=== PATIENT | female | born 1945 | race Caucasian/White ===

== ENCOUNTER → 2016-10-11 | Outpatient (CLI) | payer MEDICARE, OTHER ==
[2016-10-11 10:11] LABS: Appearance,Urine Clear (Clear); Bacteria,Urine Many /hpf; Bilirubin,Urine Negative (Negative); Glucose,Urine (UA) Negative (Negative); Ketones,Urine Negative (Negative); Leukocyte Esterase,Urine Small (Negative); Mucus,Urine Rare /hpf; Nitrite,Urine Positive (Negative); Particle Count 20306; Protein,Urine Trace (Negative); RBC,Urine 1 /hpf (0-5); Specific Gravity,Urine 1.009 (1.001-1.035); UA Billing (MACRO vs. MICRO) MICRO; Urobilinogen,Urine <2.0 mg/dL (<2.0); WBC,Urine 2 /hpf (0-5)
[2016-10-11 10:31] LABS: CH 31.2; CHCM 31.6; HCT 33.6 % (34.0-46.0); HDW 2.31; HGB 10.7 gm/dL (11.4-16.0); MCH 31.7 pg (25.0-35.0); MCHC 31.9 g/dL (31.0-37.0); MCV 99.2 fL (80.0-100.0); Mean Platelet Volume 7.5; RBC 3.39 m/uL (3.80-5.40); RDW 13.8 % (11.5-15.5); WBC 7.4 k/uL (3.8-10.6)
[2016-10-11 13:08] LABS: Calcium 9.1 mg/dL (8.4-10.2); Potassium 4.7 mmol/L (3.5-5.1); Uric Acid 6.9 mg/dL (3.7-7.4)
== END | disposition home or self-care (01) ==
LOC: LABWHC1 09:08
PROVIDERS: ATTEND Nurse Practitioner Family
DX: D63.1 Anemia in chronic kidney disease (principal); N18.3 Chronic kidney disease, stage 3 (moderate); N25.81 Secondary hyperparathyroidism of renal origin; N39.0 Urinary tract infection, site not specified
CPT/HCPCS: 36415; 80048; 81001; 82306; 82728; 83540; 83550; 83970; 84550; 85027

== ENCOUNTER → 2016-10-17 | Outpatient (CLI) | payer MEDICARE, OTHER ==
--- NOTE | 2016-10-17 17:43 | XR ---
EXAMINATION TYPE: XR chest 2V DATE OF EXAM: 10/17/2016 2:21 PM COMPARISON: 04/11/2011 HISTORY: 71 year-old female chronic kidney disease, wheezing sounds on physical exam today TECHNIQUE: Frontal and lateral views FINDINGS: Heart appears borderline enlarged. Left anterior chest wall pacemaker generator with right atrial and right ventricular leads. Mild diffuse interstitial prominence. No consolidation or pleural effusion. IMPRESSION: 1. Borderline cardiomegaly. 2. Interstitial prominence could reflect bronchitis or chronic asthma. No pleural effusion.
== END ==
LOC: RADXRMAIN 14:01
PROVIDERS: ATTEND Nurse Practitioner Family
DX: N18.3 Chronic kidney disease, stage 3 (moderate) (principal); I51.7 Cardiomegaly
CPT/HCPCS: 71020

== ENCOUNTER → 2016-11-16 | Outpatient (CLI) | payer MEDICARE, OTHER ==
[2016-11-16 13:07] LABS: Hemoglobin A1C 8.1 % (4.2-6.1)
== END ==
LOC: LABWHC1 08:24
PROVIDERS: ATTEND Internal Medicine
DX: E11.22 Type 2 diabetes mellitus with diabetic chronic kidney disease (principal); N18.4 Chronic kidney disease, stage 4 (severe); E03.9 Hypothyroidism, unspecified
CPT/HCPCS: 36415; 82947; 83036; 84432; 84439; 84443; 86376; 86800

== ENCOUNTER → 2017-01-03 | Outpatient (CLI) | payer MEDICARE, OTHER ==
[2017-01-03 09:46] LABS: CH 31.3; HCT 36.8 % (34.0-46.0); HGB 11.6 gm/dL (11.4-16.0); MCH 30.9 pg (25.0-35.0); MCHC 31.4 g/dL (31.0-37.0); MCV 98.3 fL (80.0-100.0); Mean Platelet Volume 7.5; RBC 3.74 m/uL (3.80-5.40); RDW 13.7 % (11.5-15.5); WBC 7.9 k/uL (3.8-10.6)
[2017-01-03 10:39] LABS: Appearance,Urine Cloudy (Clear); Bacteria,Urine Rare /hpf; Bilirubin,Urine Negative (Negative); Glucose,Urine (UA) Negative (Negative); Ketones,Urine Negative (Negative); Leukocyte Esterase,Urine Small (Negative); Mucus,Urine Rare /hpf; Nitrite,Urine Negative (Negative); Particle Count 57509; Protein,Urine Trace (Negative); RBC,Urine <1 /hpf (0-5); Specific Gravity,Urine 1.007 (1.001-1.035); Squamous Epithelial Cell,Urine <1 /hpf (0-4); UA Billing (MACRO vs. MICRO) MICRO; Urobilinogen,Urine <2.0 mg/dL (<2.0); WBC,Urine 16 /hpf (0-5)
[2017-01-03 11:56] LABS: Calcium 9.5 mg/dL (8.4-10.2); Magnesium 1.7 mg/dL (1.6-2.3); Potassium 4.6 mmol/L (3.5-5.1); Uric Acid 8.8 mg/dL (3.7-7.4)
[2017-01-03 12:12] LABS: % Iron Saturation 29.1 % (20-50)
[2017-01-03 12:33] LABS: Hemoglobin A1C 7.6 % (4.2-6.1)
== END | disposition home or self-care (01) ==
LOC: LABWHC1 09:12
PROVIDERS: ATTEND Nurse Practitioner Family
DX: E11.22 Type 2 diabetes mellitus with diabetic chronic kidney disease (principal); E03.9 Hypothyroidism, unspecified; N18.3 Chronic kidney disease, stage 3 (moderate); D63.1 Anemia in chronic kidney disease; N25.81 Secondary hyperparathyroidism of renal origin; N39.0 Urinary tract infection, site not specified; M10.9 Gout, unspecified; R80.9 Proteinuria, unspecified; E04.2 Nontoxic multinodular goiter
CPT/HCPCS: 36415; 80048; 81001; 82043; 82306; 82728; 83036; 83540; 83550; 83735; 83970; 84439; 84443; 84481; 84550; 85027

== ENCOUNTER → 2017-04-27 | Outpatient (CLI) | payer MEDICARE, OTHER ==
[2017-04-27 10:28] LABS: Calcium 9.7 mg/dL (8.4-10.2); Potassium 5.1 mmol/L (3.5-5.1)
[2017-04-27 14:03] LABS: Hemoglobin A1C 8.8 % (4.2-6.1)
== END | disposition home or self-care (01) ==
LOC: LABWHC1 09:16
PROVIDERS: ATTEND Internal Medicine
DX: E55.9 Vitamin D deficiency, unspecified (principal); E03.9 Hypothyroidism, unspecified; I10 Essential (primary) hypertension; E11.9 Type 2 diabetes mellitus without complications; E66.9 Obesity, unspecified
CPT/HCPCS: 36415; 80048; 82306; 83036; 84439; 84443

== ENCOUNTER → 2017-08-22 | Outpatient (CLI) | payer MEDICARE, OTHER ==
[2017-08-22 10:10] LABS: Basophils % (A) 0 %; Eosinophils # (A) 0.2 k/uL (0-0.7); Eosinophils % (A) 2 %; HCT 33.4 % (34.0-46.0); HGB 10.4 gm/dL (11.4-16.0); Lymphocytes # (A) 1.5 k/uL (1.0-4.8); Lymphocytes % (A) 21 %; MCH 30.9 pg (25.0-35.0); MCHC 31.3 g/dL (31.0-37.0); MCV 98.9 fL (80.0-100.0); Mean Platelet Volume 7.7; Monocytes # (A) 0.4 k/uL (0-1.0); Monocytes % (A) 6 %; Neutrophils # (A) 4.9 k/uL (1.3-7.7); Neutrophils % (A) 69 %; Platelet Count 251 k/uL (150-450); RBC 3.37 m/uL (3.80-5.40); RDW 13.4 % (11.5-15.5); WBC 7.1 k/uL (3.8-10.6)
[2017-08-22 10:14] LABS: Appearance,Urine Clear (Clear); Bilirubin,Urine Negative (Negative); Blood,Urine Negative (Negative); Color,Urine Light Yellow; Glucose,Urine (UA) Negative (Negative); Ketones,Urine Negative (Negative); Leukocyte Esterase,Urine Negative (Negative); Nitrite,Urine Negative (Negative); PH, Urine 5.5 (5.0-8.0); Protein,Urine Trace (Negative); Specific Gravity,Urine 1.006 (1.001-1.035); Urobilinogen,Urine <2.0 mg/dL (<2.0)
[2017-08-22 10:18] LABS: Albumin 3.5 g/dL (3.5-5.0); Calcium 9.8 mg/dL (8.4-10.2); Magnesium 1.6 mg/dL (1.6-2.3); Phosphorus 3.8 mg/dL (2.5-4.5); Potassium 5.7 mmol/L (3.5-5.1); Uric Acid 5.8 mg/dL (3.7-7.4)
[2017-08-22 16:07] LABS: Iron Saturation 21.72 (12.00-45.00)
[2017-08-22 16:17] LABS: Vitamin D 25 Hydroxy 24.4 ng/mL (30.0-100.0)
[2017-08-22 18:41] LABS: Hemoglobin A1C 7.2 % (4.0-6.0)
== END | disposition home or self-care (01) ==
LOC: LABWHC1 09:07
PROVIDERS: ATTEND Internal Medicine Nephrology
DX: E55.9 Vitamin D deficiency, unspecified (principal); D50.9 Iron deficiency anemia, unspecified; N18.4 Chronic kidney disease, stage 4 (severe); E11.22 Type 2 diabetes mellitus with diabetic chronic kidney disease; M10.9 Gout, unspecified; N25.81 Secondary hyperparathyroidism of renal origin; N39.0 Urinary tract infection, site not specified
CPT/HCPCS: 36415; 80048; 81003; 82040; 82306; 82728; 83036; 83540; 83550; 83735; 83970; 84100; 84550; 85025

== ENCOUNTER → 2017-09-26 | Outpatient (CLI) | payer MEDICARE, OTHER ==
[2017-09-26 13:23] LABS: Basophils % (A) 0 %; Eosinophils # (A) 0.2 k/uL (0-0.7); Eosinophils % (A) 2 %; HGB 10.9 gm/dL (11.4-16.0); Lymphocytes # (A) 1.6 k/uL (1.0-4.8); Lymphocytes % (A) 21 %; MCH 30.3 pg (25.0-35.0); MCHC 31.1 g/dL (31.0-37.0); MCV 97.6 fL (80.0-100.0); Mean Platelet Volume 7.8; Monocytes # (A) 0.4 k/uL (0-1.0); Monocytes % (A) 5 %; Neutrophils # (A) 5.2 k/uL (1.3-7.7); Neutrophils % (A) 70 %; Platelet Count 259 k/uL (150-450); RBC 3.59 m/uL (3.80-5.40); RDW 13.6 % (11.5-15.5); WBC 7.5 k/uL (3.8-10.6)
[2017-09-26 13:35] LABS: Calcium 9.4 mg/dL (8.4-10.2); Potassium 5.1 mmol/L (3.5-5.1)
== END | disposition home or self-care (01) ==
LOC: LABWHC1 13:01
PROVIDERS: ATTEND Internal Medicine
DX: E11.9 Type 2 diabetes mellitus without complications (principal); E87.5 Hyperkalemia; K04.7 Periapical abscess without sinus
CPT/HCPCS: 36415; 80048; 85025

== ENCOUNTER → 2018-01-24 | Outpatient (CLI) | payer MEDICARE, OTHER ==
[2018-01-24 14:42] LABS: Albumin 3.3 g/dL (3.5-5.0); Calcium 9.1 mg/dL (8.4-10.2); Potassium 5.8 mmol/L (3.5-5.1); Total Bilirubin 0.2 mg/dL (0.2-1.3); Total Protein 5.8 g/dL (6.3-8.2)
== END | disposition home or self-care (01) ==
LOC: LABWHC1 13:29
PROVIDERS: ATTEND Internal Medicine
DX: I10 Essential (primary) hypertension (principal); N39.0 Urinary tract infection, site not specified; E87.8 Other disorders of electrolyte and fluid balance, not elsewhere classified
CPT/HCPCS: 36415; 80053

== ENCOUNTER → 2018-01-30 | Outpatient (CLI) | payer MEDICARE, OTHER ==
--- NOTE | 2018-01-30 17:44 | US ---
EXAMINATION TYPE: US kidneys/renal and bladder DATE OF EXAM: 01/30/2018 COMPARISON: US CLINICAL HISTORY: N18.4 CKD. EXAM MEASUREMENTS: Right Kidney: 9.6 x 4.0 x 5.1 cm Left Kidney: 11.9 x 4.3 x 4.3 cm Right Kidney: No hydronephrosis or masses seen Left Kidney: No hydronephrosis or masses seen Bladder: wnl Bilateral Jets seen: Yes IMPRESSION: No evidence of renal mass or obstruction. No significant renal atrophy.
== END | disposition home or self-care (01) ==
LOC: RADUSWWP 16:16
PROVIDERS: ATTEND Internal Medicine Nephrology
DX: N18.4 Chronic kidney disease, stage 4 (severe) (principal)
CPT/HCPCS: 76770

== ENCOUNTER → 2018-05-14 | Outpatient (CLI) | payer MEDICARE, OTHER ==
[2018-05-14 11:58] LABS: Basophils % (A) 0 %; Eosinophils # (A) 0.2 k/uL (0-0.7); Eosinophils % (A) 2 %; HCT 34.7 % (34.0-46.0); HGB 10.7 gm/dL (11.4-16.0); Lymphocytes # (A) 1.2 k/uL (1.0-4.8); Lymphocytes % (A) 16 %; MCV 96.9 fL (80.0-100.0); Mean Platelet Volume 7.7; Monocytes # (A) 0.4 k/uL (0-1.0); Monocytes % (A) 5 %; Neutrophils # (A) 5.6 k/uL (1.3-7.7); Neutrophils % (A) 75 %; Platelet Count 241 k/uL (150-450); RBC 3.58 m/uL (3.80-5.40); RDW 14.1 % (11.5-15.5); WBC 7.4 k/uL (3.8-10.6)
[2018-05-14 12:54] LABS: Albumin 3.2 g/dL (3.5-5.0); C Reactive Protein 6.8 mg/L (<10.0); Calcium 9.2 mg/dL (8.4-10.2); Magnesium 1.5 mg/dL (1.6-2.3); Phosphorus 4.6 mg/dL (2.5-4.5); Potassium 5.1 mmol/L (3.5-5.1); Total Bilirubin 0.3 mg/dL (0.2-1.3); Total Protein 6.3 g/dL (6.3-8.2)
[2018-05-14 13:06] LABS: T4, Free (Free Thyroxine) 1.21 ng/dL (0.78-2.19)
[2018-05-14 16:48] LABS: Iron Saturation 28.06 (12.00-45.00)
[2018-05-14 18:20] LABS: Parathyroid Hormone Intact 175.7 pg/mL (14.0-72.0)
[2018-05-14 19:11] LABS: Hemoglobin A1C 8.5 % (4.0-6.0)
== END | disposition home or self-care (01) ==
LOC: LABWHC1 10:28
PROVIDERS: ATTEND Internal Medicine
DX: E11.22 Type 2 diabetes mellitus with diabetic chronic kidney disease (principal); N18.3 Chronic kidney disease, stage 3 (moderate); D63.1 Anemia in chronic kidney disease; E78.5 Hyperlipidemia, unspecified; E21.3 Hyperparathyroidism, unspecified; E03.9 Hypothyroidism, unspecified; E66.9 Obesity, unspecified; E55.9 Vitamin D deficiency, unspecified; M81.0 Age-related osteoporosis without current pathological fracture; M19.90 Unspecified osteoarthritis, unspecified site
CPT/HCPCS: 36415; 80053; 80061; 82306; 82550; 82728; 83036; 83540; 83550; 83735; 83970; 84100; 84439; 84443; 84550; 85025; 86140

== ENCOUNTER → 2018-10-15 | Outpatient (CLI) | payer MEDICARE, OTHER ==
[2018-10-15 10:19] LABS: Basophils % (A) 0 %; Eosinophils # (A) 0.1 k/uL (0-0.7); Eosinophils % (A) 1 %; HCT 33.7 % (34.0-46.0); HGB 10.8 gm/dL (11.4-16.0); Lymphocytes # (A) 0.9 k/uL (1.0-4.8); Lymphocytes % (A) 8 %; MCH 31.3 pg (25.0-35.0); MCHC 32.1 g/dL (31.0-37.0); MCV 97.4 fL (80.0-100.0); Mean Platelet Volume 7.5; Monocytes # (A) 0.6 k/uL (0-1.0); Monocytes % (A) 5 %; Neutrophils # (A) 9.5 k/uL (1.3-7.7); Neutrophils % (A) 85 %; Platelet Count 293 k/uL (150-450); RBC 3.46 m/uL (3.80-5.40); RDW 13.9 % (11.5-15.5); WBC 11.3 k/uL (3.8-10.6)
[2018-10-15 13:09] LABS: Erythrocyte Sedimentation Rate 94 mm/hr (0-20)
[2018-10-15 17:34] LABS: Albumin 3.7 g/dL (3.80-4.90); Albumin/Globulin Ratio 1.54 (1.60-3.17); Anion Gap 8.3 mmol/L (4.00-12.00); C Reactive Protein 1.2 mg/dL (0.0-0.8); Calcium 9.1 mg/dL (8.7-10.3); Carbon Dioxide 27.7 mmol/L (21.6-31.8); Globulin 2.4 g/dL (1.6-3.3); LDL Cholesterol,Calculated 57.4 mg/dL (0.0-131.0); Magnesium 1.8 mg/dL (1.5-2.4); Potassium 5.8 mmol/L (3.5-5.5); Total Bilirubin 0.3 mg/dL (0.3-1.2); Total Protein 6.1 g/dL (6.2-8.2); Uric Acid 6.5 mg/dL (2.9-7.7); VLDL Calculation 17.6 mg/dL (5.00-40.00)
[2018-10-15 19:08] LABS: Hemoglobin A1C 9.8 % (4.0-6.0)
== END | disposition home or self-care (01) ==
LOC: LABWHC1 09:13
PROVIDERS: ATTEND Internal Medicine
DX: E78.5 Hyperlipidemia, unspecified (principal); E03.9 Hypothyroidism, unspecified; I10 Essential (primary) hypertension; E55.9 Vitamin D deficiency, unspecified; E66.9 Obesity, unspecified; D64.9 Anemia, unspecified; J44.9 Chronic obstructive pulmonary disease, unspecified
CPT/HCPCS: 36415; 80053; 80061; 82550; 83036; 83735; 83970; 84100; 84443; 84550; 85025; 85652; 86140

== ENCOUNTER → 2018-10-22 | Outpatient (CLI) | payer MEDICARE, OTHER ==
[2018-10-22 16:25] LABS: Anion Gap 7.5 mmol/L (4.00-12.00); Calcium 9.4 mg/dL (8.7-10.3); Carbon Dioxide 30.5 mmol/L (21.6-31.8); Potassium 4.9 mmol/L (3.5-5.5)
== END | disposition home or self-care (01) ==
LOC: LABWHC1 09:19
PROVIDERS: ATTEND Internal Medicine
DX: E87.5 Hyperkalemia (principal)
CPT/HCPCS: 36415; 80048

== ENCOUNTER → 2018-11-01 | Outpatient (CLI) | payer MEDICARE, OTHER ==
[2018-11-01 09:20] LABS: Basophils % (A) 1 %; Eosinophils # (A) 0.2 k/uL (0-0.7); Eosinophils % (A) 2 %; HCT 35.4 % (34.0-46.0); HGB 11.3 gm/dL (11.4-16.0); Lymphocytes # (A) 1.4 k/uL (1.0-4.8); Lymphocytes % (A) 20 %; MCH 31.2 pg (25.0-35.0); MCV 97.5 fL (80.0-100.0); Mean Platelet Volume 6.7; Monocytes # (A) 0.3 k/uL (0-1.0); Monocytes % (A) 5 %; Neutrophils # (A) 5.2 k/uL (1.3-7.7); Neutrophils % (A) 72 %; Platelet Count 329 k/uL (150-450); RBC 3.63 m/uL (3.80-5.40); WBC 7.2 k/uL (3.8-10.6)
[2018-11-01 09:27] LABS: Appearance,Urine Clear (Clear); Bilirubin,Urine Negative (Negative); Blood,Urine Negative (Negative); Color,Urine Light Yellow; Glucose,Urine (UA) Negative (Negative); Ketones,Urine Negative (Negative); Leukocyte Esterase,Urine Negative (Negative); Nitrite,Urine Negative (Negative); PH, Urine 5.5 (5.0-8.0); Protein,Urine Negative (Negative); Specific Gravity,Urine 1.007 (1.001-1.035); Urobilinogen,Urine <2.0 mg/dL (<2.0)
[2018-11-01 16:37] LABS: Iron Saturation 27.07 (12.00-45.00)
[2018-11-01 16:46] LABS: Vitamin D 25 Hydroxy 54.5 ng/mL (30.0-100.0)
[2018-11-01 16:59] LABS: Anion Gap 3.6 mmol/L (4.00-12.00); Calcium 9.3 mg/dL (8.7-10.3); Carbon Dioxide 26.4 mmol/L (21.6-31.8); Magnesium 1.6 mg/dL (1.5-2.4); Uric Acid 6.3 mg/dL (2.9-7.7)
== END | disposition home or self-care (01) ==
LOC: LABWHC1 08:28
PROVIDERS: ATTEND Internal Medicine Nephrology
DX: E55.9 Vitamin D deficiency, unspecified (principal); N39.0 Urinary tract infection, site not specified; N18.4 Chronic kidney disease, stage 4 (severe); D63.1 Anemia in chronic kidney disease; N25.81 Secondary hyperparathyroidism of renal origin; M10.9 Gout, unspecified
CPT/HCPCS: 36415; 80048; 81003; 82306; 82728; 83540; 83550; 83735; 83970; 84100; 84550; 85025

== ENCOUNTER → 2018-12-31 | Outpatient (CLI) | payer MEDICARE, OTHER ==
[2018-12-31 18:47] LABS: Calcium 9.2 mg/dL (8.7-10.3); Potassium 5.2 mmol/L (3.5-5.5)
== END | disposition home or self-care (01) ==
LOC: LABWHC1 09:57
PROVIDERS: ATTEND Internal Medicine
DX: E87.5 Hyperkalemia (principal)
CPT/HCPCS: 36415; 80048

== ENCOUNTER → 2019-04-02 | Outpatient (CLI) | payer MEDICARE, OTHER ==
[2019-04-02 16:36] LABS: African American GFR (CKD) 25.1 (60.0-200.0); Anion Gap 8.4 mmol/L (4.00-12.00); BUN/Creat Ratio 21.82 Ratio (12.00-20.00); Carbon Dioxide 24.6 mmol/L (21.6-31.8); Magnesium 1.6 mg/dL (1.5-2.4); Non-African American GFR(CKD) 21.7 (60.0-200.0); Phosphorus 3.9 mg/dL (2.4-5.1); Potassium 4.9 mmol/L (3.5-5.5); Uric Acid 6.9 mg/dL (2.9-7.7)
[2019-04-02 17:29] LABS: Hemoglobin A1C 10.9 % (4.0-6.0)
== END | disposition home or self-care (01) ==
LOC: LABWHC1 09:21
PROVIDERS: ATTEND Internal Medicine
DX: E11.65 Type 2 diabetes mellitus with hyperglycemia (principal); N18.4 Chronic kidney disease, stage 4 (severe); E11.9 Type 2 diabetes mellitus without complications
CPT/HCPCS: 36415; 80048; 83036; 83735; 83970; 84100; 84550

== ENCOUNTER → 2019-07-15 | Outpatient (CLI) | payer MEDICARE, OTHER ==
[2019-07-15 16:16] LABS: Chol/HDL Ratio 2.17; LDL Cholesterol,Calculated 48.8 mg/dL (0.0-131.0); VLDL Calculation 13.2 mg/dL (5.00-40.00)
[2019-07-15 18:50] LABS: Hemoglobin A1C 11.1 % (4.0-6.0)
== END | disposition home or self-care (01) ==
LOC: LABWHC1 09:26
PROVIDERS: ATTEND Internal Medicine Endocrinology, Diabetes & Metabolism
DX: E03.8 Other specified hypothyroidism (principal); E11.65 Type 2 diabetes mellitus with hyperglycemia
CPT/HCPCS: 36415; 80061; 83036; 84443

== ENCOUNTER → 2019-09-02 | Outpatient (CLI) | payer MEDICARE, OTHER ==
[2019-09-02 10:56] LABS: Basophils # (A) 0.2 k/uL (0-0.2); Basophils % (A) 2 %; Eosinophils # (A) 0.1 k/uL (0-0.7); Eosinophils % (A) 1 %; HCT 38.2 % (34.0-46.0); HGB 12.3 gm/dL (11.4-16.0); Lymphocytes # (A) 1.6 k/uL (1.0-4.8); Lymphocytes % (A) 20 %; MCH 31.5 pg (25.0-35.0); MCHC 32.1 g/dL (31.0-37.0); MCV 98.1 fL (80.0-100.0); Mean Platelet Volume 8.1; Monocytes # (A) 0.4 k/uL (0-1.0); Monocytes % (A) 5 %; Neutrophils # (A) 5.8 k/uL (1.3-7.7); Neutrophils % (A) 71 %; Platelet Count 346 k/uL (150-450); RBC 3.89 m/uL (3.80-5.40); RDW 13.2 % (11.5-15.5); WBC 8.2 k/uL (3.8-10.6)
[2019-09-02 11:38] LABS: Appearance,Urine Cloudy (Clear); Bacteria,Urine Occasional /hpf; Bilirubin,Urine Negative (Negative); Blood,Urine Negative (Negative); Budding Yeast,Urine Few /hpf; Color,Urine Yellow; Glucose,Urine (UA) Negative (Negative); Hyaline Casts,Urine 4 /lpf (0-2); Ketones,Urine Negative (Negative); Leukocyte Esterase,Urine Large (Negative); Mucus,Urine Rare /hpf; Nitrite,Urine Positive (Negative); PH, Urine 5.5 (5.0-8.0); Protein,Urine Trace (Negative); RBC,Urine 2 /hpf (0-5); Specific Gravity,Urine 1.012 (1.001-1.035); Squamous Epithelial Cell,Urine 7 /hpf (0-4); Urobilinogen,Urine <2.0 mg/dL (<2.0); WBC,Urine 129 /hpf (0-5)
[2019-09-02 14:34] LABS: Erythrocyte Sedimentation Rate 90 mm/hr (0-20)
[2019-09-02 16:22] LABS: Urine Creatinine 98.5 mg/dL
[2019-09-02 16:26] LABS: Hemoglobin A1C 10.4 % (4.0-6.0)
[2019-09-02 16:52] LABS: Albumin 3.5 g/dL (3.80-4.90); Albumin/Globulin Ratio 1.52 (1.60-3.17); BUN/Creat Ratio 19.55 Ratio (12.00-20.00); C Reactive Protein 1.5 mg/dL (0.0-0.8); Calcium 9.1 mg/dL (8.7-10.3); Chol/HDL Ratio 2.07; Globulin 2.3 g/dL (1.6-3.3); Magnesium 1.6 mg/dL (1.5-2.4); Non-African American GFR(CKD) 21.5 (60.0-200.0); Phosphorus 4.1 mg/dL (2.4-5.1); Potassium 5.2 mmol/L (3.5-5.5); Total Bilirubin 0.2 mg/dL (0.3-1.2); Total Protein 5.8 g/dL (6.2-8.2)
[2019-09-02 17:05] LABS: Creatinine,Urine Random 99.4 mg/dL
[2019-09-02 18:05] LABS: Total Protein,Urine Random 30.9 mg/dL (0.0-13.5)
== END | disposition home or self-care (01) ==
LOC: LABWHC1 09:23
PROVIDERS: ATTEND Internal Medicine
DX: Z00.00 Encounter for general adult medical examination without abnormal findings (principal); D64.9 Anemia, unspecified; E11.22 Type 2 diabetes mellitus with diabetic chronic kidney disease; N18.4 Chronic kidney disease, stage 4 (severe); E21.3 Hyperparathyroidism, unspecified; N39.0 Urinary tract infection, site not specified; E11.40 Type 2 diabetes mellitus with diabetic neuropathy, unspecified
CPT/HCPCS: 36415; 80053; 80061; 81001; 82043; 82550; 82570; 83036; 83735; 83970; 84100; 84156; 84443; 85025; 85652; 86140

== ENCOUNTER 2019-12-13 14:42 | Emergency (ER) | payer MEDICARE, OTHER ==
[2019-12-13 14:54] VITALS: RESP 18; TEMP 98
[2019-12-13] MEDS ORDERED: LIDOCAINE 1% INJ 10MG/ML (20 ML MDV) SQ ONE (15:26)
[2019-12-13] MEDS ORDERED: DIPH,PERTUS(ACELL)TETVAC-LF 0.5 ML VIAL IM ONE (15:30)
--- NOTE | 2019-12-13 15:43 | XR ---
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 Small to moderate-sized plantar calcaneal spur. Vascular calcifications are present. No convinc ing retained radiopaque foreign body material seen especially along the plantar arch of the foot. IMPRESSION: 1. No convincing retained radiopaque foreign body identified along the plantar aspect of the foot. 2. A type II accessory navicular which can become symptomatically in some patients. Plantar calcaneal spur.
--- NOTE | 2019-12-13 16:34 | ED ---
Wound/Laceration HPI - General Chief Complaint: Wound/Laceration Stated Complaint: RT foot lac Time Seen by Provider: 12/13/19 14:59 Source: patient Mode of arrival: ambulatory Limitations: no limitations - History of Present Illness Initial Comments: Patient is a 74-year-old female presenting to the emergency Department with complaints of a laceration on the bottom of her right foot. Patient states she accidentally dropped a glass and it broke and she stepped on it. Patient does not remember her last tetanus vaccine. She denies being on a blood thinner. She states she did pull a rather large piece of glass her foot and does not think there is any more pieces and there. She is no other complaints at this time. - Related Data Home Medications Medication Instructions Recorded Confirmed Allopurinol [Zyloprim] 100 mg PO BID 03/23/14 12/17/15 Aspirin 81 mg PO DAILY 03/23/14 12/15/15 Carvedilol 25 mg PO BID 03/23/14 12/17/15 Gabapentin [Neurontin] 300 mg PO BID 03/23/14 12/17/15 INSULIN ASPART (NovoLOG) [NovoLOG] 5 unit SQ W/SUPPER PRN 03/23/14 12/17/15 Insulin Detemir (Levemir) [Levemir] 20 unit SQ HS 03/23/14 12/17/15 NIFEdipine [Adalat cc] 90 mg PO QAM 03/23/14 12/17/15 Oxybutynin Chloride [Ditropan] 5 mg PO BID 03/23/14 12/17/15 hydrALAZINE HCL 25 mg PO TID 03/23/14 12/17/15 Atorvastatin [Lipitor] 20 mg PO HS 05/10/15 12/17/15 Calcitriol 0.25 mcg PO Q2D 12/15/15 12/17/15 Furosemide [Lasix] 40 mg PO DAILY 12/15/15 12/17/15 HYDROcodone/APAP 5-325MG [[place] 0.5 tab PO DAILY PRN 12/15/15 12/17/15 5-325] Ranitidine HCl [Zantac] 150 mg PO BID 12/15/15 12/17/15 Allergies Allergy/AdvReac Type Severity Reaction Status Date / Time No Known Allergies Allergy Verified 12/13/19 14:54 Review of Systems ROS Statement: Those systems with pertinent positive or pertinent negative responses have been documented in the HPI. ROS Other: All systems not noted in ROS Statement are negative. Past Medical History Past Medical History: Diabetes Mellitus, GERD/Reflux, Hypertension, Renal Disease Additional Past Medical History / Comment(s): Anemia. History of Any Multi-Drug Resistant Organisms: None Reported Past Surgical History: Bladder Surgery, Section, Heart Catheterization, Hernia Repair, Orthopedic Surgery, Pacemaker Additional Past Surgical History / Comment(s): Large hernia repair after a section Past Anesthesia/Blood Transfusion Reactions: No Reported Reaction Type of Cardiac Device: Permanent Pacemaker Device Placement Date:: February 2005 Smoking Status: Never smoker Past Alcohol Use History: None Reported Past Drug Use History: None Reported - Past Family History Mother Family Medical History: Cancer, Myocardial Infarction ([place]) Additional Family Medical History / Comment(s): breast Father History Unknown: Yes Sister(s) Family Medical History: Cancer Additional Family Medical History / Comment(s): breast General Exam - General Exam Comments Initial Comments: GENERAL: Well-appearing, well-nourished and in no acute distress. HEAD: Atraumatic, normocephalic. EYES: Pupils equal round and reactive to light, extraocular movements intact, sclera anicteric, conjunctiva are normal. ENT: Moist mucous membranes. NECK: Normal range of motion, supple without lymphadenopathy or JVD. LUNGS: Breath sounds clear to auscultation bilaterally and equal. No wheezes rales or rhonchi. HEART: Regular rate and rhythm without murmurs, rubs or gallops. ABDOMEN: Soft, nontender, normoactive bowel sounds. No guarding, no rebound. No masses appreciated. : Deferred EXTREMITIES: Normal range of motion, no pitting or edema. No clubbing or cyanosis. NEUROLOGICAL: Normal speech, normal gait. PSYCH: Normal mood, normal affect. SKIN: Warm, Dry, normal turgor, no rashes. Patient has a 2 cm laceration to the bottom of her right foot. Bleeding is controlled at this time. Limitations: no limitations Course Vital Signs 12/13/19 12/13/19 14:50 16:37 Temperature 98 F Pulse Rate 69 81 Respiratory 18 18 Rate Blood Pressure 113/72 136/74 O2 Sat by Pulse 97 99 Oximetry Procedures - Laceration Laceration #1 Consent Obtained: verbal consent Indication: laceration Site: foot (Bottom of right foot) Size (cm): 2 Description: linear Depth: simple, single layer Anesthetic Used: lidocaine 1% Anesthesia Technique: local infiltration Amount (mls): 3 Pre-repair: irrigated extensively Type of Sutures: nylon Size of Sutures: 4-0 Number of Sutures: 2 Technique: simple, interrupted Patient Tolerated Procedure: well Medical Decision Making - Medical Decision Making Patient is a 74-year-old female presenting with a 2 cm laceration to the bottom of her right foot. Her tetanus vaccine was updated today. She is not on blood thinners. Patient's wound was cleaned and closed with 2, 4-0 sutures. Patient tolerated procedure well. She is stable for discharge. She will have sutures removed in 7-10 days. Patient is a this plan of care. Return parameters were discussed the patient she verbalized understanding. Disposition Clinical Impression: Laceration of right foot Disposition: HOME SELF-CARE Condition: Stable Instructions (If sedation given, give patient instructions): Care For Your Stitches (ED) Additional Instructions: Please return to the Emergency Department if symptoms worsen or any other concerns. Keep wound clean and dry. Keep covered while on feet. Stitches need to be removed in 7-10 days. Is patient prescribed a controlled substance at d/c from ED?: No Referrals: Kwan Gordon MD [Primary Care Provider] - 1-2 days
[2019-12-13 16:39] VITALS: BP 136/74; PULSE 81
== END 2019-12-13 16:37 | disposition home or self-care (01) ==
LOC: EC 14:42
DX: S91.311A Laceration without foreign body, right foot, initial encounter (principal); Z23 Encounter for immunization; E11.9 Type 2 diabetes mellitus without complications; I10 Essential (primary) hypertension; K21.9 Gastro-esophageal reflux disease without esophagitis; Z79.82 Long term (current) use of aspirin; Z79.02 Long term (current) use of antithrombotics/antiplatelets; Z79.4 Long term (current) use of insulin; Z79.899 Other long term (current) drug therapy; Z95.0 Presence of cardiac pacemaker; W25.XXXA Contact with sharp glass, initial encounter
CPT/HCPCS: 73620; 90715; 99283; 12001; 90471; J2001

== ENCOUNTER 2020-02-17 14:53 | Emergency (ER) | payer MEDICARE, OTHER ==
[2020-02-17 15:09] VITALS: RESP 18
[2020-02-17] MEDS ORDERED: Acetaminophen-Codeine 300-30mg TAB PO STA (15:27)
--- NOTE | 2020-02-17 15:30 | ED ---
General Adult HPI - General Chief complaint: Extremity Injury, Lower Stated complaint: knee pain Time Seen by Provider: 02/17/20 15:10 Source: patient, RN notes reviewed Mode of arrival: ambulatory Limitations: no limitations - History of Present Illness Initial comments: 74-year-old female with a past medical history of diabetes mellitus, anemia, hypertension, GERD presents to the emergency department for a chief complaint of left knee pain. Patient states she was getting up off the toilet approximately 8 hours ago when her foot slipped out from under her and she felt the pain in her left knee. States she has been able to walk on it but it is painful. Denies dislocating her knee. Denies falling onto a bent knee. Denies hitting her head or falling to the ground.Patient has no other complaints at this time including shortness of breath, chest pain, abdominal pain, nausea or vomiting, headache, or visual changes. - Related Data Home Medications Medication Instructions Recorded Confirmed Allopurinol [Zyloprim] 100 mg PO BID 03/23/14 12/17/15 Aspirin 81 mg PO DAILY 03/23/14 12/15/15 Carvedilol 25 mg PO BID 03/23/14 12/17/15 Gabapentin [Neurontin] 300 mg PO BID 03/23/14 12/17/15 INSULIN ASPART (NovoLOG) [NovoLOG] 5 unit SQ W/SUPPER PRN 03/23/14 12/17/15 Insulin Detemir (Levemir) [Levemir] 20 unit SQ HS 03/23/14 12/17/15 NIFEdipine [Adalat cc] 90 mg PO QAM 03/23/14 12/17/15 Oxybutynin Chloride [Ditropan] 5 mg PO BID 03/23/14 12/17/15 hydrALAZINE HCL 25 mg PO TID 03/23/14 12/17/15 Atorvastatin [Lipitor] 20 mg PO HS 05/10/15 12/17/15 Calcitriol 0.25 mcg PO Q2D 12/15/15 12/17/15 Furosemide [Lasix] 40 mg PO DAILY 12/15/15 12/17/15 HYDROcodone/APAP 5-325MG [[place] 0.5 tab PO DAILY PRN 12/15/15 12/17/15 5-325] Ranitidine HCl [Zantac] 150 mg PO BID 12/15/15 12/17/15 Allergies Allergy/AdvReac Type Severity Reaction Status Date / Time No Known Allergies Allergy Verified 02/17/20 15:09 Review of Systems ROS Statement: Those systems with pertinent positive or pertinent negative responses have been documented in the HPI. ROS Other: All systems not noted in ROS Statement are negative. Past Medical History Past Medical History: Diabetes Mellitus, GERD/Reflux, Hypertension, Renal Disease Additional Past Medical History / Comment(s): Anemia. History of Any Multi-Drug Resistant Organisms: None Reported Past Surgical History: Bladder Surgery, Section, Heart Catheterization, Hernia Repair, Orthopedic Surgery, Pacemaker Additional Past Surgical History / Comment(s): Large hernia repair after a section Past Anesthesia/Blood Transfusion Reactions: No Reported Reaction Type of Cardiac Device: Permanent Pacemaker Device Placement Date:: February 2005 Smoking Status: Never smoker Past Alcohol Use History: None Reported Past Drug Use History: None Reported - Past Family History Mother Family Medical History: Cancer, Myocardial Infarction ([place]) Additional Family Medical History / Comment(s): breast Father History Unknown: Yes Sister(s) Family Medical History: Cancer Additional Family Medical History / Comment(s): breast General Exam Limitations: no limitations General appearance: alert, in no apparent distress Head exam: Present: atraumatic, normocephalic, normal inspection Eye exam: Present: normal appearance, PERRL, EOMI. Absent: scleral icterus, conjunctival injection, periorbital swelling ENT exam: Present: normal exam, mucous membranes moist Neck exam: Present: normal inspection. Absent: tenderness, meningismus, lymphadenopathy Respiratory exam: Present: normal lung sounds bilaterally. Absent: respiratory distress, wheezes, rales, rhonchi, stridor Cardiovascular Exam: Present: regular rate, normal rhythm, normal heart sounds. Absent: systolic murmur, diastolic murmur, rubs, gallop, clicks Extremities exam: Present: tenderness (Generalized tenderness of the left knee.), normal capillary refill (Capillary refill less than 2 seconds in the left lower extremity, DP signals on Doppler.), other (Sensation intact in the left lower extremity.). Absent: full ROM (Patient has about 30 flexion of the left knee, full extension.), pedal edema, joint swelling (No significant edema of the left knee.), calf tenderness (no calf tenderness negative Homans sign) Course Vital Signs 02/17/20 15:07 Temperature 98.1 F Pulse Rate 71 Respiratory 18 Rate Blood Pressure 145/88 O2 Sat by Pulse 98 Oximetry Medical Decision Making - Medical Decision Making Vitals are stable. Neurovascular status intact in left lower extremity. Patient has been ambulatory on this throughout the day. X-ray of the left knee shows no acute fracture or dislocation. Patient is not on any anticoagulation so was not placed in a knee immobilizer but was wrapped with an Gato wrap. Will follow up with orthopedics by calling for an appointment tomorrow. He will return here for any worsening symptoms. Patient states she does not have an orthopedic physician at this time so will be given on-call. Patient requesting Tylenol 3 for pain. Disposition Clinical Impression: Knee pain, left Disposition: HOME SELF-CARE Condition: Good Instructions (If sedation given, give patient instructions): Knee Pain (ED) Additional Instructions: Please take Motrin for pain. If pain is severe take Tylenol 3. However make sure to be aware of increased risk of falls while taking this. Return to the emergency room for any worsening symptoms. Is patient prescribed a controlled substance at d/c from ED?: No Referrals: Kwan Gordon MD [Primary Care Provider] - 1-2 days Mick Mack MD [STAFF PHYSICIAN] - 1-2 days Time of Disposition: 16:20
--- NOTE | 2020-02-17 15:49 | XR ---
EXAMINATION TYPE: XR knee complete LT DATE OF EXAM: 02/17/2020 CLINICAL HISTORY: pain TECHNIQUE: Three views of the left knee are obtained. COMPARISON: None. FINDINGS: There is no acute fracture/dislocation. The tri-compartment joint spaces appear mildly na rrowed. The overlying soft tissue appears unremarkable. IMPRESSION: There is no acute fracture or dislocation ICD 10 NO FRACTURE, INITIAL EVALUATION
[2020-02-17] MEDS ORDERED: ACET/COD 300 MG/30 MG STARTER PACK 6 TAB BTL PO STA (16:20)
[2020-02-17 16:50] VITALS: BP 155/79; PULSE 68; TEMP 97.9
== END 2020-02-17 16:45 | disposition home or self-care (01) ==
LOC: EC 14:53
DX: M25.562 Pain in left knee (principal); E11.9 Type 2 diabetes mellitus without complications; K21.9 Gastro-esophageal reflux disease without esophagitis; I10 Essential (primary) hypertension; Z79.4 Long term (current) use of insulin; Z79.899 Other long term (current) drug therapy; Z95.5 Presence of coronary angioplasty implant and graft; Z95.0 Presence of cardiac pacemaker
CPT/HCPCS: 99283

== ENCOUNTER 2020-03-30 06:56 | Day surgery (SDC) | payer MEDICARE, OTHER ==
[2020-03-24 10:45] VITALS: BMI 37.1
[~2020-03-30 06:56] MED LIST: HYDROmorphone 0.5 MG/0.5 ML SYRINGE IVP PRN; LACTATED RINGERS 1,000 ML IV SCH; LIDOCAINE 1% (10MG/ML) FOR IV START INTRADERMA PRN; SODIUM CHLORIDE 0.9% 1,000 ML IV SCH; ceFAZolin 1,000 MG in SODIUM CHLORIDE 0.9% IRRIGATIO 250 ML IRRIGATION ONE
[2020-03-30] MEDS ORDERED: INSULIN ASPART (NovoLOG) 100 UNIT/ML VIAL SQ ONE (07:31)
[2020-03-30 07:36] LABS: Glucose,Whole Blood 282 mg/dL (75-99)
[2020-03-30 07:41] LABS: Basophils % (A) 0 %; Eosinophils # (A) 0.1 k/uL (0-0.7); Eosinophils % (A) 1 %; HCT 34.4 % (34.0-46.0); HGB 10.9 gm/dL (11.4-16.0); Hypochromasia Slight; Lymphocytes # (A) 1.2 k/uL (1.0-4.8); Lymphocytes % (A) 13 %; MCH 31.5 pg (25.0-35.0); MCHC 31.6 g/dL (31.0-37.0); MCV 99.7 fL (80.0-100.0); Macrocytosis Slight; Mean Platelet Volume 7.6; Monocytes # (A) 0.4 k/uL (0-1.0); Monocytes % (A) 4 %; Neutrophils # (A) 7.3 k/uL (1.3-7.7); Neutrophils % (A) 80 %; Platelet Count 353 k/uL (150-450); RBC 3.45 m/uL (3.80-5.40); RDW 14.1 % (11.5-15.5); WBC 9.1 k/uL (3.8-10.6)
[2020-03-30 07:52] LABS: Calcium 9.1 mg/dL (8.4-10.2); Potassium 4.7 mmol/L (3.5-5.1)
[2020-03-30] MEDS ORDERED: fentaNYL (PF) 50 MCG/ML 2 ML AMP ONE (08:58)
[2020-03-30] MEDS ORDERED: MIDAZOLAM 2 MG/2 ML VIAL ONE (08:58)
[2020-03-30] MEDS: IOPAMIDOL-250 50ML BTL IV ONE ×2 (09:21→09:35)
[2020-03-30] MEDS ORDERED: LIDOCAINE 1% INJ 10MG/ML (20 ML MDV) ONE (09:38)
[2020-03-30] MEDS ORDERED: LIDOCAINE 1% INJ 10MG/ML (20 ML MDV) SQ ONE (09:45)
--- NOTE | 2020-03-30 10:41 | P.PCN ---
Preoperative Diagnosis: Diagnosis Mild cardio myopathy Complete heart block with RV pacing 100% Type 2 diabetes Obesity Dual-chamber pacemaker for complete heart block, patient does not have an underlying rhythm. Battery life at least 4 more years Patient brought in for an elective upgrade to a biventricular pacemaker for management of heart failure symptoms Cinefluoroscopy of the leads Cinefluoroscopy diseases performed no fractures or breaks noted Right atrial lead in the right atrial appendage RV lead in the low RV septum Left upper extremity venogram IV dye injected in the left upper extremity vein Left upper extremity venogram was performed a patent cephalic vein was noted but a tight occlusion was noted at the axillary/cephalic junction The patient was prepped and draped per protocol IV antibiotics were administered IV access was obtained in the axillary vein transcutaneously, without opening the pocket IV access obtained successfully in the axillary vein both above the leads as well as just below the leads with good blood flow However in both situations angioplasty wire could not pass through the occlusion at all The procedure was abandoned this point. The pocket was not opened I had a detailed discussion with the son and later the patient Suggest Diabetes management Assessment for obstructive sleep apnea Consideration for a right-sided approach for the LV lead with tunneling under the skin to the left pocket Or Thoracoscopic epicardial lead placement I would suggest thoracoscopic epicardial lead placement
[2020-03-30 10:44] LABS: Glucose,Whole Blood 136 mg/dL (75-99)
[2020-03-30 11:30] VITALS: RESP 16
[2020-03-30 12:33] VITALS: BP 157/71; PULSE 68
[2020-03-31 05:05] LABS: Hemoglobin A1C 8.2 % (4.0-6.0)
== END 2020-03-30 10:55 | disposition home or self-care (01) ==
LOC: CATHEP 06:56
PROVIDERS: ATTEND Internal Medicine Clinical Cardiac Electrophysiology
DX: I42.9 Cardiomyopathy, unspecified (principal); I44.2 Atrioventricular block, complete; I13.0 Hypertensive heart and chronic kidney disease with heart failure and stage 1 through stage 4 chronic kidney disease, or unspecified chronic kidney disease; E11.22 Type 2 diabetes mellitus with diabetic chronic kidney disease; N18.4 Chronic kidney disease, stage 4 (severe); I50.22 Chronic systolic (congestive) heart failure; I65.29 Occlusion and stenosis of unspecified carotid artery; E66.01 Morbid (severe) obesity due to excess calories; Z68.37 Body mass index [BMI] 37.0-37.9, adult; Z90.49 Acquired absence of other specified parts of digestive tract; Z98.890 Other specified postprocedural states; Z82.49 Family history of ischemic heart disease and other diseases of the circulatory system; Z95.0 Presence of cardiac pacemaker; Z79.82 Long term (current) use of aspirin; Z79.4 Long term (current) use of insulin; Z79.899 Other long term (current) drug therapy; Z88.8 Allergy status to other drugs, medicaments and biological substances
CPT/HCPCS: 75820; 36005; 76000; 80048; 85025; 83036; C1769 ×2; C1892; J2250; J0690; J2001; J3010; Q9966

== ENCOUNTER 2020-04-21 11:23 | Inpatient (IN) | payer MEDICARE, OTHER ==
[2020-04-21 11:45] LABS: Glucose,Whole Blood 236 mg/dL (75-99)
[2020-04-21] MEDS ORDERED: SODIUM CHLORIDE 0.9% 500 ML 500 ML IV ONE (11:54)
--- NOTE | 2020-04-21 12:09 | ED ---
General Adult HPI - General Chief complaint: Altered Mental Status Stated complaint: weakness Time Seen by Provider: 04/21/20 11:35 Source: patient, EMS, RN notes reviewed, old records reviewed Mode of arrival: EMS Limitations: no limitations - History of Present Illness Initial comments: This is a 74-year-old female presents emergency Department complaining of weakness this morning. Patient states she got up to get out of bed and slid down onto her knees. Patient states she did not injure herself but she was unable to get up and ambulate. Patient states she has a history of urinary tract infections but did not have any symptoms today. Patient denies any chest pain shortness of breath or difficulty breathing. Patient denies any palpitations. Patient denies any headache patient denies numbness or focal weakness. Patient denies any abdominal pain patient denies nausea vomiting diarrhea. - Related Data Home Medications Medication Instructions Recorded Confirmed Aspirin 81 mg PO BID 03/23/14 04/21/20 Carvedilol 25 mg PO BID 03/23/14 04/21/20 Gabapentin [Neurontin] 300 mg PO BID 03/23/14 04/21/20 INSULIN ASPART (NovoLOG) [NovoLOG] See Protocol SQ AC-TID 03/23/14 04/21/20 Insulin Detemir (Levemir) [Levemir] 25 unit SQ HS 03/23/14 04/21/20 allopurinoL [Zyloprim] 100 mg PO DAILY 03/23/14 04/21/20 Atorvastatin [Lipitor] 20 mg PO HS 05/10/15 04/21/20 HYDROcodone/APAP 5-325MG [[place] 0.5 tab PO DAILY PRN 12/15/15 04/21/20 5-325] Furosemide [Lasix] 40 mg PO DAILY 03/30/20 04/21/20 Acetaminophen Tab [Tylenol Tab] 1,000 mg PO Q6HR PRN 04/21/20 04/21/20 Calcitriol [Rocaltrol] 0.25 mcg PO SUTUTH 04/21/20 04/21/20 Eye Vitamin [place] 1 tab PO BID 04/21/20 04/21/20 Fluticasone Nasal [place] [Flonase 1 spr EA NOSTRIL BID 04/21/20 04/21/20 Nasal [place]] Imipramine [Tofranil] 25 mg PO BID 04/21/20 04/21/20 NIFEdipine XL [Procardia Xl] 60 mg PO DAILY 04/21/20 04/21/20 Allergies Allergy/AdvReac Type Severity Reaction Status Date / Time No Known Allergies Allergy Verified 04/21/20 13:16 Review of Systems ROS Statement: Those systems with pertinent positive or pertinent negative responses have been documented in the HPI. ROS Other: All systems not noted in ROS Statement are negative. Past Medical History Past Medical History: Diabetes Mellitus, GERD/Reflux, Hypertension, Renal Disease Additional Past Medical History / Comment(s): Anemia. See Dr. Denis's H&P. History of Any Multi-Drug Resistant Organisms: None Reported Past Surgical History: Bladder Surgery, Section, Heart Catheterization, Hernia Repair, Orthopedic Surgery, Pacemaker Additional Past Surgical History / Comment(s): Large hernia repair after a section, carpal tunnel bilat. Past Anesthesia/Blood Transfusion Reactions: No Reported Reaction Type of Cardiac Device: Permanent Pacemaker Device Placement Date:: February 2005 Past Psychological History: No Psychological Hx Reported Smoking Status: Never smoker Past Alcohol Use History: None Reported Past Drug Use History: None Reported - Past Family History Mother Family Medical History: Cancer, Myocardial Infarction ([place]) Additional Family Medical History / Comment(s): breast Father History Unknown: Yes Sister(s) Family Medical History: Cancer Additional Family Medical History / Comment(s): breast General Exam - General Exam Comments Initial Comments: GENERAL: Patient is well-developed and well-nourished. Patient is nontoxic and well- hydrated and is in no acute distress. ENT: Neck is soft and supple. No significant lymphadenopathy is noted. Oropharynx is clear. Moist mucous membranes. Neck has full range of motion without eliciting any pain. EYES: The sclera were anicteric and conjunctiva were pink and moist. Extraocular movements were intact and pupils were equal round and reactive to light. Eyelids were unremarkable. PULMONARY: Unlabored respirations. Good breath sounds bilaterally. No audible rales rhonchi or wheezing was noted. CARDIOVASCULAR: There is a regular rate and rhythm without any murmurs gallops or rubs. ABDOMEN: Soft and nontender with normal bowel sounds. SKIN: Skin is clear with no lesions or rashes and otherwise unremarkable. NEUROLOGIC: Patient is alert and oriented x3. Cranial nerves II through XII are grossly intact. Motor and sensory are also intact. Normal speech, volume and content. Symmetrical smile. MUSCULOSKELETAL: Normal extremities with adequate strength and full range of motion. No lower extremity swelling or edema. No calf tenderness. LYMPHATICS: No significant lymphadenopathy is noted PSYCHIATRIC: Normal psychiatric evaluation. Limitations: no limitations Course Vital Signs 04/21/20 04/21/20 04/21/20 11:35 11:36 12:00 Temperature 97.0 F L Pulse Rate 72 72 Respiratory 33 H 16 16 Rate Blood Pressure 125/80 127/58 O2 Sat by Pulse 95 98 98 Oximetry 04/21/20 12:30 Temperature Pulse Rate 69 Respiratory 18 Rate Blood Pressure 147/64 O2 Sat by Pulse 98 Oximetry Medical Decision Making - Medical Decision Making EKG shows atrial paced rhythm at 71 bpm TN interval is 136 QRS is 168 QT interval is 478 QTC is 519. Patient's potassium is elevated so I started her on Kayexalate. I spoke to Dr. Gordon he agreed to admit the patient admitted the patient wrote admitting orders. - Lab Data Result diagrams: 04/21/20 12:18 04/21/20 13:08 Lab Results 04/21/20 04/21/20 04/21/20 Range/Units 11:43 12:18 12:18 WBC 12.0 H (3.8-10.6) k/uL RBC 3.70 L (3.80-5.40) m/uL Hgb 11.3 L (11.4-16.0) gm/dL Hct 37.2 (34.0-46.0) % MCV 100.6 H (80.0-100.0) fL MCH 30.6 (25.0-35.0) pg MCHC 30.4 L (31.0-37.0) g/dL RDW 14.2 (11.5-15.5) % Plt Count 362 (150-450) k/uL Neutrophils % 88 % Lymphocytes % 8 % Monocytes % 3 % Eosinophils % 0 % Basophils % 0 % Neutrophils # 10.6 H (1.3-7.7) k/uL Lymphocytes # 1.0 (1.0-4.8) k/uL Monocytes # 0.3 (0-1.0) k/uL Eosinophils # 0.1 (0-0.7) k/uL Basophils # 0.0 (0-0.2) k/uL Hypochromasia Marked Macrocytosis Slight PT 9.6 (9.0-12.0) sec INR 0.9 (<1.2) APTT 33.0 H (22.0-30.0) sec Sodium (137-145) mmol/L Potassium (3.5-5.1) mmol/L Chloride (98-107) mmol/L Carbon Dioxide (22-30) mmol/L Anion Gap mmol/L BUN (7-17) mg/dL Creatinine (0.52-1.04) mg/dL Est GFR (CKD-EPI)AfAm (>60 ml/min/1.73 sqM) Est GFR (CKD-EPI)NonAf (>60 ml/min/1.73 sqM) Glucose (74-99) mg/dL POC Glucose (mg/dL) 236 H (75-99) mg/dL POC Glu Non Ferrous Material Handler ID Donn Abraham Calcium (8.4-10.2) mg/dL Total Bilirubin (0.2-1.3) mg/dL AST (14-36) U/L ALT (4-34) U/L Alkaline Phosphatase (38-126) U/L Troponin I (0.000-0.034) ng/mL Total Protein (6.3-8.2) g/dL Albumin (3.5-5.0) g/dL Urine Color Urine Appearance (Clear) Urine pH (5.0-8.0) Ur Specific [place] (1.001-1.035) Urine Protein (Negative) Urine Glucose (UA) (Negative) Urine Ketones (Negative) Urine Blood (Negative) Urine Nitrite (Negative) Urine Bilirubin (Negative) Urine Urobilinogen (<2.0) mg/dL Ur Leukocyte Esterase (Negative) Urine Opiates Screen (NotDetected) Ur Oxycodone Screen (NotDetected) Urine Methadone Screen (NotDetected) Ur Propoxyphene Screen (NotDetected) Ur Barbiturates Screen (NotDetected) U Tricyclic Antidepress (NotDetected) Ur Phencyclidine Scrn (NotDetected) Ur Amphetamines Screen (NotDetected) U Methamphetamines Scrn (NotDetected) U Benzodiazepines Scrn (NotDetected) Urine Cocaine Screen (NotDetected) U Marijuana (THC) Screen (NotDetected) 04/21/20 04/21/20 04/21/20 Range/Units 12:18 12:18 13:08 WBC (3.8-10.6) k/uL RBC (3.80-5.40) m/uL Hgb (11.4-16.0) gm/dL Hct (34.0-46.0) % MCV (80.0-100.0) fL MCH (25.0-35.0) pg MCHC (31.0-37.0) g/dL RDW (11.5-15.5) % Plt Count (150-450) k/uL Neutrophils % % Lymphocytes % % Monocytes % % Eosinophils % % Basophils % % Neutrophils # (1.3-7.7) k/uL Lymphocytes # (1.0-4.8) k/uL Monocytes # (0-1.0) k/uL Eosinophils # (0-0.7) k/uL Basophils # (0-0.2) k/uL Hypochromasia Macrocytosis PT (9.0-12.0) sec INR (<1.2) APTT (22.0-30.0) sec Sodium 137 (137-145) mmol/L Potassium 6.3 H* (3.5-5.1) mmol/L Chloride 104 (98-107) mmol/L Carbon Dioxide 26 (22-30) mmol/L Anion Gap 7 mmol/L BUN 47 H (7-17) mg/dL Creatinine 2.15 H (0.52-1.04) mg/dL Est GFR (CKD-EPI)AfAm 26 (>60 ml/min/1.73 sqM) Est GFR (CKD-EPI)NonAf 22 (>60 ml/min/1.73 sqM) Glucose 225 H (74-99) mg/dL POC Glucose (mg/dL) (75-99) mg/dL POC Glu Non Ferrous Material Handler ID Calcium 9.3 (8.4-10.2) mg/dL Total Bilirubin 0.3 (0.2-1.3) mg/dL AST 26 (14-36) U/L ALT 15 (4-34) U/L Alkaline Phosphatase 158 H (38-126) U/L Troponin I <0.012 (0.000-0.034) ng/mL Total Protein 6.5 (6.3-8.2) g/dL Albumin 3.4 L (3.5-5.0) g/dL Urine Color Yellow Urine Appearance Clear (Clear) Urine pH 5.0 (5.0-8.0) Ur Specific [place] 1.012 (1.001-1.035) Urine Protein Trace H (Negative) Urine Glucose (UA) Negative (Negative) Urine Ketones Negative (Negative) Urine Blood Negative (Negative) Urine Nitrite Negative (Negative) Urine Bilirubin Negative (Negative) Urine Urobilinogen <2.0 (<2.0) mg/dL Ur Leukocyte Esterase Negative (Negative) Urine Opiates Screen Not Detected (NotDetected) Ur Oxycodone Screen Not Detected (NotDetected) Urine Methadone Screen Not Detected (NotDetected) Ur Propoxyphene Screen Not Detected (NotDetected) Ur Barbiturates Screen Not Detected (NotDetected) U Tricyclic Antidepress Detected H (NotDetected) Ur Phencyclidine Scrn Not Detected (NotDetected) Ur Amphetamines Screen Not Detected (NotDetected) U Methamphetamines Scrn Not Detected (NotDetected) U Benzodiazepines Scrn Not Detected (NotDetected) Urine Cocaine Screen Not Detected (NotDetected) U Marijuana (THC) Screen Not Detected (NotDetected) 04/21/20 Range/Units 13:08 WBC (3.8-10.6) k/uL RBC (3.80-5.40) m/uL Hgb (11.4-16.0) gm/dL Hct (34.0-46.0) % MCV (80.0-100.0) fL MCH (25.0-35.0) pg MCHC (31.0-37.0) g/dL RDW (11.5-15.5) % Plt Count (150-450) k/uL Neutrophils % % Lymphocytes % % Monocytes % % Eosinophils % % Basophils % % Neutrophils # (1.3-7.7) k/uL Lymphocytes # (1.0-4.8) k/uL Monocytes # (0-1.0) k/uL Eosinophils # (0-0.7) k/uL Basophils # (0-0.2) k/uL Hypochromasia Macrocytosis PT (9.0-12.0) sec INR (<1.2) APTT (22.0-30.0) sec Sodium (137-145) mmol/L Potassium 5.9 H (3.5-5.1) mmol/L Chloride (98-107) mmol/L Carbon Dioxide (22-30) mmol/L Anion Gap mmol/L BUN (7-17) mg/dL Creatinine (0.52-1.04) mg/dL Est GFR (CKD-EPI)AfAm (>60 ml/min/1.73 sqM) Est GFR (CKD-EPI)NonAf (>60 ml/min/1.73 sqM) Glucose (74-99) mg/dL POC Glucose (mg/dL) (75-99) mg/dL POC Glu Non Ferrous Material Handler ID Calcium (8.4-10.2) mg/dL Total Bilirubin (0.2-1.3) mg/dL AST (14-36) U/L ALT (4-34) U/L Alkaline Phosphatase (38-126) U/L Troponin I (0.000-0.034) ng/mL Total Protein (6.3-8.2) g/dL Albumin (3.5-5.0) g/dL Urine Color Urine Appearance (Clear) Urine pH (5.0-8.0) Ur Specific [place] (1.001-1.035) Urine Protein (Negative) Urine Glucose (UA) (Negative) Urine Ketones (Negative) Urine Blood (Negative) Urine Nitrite (Negative) Urine Bilirubin (Negative) Urine Urobilinogen (<2.0) mg/dL Ur Leukocyte Esterase (Negative) Urine Opiates Screen (NotDetected) Ur Oxycodone Screen (NotDetected) Urine Methadone Screen (NotDetected) Ur Propoxyphene Screen (NotDetected) Ur Barbiturates Screen (NotDetected) U Tricyclic Antidepress (NotDetected) Ur Phencyclidine Scrn (NotDetected) Ur Amphetamines Screen (NotDetected) U Methamphetamines Scrn (NotDetected) U Benzodiazepines Scrn (NotDetected) Urine Cocaine Screen (NotDetected) U Marijuana (THC) Screen (NotDetected) Disposition Clinical Impression: Generalized weakness, Hyperkalemia Disposition: ADMITTED IP TO THIS HOSP Referrals: Kwan Gordon MD [Primary Care Provider] - 1-2 days Time of Disposition: 14:37
[2020-04-21 12:37] LABS: Basophils % (A) 0 %; Eosinophils # (A) 0.1 k/uL (0-0.7); Eosinophils % (A) 0 %; HCT 37.2 % (34.0-46.0); HGB 11.3 gm/dL (11.4-16.0); Hypochromasia Marked; Lymphocytes % (A) 8 %; MCH 30.6 pg (25.0-35.0); MCHC 30.4 g/dL (31.0-37.0); MCV 100.6 fL (80.0-100.0); Macrocytosis Slight; Mean Platelet Volume 7.6; Monocytes # (A) 0.3 k/uL (0-1.0); Monocytes % (A) 3 %; Neutrophils # (A) 10.6 k/uL (1.3-7.7); Neutrophils % (A) 88 %; Platelet Count 362 k/uL (150-450); RDW 14.2 % (11.5-15.5)
[2020-04-21 12:54] LABS: Albumin 3.4 g/dL (3.5-5.0); Calcium 9.3 mg/dL (8.4-10.2); Total Bilirubin 0.3 mg/dL (0.2-1.3); Total Protein 6.5 g/dL (6.3-8.2)
[2020-04-21 12:55] LABS: INR 0.9 (<1.2); Prothrombin Time 9.6 sec (9.0-12.0)
--- NOTE | 2020-04-21 12:57 | XR ---
EXAMINATION TYPE: XR chest 2V DATE OF EXAM: 04/21/2020 COMPARISON: CXR from 10/17/2016. HISTORY: Weakness. TECHNIQUE: Frontal and lateral views of the chest are obtained. FINDINGS: There is chronic parenchymal change without suspicious focal air space opacity, pleural ef fusion, or pneumothorax seen bilaterally. The cardiac silhouette size is redemonstrated enlarged wit h dual lead pacemaker. Bilateral hilar prominence suggestive of underlying pulmonary hypertension is redemonstrated. The osseous structures are intact. IMPRESSION: Cardiomegaly and chronic changes without new suspicious acute pulmonary process.
[2020-04-21 12:58] LABS: Potassium 6.3 mmol/L (3.5-5.1)
[2020-04-21 14:27] LABS: Appearance,Urine Clear (Clear); Bilirubin,Urine Negative (Negative); Blood,Urine Negative (Negative); Color,Urine Yellow; Glucose,Urine (UA) Negative (Negative); Ketones,Urine Negative (Negative); Leukocyte Esterase,Urine Negative (Negative); Nitrite,Urine Negative (Negative); Protein,Urine Trace (Negative); Specific Gravity,Urine 1.012 (1.001-1.035); Urobilinogen,Urine <2.0 mg/dL (<2.0)
[2020-04-21] MEDS ORDERED: SODIUM POLYSTYRENE SULFONATE 15 GM/60 ML BOTTLE PO STA (14:37)
[2020-04-21 14:38] LABS: Amphetamine Screen,Urine Not Detected (NotDetected); Cocaine Screen,Urine Not Detected (NotDetected); Opiate Screen,Urine Not Detected (NotDetected); Phencyclidine Screen,Urine Not Detected (NotDetected); Urn Cannabinoid Scrn Not Detected (NotDetected)
[2020-04-21 14:39] LABS: Barbiturate Screen,Urine Not Detected (NotDetected); Benzodiazepines Screen,Urine Not Detected (NotDetected); Methadone Screen, Urine Not Detected (NotDetected); Oxycodone Screen, Urine Not Detected (NotDetected); Tricyclic Antidepressant,Urine Detected (NotDetected)
[2020-04-21] MEDS ORDERED: SODIUM CHLORIDE 0.9% 1,000 ML IV ONE (14:39)
[2020-04-21] MEDS: SODIUM POLYSTYRENE SULFONATE 15 GM/60 ML BOTTLE PO SCH ×3 (15:19→21:05)
[2020-04-21 16:47] LABS: Glucose,Whole Blood 256 mg/dL (75-99)
[2020-04-21] MEDS ORDERED: HYDROcodone/APAP 5-325MG 1 EACH TAB PO PRN (17:05)
[2020-04-21] MEDS ORDERED: ACETAMINOPHEN TAB 500 MG TAB PO PRN (17:05)
[2020-04-21] MEDS: carvediloL 12.5 MG TAB PO SCH (17:39)
[2020-04-21] MEDS: INSULIN ASPART (NovoLOG) 100 UNIT/ML VIAL SQ SCH (17:39)
[2020-04-21] MEDS: FUROSEMIDE 40 MG TAB PO SCH (17:39)
--- NOTE | 2020-04-21 18:44 | P.HPIM ---
History of Present Illness H&P Date: 04/21/20 (Hyperkalemia, diabetes mellitus, acute kidney injury.) Chief Complaint: Patient followed by ambulance to the emergency room, fall down to floor. History and physical dictation by Dr. Gordon on 04/21/2020. Chief complaint: Patient brought by EMS to the emergency room after she wake up this morning date 11:00 as she trying to get up her legs could not carry her and fell down on her face and knees with a history of previous fall 2-3 days ago and has bruises on the back of the chest. In the emergency room found that she had hyperkalemia with the leukocytosis, potassium was 6.3, WBCs 12, BUN 47 creatinine 2.15 with the EGFR 26 with the possibility of underlying acute kidney injury History of present illness. Last night patient has tomato sandwich with cucumber and she is eating tomatoes every day as well as eating a banana as well as drinking orange juice, she does not have any JOSAFAT inhibitor or potassium supplementation. This patient seen in the ER found to have potassium 6.3 and they started her on Kayexalate and water plumber meanwhile repeated for confirmation potassium was 5.9 with the associated acute kidney injury on the top of chronic kidney disease stage IV. In regard of hyperglycemia, patient received orange juice at home when her friend came to check on her and the friend called the EMS when the EMS also arrived they gave her another orange juice. Between on the left cerebellar blood sugar was and subsequently the blood sugar in the ER was 236 by the laboratory, unclear if patient was hypoglycemic or not and she is on insulin to scale as well as Levemir 25 units every at bedtime she has been followed by #20 the step finisher. Past medical history : She had history of hypertensive heart disease and history of hypokinesis of th e apex and apical inferior and apical septum with reduced ejection fraction to 45% with concentric mild concentric hypertrophy. She has chronic kidney disease stage III through 4 and has been seen and followed by nephrology Dr. Benoit and Dr. Dubon. She had a left infraclavicular pacemaker and monitored the by Dr. Conley. She had hyper lipidemia and she had also history of hyperkalemia in the past she had underlying generalized osteoarthritis of the knee and left ankle she had secondary hyperparathyroidism She is a diabetic neuropathy of the lower extremities as well as vitamin D deficiency and hyperparathyroidism secondary to chronic kidney disease with associated history of hypertension and urinary incontinence calcaneal despair on the right foot generalized osteoarthritis with intervertebral disc space narrowing. She feels that has glove and stocking because of the neuropathy. And she had history of hyperuricemia and gouty arthropathy. She is a nonsmoker nondrinker 3 para 3 with 2 sons and 1 daughter. That one dog. She retired on 2006. Coffee intake 1 cup Sunday. She is . ALLERGY unknown. Reviewing of system: #1 her leg was extremely weak unable to carry herself up and she fell down on her face and knee no abrasion no contusion to the forehead and she was conscious alert oriented at the time of the fall #2 the lower extremities muscle as quadriceps could not carry hair to stand up probably associated with hyperkalemia however also present in the hyperal kalemia as well. #3 neuropsychiatry: She had no history of loss of consciousness she was awake alert but could not control her muscles #4 cardiovascular she had a pacemaker, was placed by Dr. Denis, but she has no symptoms of chest pain or anginal pain or unstable angina. #5 GI: No nausea or vomiting or diarrhea or abdominal pain. #6 respiratory: She had no shortness of breath or cough or expectoration. #7 she has no fever or chills or loss of sense of taste or smell and no headache or blurred vision #8 genitourinary she has history of intermittent incontinent urinary only. #9 peripheral neuropathy was treated with Neurontin secondary to diabetic neuropathy with glove and stocking. #10 the rest of review of systems: None contributory. Her laboratories: Her sodium 137, potassium 6. 3 repeat after Kayexalate 1 down to 5.9, chloride 104 carbon dioxide 26 and anion gap of 7 BUN 47, creatinine 2.15. Glucose 225 after the initial 236 as mentioned above that she had repeated doses of orange juice could be the reason for these elevation., Her troponin is less than 0.012 total protein 6.5, albumin 3.4. Calcium 9.3 and total bilirubin 0.3 AST 26, a LT 15, within normal limits however the alk phos 158 with the normal range 126 which indicate mild elevation. On exam: Her vital sign indicating temperature 90.7 FL oral pulse rate 78 respiratory rate 16 nonlabored and blood pressure in the ER 125/80 on the floor was 171/77 her pulse ox 99% on room air. Head was normocephalic and atraumatic she did not have concussion and she touch the forehead with no bruises and she on the fall she touch the knee but no ecchymosis Oropharynx she had natural teeth and ears hearing is diminished Neck was supple no JVD no thyromegaly no lymphadenopathy and trachea midline Chest was clear to auscultation and percussion no wheezes no rhonchi's Heart pacemaker left infraclavicular with the above affecting the wide QRS complex. With the underlying the echo indicating impaired ejection fraction Abdomen soft positive bowel sounds no organ enlargement Extremities no edema and any minimal bruises minimal contusion and positive pulses Neurological examination: She had impaired sensation on the lower extremities with diabetic nephropathy, no lateralizing sign no history of stroke. Assessment: #1 hyperkalemia, possibly due to intake of excessive fruit or vegetable had high potassium intake #2 acute kidney injury could not be excluded. #3 chronic kidney disease stage IV. #4 hypertension with hypertensive heart disease. #5 status post left infraclavicular pacemaker with the arrhythmia's. #6 impaired ejection fraction to 45% and her echocardiogram read by Dr. Conley in August. #7 diabetes mellitus type 2 insulin-dependent. #8 obesity. #9 cardiomegaly history of anemia and vitamin D deficiency. Plan: #1 week gradual hydration and we'll decrease his IV fluid from 100 mL to 75 on the floor. #2 we'll obtain laboratory tomorrow with BMP and CBC #[address] Benoit /Dr. Dubon who is available to see the patient in follow-up with the underlying possibility of acute kidney injury/chronic kidney disease stage IV. Patient getting a second dose of Kayexalate for the potassium and she is monitored in telemetry bed and recheck her potassium in the morning and using the insulin as well Past Medical History Past Medical History: Heart Failure, Diabetes Mellitus, GERD/Reflux, Hypertension, Renal Disease Additional Past Medical History / Comment(s): Anemia. See Dr. Denis's H&P. History of Any Multi-Drug Resistant Organisms: None Reported Past Surgical History: Bladder Surgery, Section, Heart Catheterization, Hernia Repair, Orthopedic Surgery, Pacemaker Additional Past Surgical History / Comment(s): Large hernia repair after a section, carpal tunnel bilat. Past Anesthesia/Blood Transfusion Reactions: No Reported Reaction Type of Cardiac Device: Permanent Pacemaker Device Placement Date:: February 2005 Past Psychological History: No Psychological Hx Reported Smoking Status: Never smoker Past Alcohol Use History: None Reported Past Drug Use History: None Reported - Past Family History Mother Family Medical History: Cancer, Myocardial Infarction ([place]) Additional Family Medical History / Comment(s): breast Father History Unknown: Yes Sister(s) Family Medical History: Cancer Additional Family Medical History / Comment(s): breast Medications and Allergies Home Medications Medication Instructions Recorded Confirmed Type Aspirin 81 mg PO BID 03/23/14 04/21/20 History Carvedilol 25 mg PO BID 03/23/14 04/21/20 History Gabapentin [Neurontin] 300 mg PO BID 03/23/14 04/21/20 History INSULIN ASPART (NovoLOG) [NovoLOG] See Protocol SQ AC-TID 03/23/14 04/21/20 History Insulin Detemir (Levemir) [Levemir] 25 unit SQ HS 03/23/14 04/21/20 History allopurinoL [Zyloprim] 100 mg PO DAILY 03/23/14 04/21/20 History Atorvastatin [Lipitor] 20 mg PO HS 05/10/15 04/21/20 History HYDROcodone/APAP 5-325MG [[place] 0.5 tab PO DAILY PRN 12/15/15 04/21/20 History 5-325] Furosemide [Lasix] 40 mg PO DAILY 03/30/20 04/21/20 History Acetaminophen Tab [Tylenol Tab] 1,000 mg PO Q6HR PRN 04/21/20 04/21/20 History Calcitriol [Rocaltrol] 0.25 mcg PO SUTUTH 04/21/20 04/21/20 History Eye Vitamin [place] 1 tab PO BID 04/21/20 04/21/20 History Fluticasone Nasal [place] [Flonase 1 spr EA NOSTRIL BID 04/21/20 04/21/20 History Nasal [place]] Imipramine [Tofranil] 25 mg PO BID 04/21/20 04/21/20 History NIFEdipine XL [Procardia Xl] 60 mg PO DAILY 04/21/20 04/21/20 History Allergies Allergy/AdvReac Type Severity Reaction Status Date / Time No Known Allergies Allergy Verified 04/21/20 13:16 Physical Exam Vitals: Vital Signs Temp Pulse Resp BP Pulse Ox 04/21/20 15:16 97.0 F L 78 16 171/77 99 04/21/20 12:30 69 18 147/64 98 04/21/20 12:00 72 16 127/58 98 04/21/20 11:36 97.0 F L 72 16 125/80 98 04/21/20 11:35 33 H 95 Intake and Output 04/21/20 04/21/20 04/21/20 06:59 14:59 22:59 Other: Weight 102.058 kg 102.058 kg Results CBC & Chem 7: 04/21/20 12:18 04/21/20 13:08 Labs: Abnormal Lab Results - Last 24 Hours (Table) 04/21/20 04/21/20 04/21/20 Range/Units 11:43 12:18 12:18 WBC 12.0 H (3.8-10.6) k/uL RBC 3.70 L (3.80-5.40) m/uL Hgb 11.3 L (11.4-16.0) gm/dL MCV 100.6 H (80.0-100.0) fL MCHC 30.4 L (31.0-37.0) g/dL Neutrophils # 10.6 H (1.3-7.7) k/uL APTT 33.0 H (22.0-30.0) sec Potassium (3.5-5.1) mmol/L BUN (7-17) mg/dL Creatinine (0.52-1.04) mg/dL Glucose (74-99) mg/dL POC Glucose (mg/dL) 236 H (75-99) mg/dL Alkaline Phosphatase (38-126) U/L Albumin (3.5-5.0) g/dL Urine Protein (Negative) U Tricyclic Antidepress (NotDetected) 04/21/20 04/21/20 04/21/20 Range/Units 12:18 13:08 13:08 WBC (3.8-10.6) k/uL RBC (3.80-5.40) m/uL Hgb (11.4-16.0) gm/dL MCV (80.0-100.0) fL MCHC (31.0-37.0) g/dL Neutrophils # (1.3-7.7) k/uL APTT (22.0-30.0) sec Potassium 6.3 H* 5.9 H (3.5-5.1) mmol/L BUN 47 H (7-17) mg/dL Creatinine 2.15 H (0.52-1.04) mg/dL Glucose 225 H (74-99) mg/dL POC Glucose (mg/dL) (75-99) mg/dL Alkaline Phosphatase 158 H (38-126) U/L Albumin 3.4 L (3.5-5.0) g/dL Urine Protein Trace H (Negative) U Tricyclic Antidepress Detected H (NotDetected) 04/21/20 Range/Units 16:46 WBC (3.8-10.6) k/uL RBC (3.80-5.40) m/uL Hgb (11.4-16.0) gm/dL MCV (80.0-100.0) fL MCHC (31.0-37.0) g/dL Neutrophils # (1.3-7.7) k/uL APTT (22.0-30.0) sec Potassium (3.5-5.1) mmol/L BUN (7-17) mg/dL Creatinine (0.52-1.04) mg/dL Glucose (74-99) mg/dL POC Glucose (mg/dL) 256 H (75-99) mg/dL Alkaline Phosphatase (38-126) U/L Albumin (3.5-5.0) g/dL Urine Protein (Negative) U Tricyclic Antidepress (NotDetected) Thrombosis Risk Factor Assmnt - Choose All That Apply Each Factor Represents 1 point: Obesity (BMI >25), Swollen legs (current) Other Risk Factors: Yes Each Risk Factor Represents 2 Points: Age 61-74 years Other congenital or acquired thrombophilia - If yes, enter type in comment: No Thrombosis Risk Factor Assessment Total Risk Factor Score: 4 Thrombosis Risk Factor Assessment Level: Moderate Risk
[2020-04-21 19:49] LABS: Glucose,Whole Blood 279 mg/dL (75-99)
[2020-04-21] MEDS: ATORVASTATIN 20 MG TAB PO SCH (20:58)
[2020-04-21] MEDS: GABAPENTIN 300 MG CAP PO SCH (20:58)
[2020-04-21] MEDS: IMIPRAMINE 25 MG TAB PO SCH (20:58)
[2020-04-21] MEDS: ASPIRIN 81 MG PO SCH (20:58)
[2020-04-21] MEDS ORDERED: INSULIN DETEMIR (LEVEMIR) 100 UNIT/ML SYR SQ SCH ×3 (21:00)
[2020-04-21] MEDS: VIT A,C & E-LUTEIN-MINERALS 1 EACH TAB PO SCH (21:02)
[2020-04-21] MEDS: FLUTICASONE 50MCG/SPRAY NASAL 16GM EA NOSTRIL SCH (21:04)
[2020-04-22] MEDS: INSULIN ASPART (NovoLOG) 100 UNIT/ML VIAL SQ SCH ×6 (02:31→18:08)
[2020-04-22] MEDS: carvediloL 12.5 MG TAB PO SCH ×2 (06:12→18:08)
[2020-04-22 06:19] LABS: Basophils % (A) 0 %; Eosinophils # (A) 0.1 k/uL (0-0.7); Eosinophils % (A) 1 %; HCT 31.8 % (34.0-46.0); Hypochromasia Slight; Lymphocytes # (A) 1.6 k/uL (1.0-4.8); Lymphocytes % (A) 23 %; MCH 30.4 pg (25.0-35.0); MCHC 30.6 g/dL (31.0-37.0); MCV 99.2 fL (80.0-100.0); Macrocytosis Slight; Mean Platelet Volume 7.5; Monocytes # (A) 0.4 k/uL (0-1.0); Monocytes % (A) 6 %; Neutrophils # (A) 4.5 k/uL (1.3-7.7); Neutrophils % (A) 67 %; Platelet Count 320 k/uL (150-450); RBC 3.21 m/uL (3.80-5.40); RDW 14.6 % (11.5-15.5); WBC 6.8 k/uL (3.8-10.6)
[2020-04-22 06:22] LABS: HGB 9.7 gm/dL (11.4-16.0)
[2020-04-22 06:26] LABS: Glucose,Whole Blood 75 mg/dL (75-99)
[2020-04-22 06:46] LABS: Calcium 8.5 mg/dL (8.4-10.2); Magnesium 1.6 mg/dL (1.6-2.3); Potassium 4.4 mmol/L (3.5-5.1)
[2020-04-22] MEDS: SODIUM POLYSTYRENE SULFONATE 15 GM/60 ML BOTTLE PO SCH (06:52)
[2020-04-22] MEDS ORDERED: INSULIN ASPART (NovoLOG) 100 UNIT/ML VIAL SQ SCH (07:30)
[2020-04-22] MEDS: VIT A,C & E-LUTEIN-MINERALS 1 EACH TAB PO SCH ×2 (08:58→23:00)
[2020-04-22] MEDS: FLUTICASONE 50MCG/SPRAY NASAL 16GM EA NOSTRIL SCH ×2 (08:58→21:22)
[2020-04-22] MEDS: FUROSEMIDE 40 MG TAB PO SCH (08:58)
[2020-04-22] MEDS: ASPIRIN 81 MG PO SCH ×2 (08:58→21:22)
[2020-04-22] MEDS: GABAPENTIN 300 MG CAP PO SCH ×2 (08:59→21:22)
[2020-04-22] MEDS: allopurinoL 100 MG TAB PO SCH (08:59)
[2020-04-22 12:04] LABS: Glucose,Whole Blood 114 mg/dL (75-99)
--- NOTE | 2020-04-22 13:19 | CONS ---
CONSULTATION REASON FOR CONSULT: Renal failure. HISTORY OF PRESENT ILLNESS: The patient is a 74-year-old female who was admitted to the hospital with complaints of weakness and fall. The patient states she was sitting at the edge of bed and try to get up and fell down. She does not remember any significant palpitations, dizziness or lightheadedness. The patient was found to have a potassium of 6.3 on admission, creatinine was elevated at 2.15. Patient does have history of chronic kidney disease, NKF stage IV with baseline creatinine about 1.9 mg/dL secondary to nephrosclerosis/ Patient's blood pressure was not low at the time of admission. She was maintained on IV fluids for a short period of time. Patient denies any significant change in her medications prior to admission. She denied use of any nonsteroidal anti-inflammatory agents. The patient was taking Lasix 40 mg daily. Overall, she states she is feeling better. The patient has been voiding. Urine output is not accurately charted. Creatinine is down to 1.9 today. PAST MEDICAL HISTORY: CKD stage 4 secondary to nephrosclerosis. Baseline creatinine about 1.9, CHF, type 2 diabetes, gastroesophageal reflux disease, hypertension. Pacemaker placed for cardiac arrhythmia, dyslipidemia, CKD mineral bone disorder, hyperuricemia, gout. SOCIAL HISTORY: Negative for smoking, drug abuse or alcohol abuse. MEDICATIONS: Medications prior to admission included aspirin, Coreg, Neurontin, insulin Zyloprim, Lipitor, Lasix, Rocaltrol, Procardia, Tofranil. ALLERGIES: NONE. REVIEW OF SYSTEMS: As per HPI. Other systems negative. EXAMINATION: Patient is comfortable, awake, alert, oriented x3, not in any acute distress. Blood pressure 146/68, heart rate 82 per minute she is afebrile examination of the heart S1, S2. Examination of the lungs, bilateral breath sounds are heard. ABDOMEN: Soft obese examination of lower extremities shows trace edema. OSS ARCHITECT exam grossly intact. LABS: Show sodium of 139, potassium 4.4, chloride 105, BUN 41, creatinine 1.9, hemoglobin 9.7 g/dL UA shows trace protein, otherwise completely negative. ASSESSMENT: 1. Is acute hyperkalemia associated with acute kidney injury and increased intake of potassium foods in the setting of CKD. Blood sugar was elevated, but not significantly. It was down to 25 with this will also contribute to the hyperkalemia. Currently, the potassium is now down to 4.4. The patient is encouraged a low-potassium diet. We can maintain low-dose loop diuretics to help with the potassium is creation with the potassium secretion in the urine. No room to add sodium bicarb. There is consideration. 2. CKD secondary to nephrosclerosis, stage IV. Baseline creatinine about 1.9 etiology [place] nephrosclerosis. 3. Status post fall. 4. Possible mild hypervolemic, possible mild hypovolemia/volume depletion currently improved currently improved. No IV fluids currently. 5. CKD mineral bone disorder maintained on Rocaltrol. 6. Type 2 diabetes. 7. Hypertension currently controlled with some blood pressure is running on the higher side. PLAN: Continue with current dose of Lasix. Maintain low-potassium diet. Check postvoid residual rule out urine retention and follow up as outpatient for CKD. Thank you for this consultation. We will continue to follow the patient during her hospitalization. MMODL / IJN: [id number] /
--- NOTE | 2020-04-22 14:15 | P.PN ---
Subjective Progress Note Date: 04/22/20 (Hyperkalemia, hypoglycemia, diabetic nephrosclerosis. Peripheral neuropathy. Insulin-dependent diabetes mellitus.) Progress note date of service 04/22/[address] Martinez. Patient seen and evaluated in her room, she denied any chest pain, she feeling comfortable today. Patient seen by nephrology Dr. Dubon. Laboratories indicating that today her potassium was 4.4 chloride 105, sodium 139, and BUN 41, and creatinine 1.99, CO2 29, calcium 8.5, magnesium 1.6. Her WBC is 6.8, hemoglobin and hematocrit, 9.7/31.8. Glucose 57 patient received her home dose 25 of Levemir at bedtime and she was hypoglycemic. Patient apparently had several episodes of hypoglycemia in the past, and I did discuss with her to split the dose to be 15 units at at bedtime and 10 units in the morning because of her blood sugar during the day is still elevated. Her blood pressure was 160/68 however it is fluctuating, pulse ox on room air 93%, respiratory rate 18 and he'll pulse rate 73. On examination: Patient conscious alert oriented 3 able to communicate freely. And I advised her to ambulate as tolerated in the room as well as in the hallway and will be starting heparin 5000 Q 12 hour. HEENT was negative, pale conjunctiva 5 with anemia. Oropharynx natural teeth able to eat and swallow. Chest was clear to auscultation percussion trachea midline, neck was supple no JVD no thyromegaly no lymphadenopathy trachea midline. Heart was compensated no evidence of dysrhythmia or chest pain. Abdomen soft positive bowel sounds protuberant no tenderness in the 4 quadrants. Extremities no edema and positive pulses. Neuro: Peripheral neuropathy. No lateralizing sign no evidence of stroke. Assessment: #1 hyperkalemia #2 underlying diabetic nephrosclerosis #3 peripheral neuropathy #4 chronic kidney disease stage IV #5 hyperuricemia with gouty arthropathy. #6 inability to understand the fluid intake causing the hyperkalemia and we consulting the dietitian for education of the fluid causing hyperkalemia with the chronic kidney disease Plan: #1 will be adjusting Levemir insulin to 15 units at at bedtime and 10 units in the morning. #2 ambulation as tolerated #3 heparin subcu for DVT prophylaxis 5000 every 12 hours. And plan for discharge in 24 hour with the stability of the vital sign and no complaint. Objective - Vital Signs Vital signs: Vital Signs Temp 98.5 F 04/22/20 04:00 Pulse 82 04/22/20 08:00 Resp 18 04/22/20 08:00 BP 160/68 04/22/20 08:00 Pulse Ox 93 L 04/22/20 08:00 Intake & Output 04/21/20 04/22/20 04/22/20 18:59 06:59 18:59 Intake Total 810 360 Balance 810 360 Weight 102.058 kg 101.5 kg Intake: Intake, IV Titration 450 Amount Sodium Chloride 0.9% 1, 450 000 ml @ 75 mls/hr IV . [id number] ONE Rx#:[id number] Oral 360 360 Other: Voiding Method Toilet Toilet Toilet Incontinent Incontinent Incontinent # Voids 2 3 1 # Bowel Movements 0 - Labs CBC & Chem 7: 04/22/20 05:49 04/22/20 05:49 Labs: Abnormal Lab Results - Last 24 Hours (Table) 04/21/20 04/21/20 04/21/20 Range/Units 12:18 13:08 16:46 RBC (3.80-5.40) m/uL Hgb (11.4-16.0) gm/dL Hct (34.0-46.0) % MCHC (31.0-37.0) g/dL BUN (7-17) mg/dL Creatinine (0.52-1.04) mg/dL Glucose (74-99) mg/dL POC Glucose (mg/dL) 256 H (75-99) mg/dL Procalcitonin 0.16 H (0.02-0.09) ng/mL Urine Protein Trace H (Negative) U Tricyclic Antidepress Detected H (NotDetected) 04/21/20 04/22/20 04/22/20 Range/Units 19:43 05:49 05:49 RBC 3.21 L (3.80-5.40) m/uL Hgb 9.7 L D (11.4-16.0) gm/dL Hct 31.8 L (34.0-46.0) % MCHC 30.6 L (31.0-37.0) g/dL BUN 41 H (7-17) mg/dL Creatinine 1.99 H (0.52-1.04) mg/dL Glucose 57 L (74-99) mg/dL POC Glucose (mg/dL) 279 H (75-99) mg/dL Procalcitonin (0.02-0.09) ng/mL Urine Protein (Negative) U Tricyclic Antidepress (NotDetected) 04/22/20 Range/Units 11:53 RBC (3.80-5.40) m/uL Hgb (11.4-16.0) gm/dL Hct (34.0-46.0) % MCHC (31.0-37.0) g/dL BUN (7-17) mg/dL Creatinine (0.52-1.04) mg/dL Glucose (74-99) mg/dL POC Glucose (mg/dL) 114 H (75-99) mg/dL Procalcitonin (0.02-0.09) ng/mL Urine Protein (Negative) U Tricyclic Antidepress (NotDetected)
[2020-04-22 14:47] VITALS: BMI 36.1
[2020-04-22 14:51] LABS: Hemoglobin A1C 7.7 % (4.0-6.0)
[2020-04-22 16:34] LABS: % Iron Saturation 22.55 (12.00-45.00)
[2020-04-22 16:43] LABS: Ferritin 111.7 ng/mL (10.0-291.0)
[2020-04-22 17:09] LABS: Glucose,Whole Blood 188 mg/dL (75-99)
[2020-04-22] MEDS: IMIPRAMINE 25 MG TAB PO SCH ×2 (17:48→21:22)
[2020-04-22 20:02] LABS: Glucose,Whole Blood 180 mg/dL (75-99)
[2020-04-22] MEDS ORDERED: INSULIN DETEMIR (LEVEMIR) 100 UNIT/ML SYR SQ SCH (21:00)
[2020-04-22] MEDS: ATORVASTATIN 20 MG TAB PO SCH (21:21)
[2020-04-22] MEDS: HEPARIN SODIUM,PORCINE 5,000 UNIT/ML 1 ML VIAL SQ SCH (22:59)
[2020-04-23 05:20] VITALS: RESP 18
[2020-04-23 06:26] LABS: Glucose,Whole Blood 156 mg/dL (75-99)
[2020-04-23] MEDS: INSULIN ASPART (NovoLOG) 100 UNIT/ML VIAL SQ SCH ×2 (06:28→06:33)
[2020-04-23] MEDS: carvediloL 12.5 MG TAB PO SCH (06:33)
[2020-04-23] MEDS ORDERED: INSULIN DETEMIR (LEVEMIR) 100 UNIT/ML SYR SQ SCH (07:00)
[2020-04-23 07:14] LABS: Basophils % (A) 0 %; Eosinophils # (A) 0.1 k/uL (0-0.7); Eosinophils % (A) 1 %; HCT 33.9 % (34.0-46.0); HGB 10.1 gm/dL (11.4-16.0); Hypochromasia Slight; Lymphocytes # (A) 1.6 k/uL (1.0-4.8); Lymphocytes % (A) 21 %; MCH 29.6 pg (25.0-35.0); MCHC 29.8 g/dL (31.0-37.0); MCV 99.4 fL (80.0-100.0); Mean Platelet Volume 7.8; Monocytes # (A) 0.4 k/uL (0-1.0); Monocytes % (A) 6 %; Neutrophils # (A) 5.2 k/uL (1.3-7.7); Neutrophils % (A) 70 %; Platelet Count 317 k/uL (150-450); RBC 3.41 m/uL (3.80-5.40); RDW 14.3 % (11.5-15.5); WBC 7.5 k/uL (3.8-10.6)
[2020-04-23 07:30] LABS: Calcium 8.9 mg/dL (8.4-10.2); Potassium 5.1 mmol/L (3.5-5.1)
[2020-04-23 07:31] VITALS: BP 175/77; PULSE 79; TEMP 98
[2020-04-23] MEDS: allopurinoL 100 MG TAB PO SCH (09:07)
[2020-04-23] MEDS: ASPIRIN 81 MG PO SCH (09:08)
[2020-04-23] MEDS: HEPARIN SODIUM,PORCINE 5,000 UNIT/ML 1 ML VIAL SQ SCH ×2 (09:08→09:15)
[2020-04-23] MEDS: GABAPENTIN 300 MG CAP PO SCH (09:08)
[2020-04-23] MEDS: FUROSEMIDE 40 MG TAB PO SCH (09:08)
[2020-04-23] MEDS: IMIPRAMINE 25 MG TAB PO SCH (09:09)
[2020-04-23] MEDS: VIT A,C & E-LUTEIN-MINERALS 1 EACH TAB PO SCH (09:09)
[2020-04-23] MEDS: FLUTICASONE 50MCG/SPRAY NASAL 16GM EA NOSTRIL SCH (09:10)
--- NOTE | 2020-04-23 15:01 | PN ---
PROGRESS NOTE Patient is seen for followup for acute kidney injury on top of chronic kidney disease. Patient is currently comfortable. Denies any significant complaints. She did receive IV fluids initially. On examination today blood pressure was elevated 175/77, heart rate 79 per minute, she is afebrile. Examination of the heart S1, S2. Examination of the lungs, bilateral breath sounds are heard. Abdomen is soft, nontender. Examination of the lower extremities shows no significant edema. DIRECTOR MORTGAGE exam grossly intact. LABS: Show sodium 138, potassium 5.1, chloride 104, BUN 47, creatinine 2.3, hemoglobin 10.1 g/dL. ASSESSMENT: 1. Chronic kidney disease secondary to nephrosclerosis, NKF stage IV. Baseline creatinine about 1.9. 2. Mild acute kidney injury, mostly prerenal. I will hold Lasix for now. The patient is encouraged to maintain good oral intake. 3. Hyperkalemia associated with some degree of acute kidney injury and increased potassium intake currently improved. 4. CKD mineral bone disorder maintained on Rocaltrol. 5. Hypertension. Blood pressure has been running high, although patient states that she is well maintained as outpatient. PLAN: Hold Lasix for about a day. Maintain adequate oral intake. Resume as outpatient once patient is discharged. Follow up as outpatient with scheduled appointment for a virtual visit. MMODL / IJN: [id number] /
--- NOTE | 2020-04-23 20:07 | DS ---
DISCHARGE SUMMARY This patient is a 74-year-old female. She is 5 feet 6 inches tall and she weighs 71 kg, BSA 1.80 m2. BMI 25.3 kg/m2. ALLERGIES UNKNOWN. DATE OF ADMISSION: 04/21/2020 1439 hours DATE OF DISCHARGE: 04/23/2020 CONSULTATION: Dr. Dubon, Nephrology FINAL DIAGNOSES: 1. Hyperkalemia secondary to extensive intake of food containing high/rich potassium content with the hyperkalemia on admission. 2. Underlying diabetic nephrosclerosis, bilateral. 3. Chronic kidney disease, stage 4. 4. Hypoglycemia with the Levemir dose 25, which has been adjusted on the discharge. 5. Underlying hypertension with hypertensive heart disease. 6. Chronic kidney disease secondary to nephrosclerosis, stage IV, and mild hypervolemia. 7. Chronic kidney disease with mineral bone disorder and maintaining on Rocaltrol. HOSPITAL COURSE: Presentation in the emergency room. The patient was brought to the emergency room at [facility] with underlying fall in the morning and she woke up late, not her usual, and that could be probably associated with the hypoglycemia, and she was slightly lethargic. Apparently when her friend came to check on her, the patient was found on the floor. They gave her orange juice. The friend called the ambulance EMS to take her and they gave another orange juice. She probably was hypoglycemic, but there was no testing done before the orange juice. The patient was brought to the ER and was found to have elevated potassium at 6.3. Repeat in the ER was 5.9, still hyperkalemic. She was admitted for telemetry monitoring. Her medication was resumed with hydration and she received 2 doses of Kayexalate. Her potassium went down to 4.9 on the second day. She had also IV fluid, which was subsequently held. She was seen by the director retail brand development, Dr. Dubon. It was found that during the night her blood glucose went down to 57 with another episode of hypoglycemia with the dose of Levemir at 25 units at bedtime. She is covered during the day with CBG to scale with NovoLog short-acting and subsequently we divided these doses, still 25 total; however, to be 15 at night and 10 units in the morning. We checked the hemoglobin A1c and it was 7.7. Subsequently the blood sugar has been stable and we have no evidence of hypoglycemia with this protocol. Today she was seen, evaluated. She is conscious, alert, oriented x3, ambulatory. She had also anemia of chronic disease secondary to chronic kidney disease, stage 4. Checking on the iron supplementation, we found the serum ferritin to be 111.7, the iron total 53, TIBC 235, and her saturation is 22.55. Her magnesium 1.6. We found her hemoglobin to be 10.1 with hematocrit 33.9 with MCV 99.4. White count 7.5. The GFR today was 20 and yesterday 24; however, today's 20 was without IV fluid. Her blood sugar has been stable, with the a.m. blood sugar 114 and subsequently 156, with the current divided dose. On the physical exam on discharge, the patient is conscious, alert, oriented x3. No acute respiratory distress. She is able to stand and walk. We did discuss low- potassium food to be aware of; to have low potassium because the problem was eating bananas and orange juice and other food containing high potassium. On the discharge, her vital signs were stable with temperature 98, pulse 79 per minute, respiratory rate 18, nonlabored, and her blood pressure initially was 55/68; however, it went up to 175/77 and the pulse ox was 95%. She was receiving Lasix as well. Her potassium today on discharge was stable at 5.1 with the sodium 138, chloride 104, carbon dioxide 31. Her BUN today is 47 and creatinine 2.32 with the EGFR for non- 20. On examination, the patient has no chest pain, no palpitations. HEENT: The head was normocephalic, atraumatic. Pupils equal, reactive. She had natural teeth. Neck was supple. No JVD. No thyromegaly. No lymphadenopathy. Trachea midline. The chest was clear to auscultation and percussion. HEART: She has a pacemaker and the heart was regular sinus. EXTREMITIES: No edema and positive pulses. No evidence of skin break at that time. ASSESSMENT: Patient in stable general condition. Would be advised to split the dose until she sees the classroom technology technician and Dr. Kristen Purcell. I will see the patient next week in the office. MMODL / IJN: [id number] /
== END 2020-04-23 11:05 | disposition home or self-care (01) | DRG 641 ==
LOC: EC 11:23 → 3SCARD 14:39
PROVIDERS: ADMIT Internal Medicine; ATTEND Internal Medicine
DX: E87.5 Hyperkalemia (principal); N17.9 Acute kidney failure, unspecified; N18.4 Chronic kidney disease, stage 4 (severe); I13.0 Hypertensive heart and chronic kidney disease with heart failure and stage 1 through stage 4 chronic kidney disease, or unspecified chronic kidney disease; N25.81 Secondary hyperparathyroidism of renal origin; K21.9 Gastro-esophageal reflux disease without esophagitis; E11.42 Type 2 diabetes mellitus with diabetic polyneuropathy; E11.22 Type 2 diabetes mellitus with diabetic chronic kidney disease; D63.1 Anemia in chronic kidney disease; I50.9 Heart failure, unspecified; E78.5 Hyperlipidemia, unspecified; M19.072 Primary osteoarthritis, left ankle and foot; Z79.4 Long term (current) use of insulin; M17.10 Unilateral primary osteoarthritis, unspecified knee; E55.9 Vitamin D deficiency, unspecified; M10.9 Gout, unspecified; E66.9 Obesity, unspecified; W19.XXXA Unspecified fall, initial encounter; E83.89 Other disorders of mineral metabolism; E11.649 Type 2 diabetes mellitus with hypoglycemia without coma; Z87.440 Personal history of urinary (tract) infections; Z79.82 Long term (current) use of aspirin; Z79.899 Other long term (current) drug therapy; Z98.890 Other specified postprocedural states; Z98.891 History of uterine scar from previous surgery; Z82.49 Family history of ischemic heart disease and other diseases of the circulatory system; Z80.3 Family history of malignant neoplasm of breast; Z91.81 History of falling; Z95.0 Presence of cardiac pacemaker; Z68.25 Body mass index [BMI] 25.0-25.9, adult
CPT/HCPCS: 36415; 71046; 80048; 80053; 80306; 81003; 82728; 83036; 83540; 83550; 83735; 84132; 84145; 84484; 85025; 85610; 85730; 93005; 96360; 96361; 99285

== ENCOUNTER → 2020-05-04 | Outpatient (CLI) | payer MEDICARE, OTHER ==
[2020-05-04 19:11] LABS: African American GFR (CKD) 23.6 (60.0-200.0); Albumin 3.6 g/dL (3.80-4.90); Albumin/Globulin Ratio 1.38 (1.60-3.17); Anion Gap 5.4 mmol/L (4.00-12.00); BUN/Creat Ratio 20.87 Ratio (12.00-20.00); Calcium 8.9 mg/dL (8.7-10.3); Carbon Dioxide 27.6 mmol/L (21.6-31.8); Chol/HDL Ratio 2.07; Globulin 2.6 g/dL (1.6-3.3); LDL Cholesterol,Calculated 45.8 mg/dL (0.0-131.0); Non-African American GFR(CKD) 20.4 (60.0-200.0); Potassium 4.9 mmol/L (3.5-5.5); Total Bilirubin 0.2 mg/dL (0.3-1.2); Total Protein 6.2 g/dL (6.2-8.2); VLDL Calculation 14.2 mg/dL (5.00-40.00)
[2020-05-04 19:32] LABS: Urine Creatinine 51.4 mg/dL
== END | disposition home or self-care (01) ==
LOC: LABWHC1 09:03
PROVIDERS: ATTEND Internal Medicine Endocrinology, Diabetes & Metabolism
DX: E11.65 Type 2 diabetes mellitus with hyperglycemia (principal)
CPT/HCPCS: 36415; 80053; 80061; 82043; 82570; 84443

== ENCOUNTER → 2020-05-20 | Outpatient (CLI) | payer MEDICARE, OTHER ==
--- NOTE | 2020-05-20 18:27 | CONS ---
CONSULTATION DATE OF SERVICE: 05/20/2020 74-year-old lady who has been [facility] for sleepiness and possible obstructive sleep apnea-hypopnea syndrome. HISTORY OF PRESENT ILLNESS/ SLEEP WAKE EVALUATION: SLEEP SCHEDULE: The patient's usual sleep schedule from midnight until 8:30. FALLING ASLEEP: Sometimes she has problems with falling asleep, although no TV in bedroom. DURING SLEEP: She usually sleeps on the side position. According to her family, she snores and wakes up from sleep 3 times with one episode of nocturia. Positive history of sleep talking and history of out of dream movements, sweating, awakenings with dry mouth. DURING THE DAY: During the day, patient feels sleepiness, take naps once a day in the range of time between noon and 3:00 pm. Usually feels refreshed after naps. May see vivid dreams during naps. Sometimes at night while falling asleep, started to see dreams right away. PAST MEDICAL HISTORY: Positive for cardiac arrhythmia status post permanent pacemaker insertion, hypertension, hyperlipidemia, diabetes mellitus, sinusitis. PAST SURGICAL HISTORY: Cholecystectomy, surgery for carpal tunnel syndrome bilaterally, hernia repair surgery, pacemaker insertion. SOCIAL HISTORY: Negative for smoking or using alcohol. MEDICATIONS: 1. Levemir 10 mg in the morning and 15 mg in the evening. 2. NovoLog. 3. Nifedipine ER 60 mg once a day. 4. Atorvastatin 20 mg once a day. 5. Imipramine 25 mg twice a day 2 tablets daily. 6. Gabapentin 300 mg 2 tablets daily. 7. Carvedilol 25 mg twice a day. 8. Allopurinol 100 mg once a day. 9. Furosemide 40 mg once a day in the morning. 10. 0.25 mg 3 times a week. 11.Baby aspirin 81 mg twice daily. 12.[place] 325 mg half of tablet as needed. 13.Fluticasone nasal spray 50 mcg as needed up to twice daily. FAMILY HISTORY: during sleep and cancer in her mother and sister. PHYSICAL EXAM: lady without distress. BP 155/75, HR 79. Respiratory rate 15, height 5 feet 3 inches, weight 234.0, BMI 41.2, temperature 98.0, oxygen saturation at room air 99%. HEENT: PERRLA, EOMI. Evaluation of oropharynx showed tongue protrudes midline. Extremely low position of soft palate. Mallampati 4, wide neck 17-1/4 inches in circumference. NECK: Supple, no JVD. Thyroid is not palpable. LUNGS: Clear to percussion and to auscultation. Good air exchange. No wheezing or rhonchi. HEART: S1, S2 regular. No murmurs, gallops, or rubs. ABDOMEN: Obese. Soft and nontender. Bowel sounds are present. No organomegaly appreciated. EXTREMITIES: No clubbing or cyanosis. [address] SQL DEVELOPER: Awake, alert, and oriented X3. Cranial nerves 2 to 7 intact. There is no fasciculation or atrophy. noted. No focal deficits observed. IMPRESSION: 1. Snoring, awakenings from sleep with nocturia, extremely low position of soft palate, wide neck, sleepiness, obstructive sleep apnea-hypopnea syndrome. 2. History of sleep talking. 3. History of possible out of dream movements. 4. Significant excessive daytime sleepiness with daytime naps with vivid dreams during naps and questionable hypnogological hallucinations at night. [place] Sleepiness Scale is low at 9 which is borderline but still differential diagnosis should include possibility of hypersomnia. 5. History of cardiac arrhythmia status post permanent pacemaker insertion. 6. Hypertension. 7. Diabetes mellitus. 8. Hyperlipidemia. 9. History of sinusitis. 10.Status post cholecystectomy. 11.Status post bilateral carpal tunnel syndrome surgery. 12.Status post cholecystectomy. 13.Status post hernia repair. 14.Status post 2 C sections. PLAN: 1. Polysomnography for evaluation of patient's breathing during sleep. 2. CPAP/BiPAP titration if sleep study confirms obstructive sleep apnea-hypopnea syndrome. 3. Preferable position during sleep on the side. 4. No driving if patient feels any sleepiness. 5. I will see patient for follow up visit to explain results of testing and following plan. Thank you very much for referring this patient for consultation. Sincerely, Jaswinder Dubon MD, PhD, FAASM Diplomat of [place] [employer] [place] [employer] Experimental Worker of [facility] MMODL / IJN: [id number] /
== END | disposition home or self-care (01) ==
LOC: SLEEP 11:27
PROVIDERS: ATTEND Internal Medicine
DX: G47.33 Obstructive sleep apnea (adult) (pediatric) (principal); I10 Essential (primary) hypertension; E11.9 Type 2 diabetes mellitus without complications; E78.5 Hyperlipidemia, unspecified; Z90.49 Acquired absence of other specified parts of digestive tract; Z98.890 Other specified postprocedural states; Z86.79 Personal history of other diseases of the circulatory system; Z87.09 Personal history of other diseases of the respiratory system
CPT/HCPCS: 99211

== ENCOUNTER → 2020-06-02 | Outpatient (CLI) | payer MEDICARE, OTHER ==
[2020-06-02 11:01] LABS: Basophils % (A) 0 %; Eosinophils # (A) 0.1 k/uL (0-0.7); Eosinophils % (A) 1 %; HGB 11.4 gm/dL (11.4-16.0); Hypochromasia Slight; Lymphocytes # (A) 1.3 k/uL (1.0-4.8); Lymphocytes % (A) 13 %; MCH 30.6 pg (25.0-35.0); MCHC 30.1 g/dL (31.0-37.0); MCV 101.7 fL (80.0-100.0); Macrocytosis Slight; Mean Platelet Volume 7.4; Monocytes # (A) 0.4 k/uL (0-1.0); Monocytes % (A) 4 %; Neutrophils # (A) 8.1 k/uL (1.3-7.7); Neutrophils % (A) 80 %; Platelet Count 357 k/uL (150-450); RBC 3.74 m/uL (3.80-5.40); RDW 14.6 % (11.5-15.5); WBC 10.1 k/uL (3.8-10.6)
[2020-06-02 22:58] LABS: % Iron Saturation 24.24 (12.00-45.00); African American GFR (CKD) 26.2 (60.0-200.0); Albumin 3.6 g/dL (3.80-4.90); Anion Gap 8.8 mmol/L (4.00-12.00); BUN/Creat Ratio 22.86 Ratio (12.00-20.00); Calcium 9.2 mg/dL (8.7-10.3); Carbon Dioxide 27.2 mmol/L (21.6-31.8); Magnesium 1.5 mg/dL (1.5-2.4); Non-African American GFR(CKD) 22.6 (60.0-200.0); Phosphorus 4.3 mg/dL (2.4-5.1); Potassium 4.9 mmol/L (3.5-5.5); Uric Acid 6.6 mg/dL (2.9-7.7)
== END | disposition home or self-care (01) ==
LOC: LABWHC1 09:01
PROVIDERS: ATTEND Nurse Practitioner Family
DX: E55.9 Vitamin D deficiency, unspecified (principal); N25.81 Secondary hyperparathyroidism of renal origin; M10.9 Gout, unspecified; N39.0 Urinary tract infection, site not specified; R80.9 Proteinuria, unspecified; D63.1 Anemia in chronic kidney disease; N18.4 Chronic kidney disease, stage 4 (severe)
CPT/HCPCS: 36415; 80048; 82040; 82306; 82728; 83540; 83550; 83735; 83970; 84100; 84550; 85025

== ENCOUNTER 2020-07-27 10:42 | Observation (INO) | payer MEDICARE, OTHER ==
--- NOTE | 2020-07-27 11:42 | ED ---
General Adult HPI - General Chief complaint: Extremity Injury, Upper Stated complaint: L Arm Numbness Time Seen by Provider: 07/27/20 10:55 Source: patient, EMS Mode of arrival: EMS Limitations: no limitations - History of Present Illness Initial comments: The patient is a 75 year old female past history of heart failure, diabetes, hypertension who presents to the emergency department with reported left upper extremity weakness and left upper/lower extremity numbness. Patient states she woke this morning and had subjective numbness in her left upper lower externally. States she is having difficulty with her bung dropper of her left upper extremity earlier. Denies previous history of stroke. Denies visual changes or headache. No recent head trauma. Denies any speech difficulties. Patient was concerned that it may be due to a pinched nerve in her neck or back and therefore came to the emergency room for evaluation. She denies any fevers or chills. No chest pain or shortness of breath. No weakness in her lower tremens. No other alleviating, precipitating or modifying factors - Related Data Home Medications Medication Instructions Recorded Confirmed Aspirin 81 mg PO BID 03/23/14 07/27/20 Carvedilol 25 mg PO BID 03/23/14 07/27/20 Gabapentin [Neurontin] 300 mg PO BID 03/23/14 07/27/20 allopurinoL [Zyloprim] 100 mg PO DAILY 03/23/14 07/27/20 Atorvastatin [Lipitor] 20 mg PO HS 05/10/15 07/27/20 Furosemide [Lasix] 40 mg PO DAILY 03/30/20 07/27/20 Acetaminophen Tab [Tylenol] 1,000 mg PO Q6HR PRN 04/21/20 07/27/20 Calcitriol [Rocaltrol] 0.25 mcg PO SUTUTH 04/21/20 07/27/20 Imipramine [Tofranil] 25 mg PO BID 04/21/20 07/27/20 NIFEdipine XL [Procardia XL] 60 mg PO DAILY 04/21/20 07/27/20 INSULIN ASPART (NovoLOG) [NovoLOG See Protocol SQ AC-TID 07/27/20 07/27/20 (formulary)] Previous Rx's Medication Instructions Recorded Insulin Detemir (Levemir) [Levemir] 10 unit SQ DAILY@0700 syr 04/23/20 Insulin Detemir (Levemir) [Levemir] 15 unit SQ HS syr 04/23/20 Clopidogrel [Plavix] 75 mg PO DAILY #30 tab 07/28/20 Allergies Allergy/AdvReac Type Severity Reaction Status Date / Time No Known Allergies Allergy Verified 07/27/20 11:34 Review of Systems ROS Statement: Those systems with pertinent positive or pertinent negative responses have been documented in the HPI. ROS Other: All systems not noted in ROS Statement are negative. Past Medical History Past Medical History: Heart Failure, Diabetes Mellitus, GERD/Reflux, Hypertension, Renal Disease Additional Past Medical History / Comment(s): Anemia. See Dr. Denis's H&P. History of Any Multi-Drug Resistant Organisms: None Reported Past Surgical History: Bladder Surgery, Section, Heart Catheterization, Hernia Repair, Orthopedic Surgery, Pacemaker Additional Past Surgical History / Comment(s): Large hernia repair after a ce sarean section, carpal tunnel bilat. Past Anesthesia/Blood Transfusion Reactions: No Reported Reaction Type of Cardiac Device: Permanent Pacemaker Device Placement Date:: February 2005 Past Psychological History: No Psychological Hx Reported Smoking Status: Never smoker Past Alcohol Use History: None Reported Past Drug Use History: None Reported - Past Family History Mother Family Medical History: Cancer, Myocardial Infarction ([place]) Additional Family Medical History / Comment(s): breast Father History Unknown: Yes Sister(s) Family Medical History: Cancer Additional Family Medical History / Comment(s): breast General Exam Limitations: no limitations General appearance: alert, in no apparent distress Head exam: Present: atraumatic, normocephalic, normal inspection Eye exam: Present: normal appearance, PERRL, EOMI. Absent: scleral icterus, conjunctival injection, periorbital swelling ENT exam: Present: normal exam, mucous membranes moist Neck exam: Present: normal inspection. Absent: tenderness, meningismus, lymphadenopathy Respiratory exam: Present: normal lung sounds bilaterally. Absent: respiratory distress, wheezes, rales, rhonchi, stridor Cardiovascular Exam: Present: regular rate, normal rhythm, normal heart sounds. Absent: systolic murmur, diastolic murmur, rubs, gallop, clicks GI/Abdominal exam: Present: soft, normal bowel sounds. Absent: distended, tenderness, guarding, rebound, rigid Extremities exam: Present: normal inspection, full ROM, normal capillary refill. Absent: tenderness, pedal edema, joint swelling, calf tenderness Back exam: Present: normal inspection Neurological exam: Present: alert, oriented X3, CN II-XII intact Psychiatric exam: Present: normal affect, normal mood Skin exam: Present: warm, dry, intact, normal color. Absent: rash Course Vital Signs 07/27/20 07/27/20 07/27/20 10:52 14:45 19:47 Temperature 98.3 F 97.5 F L Pulse Rate 94 90 91 Pulse Rate [ Pulse Oximetery ] Respiratory 18 18 18 Rate Blood Pressure 124/81 145/77 114/74 Blood Pressure [Left Arm] O2 Sat by Pulse 96 98 95 Oximetry 07/28/20 07/28/20 07/28/20 00:00 09:00 09:24 Temperature 97.9 F 97.7 F Pulse Rate 82 Pulse Rate [ 105 H 105 H Pulse Oximetery ] Respiratory 16 16 16 Rate Blood Pressure 108/72 Blood Pressure 174/77 [Left Arm] O2 Sat by Pulse 96 96 Oximetry 07/28/20 14:38 Temperature 98.7 F Pulse Rate Pulse Rate [ 73 Pulse Oximetery ] Respiratory 16 Rate Blood Pressure Blood Pressure 146/63 [Left Arm] O2 Sat by Pulse 95 Oximetry EKG Findings - EKG Comments: EKG Findings:: EKG demonstrates atrial sensed ventricularly paced rhythm at 79. WV interval 132. QRS 156. QTC of 488. Significant baseline artifact. Pacemaker captures appropriately. No ST segment elevation Medical Decision Making - Medical Decision Making Upon arrival patient is placed in room 25. A thorough history and physical exam was performed. Patient does have an NIH of 0. She does have subjective paresthesias of her left upper and lower extremity. I did recommend laboratory studies and a CT the patient's brain and cervical spine. Also performed CT of the patient's thoracic and lumbar spine. Laboratory studies are reviewed and demonstrated a potassium of 5.8. Creatinine is 2.4. Patient does have chronic kidney disease. CT of the patient's brain and cervical spine demonstrates no acute fracture dislocation evident the cervical spine. No acute intracranial hemorrhage or midline shift. CT angiography not performed as patient does have poor renal function. Thoracic and lumbar spines CT are performed which demonstrates no acute fracture dislocation. The results discussed with the patient. Recommends overnight observation with neurology consultation for possi ble TIA versus CVA. Patient agreed to this. Given a dose of aspirin. Spoke with Dr. Stokes who agreed to admit the patient. The patient was in agreement treatment plan and she is currently awaiting a bed on the floor - Lab Data Result diagrams: 07/28/20 07:39 07/28/20 07:39 Lab Results 07/27/20 07/27/20 07/27/20 Range/Units 12:21 12:21 12:21 WBC 10.3 (3.8-10.6) k/uL RBC 3.58 L (3.80-5.40) m/uL Hgb 11.5 (11.4-16.0) gm/dL Hct 35.2 (34.0-46.0) % MCV 98.5 (80.0-100.0) fL MCH 32.3 (25.0-35.0) pg MCHC 32.8 (31.0-37.0) g/dL RDW 13.8 (11.5-15.5) % Plt Count 379 (150-450) k/uL MPV 7.6 Neutrophils % 87 % Lymphocytes % 10 % Monocytes % 3 % Eosinophils % 0 % Basophils % 0 % Neutrophils # 9.0 H (1.3-7.7) k/uL Lymphocytes # 1.0 (1.0-4.8) k/uL Monocytes # 0.3 (0-1.0) k/uL Eosinophils # 0.0 (0-0.7) k/uL Basophils # 0.0 (0-0.2) k/uL PT 10.0 (9.0-12.0) sec INR 1.0 (<1.2) APTT 29.7 (22.0-30.0) sec Sodium 137 (137-145) mmol/L Potassium 5.8 H (3.5-5.1) mmol/L Chloride 104 (98-107) mmol/L Carbon Dioxide 27 (22-30) mmol/L Anion Gap 6 mmol/L BUN 54 H (7-17) mg/dL Creatinine 2.43 H (0.52-1.04) mg/dL Est GFR (CKD-EPI)AfAm 22 (>60 ml/min/1.73 sqM) Est GFR (CKD-EPI)NonAf 19 (>60 ml/min/1.73 sqM) Glucose 169 H (74-99) mg/dL Calcium 9.3 (8.4-10.2) mg/dL Total Bilirubin 0.5 (0.2-1.3) mg/dL AST 24 (14-36) U/L ALT 17 (4-34) U/L Alkaline Phosphatase 156 H (38-126) U/L Troponin I (0.000-0.034) ng/mL Total Protein 6.9 (6.3-8.2) g/dL Albumin 3.5 (3.5-5.0) g/dL 07/27/20 Range/Units 12:21 WBC (3.8-10.6) k/uL RBC (3.80-5.40) m/uL Hgb (11.4-16.0) gm/dL Hct (34.0-46.0) % MCV (80.0-100.0) fL MCH (25.0-35.0) pg MCHC (31.0-37.0) g/dL RDW (11.5-15.5) % Plt Count (150-450) k/uL MPV Neutrophils % % Lymphocytes % % Monocytes % % Eosinophils % % Basophils % % Neutrophils # (1.3-7.7) k/uL Lymphocytes # (1.0-4.8) k/uL Monocytes # (0-1.0) k/uL Eosinophils # (0-0.7) k/uL Basophils # (0-0.2) k/uL PT (9.0-12.0) sec INR (<1.2) APTT (22.0-30.0) sec Sodium (137-145) mmol/L Potassium (3.5-5.1) mmol/L Chloride (98-107) mmol/L Carbon Dioxide (22-30) mmol/L Anion Gap mmol/L BUN (7-17) mg/dL Creatinine (0.52-1.04) mg/dL Est GFR (CKD-EPI)AfAm (>60 ml/min/1.73 sqM) Est GFR (CKD-EPI)NonAf (>60 ml/min/1.73 sqM) Glucose (74-99) mg/dL Calcium (8.4-10.2) mg/dL Total Bilirubin (0.2-1.3) mg/dL AST (14-36) U/L ALT (4-34) U/L Alkaline Phosphatase (38-126) U/L Troponin I <0.012 (0.000-0.034) ng/mL Total Protein (6.3-8.2) g/dL Albumin (3.5-5.0) g/dL Disposition Clinical Impression: Left sided numbness Disposition: ADMITTED IP TO THIS [facility] Condition: Stable Is patient prescribed a controlled substance at d/c from ED?: No Decision to Admit Reason: Admit from [facility] Decision Date: 07/27/20 Decision Time: 14:50
[2020-07-27 12:34] LABS: Basophils % (A) 0 %; Eosinophils % (A) 0 %; HCT 35.2 % (34.0-46.0); HGB 11.5 gm/dL (11.4-16.0); Lymphocytes % (A) 10 %; MCH 32.3 pg (25.0-35.0); MCHC 32.8 g/dL (31.0-37.0); MCV 98.5 fL (80.0-100.0); Mean Platelet Volume 7.6; Monocytes # (A) 0.3 k/uL (0-1.0); Monocytes % (A) 3 %; Neutrophils % (A) 87 %; Platelet Count 379 k/uL (150-450); RBC 3.58 m/uL (3.80-5.40); RDW 13.8 % (11.5-15.5); WBC 10.3 k/uL (3.8-10.6)
[2020-07-27 12:38] LABS: Albumin 3.5 g/dL (3.5-5.0); Calcium 9.3 mg/dL (8.4-10.2); Total Bilirubin 0.5 mg/dL (0.2-1.3); Total Protein 6.9 g/dL (6.3-8.2)
[2020-07-27 12:45] LABS: Potassium 5.8 mmol/L (3.5-5.1)
[2020-07-27 12:48] LABS: Partial Thromboplastin Time 29.7 sec (22.0-30.0)
--- NOTE | 2020-07-27 13:03 | XR ---
EXAMINATION TYPE: XR chest 2V DATE OF EXAM: 07/27/2020 COMPARISON: Prior chest x-ray April 21, 2020. HISTORY: Shortness of breath. TECHNIQUE: Frontal and lateral views of the chest are obtained. FINDINGS: There is chronic parenchymal changes bilaterally without suspicious new focal air space op acity, pleural effusion, or pneumothorax seen. Persistent cardiomegaly with dual lead pacemaker and a therosclerotic aorta. The osseous structures remain intact. IMPRESSION: Cardiomegaly and chronic parenchymal changes without new acute pulmonary process. No sig nificant change from prior.
--- NOTE | 2020-07-27 13:59 | CT ---
EXAMINATION TYPE: CT brain zheng baker con DATE OF EXAM: 07/27/2020 COMPARISON: CT brain July 06, 2012 HISTORY: Neck and left arm pain and numbness. Headache. CT DLP: 1452.7 mGycm. Automated Exposure Control for Dose Reduction was Utilized. TECHNIQUE: CT scan of the head and cervical spine are performed without contrast. FINDINGS: There is no acute intracranial hemorrhage or midline shift identified. Mild to moderate d iffuse ventricular and sulcal prominence. Mild low attenuation in the periventricular white matter. T he calvarium is intact. Scleral calcification left globe on current study. Visualized Paranasal sinus es remain clear. Cervical spine is visualized from C1 through lower C7 level and demonstrates straightened alignment w ithout evidence of acute fracture or dislocation. Prevertebral soft tissue appears within normal chandler its. The C1-C2 articulation is within normal limits on the coronal images. Vertebral body heights a re maintained. Mild disc space narrowing with moderate to severe anterior spurring C4-C5 and C5-C6 le vels. Moderate to severe spurring and disc space narrowing C6-C7 level. Suboptimal evaluation of C7-T 1 level on current study. Spinal canal grossly preserved. There is medial course to the bilateral car otid arteries left more prominent than right due to the prevertebral soft tissue with moderate to sev ere left greater than right calcified plaque. Lung apices not included. Vascular calcification distal vertebral arteries is present. IMPRESSION: 1. There is no acute fracture or dislocation evident in the cervical spine. Suboptimal study due to l arge body habitus. 2. No acute intracranial hemorrhage or midline shift is seen.
[2020-07-27] MEDS ORDERED: SODIUM CHLORIDE 0.9% 1,000 ML IV ONE (14:03)
--- NOTE | 2020-07-27 14:12 | CT ---
EXAMINATION TYPE: CT thor lumbar spine wo con DATE OF EXAM: 07/27/2020 COMPARISON: None. HISTORY: Left arm, neck and back pain CT DLP: 3080.00 mGycm Automated exposure control for dose reduction was used. FINDINGS: Exam noted suboptimal due to patient's markedly enlarged body habitus. There is S-shaped scoliosis of the thoracolumbar spine. There are 4 lumbar type vertebra. No acute fracture or dislocation is seen. There is vacuum disc phenomenon with mild posterior disc space narrowing L4 S1 level. There is moder ate disc space narrowing with moderate to severe anterior and posterior spurring at the labeled L2-L3 level. Posterior spurring and facet arthropathy causes spinal canal stenosis on axial image 131 at t his level. There are large bridging osteophytes anteriorly and right aspect of the mid to lower thora cic spine. No acute fracture or dislocation is seen. Vertebral body heights are maintained. Spinal ca nal is otherwise grossly preserved. There is cardiomegaly with dual lead pacemaker. The lung volumes are present. Cholecystectomy clips a re noted. There is cortical thinning in both kidneys. There are prominent diverticula on the left and visualized portion of sigmoid colon. Mild to moderate wall thickening in the slightly redundant sigm oid colon extending anteriorly is only partially imaged. Follow-up colonoscopy advised to rule out ne oplasm at this level if has not been performed in last 3 years, for reference axial image 162 with co mat image 1. Small vessel arterial calcification noted consistent with long-standing chronic medica l renal disease. Scattered bilateral lower abdominal phleboliths. IMPRESSION: As above.
[2020-07-27] MEDS ORDERED: ASPIRIN 325 MG TAB PO STA (14:49)
[2020-07-27] MEDS ORDERED: NALOXONE 0.4 MG/ML 1 ML VIAL IV PRN (14:50)
[2020-07-27] MEDS ORDERED: ACETAMINOPHEN TAB 500 MG TAB PO PRN (16:00)
[2020-07-27] MEDS ORDERED: SODIUM POLYSTYRENE SULFONATE 15 GM/60 ML BOTTLE PO ONE (19:10)
--- NOTE | 2020-07-27 19:10 | P.HPIM ---
History of Present Illness H&P Date: 07/27/20 (Recurrent also function of the left upper extremity rule out TIA) Chief Complaint: Experienced on Sunday with loss of function of her left arm and recurrent t History and physical date of service 07/27/2020 Patient presented in the emergency room with the complaint of loss of function. Left upper extremities lasted INR to Less Than and Regained Her Strength Back Which Is Recurrent and Happened Again on Last Sunday. History of Present Illness: 71 Years Old White Female Has Experienced on Sunday Last Week with the Waken up Her Left Arm Lame Unable to Use It Could Not Hold a Cup with Numbness and Tingling Which Resolved after 15 Minutes Approximately and the Patient Did Not Think of Any Problem, however this morning she experienced it again in the morning of the left arm with loss of function could not make a hand production expediter and could not use it, Her son was able to help her to go to the bathroom and she was able to walk and able to drink water she again her function again between 45 minutes to half an hour. However she was concern with the TIA and came to the emergency room. Her past medical history: She has infraclavicular pacemaker and Dr. Conley advised to see Dr. Lamas for fixing the INR on the pacemaker which she had this appointment next . Patient has a history of hyperlipidemia History of chronic kidney disease stage IV her E GFR 22 and she has been followed by Dr. Benoit and Dr. Du R nephrology. Patient is diabetic covered with insulin to scale. She had history of S shaped spine with the scoliosis of the thoracolumbar spine and she had muscle spasm on the rhomboid muscle on the left spatially when she left her car with the movement of the scapula. She had underlying disc space narrowing with moderate to severe anterior and po sterior sparing at L2-L3 and she had facet arthropathy and large and bridging osteophytes anteriorly and right aspect of the mid to lower thoracic spine. And that's from the CAT scan of the lumbar spine She had a cardiomegaly duodenal bleed pacemaker chamber. Cholecystectomy. She had the cortical thinning of both kidney. She had diverticular disease on the left side of the colon and the sigmoid colon. And they also recommended future colonoscopy by this testing of the CT of the lumbar spine. Patient had also computed tomography scan of the brain with no acute intracranial hemorrhage or midline shift she had a [id number] ventricular and sulci prominence. Consultation with Dr. Neumann neurologist will be obtained tomorrow. She had cervical arthritis with the underlying space narrowing moderate to severe sparing anteriorly C4-C5 and C5 and C6 and moderate to severe sparing at C6 and C7. She had obesity as well with the BMI 40. History of hypertension with hypertensive heart disease Sleep apnea. She had a neuropathy of the lower extremity related to diabetic neuropathy. Hyperparathyroidism secondary to chronic kidney disease stage IV ALLERGY unknown. Nephrology is Dr. Dubon Last echocardiogram done by Dr. Conley indicating that her ejection fraction is 45% with the mild concentric hypertrophy with the hypokinesis of the apex, apical inferior and apical septum wall segment. Mild mitral regurgitation aortic regurgitation and pacemaker lead seen in the right atrium and right ventricle. Current medication list: #1 on Levemir 15 mg at at bedtime and 10 mg in a.m. #2 NovoLog according to scale #3 nifedipine ER 60 mg 1 daily in a.m. #4 atorvastatin 20 mg daily at bedtime #5 and the protamine HCl 25 mg 2 tablet in a.m. for neuropathy. #6 gabapentin 300 mg twice a day a.m. and p.m. #7 carvedilol 25 mg twice a day a.m. and p.m. #8 allopurinol 100 mg daily in a.m. #9 furosemide 40 mg every morning #10 Calcitrol 25 mg 3 times a week #11 aspirin low-dose 81 mg twice a day #12 Narco 5/325 one tablet to half a tablet when necessary for pain #13 fluticasone nasal spray 50 g per accentuation when necessary #14 Systane eye capsule vitamin a.m. and the p.m. Review of system: She denied any fall, conscious alert oriented able to communicate, eat, and speak no numbness in her arm left sided at the time of exam, no fever no chills and no loss ofor smell Cardiovascular: She had a pacemaker and apparently the INR needs to be adjusted and she had an appointment with Dr. Lamas for that made by Dr. Conley. Lung: No wheezes no rhonchi is no coughing no fever no chills GI no diarrhea no constipation no dyspepsia no nausea vomiting gu: She had the urinary incontinent and she is supposed to see Dr. castaneda neurology for the urinary incontinent tomorrow and we advised that to be canceled for now. Neurologically: Stable however recurrence of numbness and loss of function suggestive of TIA. Endocrine diabetes mellitus, neuropathy of the lower extremities., History of gouty arthritis., Hyperparathyroidism. Physical exam: Head was normocephalic and atraumatic pupil is equal reactive conjunctiva was pink sclera was nonicteric, oropharynx natural teeth able to eat and swallow normally. Neck was supple no JVD no thyromegaly no lymph adenopathy trachea midline. Chest was clear to auscultation and percussion with no wheezes or rhonchi. Heart pace maker rhythm with a history of impaired ejection fraction, pacemaker with the need future repair as mentioned above Abdomen: Obese positive bowel sounds no tenderness in the four-quadrant Renal: She had chronic kidney disease stage IV and she followed by Dr. Dubon. Extremities: Loss of sensation with neuropathy from diabetes mellitus insulin- dependent, positive pulses bilateral dorsalis pedis and posterior tibial. Neurologically: Stable and the CAT scan was negative however historically from the patient complain indicated to me TIA and we will start her on Plavix until seen by the neurologist tomorrow. Assessment: #1 acute TIA recurrent #2 diabetes mellitus type 2 #3 chronic kidney disease stage IV #4 impaired ejection fraction to the family with the underlying pacemaker. #5 laboratory indicating hyperkalemia we repeated the test of the lower and the potassium was down from 5.8-5.3. Still high Hypertension was hypertensive heart disease Severe diabetic neuropathy. Advanced degenerative disc disease of the cervical thoracolumbar. Insulin-dependent diabetes mellitus. EGFR is 19. Plan: #[address] Conley #2 obtaining carotid duplex study and echo cardiogram #[address] Denis #4 consultation with the neurology Dr. Neumann. #5 obtaining lab tomorrow. #61 dose of Kayexalate 15 g to be given tonight and will check her lab tomorrow. Past Medical History Past Medical History: Heart Failure, Diabetes Mellitus, GERD/Reflux, Hypertension, Renal Disease Additional Past Medical History / Comment(s): Anemia. See Dr. Denis's H&P. History of Any Multi-Drug Resistant Organisms: None Reported Past Surgical History: Bladder Surgery, Section, Heart Catheterization, Hernia Repair, Orthopedic Surgery, Pacemaker Additional Past Surgical History / Comment(s): Large hernia repair after a section, carpal tunnel bilat. Past Anesthesia/Blood Transfusion Reactions: No Reported Reaction Type of Cardiac Device: Permanent Pacemaker Device Placement Date:: February 2005 Past Psychological History: No Psychological Hx Reported Smoking Status: Never smoker Past Alcohol Use History: None Reported Past Drug Use History: None Reported - Past Family History Mother Family Medical History: Cancer, Myocardial Infarction ([place]) Additional Family Medical History / Comment(s): breast Father History Unknown: Yes Sister(s) Family Medical History: Cancer Additional Family Medical History / Comment(s): breast Medications and Allergies Home Medications Medication Instructions Recorded Confirmed Type Aspirin 81 mg PO BID 03/23/14 07/27/20 History Carvedilol 25 mg PO BID 03/23/14 07/27/20 History Gabapentin [Neurontin] 300 mg PO BID 03/23/14 07/27/20 History allopurinoL [Zyloprim] 100 mg PO DAILY 03/23/14 07/27/20 History Atorvastatin [Lipitor] 20 mg PO HS 05/10/15 07/27/20 History Furosemide [Lasix] 40 mg PO DAILY 03/30/20 07/27/20 History Acetaminophen Tab [Tylenol] 1,000 mg PO Q6HR PRN 04/21/20 07/27/20 History Calcitriol [Rocaltrol] 0.25 mcg PO SUTUTH 04/21/20 07/27/20 History Imipramine [Tofranil] 25 mg PO BID 04/21/20 07/27/20 History NIFEdipine XL [Procardia XL] 60 mg PO DAILY 04/21/20 07/27/20 History Insulin Detemir (Levemir) [Levemir] 10 unit SQ DAILY@0700 syr 04/23/20 07/27/20 Rx Insulin Detemir (Levemir) [Levemir] 15 unit SQ HS syr 04/23/20 07/27/20 Rx INSULIN ASPART (NovoLOG) [NovoLOG See Protocol SQ AC-TID 07/27/20 07/27/20 History (formulary)] Allergies Allergy/AdvReac Type Severity Reaction Status Date / Time No Known Allergies Allergy Verified 07/27/20 11:34 Physical Exam Vitals: Vital Signs Temp Pulse Resp BP Pulse Ox 07/27/20 14:45 90 18 145/77 98 07/27/20 10:52 98.3 F 94 18 124/81 96 Intake and Output 07/27/20 07/27/20 07/27/20 06:59 14:59 22:59 Other: Weight 105 kg Results CBC & Chem 7: 07/27/20 12:21 07/27/20 17:00 Labs: Abnormal Lab Results - Last 24 Hours (Table) 07/27/20 07/27/20 07/27/20 Range/Units 12: 12: 17:00 RBC 3.58 L (3.80-5.40) m/uL Neutrophils # 9.0 H (1.3-7.7) k/uL Potassium 5.8 H 5.3 H (3.5-5.1) mmol/L BUN 54 H (7-17) mg/dL Creatinine 2.43 H (0.52-1.04) mg/dL Glucose 169 H (74-99) mg/dL Alkaline Phosphatase 156 H (38-126) U/L
[2020-07-27] MEDS: carvediloL 12.5 MG TAB PO SCH (19:49)
[2020-07-27] MEDS: CLOPIDOGREL 75 MG TAB PO SCH (19:49)
[2020-07-27] MEDS: SODIUM CHLORIDE 0.9% 1,000 ML IV SCH (19:50)
[2020-07-27 20:21] LABS: Glucose,Whole Blood 220 mg/dL (75-99)
[2020-07-27] MEDS: INSULIN ASPART (NovoLOG) 100 UNIT/ML VIAL SQ SCH (20:51)
[2020-07-27] MEDS ORDERED: INSULIN DETEMIR (LEVEMIR) 100 UNIT/ML SYR SQ SCH (21:00)
[2020-07-27] MEDS ORDERED: ATORVASTATIN 20 MG TAB PO SCH (21:00)
--- NOTE | 2020-07-27 21:58 | P.CNNES ---
History of Present Illness Consult date: 07/27/20 Requesting physician: Rebecca Bowden Reason for Consult: Acute left-sided paresthesias History of Present Illness: Patient is a 75-year-old female with history of hypertension, diabetes, pacemaker, states that last Sunday on 07/23/2020 patient developed sudden onset of numbness and weakness of left arm, almost as if it was weight. The symptoms lasted for half an hour and then went away. She was fine until this morning at 9:30 AM, same symptoms happened again. She notices it when she was trying to reach the phone, she dropped the phone. It felt weak heavy, weight. The symptoms lasted for <1 hour. Patient stated that she went to the bathroom. When she stood up, she felt numbness and weakness in the left leg. The symptoms in the left arm and awake, but she has persistent numbness and warmth sensation in the left leg from foot up to the knee. Patient friend's came over, and asked if she was fine, she was taken to the ER by ambulance, and arrived here at 10:42 AM. Patient's vitals were blood pressure 124/81, pulse is 94 temperature 98.3. Chest x-ray showed cardiomegaly and chronic parenchymal changes without new acute pulmonary process. CT head showed no acute intracranial hemorrhage or midline shift. CT of the cervical spine showed no acute fracture or dislocation evident in the cervical spine. CT of the thoracic spine showed S-shaped scoliosis of the thoracolumbar spine. Therefore lumbar type vertebra. No acute fracture or dislocation is seen. There is vacuum disc phenomena and with mild posterior disc space narrowing narrowing L4 S1 level. There are large bridging osteophyte anteriorly and right aspect of the mid to lower thoracic spine. No acute fracture or dislocation is seen. There is cardiomegaly with dual lead pacemaker. EKG shows atrial sense ventricle are based rhythm. Patient still has numbness of the left leg from foot up to the knee. Patient has history of diabetes for 20-30 years, hypertension, nonsmoker. She has a pacemaker. Review of Systems Complains of mid back pain. Also has paresthesias in the left lateral thigh region, but also in the lower leg. Denies any chest pain shortness of breath wheezing or cough. Denies diplopia, loss of vision, hearing loss, hoarseness sore throat, dysphagia. Denies abdominal pain nausea vomiting diarrhea. Denies anxiety depression. Please refer to HPI for more details. Past Medical History Past Medical History: Heart Failure, Diabetes Mellitus, GERD/Reflux, Hypertension, Renal Disease Additional Past Medical History / Comment(s): Anemia. See Dr. Denis's H&P. History of Any Multi-Drug Resistant Organisms: None Reported Past Surgical History: Bladder Surgery, Section, Heart Catheterization, Hernia Repair, Orthopedic Surgery, Pacemaker Additional Past Surgical History / Comment(s): Large hernia repair after a section, carpal tunnel bilat. Past Anesthesia/Blood Transfusion Reactions: No Reported Reaction Type of Cardiac Device: Permanent Pacemaker Device Placement Date:: February 2005 Past Psychological History: No Psychological Hx Reported Smoking Status: Never smoker Past Alcohol Use History: None Reported Past Drug Use History: None Reported - Past Family History Mother Family Medical History: Cancer, Myocardial Infarction ([place]) Additional Family Medical History / Comment(s): breast Father History Unknown: Yes Sister(s) Family Medical History: Cancer Additional Family Medical History / Comment(s): breast Medications and Allergies Home Medications Medication Instructions Recorded Confirmed Type Aspirin 81 mg PO BID 03/23/14 07/27/20 History Carvedilol 25 mg PO BID 03/23/14 07/27/20 History Gabapentin [Neurontin] 300 mg PO BID 03/23/14 07/27/20 History allopurinoL [Zyloprim] 100 mg PO DAILY 03/23/14 07/27/20 History Atorvastatin [Lipitor] 20 mg PO HS 05/10/15 07/27/20 History Furosemide [Lasix] 40 mg PO DAILY 03/30/20 07/27/20 History Acetaminophen Tab [Tylenol] 1,000 mg PO Q6HR PRN 04/21/20 07/27/20 History Calcitriol [Rocaltrol] 0.25 mcg PO SUTUTH 04/21/20 07/27/20 History Imipramine [Tofranil] 25 mg PO BID 04/21/20 07/27/20 History NIFEdipine XL [Procardia XL] 60 mg PO DAILY 04/21/20 07/27/20 History Insulin Detemir (Levemir) [Levemir] 10 unit SQ DAILY@0700 syr 04/23/20 07/27/20 Rx Insulin Detemir (Levemir) [Levemir] 15 unit SQ HS syr 04/23/20 07/27/20 Rx INSULIN ASPART (NovoLOG) [NovoLOG See Protocol SQ AC-TID 07/27/20 07/27/20 History (formulary)] Allergies Allergy/AdvReac Type Severity Reaction Status Date / Time No Known Allergies Allergy Verified 07/27/20 11:34 Physical Examination - Vital Signs Vital Signs: Vital Signs Temp Pulse Resp BP Pulse Ox 07/27/20 19:47 97.5 F L 91 18 114/74 95 07/27/20 14:45 90 18 145/77 98 07/27/20 10:52 98.3 F 94 18 124/81 96 Intake and Output 07/27/20 07/27/20 07/27/20 06:59 14:59 22:59 Other: Weight 105 kg On examination patient is an elderly female, in no acute distress. Patient is alert awake oriented to time place and person. Speech and language functions are normal. Attention, concentration and fund of knowledge is adequate. On cranial nerve examination pupils are round and reactive to light, visual baker are full, extraocular muscles are intact. Face is symmetric, tongue protrudes to the midline. Palatal elevation sensation normal. Hearing and shoulder shrug normal. Facial sensation is normal. On muscle strength testing there is no pronator drift and the strength is normal in arms and legs distally and proximally. Deep tendon reflexes are diminished and plantars are downgoing. Sensory touch is equal. No ataxia for finger to nose or [id number] testing tone and bulk of muscles normal. Gait deferred. There is no obvious bruit, S1 and S2 audible. Peripheral pulses present. No peripheral edema. Chest is clear to him abdomen soft nontender. Results - Laboratory Findings CBC and BMP: 07/27/20 12:21 07/27/20 17:00 Abnormal Lab Findings: Abnormal Labs 07/27/20 07/27/20 07/27/20 12:21 12:21 17:00 RBC 3.58 L Neutrophils # 9.0 H Potassium 5.8 H 5.3 H BUN 54 H Creatinine 2.43 H Glucose 169 H POC Glucose (mg/dL) Alkaline Phosphatase 156 H 07/27/20 20:19 RBC Neutrophils # Potassium BUN Creatinine Glucose POC Glucose (mg/dL) 220 H Alkaline Phosphatase Assessment and Plan Assessment: * Probable recurrent TIA manifesting with left arm weakness and numbness, resolves in 30-45 minutes. * Diabetes * Hypertension * Obesity * Pacemaker Plan: * Patient was previously on aspirin 81 mg twice a day at home. Patient has failed aspirin. Agree with starting dual antiplatelet medications at this time. * Agree with checking 2-D echo and a carotid Doppler. * Patient's last hemoglobin A1c 7.7 on 04/22/2020. * Lipid panel is well controlled, showed cholesterol 116, LDL 45, HDL 56 and triglycerides 71 on 05/04/2020. Continue Lipitor 20 mg. * Cardiology has been consulted for pacemaker. * Continue telemetry monitoring.
[2020-07-27] MEDS: GABAPENTIN 300 MG CAP PO SCH (22:00)
[2020-07-27] MEDS: ASPIRIN 81 MG PO SCH (22:00)
[2020-07-27] MEDS: IMIPRAMINE 25 MG TAB PO SCH ×2 (22:01→23:34)
--- NOTE | 2020-07-27 22:05 | US ---
EXAMINATION TYPE: US carotid duplex BILAT DATE OF EXAM: 07/27/2020 COMPARISON: CT brain. CLINICAL HISTORY: TIA affecting left upper extremities recurrent.. TIA affecting left upper extremiti es recurrent. Never smoker. Hypertension. Patient has pacemaker. EXAM MEASUREMENTS: RIGHT: Peak Systolic Velocity (PSV) cm/sec ----- Right CCA: 60.7 ----- Right ICA: 71.8 ----- Right ECA: 78.4 ICA/CCA ratio: 1.2 RIGHT: End Diastole cm/sec ----- Right CCA: 10.1 ----- Right ICA: 21.2 ----- Right ECA: 4.7 LEFT: Peak Systolic Velocity (PSV) cm/sec ----- Left CCA: 67.7 ----- Left ICA: 136.5 ----- Left ECA: 213.2 ICA/CCA ratio: 2.0 LEFT: End Diastole cm/sec ----- Left CCA: 14.9 ----- Left ICA: 20.3 ----- Left ECA: 12.0 VERTEBRALS (direction of flow): Right Vertebral: Antegrade Left Vertebral: Antegrade Rhythm: Normal Intimal thickening seen bilaterally. Plaque seen right bulb,left distal CCA, left bulb, left proximal ECA and ICA. Elevated velocities left mid ICA and left ECA. Complex areas, mixed cystic and solid, seen within left thyroid lobe incidentally. #1: 2.1 x 1.1 x 1.3 cm. #2: 1.6 x 1.1 x 1.6 cm. IMPRESSION: There is antegrade flow in the vertebral arteries. There is evidence of 50-70% stenosis in the left i nternal and external carotid artery. There is less than 50% stenosis in the right internal carotid ar radha. Complex thyroid masses. Comparison with an old exam would be helpful. Criteria for Assigning % of Stenosis / Diameter reduction (Estimation based on the indirect measurements of the internal carotid artery velocities (ICA PSV). 1. Normal (no stenosis)=ICA PSV < 125 cm/s: ratio < 2.0: ICA EDV<40 cm/s. 2. Less than 50% stenosis=ICA PSV < 125 cm/s: ratio < 2.0: ICA EDV<40 cm/s. 3. 50 to 69% stenosis=ICA PSV of 125 to 230 cm/s: ration 2.0 ? 4.0: ICA EDV 40-100 cm/s. 4. Greater than 70% stenosis to near occlusion= ICA PSV > 230 cm/s: ratio > 4.0: ICA EDV > 100 cm/s. 5. Near occlusion= ICA PSV velocities may be low or undetectable: variable ratio and ICA EDV. 6. Total occlusion=unable to detect flow.
[2020-07-27 23:38] LABS: Glucose,Whole Blood 190 mg/dL (75-99)
[2020-07-28 00:54] VITALS: RESP 16
[2020-07-28] MEDS: SODIUM CHLORIDE 0.9% 1,000 ML IV SCH (06:28)
[2020-07-28] MEDS ORDERED: INSULIN DETEMIR (LEVEMIR) 100 UNIT/ML SYR SQ SCH (07:00)
[2020-07-28 08:10] LABS: Basophils % (A) 0 %; Eosinophils # (A) 0.1 k/uL (0-0.7); Eosinophils % (A) 1 %; HCT 30.8 % (34.0-46.0); HGB 10.1 gm/dL (11.4-16.0); Lymphocytes # (A) 1.3 k/uL (1.0-4.8); Lymphocytes % (A) 14 %; MCH 32.8 pg (25.0-35.0); MCHC 32.9 g/dL (31.0-37.0); MCV 99.6 fL (80.0-100.0); Mean Platelet Volume 7.2; Monocytes # (A) 0.5 k/uL (0-1.0); Monocytes % (A) 5 %; Neutrophils # (A) 7.1 k/uL (1.3-7.7); Neutrophils % (A) 77 %; Platelet Count 316 k/uL (150-450); RBC 3.09 m/uL (3.80-5.40); RDW 13.9 % (11.5-15.5); WBC 9.1 k/uL (3.8-10.6)
[2020-07-28 08:21] LABS: Calcium 8.9 mg/dL (8.4-10.2); Potassium 5.1 mmol/L (3.5-5.1)
[2020-07-28] MEDS ORDERED: allopurinoL 100 MG TAB PO SCH (09:00)
[2020-07-28] MEDS ORDERED: FUROSEMIDE 40 MG TAB PO SCH (09:00)
[2020-07-28 09:32] LABS: Glucose,Whole Blood 122 mg/dL (75-99)
[2020-07-28] MEDS: INSULIN ASPART (NovoLOG) 100 UNIT/ML VIAL SQ SCH ×3 (09:35→18:16)
[2020-07-28] MEDS: CLOPIDOGREL 75 MG TAB PO SCH (09:39)
[2020-07-28] MEDS: carvediloL 12.5 MG TAB PO SCH (09:39)
[2020-07-28] MEDS: ASPIRIN 81 MG PO SCH (09:39)
[2020-07-28] MEDS: IMIPRAMINE 25 MG TAB PO SCH (09:40)
[2020-07-28] MEDS: GABAPENTIN 300 MG CAP PO SCH (09:47)
--- NOTE | 2020-07-28 10:55 | ECHOF ---
Referral Reason:atrial fib .htnurgency,tia MEASUREMENTS -------- HEIGHT: 167.6 cm WEIGHT: 104.8 kg BP: RVIDd: 2.7 cm (< 3.3) IVSd: 1.3 cm (0.6 - 1.1) LVIDd: 4.7 cm (3.9 - 5.3) LVPWd: 1.4 cm (0.6 - 1.1) IVSs: 1.8 cm LVIDs: 3.6 cm LVPWs: 1.6 cm Ao Diam: 2.8 cm (2.0 - 3.7) AV Cusp: 1.8 cm (1.5 - 2.6) LA Diam: 3.4 cm (2.7 - 3.8) MV EXCURSION: 18.048 mm (> 18.000) MV EF SLOPE: 113 mm/s (70 - 150) EPSS: 0.6 cm MV E Des: 0.76 m/s MV DecT: 184 ms MV A Des: 1.50 m/s MV E/A Ratio: 0.50 RAP: 5.00 mmHg RVSP: 11.31 mmHg FINDINGS -------- Paced rhythm. This was a technically difficult study with suboptimal views. The left ventricular size is normal. There is moderate concentric left ventricular hypertrophy. O verall left ventricular systolic function is mild-moderately impaired with, an EF between 40 - 45 %. Left ventricular fillimg pressure cannot be estimated due to paced rhythm. Apical septum LV wall motion is hypokinetic. Anterseptal Hypokinesis The right ventricle is normal in size. The left atrial size is normal. The right atrial size is normal. Lumason used The aortic valve is trileaflet and appears structurally normal. The mitral valve is normal. There is trace mitral regurgitation. The tricuspid valve appears structurally normal. Trace tricuspid regurgitation present. Right luis alberto tricular systolic pressure is normal at < 35 mmHg. There is no pulmonic regurgitation present. The aortic root size is normal. IVC Not well visulized. There is a trivial pericardial effusion present. CONCLUSIONS -------- 1. Paced rhythm. 2. The left ventricular size is normal. 3. There is moderate concentric left ventricular hypertrophy. 4. Overall left ventricular systolic function is mild-moderately impaired with, an EF between 40 - 45 %. 5. Left ventricular fillimg pressure cannot be estimated due to paced rhythm. 6. Apical septum LV wall motion is hypokinetic. 7. Anterseptal Hypokinesis 8. There is trace mitral regurgitation. 9. Trace tricuspid regurgitation present. 10. There is a trivial pericardial effusion present. [employer]: Jessie Ugalde RDCS
--- NOTE | 2020-07-28 12:17 | P.CRDCN ---
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 Patient follows in the office with Dr Denis. We have been asked to see in consultation for TIA. Patient does have a history of permanent pacemaker and has been 100% RV paced. She did have attempted upgrade to a biventricular pacemaker secondary to heart failure type symptoms in March however there was tight occlusion of the axillary/cephalic junction and therefore procedure was abandoned with possible surgical cutdown and additional lead to be placed by Dr. Lamas. Patient has been doing okay from a heart standpoint without any chest pain or pressure. She denies any significant shortness breath currently however has noted 2 episodes of left upper and lower extremity weakness over the past one week. She denies any slurred speech or facial drooping. She does admit she has history of back pain and herniated disks. She was seen by neurology with assessment of likely recurrent TIA and for patient be placed on dual antiplatelets. DIAGNOSTICS EKG reveals atrial sensed, ventricular paced rhythm nonspecific ST-T wave abnormalities. Chest xray cardiomegaly and chronic parenchymal changes without new acute pulmonary process. Carotid ultrasound: 50-70% stenosis of the left internal and external carotid artery, less than 50% stenosis of the right internal carotid artery Laboratory reviewed, white blood cell 9.1, hemoglobin 10.1, platelets 316, creatinine 2.35. Current cardiac medications include aspirin 81 mg daily, Lipitor 20 mg daily, carvedilol 25 mg twice a day, Plavix 75 mg daily, Lasix 40 mg daily, nifedipine 60 mg daily. REVIEW OF SYSTEMS At the time of my exam: CONSTITUTIONAL: Denies fever or chills. CARDIOVASCULAR: Denies chest pain, +chronic shortness of breath, no orthopnea, PND or palpitations. RESPIRATORY: Denies cough. GASTROINTESTINAL: Denies abdominal pain, diarrhea, constipation, nausea or vomiting. MUSCULOSKELETAL: Denies myalgias. NEUROLOGIC: Denies numbness, tingling +LUE and LLE weakness. ENDOCRINE: Denies fatigue, weight change, polydipsia or polyurina. GENITOURINARY: Denies burning, hematuria or urgency with micturation. HEMATOLOGIC: Denies history of anemia or bleeding. PHYSICAL EXAMINATION Blood pressure 108/72 heart rate 82 afebrile and maintaining oxygen saturation on room air. CONSTITUTIONAL: No apparent distress, chronically ill-appearing, obese. HEENT: Head is normocephalic. Pupils are equal, round. Sclerae anicteric. Mucous membranes of the mouth are moist. No JVD. No carotid bruit. CHEST EXAMINATION: Lungs are clear to auscultation. No chest wall tenderness is noted on palpation or with deep breathing. HEART EXAMINATION: Regular rate and rhythm. S1, S2 heard. No murmurs, gallops or rub. ABDOMEN: Soft, nontender. Positive bowel sounds. EXTREMITIES: 2+ peripheral pulses, no lower extremity edema and no calf tende rness. NEUROLOGIC EXAMINATION: Patient is awake, alert and oriented x3. ASSESSMENT 1. Left upper and left lower extremity recurrent weakness 2 or the past one week. Possible TIA versus myelopathy. Neurology following 2. Mild cardiomyopathy ejection fraction 45% 3. Chronic kidney disease 4. Diabetes mellitus type 2 5. 50-70% left internal carotid stenosis and less than 50% stenosis of the right internal carotid 6. Chronic diastolic heart failure 7. Status post dual-chamber permanent pacemaker secondary to complete heart block, pacemaker dependent PLAN Neurology recommendations appreciated. Appears stable from a heart perspective. Continue with current medications. Patient does have left internal carotid stenosis however the right carotid would be causing her left-sided symptoms and therefore no intervention recommended at this time. 2-D echo shows ejection fraction 40-45%, similar to prior. Patient is being worked up for possible biventricular lead placement by cardiothoracic surgery. We will attempt to obtain interrogation from [employer] permanent pacemaker to rule out any significant atrial fibrillation however symptoms have been recurrent on the left side and less likely cardiac source. If unable to obtain pacemaker interrogation, this may be performed in the office. No further recommendations per cardiology. Please call with any questions. Past Medical History Past Medical History: Heart Failure, Diabetes Mellitus, GERD/Reflux, Hypertension, Renal Disease Additional Past Medical History / Comment(s): Anemia. See Dr. Denis's H&P. History of Any Multi-Drug Resistant Organisms: None Reported Past Surgical History: Bladder Surgery, Section, Heart Catheterization, Hernia Repair, Orthopedic Surgery, Pacemaker Additional Past Surgical History / Comment(s): Large hernia repair after a tony chinedu section, carpal tunnel bilat. Past Anesthesia/Blood Transfusion Reactions: No Reported Reaction Type of Cardiac Device: Permanent Pacemaker Device Placement Date:: February 2005 Past Psychological History: No Psychological Hx Reported Smoking Status: Never smoker Past Alcohol Use History: None Reported Past Drug Use History: None Reported - Past Family History Mother Family Medical History: Cancer, Myocardial Infarction ([place]) Additional Family Medical History / Comment(s): breast Father History Unknown: Yes Sister(s) Family Medical History: Cancer Additional Family Medical History / Comment(s): breast Medications and Allergies Home Medications Medication Instructions Recorded Confirmed Type Aspirin 81 mg PO BID 03/23/14 07/27/20 History Carvedilol 25 mg PO BID 03/23/14 07/27/20 History Gabapentin [Neurontin] 300 mg PO BID 03/23/14 07/27/20 History allopurinoL [Zyloprim] 100 mg PO DAILY 03/23/14 07/27/20 History Atorvastatin [Lipitor] 20 mg PO HS 05/10/15 07/27/20 History Furosemide [Lasix] 40 mg PO DAILY 03/30/20 07/27/20 History Acetaminophen Tab [Tylenol] 1,000 mg PO Q6HR PRN 04/21/20 07/27/20 History Calcitriol [Rocaltrol] 0.25 mcg PO SUTUTH 04/21/20 07/27/20 History Imipramine [Tofranil] 25 mg PO BID 04/21/20 07/27/20 History NIFEdipine XL [Procardia XL] 60 mg PO DAILY 04/21/20 07/27/20 History Insulin Detemir (Levemir) [Levemir] 10 unit SQ DAILY@0700 syr 04/23/20 07/27/20 Rx Insulin Detemir (Levemir) [Levemir] 15 unit SQ HS syr 04/23/20 07/27/20 Rx INSULIN ASPART (NovoLOG) [NovoLOG See Protocol SQ AC-TID 07/27/20 07/27/20 History (formulary)] Allergies Allergy/AdvReac Type Severity Reaction Status Date / Time No Known Allergies Allergy Verified 07/27/20 11:34 Physical Exam Vitals: Vital Signs Temp Pulse Pulse Resp BP BP Pulse Ox 07/28/20 09:24 97.7 F 105 H 16 174/77 96 07/28/20 09:00 105 H 16 12/09/20 00:00 97.9 F 82 16 108/72 96 07/27/20 19:47 97.5 F L 91 18 114/74 95 07/27/20 14:45 90 18 145/77 98 Intake and Output 07/27/20 07/28/20 07/28/20 22:59 06:59 14:59 Intake Total 300 Balance 300 Intake: Oral 300 Other: Voiding Method Toilet # Voids 1 1 Weight 105 kg Results 07/28/20 07:39 07/28/20 07:39 Cardiac Enzymes 07/27/20 07/27/20 Range/Units 12:21 12:21 AST 24 (14-36) U/L Troponin I <0.012 (0.000-0.034) ng/mL Coagulation 07/27/20 Range/Units 12:21 PT 10.0 (9.0-12.0) sec APTT 29.7 (22.0-30.0) sec CBC 07/27/20 07/28/20 Range/Units 12:21 07:39 WBC 10.3 9.1 (3.8-10.6) k/uL RBC 3.58 L 3.09 L (3.80-5.40) m/uL Hgb 11.5 10.1 L (11.4-16.0) gm/dL Hct 35.2 30.8 L (34.0-46.0) % Plt Count 379 316 (150-450) k/uL Comprehensive Metabolic Panel 07/27/20 07/27/20 07/28/20 Range/Units 12: 17:00 07:39 Sodium 137 139 (137-145) mmol/L Potassium 5.8 H 5.3 H 5.1 (3.5-5.1) mmol/L Chloride 104 107 (98-107) mmol/L Carbon Dioxide 27 28 (22-30) mmol/L BUN 54 H 48 H (7-17) mg/dL Creatinine 2.43 H 2.35 H (0.52-1.04) mg/dL Glucose 169 H 129 H (74-99) mg/dL Calcium 9.3 8.9 (8.4-10.2) mg/dL AST 24 (14-36) U/L ALT 17 (4-34) U/L Alkaline Phosphatase 156 H (38-126) U/L Total Protein 6.9 (6.3-8.2) g/dL Albumin 3.5 (3.5-5.0) g/dL Current Medications Generic Name Dose Route Start Last Admin Trade Name Freq PRN Reason Stop Dose Admin Acetaminophen 1,000 mg 07/27/20 16:00 Acetaminophen Tab 500 Mg Tab PO Q6HR PRN Pain Allopurinol 100 mg 07/28/20 09:00 07/28/20 09:39 Allopurinol 100 Mg Tab PO 100 mg DAILY ZOLTAN Administration Aspirin 81 mg 07/27/20 21:00 07/28/20 09:39 Aspirin 81 Mg PO Not Given BID ZOLTAN Atorvastatin Calcium 20 mg 07/27/20 21:00 07/27/20 22:00 Atorvastatin 20 Mg Tab PO 20 mg HS ZOLTAN Administration Calcitriol 0.25 mcg 07/27/20 17:00 07/27/20 20:16 Calcitriol 0.25 Mcg Cap PO 0.25 mcg SuTuTh@0900 ZOLTAN Administration Carvedilol 25 mg 07/27/20 17:30 07/28/20 09:39 Carvedilol 12.5 Mg Tab PO 25 mg BID-W/MEALS ZOLTAN Administration Clopidogrel Bisulfate 75 mg 07/27/20 18:30 07/28/20 09:39 Clopidogrel 75 Mg Tab PO 75 mg DAILY ZOLTAN Administration Furosemide 40 mg 07/28/20 09:00 07/28/20 09:39 Furosemide 40 Mg Tab PO 40 mg DAILY ZOLTAN Administration Gabapentin 300 mg 07/27/20 21:00 07/28/20 09:47 Gabapentin 300 Mg Cap PO 300 mg BID ZOLTAN Administration Sodium Chloride 1,000 mls @ 75 mls/hr 07/27/20 16:30 07/28/20 06:28 Saline 0.9% IV Not Given .[id number] [facility] Imipramine HCl 25 mg 07/27/20 21:00 07/28/20 09:40 Imipramine 25 Mg Tab PO 25 mg BID ZOLTAN Administration Insulin Aspart 0 - 12 unit 07/27/20 17:30 07/28/20 09:35 Insulin Aspart (Novolog) 100 Unit/Ml Vial SQ Not Given AC-TID [facility] Protocol Insulin Detemir 10 unit 07/28/20 07:00 07/28/20 09:40 Insulin Detemir (Levemir) 100 Unit/Ml Syr SQ 10 unit DAILY@0700 ZOLTAN Administration Insulin Detemir 15 unit 07/27/20 21:00 07/27/20 23:35 Insulin Detemir (Levemir) 100 Unit/Ml Syr SQ 15 unit HS ZOLTAN Administration Naloxone HCl 0.2 mg 07/27/20 14:50 Naloxone 0.4 Mg/Ml 1 Ml Vial IV Q2M PRN Opioid Reversal Nifedipine 60 mg 07/28/20 09:00 07/28/20 09:40 Nifedipine Xl 60 Mg Tab.Er.24 PO 60 mg DAILY ZOLTAN Administration Intake and Output 07/27/20 07/28/20 07/28/20 22:59 06:59 14:59 Intake Total 300 Balance 300 Intake: Oral 300 Other: Voiding Method Toilet # Voids 1 1 Weight 105 kg 07/28/20 07:39 07/28/20 07:39
[2020-07-28 12:20] LABS: Glucose,Whole Blood 408 mg/dL (75-99)
--- NOTE | 2020-07-28 13:16 | P.PN ---
Subjective Progress Note Date: 07/28/20 Patient denies any symptoms in the left arm or left leg. Patient complains of mid back pain. Patient states her both feet feel like she has socks on. Denies any slurred speech or other neuro symptoms or headaches Objective - Vital Signs Vital signs: Vital Signs Temp 97.7 F 07/28/20 09:24 Pulse 105 H 07/28/20 09:24 Resp 16 07/28/20 09:24 BP 174/77 07/28/20 09:24 Pulse Ox 96 07/28/20 09:24 Intake & Output 07/27/20 07/28/20 07/28/20 18:59 06:59 18:59 Intake Total 300 Balance 300 Weight 105 kg 105 kg Intake: Oral 300 Other: Voiding Method Toilet # Voids 1 1 - Exam Patient's mental status speech and language functions are normal. Muscle strength is normal. Cranial nerves normal. No ataxia. Sensations equal. - Labs CBC & Chem 7: 07/28/20 07:39 07/28/20 07:39 Labs: Abnormal Lab Results - Last 24 Hours (Table) 07/27/20 07/27/20 07/27/20 Range/Units 17:00 20:19 23:33 RBC (3.80-5.40) m/uL Hgb (11.4-16.0) gm/dL Hct (34.0-46.0) % Potassium 5.3 H (3.5-5.1) mmol/L BUN (7-17) mg/dL Creatinine (0.52-1.04) mg/dL Glucose (74-99) mg/dL POC Glucose (mg/dL) 220 H 190 H (75-99) mg/dL 07/28/20 07/28/20 07/28/20 Range/Units 07:39 07:39 09:30 RBC 3.09 L (3.80-5.40) m/uL Hgb 10.1 L (11.4-16.0) gm/dL Hct 30.8 L (34.0-46.0) % Potassium (3.5-5.1) mmol/L BUN 48 H (7-17) mg/dL Creatinine 2.35 H (0.52-1.04) mg/dL Glucose 129 H (74-99) mg/dL POC Glucose (mg/dL) 122 H (75-99) mg/dL 07/28/20 Range/Units 12:18 RBC (3.80-5.40) m/uL Hgb (11.4-16.0) gm/dL Hct (34.0-46.0) % Potassium (3.5-5.1) mmol/L BUN (7-17) mg/dL Creatinine (0.52-1.04) mg/dL Glucose (74-99) mg/dL POC Glucose (mg/dL) 408 H (75-99) mg/dL Assessment and Plan Assessment: * Probable recurrent TIA manifesting with left arm weakness and numbness, resolves in 30-45 minutes. * Diabetes * Hypertension * Obesity * Pacemaker Plan: * Continue dual antiplatelet medications, as patient has failed aspirin regimen. * 2-D echo revealed paced rhythm. Left ventricle size is normal. Moderate concentric LVH. Overall left ventricle systolic function is mild to modera tely impaired with EF between 40-45%. Apical septum left ventricular wall motion is hypokinetic. Anterior septal hypokinesis. Trace MR. * Carotid Doppler showed 50-70% stenosis in the left ICA, whereas <50% stenosis in the right ICA. The left ICA which is more stenosis is clinically asymptomatic at this time. * Patient's last hemoglobin A1c 7.7 on 04/22/2020. * Lipid panel is well controlled, showed cholesterol 116, LDL 45, HDL 56 and triglycerides 71 on 05/04/2020. Continue Lipitor 20 mg. * Cardiology has seen the patient and recommending interrogation of pacemaker. * Continue telemetry monitoring. * For numbness in the feet, we will check B12, folate. Patient may need EMG and nerve conductions of bilateral lower extremities as an outpatient. * Neurologically clear, if cleared by cardiology.
--- NOTE | 2020-07-28 14:37 | P.DS ---
Providers Date of admission: 07/27/20 14:50 Expected date of discharge: 07/28/20 (TIA affected her left upper extremities, pacemaker) Attending physician: Kwan Gordon Consults: 07/27/20 14:53 Consult Physician Urgent Consulting Provider: Elia Wood Consult Reason/Comments: acute left sided paresthesias Do you want consulting provider notified?: Yes 07/27/20 19:23 Consult Physician Urgent Consulting Provider: Basilio Denis Consult Reason/Comments: Pace maker wire Do you want consulting provider notified?: Yes Primary care physician: Kwan Gordon Discharge summary date of service 07/28/2020. Admission date 07/27/2020 Final diagnosis. #1 acute recurrent TIA. #2 no evidence of stroke #3 pacemaker left infraclavicular will be interrogated prior to discharge. #4 diabetes mellitus type 2 complicated with diabetic neuropathy. #5 impaired ejection fraction 40-45%, valvular heart disease. 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 #8 chronic kidney disease stage IV followed by Dr. Dubon as outpatient. #9 vascular spasm with S-shaped spine and underlying left rhomboid muscle spasm. #10 hypertension with hypertensive heart disease. #11 insulin-dependent diabetes mellitus type 2. #12 chronic kidney disease stage IV with hyperkalemia on admission resolved on discharge with the potassium 5.1 after receiving 1 dose of Kayexalate 15 g orally. Consulting physician: #1 neurology Israel LAGUNA. #2 Dr. environmental services director Dr. Zabala. ER presentation: Recurrent left arm less function with paresthesia with suspicious of TIA. Patient seen and evaluated in the ER subsequently seen by the neurologist and environmental services director, and patient had questionable about pacemaker needs to be fixed and had appointment with Dr. Lamas the cardiovascular surgeon was made by Dr. Kinney the cardiology. After reviewing the laboratories and the physical exam patient started on Plavix 75 mg once daily and prescription given. Dr. Zabala cardiology interrogating her pacemaker and does not functioning well patient noticed a however if it is normal functioning patient will go home today as no further action will be needed. Patient stable general condition to be discharged after pacemaker in interrogation. [id number] examination Patient seen in exam room 29 holdover in the ER room. Patient is conscious alert oriented 3. She denied any paresthesia or numbness or loss of function over the night and she was started already on Plavix. On exam: Head was normocephalic and atraumatic pupils equal reactive conjunctiva was pink sclera was nonicteric. Neck was supple no JVD no thyromegaly no lymphadenopathy trachea midline, the carotid duplex study was found that she had some nodular in the thyroid gland and we will be checking as outpatient for the ultrasound and further detail examination as outpatient. She had a carotid artery stenosis however it isn't so not significant for surgical consultation. Chest is clear to auscultation and percussion no wheezes no rhonchi's. The heart was pacemaker driven and will be interrogated today prior to discharge if stable patient will go home. Abdomen obese positive bowel sounds no organ enlargement. Extremities: She had positive pulses on dorsalis pedis and posterior tibial, she had advanced degenerative osteoarthritis as mentioned above. Neurological examination stable no lateralizing sign, left arm no numbness no tingling no paresthesia and no weakness. Assessment: Patient stable general condition for discharge home today if his cleared by Dr. Zabala after the interrogation of the pacemaker. Plan: Plavix 75 mg once a daily prescription given to the patient. #2 follow-up appointment with Dr. Gordon this week and 2 days or next week for for further evaluation, and further investigation of the thyroid gland. Patient will be followed by neurologist as well as her environmental services director. Patient is following with Dr. Dubon security solutions engineer routinely for her chronic kidney disease stage 4 Please send a copy Yvonne environmental services director security solutions engineer and neurologist . Patient Condition at Discharge: Stable Plan - Discharge Summary Discharge Rx Participant: Yes New Discharge Prescriptions: New Clopidogrel [Plavix] 75 mg PO DAILY #30 tab Continue Aspirin 81 mg PO BID allopurinoL [Zyloprim] 100 mg PO DAILY Carvedilol 25 mg PO BID Atorvastatin [Lipitor] 20 mg PO HS Furosemide [Lasix] 40 mg PO DAILY NIFEdipine XL [Procardia XL] 60 mg PO DAILY Imipramine [Tofranil] 25 mg PO BID Acetaminophen Tab [Tylenol] 1,000 mg PO Q6HR PRN PRN Reason: Pain Calcitriol [Rocaltrol] 0.25 mcg PO SUTUTH Insulin Detemir (Levemir) [Levemir] 15 unit SQ HS syr Insulin Detemir (Levemir) [Levemir] 10 unit SQ DAILY@0700 syr INSULIN ASPART (NovoLOG) [NovoLOG (formulary)] See Protocol SQ AC-TID No Action Gabapentin [Neurontin] 300 mg PO BID Discharge Medication List Aspirin 81 mg PO BID 03/23/14 [History] Carvedilol 25 mg PO BID 03/23/14 [History] Gabapentin [Neurontin] 300 mg PO BID 03/23/14 [History] allopurinoL [Zyloprim] 100 mg PO DAILY 03/23/14 [History] Atorvastatin [Lipitor] 20 mg PO HS 05/10/15 [History] Furosemide [Lasix] 40 mg PO DAILY 03/30/20 [History] Acetaminophen Tab [Tylenol] 1,000 mg PO Q6HR PRN 04/21/20 [History] Calcitriol [Rocaltrol] 0.25 mcg PO SUTUTH 04/21/20 [History] Imipramine [Tofranil] 25 mg PO BID 04/21/20 [History] NIFEdipine XL [Procardia XL] 60 mg PO DAILY 04/21/20 [History] Insulin Detemir (Levemir) [Levemir] 10 unit SQ DAILY@0700 syr 04/23/20 [Rx] Insulin Detemir (Levemir) [Levemir] 15 unit SQ HS syr 04/23/20 [Rx] INSULIN ASPART (NovoLOG) [NovoLOG (formulary)] See Protocol SQ AC-TID 07/27/20 [History] Clopidogrel [Plavix] 75 mg PO DAILY #30 tab 07/28/20 [Rx] Follow up Appointment(s)/Referral(s): Basilio Denis MD [STAFF PHYSICIAN] - 1 Week Kwan Gordon MD [Primary Care Provider] - 1-2 days Discharge Disposition: HOME SELF-CARE
[2020-07-28 14:38] VITALS: BP 146/63; PULSE 73; TEMP 98.7
[2020-07-28 16:41] LABS: Glucose,Whole Blood 34 mg/dL (75-99)
[2020-07-28] MEDS ORDERED: DEXTROSE 50% SYRINGE 50 ML IVP STA (16:54)
[2020-07-28 16:58] LABS: Glucose,Whole Blood 53 mg/dL (75-99)
[2020-07-28 17:00] LABS: Glucose,Whole Blood 114 mg/dL (75-99)
[2020-07-28 17:06] LABS: Glucose,Whole Blood 125 mg/dL (75-99)
[2020-07-28 17:35] LABS: Glucose,Whole Blood 129 mg/dL (75-99)
[2020-07-29 04:33] LABS: Folate, Serum 6.4 ng/mL
== END 2020-07-28 18:23 | disposition home or self-care (01) ==
LOC: EC 10:42 → 1SOBS 14:50
PROVIDERS: ADMIT Internal Medicine; ATTEND Internal Medicine
DX: G45.9 Transient cerebral ischemic attack, unspecified (principal); I13.0 Hypertensive heart and chronic kidney disease with heart failure and stage 1 through stage 4 chronic kidney disease, or unspecified chronic kidney disease; N18.4 Chronic kidney disease, stage 4 (severe); I50.32 Chronic diastolic (congestive) heart failure; E87.5 Hyperkalemia; I44.2 Atrioventricular block, complete; E11.22 Type 2 diabetes mellitus with diabetic chronic kidney disease; E11.42 Type 2 diabetes mellitus with diabetic polyneuropathy; I42.9 Cardiomyopathy, unspecified; N25.81 Secondary hyperparathyroidism of renal origin; D64.9 Anemia, unspecified; K21.9 Gastro-esophageal reflux disease without esophagitis; K57.90 Diverticulosis of intestine, part unspecified, without perforation or abscess without bleeding; M25.78 Osteophyte, vertebrae; E78.5 Hyperlipidemia, unspecified; I08.0 Rheumatic disorders of both mitral and aortic valves; M10.9 Gout, unspecified; M41.9 Scoliosis, unspecified; E66.9 Obesity, unspecified; Z68.37 Body mass index [BMI] 37.0-37.9, adult; M54.6 Pain in thoracic spine; M48.061 Spinal stenosis, lumbar region without neurogenic claudication; M47.812 Spondylosis without myelopathy or radiculopathy, cervical region; M47.815 Spondylosis without myelopathy or radiculopathy, thoracolumbar region; Z79.82 Long term (current) use of aspirin; Z79.4 Long term (current) use of insulin; Z79.02 Long term (current) use of antithrombotics/antiplatelets; Z79.899 Other long term (current) drug therapy; Z98.891 History of uterine scar from previous surgery; Z98.890 Other specified postprocedural states; Z90.49 Acquired absence of other specified parts of digestive tract; Z95.0 Presence of cardiac pacemaker; Z82.49 Family history of ischemic heart disease and other diseases of the circulatory system; Z80.3 Family history of malignant neoplasm of breast
CPT/HCPCS: 96361; 96374; 99285; 36415; 93005; 80053; 80048; 82607; 82746; 83605; 84132; 84484; 85025 ×2; 85610; 85730; 71046; 93880; 72128; 72125; 72131; 70450; G0378 ×2; C8929; Q9950; 93306

== ENCOUNTER → 2020-08-23 | Outpatient (CLI) | payer MEDICARE, OTHER ==
[2020-08-23 11:07] LABS: Basophils % (A) 0 %; Eosinophils # (A) 0.1 k/uL (0-0.7); Eosinophils % (A) 1 %; HCT 32.4 % (34.0-46.0); HGB 10.5 gm/dL (11.4-16.0); Hypochromasia Slight; Lymphocytes # (A) 1.1 k/uL (1.0-4.8); Lymphocytes % (A) 11 %; MCH 32.8 pg (25.0-35.0); MCHC 32.3 g/dL (31.0-37.0); MCV 101.5 fL (80.0-100.0); Macrocytosis Slight; Mean Platelet Volume 7.3; Monocytes # (A) 0.5 k/uL (0-1.0); Monocytes % (A) 5 %; Neutrophils # (A) 7.9 k/uL (1.3-7.7); Neutrophils % (A) 81 %; Platelet Count 308 k/uL (150-450); RBC 3.19 m/uL (3.80-5.40); RDW 13.8 % (11.5-15.5); WBC 9.7 k/uL (3.8-10.6)
[2020-08-23 11:16] LABS: Prothrombin Time 10.2 sec (9.0-12.0)
[2020-08-23 11:22] LABS: Potassium 4.8 mmol/L (3.5-5.1)
== END | disposition home or self-care (01) ==
LOC: LABPAT 10:11
PROVIDERS: ATTEND Thoracic Surgery (Cardiothoracic Vascular Surgery)
DX: Z01.818 Encounter for other preprocedural examination (principal); I50.9 Heart failure, unspecified; I42.9 Cardiomyopathy, unspecified; U07.1 COVID-19
CPT/HCPCS: 80051; 82565; 82947; 84520; 85025; 85610; 85730; U0003

== ENCOUNTER 2020-08-26 10:58 | Inpatient (IN) | payer MEDICARE, OTHER ==
[2020-08-19 11:28] VITALS: BMI 37.1
[~2020-08-26 10:58] MED LIST changes: -LIDOCAINE 1% (10MG/ML) FOR IV START INTRADERMA PRN; +ONDANSETRON 4 MG/2 ML VIAL IVP ONE; -SODIUM CHLORIDE 0.9% 1,000 ML IV SCH; -ceFAZolin 1,000 MG in SODIUM CHLORIDE 0.9% IRRIGATIO 250 ML IRRIGATION ONE; +fentaNYL (PF) 50 MCG/ML 2 ML AMP IV PRN
[2020-08-26] MEDS ORDERED: LACTATED RINGERS 1,000 ML IV ONE (11:27)
[2020-08-26] MEDS ORDERED: LIDOCAINE 1% (10MG/ML) FOR IV START INTRADERMA ONE (11:29)
[2020-08-26 11:39] LABS: Glucose,Whole Blood 136 mg/dL (75-99)
[2020-08-26] MEDS ORDERED: MIDAZOLAM 2 MG/2 ML VIAL ONE (13:21)
[2020-08-26] MEDS ORDERED: PROPOFOL 10 MG/ML 20 ML VIAL IV ONE (13:21)
[2020-08-26] MEDS ORDERED: SUCCINYLCHOLINE CHLORIDE 100 MG/5 ML SYR IV ONE (13:21)
[2020-08-26] MEDS ORDERED: NEOSTIGMINE 1 MG/ML 10 ML VIAL ONE (13:21)
[2020-08-26] MEDS ORDERED: ROCURONIUM 10 MG/ML (10 ML VIAL) IV ONE (13:21)
[2020-08-26] MEDS ORDERED: GLYCOPYRROLATE 0.2 MG/ML 2 ML VIAL ONE (13:21)
[2020-08-26] MEDS ORDERED: LIDOCAINE 1% INJ 10MG/ML (20 ML MDV) ONE (13:21)
[2020-08-26] MEDS ORDERED: BUPIVACAINE (PF) 0.5% 30 ML VIAL SQ ONE ×3 (13:46→14:28)
[2020-08-26] MEDS ORDERED: HYDROcodone/APAP 5-325MG 1 EACH TAB PO PRN ×3 (14:30→16:21)
[2020-08-26] MEDS ORDERED: ceFAZolin 1,000 MG in SODIUM CHLORIDE 0.9% 1,000 ML IRRIGATION ONE (14:36)
--- NOTE | 2020-08-26 15:29 | P.OP ---
Date of Procedure: 08/26/20 Preoperative Diagnosis: Left-sided heart failure systolic chronic Postoperative Diagnosis: Same Procedure(s) Performed: Left thoracoscopy with left ventricular epicardial lead implant, upgrade dual chamber to biV permanent pacemaker with generator change and pocket revision Implants: [employer] bipolar LV epicardial lead model #[id number] serial #[id number], [employer] a little more RF by the permanent pacemaker model number [id number] serial number [id number] Anesthesia: GETA Surgeon: Kvng Lamas Pattern Carrier #1: Galindo Nguyen Estimated Blood Loss (ml): 5 IV fluids (ml): 500 Urine output (ml): 0 Pathology: other (Permanent pacemaker) Condition: stable Disposition: PACU Indications for Procedure: 75-year-old morbidly obese female with long-standing cardiomyopathy and chronic systolic left-sided heart failure who is status post dual-chamber permanent pacemaker years ago and is pacemaker dependent. She has had worsening dyspnea and shortness of breath which is been felt to be related to her heart failure symptomatology. Attempt was made to place an RV lead by Dr. Basilio Denis but he was unable to gain access due to thrombosis of the left subclavian vein. [place] [facility] for epicardial [place] lead implant and upgrade of the dual- chamber pacemaker to biV. Operative Findings: Left pleural space was free of adhesions. The pericardium was free of adhesions. An excellent spot was found on the posterior left ventricular wall fairly high toward the pulmonary artery and well behind her posterior to the phrenic nerve for screw-in lead implant. Adhesions in the pacemaker pocket were moderate. No bleeding was encountered. Thresholds on the RV lead showed an R wave of 6.3 impedance of 630 ohms and a pacing threshold of 1.1 V. RV lead measured and impedance of 680 and amplitude of 0.75. Thresholds on the RA lead showed P waves of 3.6 mV, impedance of 540 ohms and threshold of 0.6 V. Description of Procedure: The patient was brought to the operating room and positioned on the operating table. Gen. anesthesia was induced. Double-lumen endotracheal tracheal tube was placed with bronchoscopic guidance and positioned appropriately and secured. The patient was turned in the right lateral decubitus position and the left chest was sterilely prepped and draped. 2 incisions were made in the posterior axillary line in the fifth and seventh interspace. Through the higher incision then video thoracoscope was placed and the lung was deflated. Through the lower incision we initially grafts the pericardium and incised it. A 3 inch incision was made in the pericardium transversely well posterior to the phrenic nerve. We now could easily visualize the appropriate spot for screwing in the epicardial lead. The epicardial lead was placed through the lower incision and easily screwed into the left ventricular muscle. The lead was tested and noted to have excellent thresholds and excellent sensing. Tunneler was attached to the end of the lead and the lead was now tunneled anteriorly into the fourth interspace. A small incision was made over the tip of the tunneler and the lead was brought out through the anterior chest wall. Appropriate curvature of the lead inferiorly around the pericardium and up to the exit site on the chest wall was assured. The lung was now reinflated. The lead was secured as it exited from the chest wall with a 0 silk suture ligature. The 2 thoracoscopic incisions were closed after placing a chest tube in the seventh interspace anteriorly and positioning it posterior apically. A 28-Indonesian chest tube was used and it was secured with 0 Ethibond suture. The incisions were closed with layers of Vicryl suture posteriorly and skin glue was applied. Anteriorly the incision that had the lead underneath that was temporarily closed with skin clips. Dry sterile dressings were applied and the patient was turned supine and redraped prepping out the area of the pacemaker pocket and the area where the clips were where the new lead was under the skin. The pacemaker pocket was incised through the old incision and the pacemaker was dissected out. The old leads were freed enough to bring the pacemaker out onto the chest wall. The pacemaker pocket was enlarged and revised in order to accommodate a larger device. The skin clips were now removed and the LV lead was tunneled from this site into the pacemaker pocket. The LV lead was secured to the new device first and then the RA lead was secured and then the RV lead was secured. Device was tested and noted to be functioning well with excellent thresholds. The pocket and exit site incision were both irrigated with antibiotic solution. The exit site incision was closed with 2-0 Vicryl and a 3-0 Vicryl subcuticular stitch. Pacemaker pocket was closed with a 3-0 Vicryl in 2 layers. Skin glue and dry sterile dressings were applied. The patient was extubated and transferred to recovery room in stable condition.
[2020-08-26 15:32] LABS: Glucose,Whole Blood 124 mg/dL (75-99)
--- NOTE | 2020-08-26 15:38 | XR ---
EXAMINATION TYPE: XR chest 1V portable DATE OF EXAM: 08/26/2020 COMPARISON: 07/27/2020 HISTORY: Post pacemaker placement TECHNIQUE: Single frontal view of the chest is obtained. FINDINGS: Left-sided chest tubes with less than 5% left apical pneumothorax. Double lead pacemaker s een with approximately overlying the right atrium and distal lead overlying the right ventricle. Bila teral infiltrate and pleural effusion. Coarsened interstitium and cardiomegaly seen. Surgical clips i n the right upper quadrant. Hypertrophic and degenerative change of the spine. IMPRESSION: 1. Left-sided chest tube seen with a less than 5% left apical pneumothorax. 2. Bilateral infiltrate and small effusion.
[2020-08-26] MEDS ORDERED: ONDANSETRON 4 MG/2 ML VIAL IVP PRN (16:21)
[2020-08-26] MEDS ORDERED: IPRATROPIUM-ALBUTEROL 3 ML NEB IH PRN (16:21)
[2020-08-26] MEDS ORDERED: SODIUM CHLORIDE 0.9% 1,000 ML IV SCH (16:21)
[2020-08-26 17:08] LABS: Glucose,Whole Blood 115 mg/dL (75-99)
[2020-08-26] MEDS: IPRATROPIUM-ALBUTEROL 3 ML NEB IH SCH ×2 (18:38→20:14)
[2020-08-26] MEDS: HEPARIN SODIUM,PORCINE 5,000 UNIT/ML 1 ML VIAL SQ SCH ×2 (19:03→23:08)
[2020-08-26] MEDS: carvediloL 12.5 MG TAB PO SCH (19:03)
[2020-08-26] MEDS: GABAPENTIN 300 MG CAP PO SCH (20:00)
[2020-08-26] MEDS: IMIPRAMINE 25 MG TAB PO SCH (20:00)
[2020-08-26] MEDS: hydrALAZINE HCL 25 MG TAB PO SCH (20:00)
[2020-08-26 20:07] LABS: Glucose,Whole Blood 148 mg/dL (75-99)
[2020-08-26] MEDS: FORMOTEROL FUMARATE 20 MCG/2 ML NEBU INHALATION SCH (20:14)
[2020-08-26] MEDS ORDERED: ATORVASTATIN 20 MG TAB PO SCH (21:00)
[2020-08-26] MEDS ORDERED: INSULIN DETEMIR (LEVEMIR) 100 UNIT/ML SYR SQ SCH (21:00)
[2020-08-27 01:58] LABS: Glucose,Whole Blood 139 mg/dL (75-99)
[2020-08-27 06:24] LABS: Glucose,Whole Blood 105 mg/dL (75-99)
[2020-08-27] MEDS: carvediloL 12.5 MG TAB PO SCH (06:34)
[2020-08-27] MEDS ORDERED: INSULIN DETEMIR (LEVEMIR) 100 UNIT/ML SYR SQ SCH (07:00)
--- NOTE | 2020-08-27 07:16 | XR ---
EXAMINATION TYPE: XR chest 1V DATE OF EXAM: 08/27/2020 CLINICAL HISTORY: Difficulty breathing and pneumothorax progress study. TECHNIQUE: Single AP portable upright view of the chest is obtained. COMPARISON: Chest x-ray from one day earlier and older studies. FINDINGS: Persistent cardiomegaly with dual lead pacemaker and atherosclerotic aorta. Persistent 2 left-sided chest tubes with slightly larger 5% left apical pneumothorax extending latera lly. Low lung volumes with left basilar opacity remains present. Patchy medial right basilar opacity again seen. Multilevel spurring of the spine redemonstrated. IMPRESSION: Small left apical pneumothorax estimated at 5-10% is slightly larger from most recent x-r ay with 2 left-sided chest tubes noted. There is persistent low lung volumes and cardiomegaly with le ft greater than right bibasilar acute infiltrate and/or atelectasis.
[2020-08-27] MEDS ORDERED: PANTOPRAZOLE 40 MG TABLET PO SCH (07:30)
[2020-08-27 08:02] LABS: Basophils % (A) 0 %; Eosinophils % (A) 0 %; HCT 33.9 % (34.0-46.0); HGB 10.6 gm/dL (11.4-16.0); Hypochromasia Moderate; Lymphocytes # (A) 0.6 k/uL (1.0-4.8); Lymphocytes % (A) 4 %; MCH 31.9 pg (25.0-35.0); MCHC 31.3 g/dL (31.0-37.0); MCV 101.9 fL (80.0-100.0); Macrocytosis Slight; Mean Platelet Volume 7.6; Monocytes # (A) 0.7 k/uL (0-1.0); Monocytes % (A) 4 %; Neutrophils # (A) 15.3 k/uL (1.3-7.7); Neutrophils % (A) 92 %; Platelet Count 304 k/uL (150-450); RBC 3.32 m/uL (3.80-5.40); RDW 13.9 % (11.5-15.5); WBC 16.7 k/uL (3.8-10.6)
[2020-08-27 08:10] LABS: Potassium 5.4 mmol/L (3.5-5.1)
[2020-08-27] MEDS: IMIPRAMINE 25 MG TAB PO SCH (08:24)
[2020-08-27] MEDS: GABAPENTIN 300 MG CAP PO SCH (08:24)
[2020-08-27] MEDS: hydrALAZINE HCL 25 MG TAB PO SCH (08:24)
[2020-08-27] MEDS: HEPARIN SODIUM,PORCINE 5,000 UNIT/ML 1 ML VIAL SQ SCH ×2 (08:24→17:03)
[2020-08-27] MEDS: IPRATROPIUM-ALBUTEROL 3 ML NEB IH SCH ×3 (08:45→15:34)
[2020-08-27] MEDS: FORMOTEROL FUMARATE 20 MCG/2 ML NEBU INHALATION SCH (08:52)
[2020-08-27] MEDS ORDERED: FUROSEMIDE 40 MG TAB PO SCH (09:00)
[2020-08-27] MEDS ORDERED: ASPIRIN 81 MG PO SCH (09:00)
[2020-08-27] MEDS ORDERED: allopurinoL 100 MG TAB PO SCH (09:00)
[2020-08-27] MEDS ORDERED: CLOPIDOGREL 75 MG TAB PO SCH (09:00)
--- NOTE | 2020-08-27 09:56 | P.CON ---
Consult Note - . Consult date: 08/27/20 Assessment/Plan:: Dictation consult. Patient admitted to the hospital for pacemaker change and to place biventricular with the consultation with Dr. Conley and attending Dr. Lamas vascular surgeon and cardiovascular surgeon. Patient seen and evaluated and she had no symptoms except pain at the site of the insertion which is left infraclavicular and no evidence of inflammation and with the ceiling of glu. On the examination Patient is conscious alert oriented 3 with no acute respiratory distress or shortness of breath no chest pain. The head was normocephalic and atraumatic pupils was equal reactive, oropharynx natural teeth., Neck was supple supple no JVD no thyromegaly no lymphadenopathy trachea midline. Chest is clear and no wheezes no rhonchi's. The heart was regular sinus with the pace maker new one placed yesterday on 08/26/2020. Abdomen is soft positive bowel sounds and extremities no edema and positive pulses. Laboratory: Her white count today 16.7, hemoglobin 10.6 hematocrit 33.9, with MCV 101.9 associated with moderate hypochromasia and slight macrocytosis. Chemistry indicating sodium 138, potassium 5.4 elevated then the normal range chloride 104 carbon dioxide 27, anion gap 7, BUN 41, creatinine 2.18, with a GFR 22 for non- indicating chronic kidney disease stage IV and she is followed by Dr. Benoit and Dr. Dubon as outpatient. Patient has been monitored and her blood sugar and has been stable controlled very well with the lost 08/20/2004 this morning. Her calcium is 9.0. Reviewing of her medication and she had underlying GERD disease. Insomnia., Hypertension, chest tube, chest x-ray showed small left apical pneumothorax 5- 10% with the left-sided chest U and persistent low lung volume cardiomegaly with the left greater than the right by basilar acute infiltrate or atelectasis probably more of atelectasis Vital signs stable. Assessment #1 chronic kidney disease stage IV #2 hyperkalemia #3 underlying pacemaker changes with a history of congestive heart failure atrial fibrillation in the past. #4 diabetes mellitus type 2 insulin-dependent. Plan extra doses of Lasix 40 mg by mouth as well as recheck potassium to assess if there is persistent hyperkalemia Patient had a chest tube and subsequently removed and will be able to go home
[2020-08-27] MEDS ORDERED: FUROSEMIDE 40 MG TAB PO STA (10:00)
--- NOTE | 2020-08-27 11:01 | P.PN ---
Subjective Progress Note Date: 08/27/20 Principal diagnosis: Left sided chronic systolic heart failure with a recent ejection fraction of 40- 45%. Past medical history significant for insulin-dependent diabetes mellitus type 2, history of TIA, degenerative osteoarthritis, chronic kidney disease stage IV, history of coronary artery disease, hyperlipidemia, hypertension and morbid obesity. POD #1 left thorascopy with a left ventricular epicardial lead implant, upgrade dual chamber to biV permanent pacemaker with generator change and pocket revision. The patient seen on follow-up today at her bedside on the cardiac stepdown unit. Currently she is sitting up to the chair, is awake, alert and oriented 3. Denies any complaints of shortness of breath and currently denies any complaints of pain. Oxygen saturations are 95% on 2 L nasal cannula and she is achieving 1500 mL on her incentive spirometry. Left pleural chest tube remains in place to waterseal. No air leak is present. 25 mL output of thin serosanguineous drainage in the last 8 hours and 70 mL output since surgery. She reports she has been ambulating to the bathroom with minimal assistance from nursing staff. She remained hemodynamically stable. Remote telemetry showing normal sinus rhythm heart rate 95 BPM. She has been afebrile last 24 hours. Objective - Vital Signs Vital signs: Vital Signs Temp 98.1 F 08/27/20 08:00 Pulse 84 08/27/20 09:04 Resp 18 08/27/20 10:05 BP 128/76 08/27/20 08:00 Pulse Ox 89 L 08/27/20 10:05 Intake & Output 08/26/20 08/27/20 08/27/20 18:59 06:59 18:59 Intake Total 891 240 Output Total 5 570 200 Balance 886 -330 -200 Weight 105.1 kg 104.5 kg Intake: IV 891 Oral 240 Output: Chest Tube Drainage 70 Chest Tube Left Lateral 70 Chest Urine 500 200 Estimated Blood Loss 5 Other: Voiding Method Bedpan Toilet Diaper # Voids 0 2 1 - Constitutional General appearance: Present: cooperative, morbidly obese, no acute distress - EENT Eyes: Present: normal appearance. Absent: scleral icterus ENT: Present: hearing grossly normal - Neck Details: Neck is supple, no JVD, no lymphadenopathy. - Respiratory Details: Lungs sounds essentially clear throughout with few scattered expiratory wheezes. Diminished to her left lower lobe. Respirations are symmetrical and nonlabored. Oxygen saturation are 95% on 2 L nasal cannula. Achieving 1500 mL on her incentive spirometry with encouragement. Left pleural chest tube remains in place to water seal. No air leak is present. Draining thin serosanguineous drainage with 25 mL output in the last 8 hours and 70 mL output since surgery. - Cardiovascular Details: Regular rhythm and rate. S1 and S2 present, negative for S3 or gallop or murmur. No edema present. Remote telemetry showing normal sinus rhythm heart rate 95 BPM. - Gastrointestinal Gastrointestinal Comment(s): Abdomen is soft, nontender and nondistended. Active bowel sounds present in all 4 abdominal quadrants. No guarding or rigidity. No megaly appreciated. Tolerating oral intake. - Genitourinary Genitourinary Comment(s): Voiding clear yellow urine. - Integumentary Integumentary Comment(s): Skin is warm and dry. No clubbing or cyanosis is present. Left lateral thoracoscopic incision site clean dry and approximated. No drainage or redness is present. Left upper chest incision clean dry and intact. No drainage or redness is present. - Neurologic Neurologic: Present: CNII-XII intact - Musculoskeletal Musculoskeletal: Present: gait normal, strength equal bilaterally - Psychiatric Psychiatric: Present: A&O x's 3, appropriate affect, intact judgment & insight - Allied health notes Allied health notes reviewed: nursing - Labs CBC & Chem 7: 08/27/20 07:15 08/27/20 07:15 Labs: Abnormal Lab Results - Last 24 Hours (Table) 08/26/20 08/26/20 08/26/20 Range/Units 11:36 15:30 17:00 WBC (3.8-10.6) k/uL RBC (3.80-5.40) m/uL Hgb (11.4-16.0) gm/dL Hct (34.0-46.0) % MCV (80.0-100.0) fL Neutrophils # (1.3-7.7) k/uL Lymphocytes # (1.0-4.8) k/uL Potassium (3.5-5.1) mmol/L BUN (7-17) mg/dL Creatinine (0.52-1.04) mg/dL Glucose (74-99) mg/dL POC Glucose (mg/dL) 136 H 124 H 115 H (75-99) mg/dL 08/26/20 08/27/20 08/27/20 Range/Units 20:03 01:56 06:20 WBC (3.8-10.6) k/uL RBC (3.80-5.40) m/uL Hgb (11.4-16.0) gm/dL Hct (34.0-46.0) % MCV (80.0-100.0) fL Neutrophils # (1.3-7.7) k/uL Lymphocytes # (1.0-4.8) k/uL Potassium (3.5-5.1) mmol/L BUN (7-17) mg/dL Creatinine (0.52-1.04) mg/dL Glucose (74-99) mg/dL POC Glucose (mg/dL) 148 H 139 H 105 H (75-99) mg/dL 08/27/20 08/27/20 Range/Units 07:15 07:15 WBC 16.7 H (3.8-10.6) k/uL RBC 3.32 L (3.80-5.40) m/uL Hgb 10.6 L (11.4-16.0) gm/dL Hct 33.9 L (34.0-46.0) % MCV 101.9 H (80.0-100.0) fL Neutrophils # 15.3 H (1.3-7.7) k/uL Lymphocytes # 0.6 L (1.0-4.8) k/uL Potassium 5.4 H (3.5-5.1) mmol/L BUN 41 H (7-17) mg/dL Creatinine 2.18 H (0.52-1.04) mg/dL Glucose 106 H (74-99) mg/dL POC Glucose (mg/dL) (75-99) mg/dL - Imaging and Cardiology Chest x-ray: report reviewed, image reviewed Assessment and Plan Assessment: 1. Left-sided chronic systolic heart failure with ejection fraction of 40-45%, status post left thorascopy with left ventricular epicardial lead implant, upgrade dual-chamber biV pacemaker with generator change and pocket revision 2. History of hypertension 3. History of hyperlipidemia 4. History of TIA 5. Diabetes mellitus type 2 6. Degenerative arthritis 7. Chronic kidney disease stage IV 8. History of coronary artery disease 9. Morbid obesity Plan: 1. The patient's left pleural chest tube was removed without incident. Impregnated gauze to cover, 4 x 4 gauze to cover and secured with tape. 2. Wean oxygen as tolerated. Encourage use of her incentive spirometry 10 times every hour while awake. 3. Increase activity as tolerated. 4. GI and DVT prophylaxis. 5. Anticipate discharge home within the next 24 hours. Discharge planning is in place. 6. Once the patient is discharged she is to follow-up in the device clinic in [address] Denis and follow-up with Dr. Denis in 2-3 months thereafter. 7. Medical management and other comorbidities per primary care service. 8. More recommendations to follow based on patient's clinical course. Time with Patient: Greater than 30
--- NOTE | 2020-08-27 11:06 | P.CRDCN ---
History of Present Illness History of present illness: HISTORY OF PRESENTING ILLNESS This is a pleasant 75-year-old female past medical history significant for dilated cardiomyopathy, peripheral vascular disease, complete heart block s tatus post permanent pacemaker implantation, hypertension and dyslipidemia,. She follows in the office with Dr. Denis. In March she underwent left upper extremity venogram revealing a tight occlusion at the axillary/cephalic junction prompting CT surgery evaluation for placement of epicardial lead. Yesterday she underwent bi-V upgrade, generator change and left ventricular epicardial lead im plant per Dr. Lamas. She is seen and examined sitting up in the chair in no acute distress. She is complaining of some incision site discomfort. She denies shortness of breath, dizziness or palpitations. Chest tube in place. Laboratory data reviewed, WBC 16.7, hemoglobin 10.6, platelets 304, sodium 138, potassium 5.4 and creatinine 2.18. Currently maintained on aspirin 81 mg daily, atorvastatin 20 mg at bedtime, carvedilol 25 mg twice a day, Plavix 75 mg daily secondary to TIA in July, Lasix 40 mg by mouth daily, hydralazine 25 mg twice a day and nifedipine 60 mg daily. REVIEW OF SYSTEMS At the time of my exam: CONSTITUTIONAL: Denies fever or chills. CARDIOVASCULAR: Denies chest pain, shortness of breath, orthopnea, PND or palpitations. RESPIRATORY: Denies cough. GASTROINTESTINAL: Denies abdominal pain, diarrhea, constipation, nausea or vomiting. MUSCULOSKELETAL: Denies myalgias. NEUROLOGIC: Denies numbness, tingling, headacbe or weakness. ENDOCRINE: Denies fatigue, weight change, polydipsia or polyurina. GENITOURINARY: Denies burning, hematuria or urgency with micturation. HEMATOLOGIC: Denies history of anemia or bleeding. PHYSICAL EXAMINATION Blood pressure 128/76 heart rate 92 afebrile and maintaining oxygen saturation on nasal cannula. CONSTITUTIONAL: No apparent distress. HEENT: Head is normocephalic. Pupils are equal, round. Sclerae anicteric. Mucous membranes of the mouth are moist. No JVD. No carotid bruit. CHEST EXAMINATION: Faint expiratory wheeze, no rales or rhonchi. Mild chest wall tenderness is noted on palpation at surgical incision site and with deep breathing. Chest tube in place with clean dressing over the site. HEART EXAMINATION: Regular rate and rhythm. S1, S2 heard. No murmurs, gallops or rub. ABDOMEN: Soft, nontender. Positive bowel sounds. EXTREMITIES: 2+ peripheral pulses, no lower extremity edema and no calf tenderness. NEUROLOGIC EXAMINATION: Patient is awake, alert and oriented x3. ASSESSMENT Dilated cardiomyopathy s/p BiV upgrade with epicardial lead placement Hypertension Dyslipidemia Peripheral vascular disease s/p carotid endartectomy History of complete heart block status post permanent pacemaker implantation Obesity, BMI 37 PLAN Obtain baseline EKG. Continue Coreg, oral Lasix, hydralazine and nifedipine as previously ordered. Recommend incentive spirometer use [id number]. Increase activity as tolerated. Patient will have family bring CPAP to the hospital for sleeping tonight. We will continue to follow and make recommendations accordingly. Thank you kindly for this consultation. Nurse Practitioner note has been reviewed, I agree with a documented findings and plan of care. Patient was seen and examined. Past Medical History Past Medical History: Heart Failure, Diabetes Mellitus, GERD/Reflux, Hypertension, Renal Disease Additional Past Medical History / Comment(s): Anemia, recent admission for possible TIA-decreased left arm function for short period History of Any Multi-Drug Resistant Organisms: None Reported Past Surgical History: Bladder Surgery, Section, Heart Catheterization, Hernia Repair, Orthopedic Surgery, Pacemaker Additional Past Surgical History / Comment(s): Large hernia repair after a section, carpal tunnel bilat. Past Anesthesia/Blood Transfusion Reactions: No Reported Reaction Type of Cardiac Device: Permanent Pacemaker Device Placement Date:: February 2005 Smoking Status: Never smoker - Past Family History Mother Family Medical History: Cancer, Myocardial Infarction ([place]) Additional Family Medical History / Comment(s): breast Father History Unknown: Yes Sister(s) Family Medical History: Cancer Additional Family Medical History / Comment(s): breast Medications and Allergies Home Medications Medication Instructions Recorded Confirmed Type Aspirin 81 mg PO DAILY 03/23/14 08/19/20 History Carvedilol 25 mg PO BID 03/23/14 08/19/20 History Gabapentin [Neurontin] 300 mg PO BID 03/23/14 08/19/20 History allopurinoL [Zyloprim] 100 mg PO DAILY 03/23/14 08/19/20 History Atorvastatin [Lipitor] 20 mg PO HS 05/10/15 08/19/20 History Furosemide [Lasix] 40 mg PO DAILY 03/30/20 08/19/20 History Calcitriol [Rocaltrol] 0.25 mcg PO SUTUTH 04/21/20 08/19/20 History Imipramine [Tofranil] 25 mg PO BID 04/21/20 08/19/20 History NIFEdipine XL [Procardia XL] 60 mg PO DAILY 04/21/20 08/19/20 History Insulin Detemir (Levemir) [Levemir] 10 unit SQ DAILY@0700 syr 04/23/20 08/19/20 Rx Insulin Detemir (Levemir) [Levemir] 15 unit SQ HS syr 04/23/20 08/19/20 Rx INSULIN ASPART (NovoLOG) [NovoLOG See Protocol SQ AC-TID 07/27/20 08/19/20 History (formulary)] Clopidogrel [Plavix] 75 mg PO DAILY #30 tab 07/28/20 08/19/20 Rx HYDROcodone/APAP 5-325MG [[place] 0.5 tab PO Q6HR PRN 08/19/20 08/19/20 History 5-325] hydrALAZINE HCL 25 mg PO BID 08/19/20 08/19/20 History Allergies Allergy/AdvReac Type Severity Reaction Status Date / Time No Known Allergies Allergy Verified 08/19/20 11:22 Physical Exam Vitals: Vital Signs Temp Pulse Pulse Pulse Resp BP BP 08/27/20 08:59 88 08/27/20 08:58 88 08/27/20 08:00 98.1 F 88 18 128/76 08/27/20 04:29 147/68 08/27/20 03:49 172/79 08/27/20 03:31 98.1 F 99 20 175/79 08/26/20 23:59 98.1 F 95 18 172/81 08/26/20 20:39 90 08/26/20 20:27 88 08/26/20 20:26 88 08/26/20 20:14 86 08/26/20 20:00 97.6 F 88 18 182/87 08/26/20 18:00 76 17 153/68 08/26/20 17:30 80 17 160/77 08/26/20 17:00 79 16 174/81 08/26/20 16:55 71 16 08/26/20 16:45 98.2 F 76 16 161/88 08/26/20 16:30 71 16 153/678 08/26/20 16:15 72 16 138/60 08/26/20 16:00 73 16 147/61 08/26/20 15:45 72 16 147/63 08/26/20 15:30 73 16 143/63 08/26/20 15:14 97.5 F L 72 12 132/60 08/26/20 11:39 97.8 F 95 18 148/78 08/26/20 11:26 97.8 F 95 18 148/78 Pulse Ox 08/27/20 08:59 08/27/20 08:58 08/27/20 08:00 96 08/27/20 04:29 08/27/20 03:49 08/27/20 03:31 95 08/26/20 23:59 95 08/26/20 20:39 08/26/20 20:27 08/26/20 20:26 08/26/20 20:14 95 08/26/20 20:00 94 L 08/26/20 18:00 95 08/26/20 17:30 96 08/26/20 17:00 95 08/26/20 16:55 08/26/20 16:45 94 L 08/26/20 16:30 98 08/26/20 16:15 99 08/26/20 16:00 99 08/26/20 15:45 100 08/26/20 15:30 100 08/26/20 15:14 100 08/26/20 11:39 95 08/26/20 11:26 95 Intake and Output 08/26/20 08/27/20 08/27/20 22:59 06:59 14:59 Intake Total 480 Output Total 345 225 Balance 135 -225 Intake: IV 240 Oral 240 Output: Chest Tube Drainage 45 25 Chest Tube Left Lateral 45 25 Chest Urine 300 200 Other: Voiding Method Bedpan # Voids 1 2 Weight 104.5 kg Results 08/27/20 07:15 08/27/20 07:15 CBC 08/27/20 Range/Units 07:15 WBC 16.7 H (3.8-10.6) k/uL RBC 3.32 L (3.80-5.40) m/uL Hgb 10.6 L (11.4-16.0) gm/dL Hct 33.9 L (34.0-46.0) % Plt Count 304 (150-450) k/uL Comprehensive Metabolic Panel 08/27/20 Range/Units 07:15 Sodium 138 (137-145) mmol/L Potassium 5.4 H (3.5-5.1) mmol/L Chloride 104 (98-107) mmol/L Carbon Dioxide 27 (22-30) mmol/L BUN 41 H (7-17) mg/dL Creatinine 2.18 H (0.52-1.04) mg/dL Glucose 106 H (74-99) mg/dL Calcium 9.0 (8.4-10.2) mg/dL Current Medications Generic Name Dose Route Start Last Admin Trade Name Freq PRN Reason Stop Dose Admin Hydrocodone Bitart/Acetaminophen 0.5 each 08/26/20 15:05 08/26/20 23:13 Hydrocodone/Apap 5-325mg 1 Each Tab PO 0.5 each Q4HR PRN Administration Pain Hydrocodone Bitart/Acetaminophen 1 each 08/26/20 16:21 08/27/20 03:16 Hydrocodone/Apap 5-325mg 1 Each Tab PO 1 each Q4HR PRN Administration Pain Albuterol/Ipratropium 3 ml 08/26/20 16:21 Ipratropium-Albuterol 3 Ml Neb IH RT-Q1H PRN Shortness Of Breath Or Wheezing Albuterol/Ipratropium 3 ml 08/26/20 16:21 08/27/20 08:45 Ipratropium-Albuterol 3 Ml Neb IH 3 ml RT-QID ZOLTAN Administration Allopurinol 100 mg 08/27/20 09:00 08/27/20 08:24 Allopurinol 100 Mg Tab PO 100 mg DAILY ZOLTAN Administration Aspirin 81 mg 08/27/20 09:00 08/27/20 08:24 Aspirin 81 Mg PO 81 mg DAILY ZOLTAN Administration Atorvastatin Calcium 20 mg 08/26/20 21:00 08/26/20 20:00 Atorvastatin 20 Mg Tab PO 20 mg HS ZOLTAN Administration Calcitriol 0.25 mcg 08/29/20 09:00 Calcitriol 0.25 Mcg Cap PO SUTUTH [facility] Carvedilol 25 mg 08/26/20 17:30 08/27/20 06:34 Carvedilol 12.5 Mg Tab PO 25 mg AC-BID ZOLTAN Administration Clopidogrel Bisulfate 75 mg 08/27/20 09:00 08/27/20 08:24 Clopidogrel 75 Mg Tab PO 75 mg DAILY ZOLTAN Administration Formoterol Fumarate 20 mcg 08/26/20 20:00 08/27/20 08:52 Formoterol Fumarate 20 Mcg/2 Ml Nebu INHALATION 20 mcg RT-BID ZOLTAN Administration Furosemide 40 mg 08/27/20 09:00 08/27/20 08:24 Furosemide 40 Mg Tab PO 40 mg DAILY ZOLTAN Administration Gabapentin 300 mg 08/26/20 21:00 08/27/20 08:24 Gabapentin 300 Mg Cap PO 300 mg BID ZOLTAN Administration Heparin Sodium (Porcine) 5,000 unit 08/26/20 16:30 08/27/20 08:24 Heparin Sodium,Porcine 5,000 Unit/Ml 1 Ml Vial SQ 5,000 unit Q8HR ZOLTAN Administration Hydralazine HCl 25 mg 08/26/20 21:00 08/27/20 08:24 Hydralazine Hcl 25 Mg Tab PO 25 mg BID ZOLTAN Administration Imipramine HCl 25 mg 08/26/20 21:00 08/27/20 08:24 Imipramine 25 Mg Tab PO 25 mg BID ZOLTAN Administration Insulin Detemir 10 unit 08/27/20 07:00 08/27/20 06:34 Insulin Detemir (Levemir) 100 Unit/Ml Syr SQ 10 unit DAILY@0700 [facility] Administration Insulin Detemir 15 unit 08/26/20 21:00 08/26/20 20:05 Insulin Detemir (Levemir) 100 Unit/Ml Syr SQ 15 unit HS [facility] Administration Nifedipine 60 mg 08/27/20 09:00 Nifedipine Xl 60 Mg Tab.Er.24 PO DAILY [facility] Ondansetron HCl 4 mg 08/26/20 16:21 Ondansetron 4 Mg/2 Ml Vial IVP Q8HR PRN Nausea And Vomiting Pantoprazole Sodium 40 mg 08/27/20 07:30 08/27/20 06:34 Pantoprazole 40 Mg Tablet PO 40 mg [id number]-[id number] [facility] Administration Sodium Chloride 10 ml 08/27/20 06:00 08/27/20 06:35 Sodium Chloride 0.9% Flush 10 Ml Syringe IV 10 ml Q12H ZOLTAN Administration Intake and Output 08/26/20 08/27/20 08/27/20 22:59 06:59 14:59 Intake Total 480 Output Total 345 225 Balance 135 -225 Intake: IV 240 Oral 240 Output: Chest Tube Drainage 45 25 Chest Tube Left Lateral 45 25 Chest Urine 300 200 Other: Voiding Method Bedpan # Voids 1 2 Weight 104.5 kg 08/27/20 07:15 08/27/20 07:15
[2020-08-27 11:57] LABS: Glucose,Whole Blood 139 mg/dL (75-99)
[2020-08-27 13:29] VITALS: RESP 19
--- NOTE | 2020-08-27 14:16 | P.DS ---
Providers Date of admission: 08/26/20 10:58 Expected date of discharge: 08/27/20 Attending physician: Kvng Lamas Consults: 08/26/20 16:21 Consult Physician Routine Consulting Provider: Kwan Gordon Consult Reason/Comments: Medical Management Do you want consulting provider notified?: Yes Consult Physician Routine Consulting Provider: Basilio Denis Consult Reason/Comments: cardio mgmt; post LV lead placement; known to you Do you want consulting provider notified?: Yes Primary care physician: Kwan Gordon Hospital Course: FINAL DIAGNOSIS: 1. Left-sided chronic systolic heart failure with ejection fraction of 40-45%, status post left thoracoscopy with left ventricular epicardial lead implant, upgrade dual-chamber biV pacemaker with generator change and pocket revision 2. History of hypertension 3. History of hyperlipidemia 4. History of TIA 5. Diabetes mellitus type 2 6. Degenerative arthritis 7. Chronic kidney disease stage IV 8. History of coronary artery disease 9. Morbid obesity 10. Obstructive sleep apnea with home CPAP use PRINCIPAL PROCEDURE: 1. left thoracoscopy with a left ventricular epicardial lead implant, upgrade dual chamber to biV permanent pacemaker with generator change and pocket revision. HISTORY OF PRESENT ILLNESS: This is a 75-year-old female patient who is followed by Dr. Gordon on an outpatient basis. She also follows with Dr. Denis from [facility]. She has past medical history significant for left-sided chronic systolic heart failure, cardiomyopathy with an ejection fraction of 40- 45%, insulin-dependent diabetes mellitus type 2, history of TIA, hypertension, hyperlipidemia, chronic kidney disease stage IV, morbid obesity, obstructive sleep apnea with home CPAP use and degenerative osteoarthritis. Due to the patient's cardiomyopathy and chronic systolic left sided heart failure she underwent a dual chamber permanent pacemaker years ago and is pacemaker dependent. Recently, she has had worsening dyspnea and shortness of breath with exertion which was felt to be related to her heart failure symptomatology. Attempts were made to place an RV lead by Dr. Denis, but he was unable to gain access due to a thrombus of the left subclavian vein. For further evaluation and treatment recommendations she was subsequently referred to Dr. Kvng Laams from cardiothoracic surgery for discussion on placement of epicardial LV lead implant and upgrade of the dual-chamber pacemaker to a biV. She was seen and evaluated by Dr. Lamas, treatment options were discussed including left ventricular epicardial lead implant per left thoracoscopy approach, risks and benefits of the surgical procedure were discussed in detail with the patient. Knowing and understanding the risks the patient wished to proceed with the surgical option. HOSPITAL COURSE: On 08/26/2020 the patient was brought to the preoperative area, and after obtaining consent she was prepared in the usual fashion and subsequently taken to the operating room where Dr. Kvng Lamas performed a left thoracoscopy with a left ventricular epicardial lead implant, upgrade dual chamber to biV permanent pacemaker with generator change and pocket revision. Upon completion of the surgery the patient was extubated, recovered in the p ostoperative area and subsequently transferred to the cardiac stepdown unit for further monitoring. All lines, tubes and supportive drips were discontinued when appropriate, her OXYGEN was titrated down and she was tolerating an oral diet. Her pain was well controlled and she was ready to be discharged home on postoperative day #1. She has received written and verbal instructions regarding her medications, activity restrictions, signs and symptoms requiring physician notification and her follow-up appointments. COMPLICATIONS: The patient experienced no postoperative complications. CONSULTATIONS: 1. Dr. Denis for cardiology management. 2. Dr. Gordon for medical management. DISCHARGE INSTRUCTIONS: 1. No driving for 1 weeks, or until physician gives their ok. 2. The patient should sleep in their own bed, no medical bed needed. 3. Stairs are not an issue. If the bedroom is upstairs, it is advised that the patient go up at night and down in the morning for the first week. Go slowly, using handrail and take 1 step at a time. 4. SOY hose are to be worn for 30 days or until physician discontinues. 5. No lifting, pushing, or pulling more than 10 pounds for 2 weeks. The physician will advise of any restriction changes. 6. Continue pain control per as needed orders. 7. Continue with incentive spirometry and left chest splinting until otherwise directed by the physician. 8. May shower daily starting tomorrow on 08/29/2020, using liquid antibacterial soap. 11. Routine incision care, no ointments, lotions or powders on the incisions. 12. Please notify surgeon/nurse practitioner for temperature greater than 101F or purulent drainage from incisions For any questions or concerns please call erisa attorney Jessie @ or Don @ Plan - Discharge Summary Discharge Rx Participant: No New Discharge Prescriptions: Continue Aspirin 81 mg PO DAILY Gabapentin [Neurontin] 300 mg PO BID allopurinoL [Zyloprim] 100 mg PO DAILY Carvedilol 25 mg PO BID Atorvastatin [Lipitor] 20 mg PO HS Furosemide [Lasix] 40 mg PO DAILY NIFEdipine XL [Procardia XL] 60 mg PO DAILY Imipramine [Tofranil] 25 mg PO BID Calcitriol [Rocaltrol] 0.25 mcg PO SUTUTH Insulin Detemir (Levemir) [Levemir] 15 unit SQ HS syr Insulin Detemir (Levemir) [Levemir] 10 unit SQ DAILY@0700 syr INSULIN ASPART (NovoLOG) [NovoLOG (formulary)] See Protocol SQ AC-TID Clopidogrel [Plavix] 75 mg PO DAILY #30 tab HYDROcodone/APAP 5-325MG [[place] 5-325] 0.5 tab PO Q6HR PRN PRN Reason: Pain hydrALAZINE HCL 25 mg PO BID Discharge Medication List Aspirin 81 mg PO DAILY 03/23/14 [History] Carvedilol 25 mg PO BID 03/23/14 [History] Gabapentin [Neurontin] 300 mg PO BID 03/23/14 [History] allopurinoL [Zyloprim] 100 mg PO DAILY 03/23/14 [History] Atorvastatin [Lipitor] 20 mg PO HS 05/10/15 [History] Furosemide [Lasix] 40 mg PO DAILY 03/30/20 [History] Calcitriol [Rocaltrol] 0.25 mcg PO SUTUTH 04/21/20 [History] Imipramine [Tofranil] 25 mg PO BID 04/21/20 [History] NIFEdipine XL [Procardia XL] 60 mg PO DAILY 04/21/20 [History] Insulin Detemir (Levemir) [Levemir] 10 unit SQ DAILY@0700 syr 04/23/20 [Rx] Insulin Detemir (Levemir) [Levemir] 15 unit SQ HS syr 04/23/20 [Rx] INSULIN ASPART (NovoLOG) [NovoLOG (formulary)] See Protocol SQ AC-TID 07/27/20 [History] Clopidogrel [Plavix] 75 mg PO DAILY #30 tab 07/28/20 [Rx] HYDROcodone/APAP 5-325MG [[place] 5-325] 0.5 tab PO Q6HR PRN 08/19/20 [History] hydrALAZINE HCL 25 mg PO BID 08/19/20 [History] Follow up Appointment(s)/Referral(s): Basilio Denis MD [STAFF PHYSICIAN] - 09/03/20 9:30 am (follow up at the device clinic at Dr Denis's office on 09/03/2020 at 9:30 am Follow-up as scheduled with Dr. Denis and on 10/01/2020 at 2:45 PM at the [address] [place] [address], [facility].) Kvng Lamas MD [STAFF PHYSICIAN] - 09/02/20 10:45 am Kwan Gordon MD [Primary Care Provider] - 1 Week Patient Instructions/Handouts: Pacemaker (DC)
[2020-08-27 16:28] LABS: Glucose,Whole Blood 219 mg/dL (75-99)
[2020-08-27 16:43] VITALS: BP 135/74; PULSE 84; TEMP 98.3
== END 2020-08-27 17:08 | disposition home or self-care (01) | DRG 243 ==
LOC: 2ORMAIN 10:58 → 3SCARD 15:26
PROVIDERS: ADMIT Thoracic Surgery (Cardiothoracic Vascular Surgery); ATTEND Thoracic Surgery (Cardiothoracic Vascular Surgery)
PROC: 02HL3JZ Insertion of Pacemaker Lead into Left Ventricle, Percutaneous Approach (ICD-10-PCS; principal; 2020-08-26 12:30)
PROC: 0JPT0PZ Removal of Cardiac Rhythm Related Device from Trunk Subcutaneous Tissue and Fascia, Open Approach (ICD-10-PCS; principal; 2020-08-26 12:30)
PROC: 02PA4MZ Removal of Cardiac Lead from Heart, Percutaneous Endoscopic Approach (ICD-10-PCS; principal; 2020-08-26 12:30)
PROC: 0JH607Z Insertion of Cardiac Resynchronization Pacemaker Pulse Generator into Chest Subcutaneous Tissue and Fascia, Open Approach (ICD-10-PCS; principal; 2020-08-26 12:30)
DX: I13.0 Hypertensive heart and chronic kidney disease with heart failure and stage 1 through stage 4 chronic kidney disease, or unspecified chronic kidney disease (principal); I50.22 Chronic systolic (congestive) heart failure; I82.B12 Acute embolism and thrombosis of left subclavian vein; N18.4 Chronic kidney disease, stage 4 (severe); J93.83 Other pneumothorax; J98.11 Atelectasis; I25.10 Atherosclerotic heart disease of native coronary artery without angina pectoris; I42.0 Dilated cardiomyopathy; G47.33 Obstructive sleep apnea (adult) (pediatric); Z99.89 Dependence on other enabling machines and devices; E11.22 Type 2 diabetes mellitus with diabetic chronic kidney disease; E11.51 Type 2 diabetes mellitus with diabetic peripheral angiopathy without gangrene; E66.01 Morbid (severe) obesity due to excess calories; E78.5 Hyperlipidemia, unspecified; Z86.73 Personal history of transient ischemic attack (TIA), and cerebral infarction without residual deficits; M19.90 Unspecified osteoarthritis, unspecified site; Z68.37 Body mass index [BMI] 37.0-37.9, adult; G47.00 Insomnia, unspecified; E87.5 Hyperkalemia; K21.9 Gastro-esophageal reflux disease without esophagitis; Z79.02 Long term (current) use of antithrombotics/antiplatelets; Z79.4 Long term (current) use of insulin; Z79.82 Long term (current) use of aspirin; Z79.899 Other long term (current) drug therapy; Z82.49 Family history of ischemic heart disease and other diseases of the circulatory system; Z45.018 Encounter for adjustment and management of other part of cardiac pacemaker
CPT/HCPCS: 71045; 80048; 85025; 94640

== ENCOUNTER → 2020-08-31 | Outpatient (CLI) | payer MEDICARE, OTHER ==
--- NOTE | 2020-08-31 12:23 | XR ---
EXAMINATION TYPE: XR chest 2V DATE OF EXAM: 08/31/2020 COMPARISON: 08/27/2020 TECHNIQUE: PA and lateral views submitted. HISTORY: Post lead placement FINDINGS: Chest tube has been removed. No sizable pneumothorax. Left lower lobe subsegmental consolidation seen and there is a cardiac device. Atherosclerotic change aorta. Coarsened interstitium. Biapical pleura l thickening. IMPRESSION: 1. Basilar atelectasis or infiltrate is improved relative to the prior exam. 2. No sizable pneumothorax. 3. Mild interstitial mild venous congestion or pneumonitis suggested.
== END | disposition home or self-care (01) ==
LOC: RADXRMAIN 11:27
PROVIDERS: ATTEND Nurse Practitioner Family
DX: J98.11 Atelectasis (principal); Z98.890 Other specified postprocedural states
CPT/HCPCS: 71046

== ENCOUNTER → 2020-09-23 | Outpatient (CLI) | payer MEDICARE, OTHER ==
--- NOTE | 2020-09-23 22:51 | SFUN ---
SLEEP CENTER FOLLOW UP NOTE DATE OF SERVICE: 09/23/2020 This is a 75-year-old lady who has been followed in the sleep center for treatment of obstructive sleep apnea-hypopnea syndrome. Recently the patient had a polysomnogram which showed severe obstructive sleep apnea- hypopnea syndrome, and then she had CPAP/BiPAP titration, and her respiration on a high level of BiPAP was normalized. Subsequently she received her BiPAP equipment. Today is her first visit after she was started on treatment with BiPAP. The patient feels better with the BiPAP. She sleeps better and feels better during the night. I checked her BiPAP unit. Pressure is 18/14 cm of water, usage 28/30 nights for more than 4 hours, average usage 8.1 hours per night. She has a quite significant leak at 116 L/minute. Apnea-hypopnea index is 5.3, which is borderline. MEDICATIONS: Levemir, NovoLog, nifedipine, atorvastatin, imipramine, gabapentin, carvedilol, Allopurinol, furosemide, calcitriol, aspirin, Farrell, fluticasone. PHYSICAL EXAMINATION: GENERAL: A pleasant patient in no distress. VITAL SIGNS: BP 97/46, HR 61, RR 18, weight 231.2, temperature 97.8, oxygen saturation at room air 92%. HEENT: PERRLA, EOMI. Evaluation of oropharynx showed tongue protrudes midline. Extremely low position of soft palate. Mallampati IV. NECK: Supple. No JVD. Thyroid is not palpable. LUNGS: Clear to percussion and to auscultation. Good air exchange. No wheezing or rhonchi. HEART: S1, S2 regular. No murmurs, gallops or rubs. ABDOMEN: Obese. EXTREMITIES: No clubbing or cyanosis. BALANCE CLERK: Awake, alert, and oriented X3. Cranial nerves 2 to 7 intact. There is no fasciculation or atrophy. noted. No focal deficits observed. Patient walks with a walker. IMPRESSION: 1. Severe obstructive sleep apnea-hypopnea syndrome; apnea-hypopnea index 36.6 with oxygen desaturation to 76.7%. The patient demonstrated good compliance with BiPAP treatment, benefitting from treatment. 2. Obesity. 3. Possibly some [id number]-ba-zbzbt movements. 4. History of cardiac arrhythmia, status post permanent pacemaker insertion. 5. Hypertension. 6. Diabetes mellitus. 7. Hyperlipidemia. 8. History of sinusitis. 9. Status post cholecystectomy. 10.Status post bilateral carpal tunnel syndrome surgery. 11.Status post hernia repair. 12.Status post two sections. PLAN: 1. I changed regimen of the BiPAP to the maximal inspiratory pressure 19, minimal expiratory pressure of 10 with pressure support 4. 2. The patient will try to use a different full-face mask. At present she is using Vitera, and she will try a different mask, which we gave her after the sleep study. I believe this is a Simplus. 3. Patient will continue to use her BiPAP equipment every night for the whole night. 4. Sleep hygiene with regular time in bed for at least 7-1/2 to 8 hours. 5. Precautions related to driving. No driving if feeling sleepiness. 6. I will maintain all necessary prescription for PAP supplies including mask, tube, filters. 7. Watching weight. 8. No driving if feeling sleepiness. 9. Follow-up visit in 4 months or earlier if patient has any problems. 10.I discussed with the patient in detail position of the machine; that it should stay about one foot lower than her head to prevent any water in the mask. Thank you very much for allowing me to participate in the management of your patient. Sincerely, Jaswinder Dubon MD, PhD, FAASM Diplomat of [place] [facility] [place] DEE DEE / SCARN: [id number] /
== END | disposition home or self-care (01) ==
LOC: SLEEP 15:04
PROVIDERS: ATTEND Internal Medicine
DX: G47.33 Obstructive sleep apnea (adult) (pediatric) (principal); I10 Essential (primary) hypertension; E11.9 Type 2 diabetes mellitus without complications; I49.9 Cardiac arrhythmia, unspecified; Z90.49 Acquired absence of other specified parts of digestive tract; Z98.890 Other specified postprocedural states; Z86.69 Personal history of other diseases of the nervous system and sense organs; Z95.811 Presence of heart assist device; Z79.84 Long term (current) use of oral hypoglycemic drugs; Z79.899 Other long term (current) drug therapy; Z79.82 Long term (current) use of aspirin; Z79.891 Long term (current) use of opiate analgesic

== ENCOUNTER → 2020-10-04 | Outpatient (CLI) | payer MEDICARE, OTHER ==
[2020-10-04 16:08] LABS: African American GFR (CKD) 22.3 (60.0-200.0); Albumin 3.6 g/dL (3.80-4.90); Albumin/Globulin Ratio 1.57 (1.60-3.17); Anion Gap 10.1 mmol/L (4.00-12.00); BUN/Creat Ratio 19.58 Ratio (12.00-20.00); Calcium 8.8 mg/dL (8.7-10.3); Carbon Dioxide 24.9 mmol/L (21.6-31.8); Chol/HDL Ratio 2.38; Globulin 2.3 g/dL (1.6-3.3); LDL Cholesterol,Calculated 46.4 mg/dL (0.0-131.0); Non-African American GFR(CKD) 19.2 (60.0-200.0); Potassium 4.8 mmol/L (3.5-5.5); Total Bilirubin 0.2 mg/dL (0.2-1.2); Total Protein 5.9 g/dL (6.2-8.2); VLDL Calculation 15.6 mg/dL (5.00-40.00)
[2020-10-04 16:46] LABS: Hemoglobin A1C 6.9 % (4.0-6.0)
[2020-10-05 02:09] LABS: Urine Creatinine 65.7 mg/dL
== END | disposition home or self-care (01) ==
LOC: LABWHC1 09:49
PROVIDERS: ATTEND Internal Medicine Endocrinology, Diabetes & Metabolism
DX: E11.65 Type 2 diabetes mellitus with hyperglycemia (principal); E03.8 Other specified hypothyroidism
CPT/HCPCS: 36415; 80053; 80061; 82043; 82570; 83036; 84443

== ENCOUNTER 2020-12-06 18:59 | Emergency (ER) | payer MEDICARE, OTHER ==
[2020-12-06 19:13] VITALS: BP 103/61; PULSE 60; RESP 16; TEMP 97.6
--- NOTE | 2020-12-06 19:40 | ED ---
Fall HPI - General Chief Complaint: Fall Stated Complaint: fall/hypotension Time Seen by Provider: 12/06/20 19:26 Source: patient Mode of arrival: ambulatory - History of Present Illness Initial Comments: 75-year-old female presents to the emergency department with a chief complaint of a fall. Patient reports this occurred about one hour prior to arrival. Patient reports she has history of near syncopal episodes and its typically secondary to hypokalemia. Patient reports she feels very similar to this time. States she was attempting to get out of bed, she had a near syncopal episode and fell on her back and hit her head. She denies loss of consciousness. Reports some pain in the neck. Patient denies any numbness or paresthesias in the extremities. Denies any nausea vomiting diarrhea or visual changes. Patient is concerned for an electrolyte imbalance. Patient was brought to the ED via EMS without a c-collar. - Related Data Home Medications Medication Instructions Recorded Confirmed Aspirin 81 mg PO DAILY 03/23/14 08/19/20 Carvedilol 25 mg PO BID 03/23/14 08/19/20 Gabapentin [Neurontin] 300 mg PO BID 03/23/14 08/19/20 allopurinoL [Zyloprim] 100 mg PO DAILY 03/23/14 08/19/20 Atorvastatin [Lipitor] 20 mg PO HS 05/10/15 08/19/20 Furosemide [Lasix] 40 mg PO DAILY 03/30/20 08/19/20 Imipramine [Tofranil] 25 mg PO BID 04/21/20 08/19/20 NIFEdipine XL [Procardia XL] 60 mg PO DAILY 04/21/20 08/19/20 calcitrioL [Rocaltrol] 0.25 mcg PO SUTUTH 04/21/20 08/19/20 INSULIN ASPART (NovoLOG) [NovoLOG See Protocol SQ AC-TID 07/27/20 08/19/20 (formulary)] HYDROcodone/APAP 5-325MG [[place] 0.5 tab PO Q6HR PRN 08/19/20 08/19/20 5-325] hydrALAZINE HCL 25 mg PO BID 08/19/20 08/19/20 Previous Rx's Medication Instructions Recorded Insulin Detemir (Levemir) [Levemir] 10 unit SQ DAILY@0700 syr 04/23/20 Insulin Detemir (Levemir) [Levemir] 15 unit SQ HS syr 04/23/20 Clopidogrel [Plavix] 75 mg PO DAILY #30 tab 07/28/20 Allergies Allergy/AdvReac Type Severity Reaction Status Date / Time No Known Allergies Allergy Verified 12/06/20 19:07 Review of Systems ROS Statement: Those systems with pertinent positive or pertinent negative responses have been documented in the HPI. ROS Other: All systems not noted in ROS Statement are negative. Past Medical History Past Medical History: Heart Failure, Diabetes Mellitus, GERD/Reflux, Hypertension, Renal Disease Additional Past Medical History / Comment(s): Anemia, recent admission for possible TIA-decreased left arm function for short period History of Any Multi-Drug Resistant Organisms: None Reported Past Surgical History: Bladder Surgery, Section, Heart Catheterization, Hernia Repair, Orthopedic Surgery, Pacemaker Additional Past Surgical History / Comment(s): Large hernia repair after a section, carpal tunnel bilat. Past Anesthesia/Blood Transfusion Reactions: No Reported Reaction Type of Cardiac Device: Permanent Pacemaker Device Placement Date:: February 2005 Past Psychological History: No Psychological Hx Reported Smoking Status: Never smoker Past Alcohol Use History: None Reported Past Drug Use History: None Reported - Past Family History Mother Family Medical History: Cancer, Myocardial Infarction ([place]) Additional Family Medical History / Comment(s): breast Father History Unknown: Yes Sister(s) Family Medical History: Cancer Additional Family Medical History / Comment(s): breast General Exam Limitations: no limitations General appearance: alert, in no apparent distress, obese Head exam: Present: atraumatic, normocephalic, normal inspection. Absent: other (Negative Farooq sign, raccoon eyes, no tendon.) Eye exam: Present: normal appearance, PERRL, EOMI Pupils: Present: normal accommodation ENT exam: Present: normal exam, normal oropharynx, mucous membranes moist, TM's normal bilaterally, normal external ear exam Neck exam: Present: normal inspection, full ROM. Absent: tenderness, meningi smus, lymphadenopathy Respiratory exam: Present: normal lung sounds bilaterally. Absent: respiratory distress, wheezes Cardiovascular Exam: Present: regular rate, normal rhythm, normal heart sounds. Absent: systolic murmur, diastolic murmur GI/Abdominal exam: Present: soft. Absent: distended, tenderness, guarding, rebound Extremities exam: Present: normal inspection, full ROM, normal capillary refill, other (Palpable DP and PT bilaterally.). Absent: tenderness, pedal edema, joint swelling Back exam: Present: normal inspection, full ROM. Absent: tenderness, CVA ten derness (R), CVA tenderness (L) Neurological exam: Present: alert, oriented X3 Psychiatric exam: Present: normal affect, normal mood Skin exam: Present: warm, dry, intact, normal color Course Vital Signs 12/06/20 19:07 Temperature 97.6 F Pulse Rate 60 Respiratory 16 Rate Blood Pressure 103/61 O2 Sat by Pulse 95 Oximetry Medical Decision Making - Medical Decision Making 75-year-old female presents to emergency Department with a chief complaint of a fall. On physical examination, no signs of obvious head injuries. Patient is alert and oriented 4. CBC reveals hemoglobin of 9.4 but this appears to be close to the patient's baseline. CMP shows elevated BUN and creatinine, however this appears to have improved compared to her most recent laboratory work. She does have history of chronic kidney disease. Her blood glucose level was 49. Patient did mention recently eating and given herself 7 units of Humalog prior to having the symptoms. I suspect she gave herself a bit too much insulin. P atient was given D50 one amp and also we gave her some apple juice. On reevaluation, she reports feeling much better. Repeat Accu-Chek reveals a blood glucose level of 146. Strict return parameters were thoroughly discussed with patient was understanding and agreeable. Case discussed with Dr. Toussaint - Lab Data Result diagrams: 12/06/20 20:08 12/06/20 20:08 Lab Results 12/06/20 12/06/20 12/06/20 Range/Units 20:08 20:08 21:50 WBC 10.9 H (3.8-10.6) k/uL RBC 3.16 L (3.80-5.40) m/uL Hgb 9.7 L (11.4-16.0) gm/dL Hct 31.7 L (34.0-46.0) % MCV 100.2 H (80.0-100.0) fL MCH 30.6 (25.0-35.0) pg MCHC 30.5 L (31.0-37.0) g/dL RDW 14.5 (11.5-15.5) % Plt Count 372 (150-450) k/uL MPV 7.3 Neutrophils % 79 % Lymphocytes % 12 % Monocytes % 5 % Eosinophils % 2 % Basophils % 0 % Neutrophils # 8.7 H (1.3-7.7) k/uL Lymphocytes # 1.3 (1.0-4.8) k/uL Monocytes # 0.6 (0-1.0) k/uL Eosinophils # 0.2 (0-0.7) k/uL Basophils # 0.0 (0-0.2) k/uL Macrocytosis Slight Sodium 136 L (137-145) mmol/L Potassium 5.0 (3.5-5.1) mmol/L Chloride 104 (98-107) mmol/L Carbon Dioxide 26 (22-30) mmol/L Anion Gap 6 mmol/L BUN 46 H (7-17) mg/dL Creatinine 2.79 H (0.52-1.04) mg/dL Est GFR (CKD-EPI)AfAm 19 (>60 ml/min/1.73 sqM) Est GFR (CKD-EPI)NonAf 16 (>60 ml/min/1.73 sqM) Glucose 47 L* (74-99) mg/dL POC Glucose (mg/dL) 145 H (75-99) mg/dL POC Glu Patient Support Representative ID Charlette Fenton Calcium 9.2 (8.4-10.2) mg/dL Magnesium 1.6 (1.6-2.3) mg/dL Total Bilirubin 0.2 (0.2-1.3) mg/dL AST 30 (14-36) U/L ALT 15 (4-34) U/L Alkaline Phosphatase 154 H (38-126) U/L Total Protein 6.2 L (6.3-8.2) g/dL Albumin 3.2 L (3.5-5.0) g/dL - EKG Data EKG Comments: Atrial paced rhythm Ventricular rate 60, LA 142, QRS 140, QTC 482. Disposition Clinical Impression: Fall, Head injury, Hypoglycemia Disposition: HOME SELF-CARE Condition: Stable Instructions (If sedation given, give patient instructions): Fall Prevention (ED), Hypoglycemia in Adolescents with Diabetes (ED) Additional Instructions: Please return to the Emergency Department if symptoms worsen or any other concerns. Is patient prescribed a controlled substance at d/c from ED?: No Referrals: Kwan Gordon MD [Primary Care Provider] - 1-2 days Time of Disposition: 22:00
[2020-12-06 20:17] LABS: Basophils % (A) 0 %; Eosinophils # (A) 0.2 k/uL (0-0.7); Eosinophils % (A) 2 %; HCT 31.7 % (34.0-46.0); HGB 9.7 gm/dL (11.4-16.0); Lymphocytes # (A) 1.3 k/uL (1.0-4.8); Lymphocytes % (A) 12 %; MCH 30.6 pg (25.0-35.0); MCHC 30.5 g/dL (31.0-37.0); MCV 100.2 fL (80.0-100.0); Macrocytosis Slight; Mean Platelet Volume 7.3; Monocytes # (A) 0.6 k/uL (0-1.0); Monocytes % (A) 5 %; Neutrophils # (A) 8.7 k/uL (1.3-7.7); Neutrophils % (A) 79 %; Platelet Count 372 k/uL (150-450); RBC 3.16 m/uL (3.80-5.40); RDW 14.5 % (11.5-15.5); WBC 10.9 k/uL (3.8-10.6)
[2020-12-06 20:32] LABS: Albumin 3.2 g/dL (3.5-5.0); Calcium 9.2 mg/dL (8.4-10.2); Magnesium 1.6 mg/dL (1.6-2.3); Total Bilirubin 0.2 mg/dL (0.2-1.3); Total Protein 6.2 g/dL (6.3-8.2)
[2020-12-06] MEDS ORDERED: DEXTROSE 50% SYRINGE 50 ML IVP STA (20:45)
--- NOTE | 2020-12-06 21:40 | CT ---
EXAMINATION TYPE: CT brain cspine wo con DATE OF EXAM: 12/06/2020 COMPARISON: 07/27/2020 HISTORY: fall, head injury CT DLP: 1545.3 mGycm Automated exposure control for dose reduction was used. TECHNIQUE: CT scan of the head and cervical spine are performed without contrast. FINDINGS: There is no acute intracranial hemorrhage, mass effect, or midline shift identified. The ventricles and sulci are within normal limits in size. No abnormal extra-axial fluid collection. No depressed calvarial fracture. There is an unchanged benign-appearing sclerotic area of the left temp oral occipital calvarium unchanged versus 2012. The globes are grossly symmetric. Mastoid air cells a nd visualized paranasal sinuses are clear. Cervical spine is visualized in its entirety from C1 through upper thoracic levels. There is beam deborah dening artifact due to the patient's shoulders. There is no evidence of acute fracture or subluxation within limitations of beam hardening artifact. Multilevel multifactorial degenerative changes of the cervical spine. There is normal alignment of the cervical spine. Varying degrees of neural foraminal bony encroachment and canal stenosis. No prevertebral soft tissue swelling. Heterogenous multinodula r thyroid. IMPRESSION: 1. No acute intracranial hemorrhage, midline shift, or mass effect. 2. Degenerative changes of the cervical spine with beam hardening artifact from patient's shoulders. No acute fracture or subluxation of the cervical spine within limitations of exam. 3. Heterogenous multinodular thyroid gland.
[2020-12-06 21:54] LABS: Glucose,Whole Blood 145 mg/dL (75-99)
== END 2020-12-06 22:38 | disposition home or self-care (01) ==
LOC: EC 18:59
DX: S09.90XA Unspecified injury of head, initial encounter (principal); E11.649 Type 2 diabetes mellitus with hypoglycemia without coma; M54.2 Cervicalgia; E87.6 Hypokalemia; K21.9 Gastro-esophageal reflux disease without esophagitis; I13.0 Hypertensive heart and chronic kidney disease with heart failure and stage 1 through stage 4 chronic kidney disease, or unspecified chronic kidney disease; E11.22 Type 2 diabetes mellitus with diabetic chronic kidney disease; I50.9 Heart failure, unspecified; N18.9 Chronic kidney disease, unspecified; Z79.82 Long term (current) use of aspirin; Z79.4 Long term (current) use of insulin; Z79.02 Long term (current) use of antithrombotics/antiplatelets; Z95.0 Presence of cardiac pacemaker; W01.190A Fall on same level from slipping, tripping and stumbling with subsequent striking against furniture, initial encounter
CPT/HCPCS: 36415; 70450; 72125; 80053; 83735; 85025; 93005; 96374; 99284

== ENCOUNTER → 2021-02-07 | Outpatient (CLI) | payer MEDICARE, OTHER ==
[2021-02-07 15:07] LABS: African American GFR (CKD) 22.3 (60.0-200.0); Anion Gap 8.4 mmol/L (4.00-12.00); BUN/Creat Ratio 20.42 Ratio (12.00-20.00); Calcium 8.5 mg/dL (8.7-10.3); Carbon Dioxide 22.6 mmol/L (21.6-31.8); Non-African American GFR(CKD) 19.2 (60.0-200.0); Potassium 5.2 mmol/L (3.5-5.5)
== END | disposition home or self-care (01) ==
LOC: LABWHC1 09:41
PROVIDERS: ATTEND Internal Medicine Nephrology
DX: N18.4 Chronic kidney disease, stage 4 (severe) (principal)
CPT/HCPCS: 36415; 80048

== ENCOUNTER → 2021-04-21 | Outpatient (CLI) | payer MEDICARE, OTHER ==
--- NOTE | 2021-04-21 18:28 | SFUN ---
SLEEP CENTER FOLLOW UP NOTE DATE OF SERVICE: 04/21/2021 This 75-year-old lady has been followed in Sleep Center for treatment of obstructive sleep apnea-hypopnea syndrome. The patient continues to use her BiPAP equipment every night. She does not have any complaints about the machine or supplies. [place] Sleepiness Scale today is increased to 14. I checked her BiPAP unit. Air filter is in very bad condition. It is dark donald/black, and needs to be replaced immediately. Maximal inspiratory pressure is 19 cm of water, minimal expiratory pressure 10 cm of water, average pressure 16/12 cm of water. Usage is 30/30 nights and 28/30 nights more than 4 hours with average usage 8.3 hours per night. Apnea-hypopnea index is 5.5, which is borderline. MEDICATIONS: Levemir, NovoLog, nifedipine, atorvastatin, imipramine, gabapentin, carvedilol, allopurinol, furosemide, [place]. PHYSICAL EXAMINATION: GENERAL: Pleasant patient in no distress. VITAL SIGNS: BP 143/75, HR 77, RR 12, height 5 feet 4 inches, weight 224.4, body mass index 38.9, temperature 97.0, oxygen saturation at room air 92%. HEENT: PERRLA, EOMI, evaluation of oropharynx showed tongue protrudes midline. Extremely low position of soft palate; Mallampati IV. NECK: Supple, no JVD. Thyroid is not palpable. LUNGS: Clear to percussion and to auscultation. Good air exchange. No wheezing or rhonchi. HEART: S1, S2 regular. No murmurs, gallops, or rubs. ABDOMEN: Obese. EXTREMITIES: No clubbing or cyanosis. GROUND MIXER: Awake, alert, and oriented X3. Cranial nerves 2 to 7 intact. There is no fasciculation or atrophy. noted. No focal deficits observed. IMPRESSION: 1. Severe obstructive sleep apnea-hypopnea syndrome; apnea-hypopnea index 36.6 with oxygen desaturation to 76.7%. The patient demonstrated good compliance with treatment, benefitting from treatment. 2. Obesity. Patient lost 7 pounds since previous visit. 3. History of possibly some [id number] movements in the past. 4. History of cardiac arrhythmia, status post permanent pacemaker insertion. 5. Hypertension. 6. Diabetes mellitus. 7. Hyperlipidemia. 8. History of sinusitis. 9. Status post cholecystectomy. 10.Status post bilateral carpal tunnel syndrome surgery. 11.Status post hernia repair. 12.Status post two sections. PLAN: 1. Patient will continue to use PAP equipment every night for the whole night. 2. Sleep hygiene with regular time in bed for at least 7-1/2 to 8 hours. 3. Precautions related to driving. No driving if feeling sleepiness. 4. I will maintain all necessary prescription for PAP supplies including mask, tube, filters. 5. Watching weight. 6. Follow-up visit in 6 months or earlier if patient has any problems. 7. Patient has to replace air filter immediately. Thank you very much for allowing me to participate in the management of your patient. Sincerely, Jaswinder Dubon MD, PhD, FAASM Diplomat of [place] [employer] Sleep Medicine [employer] of [place] [employer] [facility] [place] MMEDDAL / MARIA ALEJANDRA: [id number] /
== END | disposition home or self-care (01) ==
LOC: SLEEP 14:00
PROVIDERS: ATTEND Internal Medicine
DX: G47.33 Obstructive sleep apnea (adult) (pediatric) (principal); I10 Essential (primary) hypertension; E66.9 Obesity, unspecified; E78.5 Hyperlipidemia, unspecified; J32.9 Chronic sinusitis, unspecified; G56.03 Carpal tunnel syndrome, bilateral upper limbs; K91.5 Postcholecystectomy syndrome

== ENCOUNTER → 2021-06-14 | Outpatient (CLI) | payer MEDICARE, OTHER ==
[2021-06-14 16:05] LABS: ALT 19 U/L (8-44); AST 16 U/L (13-35); African American GFR (CKD) 16.3 (60.0-200.0); Albumin 3.3 g/dL (3.8-4.9); Albumin/Globulin Ratio 1.32 (1.60-3.17); Alkaline Phosphatase 183 U/L (41-126); BUN/Creat Ratio 15.52 Ratio (12.00-20.00); Blood Urea Nitrogen 48.1 mg/dL (9.0-27.0); Calcium 8.9 mg/dL (8.7-10.3); Carbon Dioxide 19.3 mmol/L (21.6-31.8); Chloride 108 mmol/L (96-109); Globulin 2.5 g/dL (1.6-3.3); Glucose 97 mg/dL (70-110); LDL Cholesterol,Calculated 31.5 mg/dL (0.0-131.0); Potassium 5.5 mmol/L (3.5-5.5); Sodium 138 mmol/L (135-145); Total Bilirubin <0.20 mg/dL (0.30-1.20); Total Protein 5.8 g/dL (6.2-8.2); VLDL Calculation 13.38 mg/dL (5.00-40.00)
== END | disposition home or self-care (01) ==
LOC: LABWHC1 09:09
PROVIDERS: ATTEND Internal Medicine Endocrinology, Diabetes & Metabolism
DX: E11.65 Type 2 diabetes mellitus with hyperglycemia (principal)
CPT/HCPCS: 36415; 80053; 80061; 83036; 84443

== ENCOUNTER 2021-08-31 10:06 | Inpatient (IN) | payer MEDICARE, OTHER ==
[2021-08-31 10:10] LABS: Glucose,Whole Blood 148 mg/dL (75-99)
[2021-08-31] MEDS ORDERED: ROCURONIUM 10 MG/ML (5 ML VIAL) IV ONE ×2 (10:10)
[2021-08-31] MEDS ORDERED: ETOMIDATE 2 MG/ML 10 ML VIAL ONE (10:10)
[2021-08-31 10:22] LABS: Glucose,Whole Blood 115 mg/dL (75-99)
[2021-08-31] MEDS ORDERED: LABETALOL 5 MG/ML VIAL MDV IVP STA (10:26)
[2021-08-31 10:40] LABS: Basophils % (A) 0 %; Eosinophils # (A) 0.1 k/uL (0-0.7); Eosinophils % (A) 0 %; HCT 29.9 % (34.0-46.0); HGB 9.2 gm/dL (11.4-16.0); Hypochromasia Marked; Lymphocytes % (A) 9 %; MCH 32.9 pg (25.0-35.0); MCHC 30.6 g/dL (31.0-37.0); MCV 107.4 fL (80.0-100.0); Macrocytosis Moderate; Mean Platelet Volume 7.8; Monocytes # (A) 0.4 k/uL (0-1.0); Monocytes % (A) 3 %; Neutrophils # (A) 9.8 k/uL (1.3-7.7); Neutrophils % (A) 86 %; Platelet Count 413 k/uL (150-450); RBC 2.79 m/uL (3.80-5.40); RDW 14.6 % (11.5-15.5); WBC 11.4 k/uL (3.8-10.6)
[2021-08-31 10:57] LABS: INR 0.9 (<1.2); Partial Thromboplastin Time 26.5 sec (22.0-30.0); Prothrombin Time 10.2 sec (9.0-12.0)
--- NOTE | 2021-08-31 10:57 | XR ---
EXAMINATION TYPE: XR chest 1V portable DATE OF EXAM: 08/31/2021 COMPARISON: 08/31/2020 HISTORY: Postop TECHNIQUE: Single frontal view of the chest is obtained. FINDINGS: ET and NG tube stable. Right-sided dialysis catheter seen. Cardiac device noted there is a diffuse interstitial pattern with bilateral subsegmental consolidation and tiny effusion. IMPRESSION: 1. Correlate for CHF otherwise consider interstitial pneumonia. 2. Dual lead cardiac device with the proximal lead overlying the right atrium and distal lead overlyi ng right ventricle and no sizable pneumothorax.
[2021-08-31 10:58] LABS: Glucose,Whole Blood 85 mg/dL (75-99)
[2021-08-31] MEDS ORDERED: NITROGLYCERIN-D5W PMX 50 MG in DEXTROSE/WATER 1 250ML.BAG IV SCH (11:15)
--- NOTE | 2021-08-31 11:15 | CT ---
EXAMINATION TYPE: CT brain wo con DATE OF EXAM: 08/31/2021 COMPARISON: 12/06/2020 HISTORY: Altered mental status CT DLP: 1087.4 mGycm Automated exposure control for dose reduction was used. FINDINGS: There is no acute intracranial hemorrhage, mass effect, or midline shift identified. The ventricles a nd sulci are within normal limits in size. Intracranial atherosclerotic changes. Attenuation posterio r nasopharynx likely postinflammatory. Craniocervical junction maintained. Sella turcica has a normal appearance.. No depressed calvarial fr acture. There is an unchanged benign-appearing sclerotic area of the left temporal occipital calvariu m unchanged versus 2012. The globes are grossly symmetric. Mastoid air cells and visualized paranasal sinuses are clear. Chronic appearing calcifications along the calvarium are also noted. IMPRESSION: DEGENERATIVE AND NONSPECIFIC FAINT WHITE MATTER CHANGES MOST TYPICAL OF REMOTE WHITE MATTER ISCHEMIA. IF CONCERN FOR ACUTE ISCHEMIA CORRELATE WITH MRI CLINICALLY WARRANTED.
[2021-08-31 11:40] LABS: Glucose,Whole Blood 79 mg/dL (75-99)
[2021-08-31] MEDS ORDERED: DEXTROSE 50% SYRINGE 50 ML IVP STA (11:40)
--- NOTE | 2021-08-31 11:46 | ED ---
General Adult HPI - General Chief complaint: Altered Mental Status Stated complaint: unresponsive Time Seen by Provider: 08/31/21 10:24 Source: EMS, RN notes reviewed, old records reviewed Mode of arrival: EMS Limitations: altered mental status - History of Present Illness Initial comments: Patient is a 76-year-old female with past medical history remarkable for ESRD on hemodialysis via right chest permacath, hypertension, diabetes, heart failure who presents emergency Department with altered mental status. She is unresponsive. Patient was found at home for an unknown period of time down. Blood sugar at the scene was 50. She received 1 amp of D50, and repeat blood sugar was within normal limits. No improvement in mental status. Vital signs were otherwise stable except for hypertension with a systolic blood pressure in the 200s. Patient presents for altered mental status, unresponsive of unknown etiology. Per chart, patient is on Levemir insulin, NovoLog insulin, and no blood thinners. Unknown trauma. Patient is unable to provide any form of history. - Related Data Home Medications Medication Instructions Recorded Confirmed Carvedilol 25 mg PO BID 03/23/14 08/31/21 Gabapentin [Neurontin] 300 mg PO BID 03/23/14 08/31/21 allopurinoL [Zyloprim] 100 mg PO DAILY 03/23/14 08/31/21 Imipramine [Tofranil] 25 mg PO BID 04/21/20 08/31/21 NIFEdipine XL [Procardia XL] 60 mg PO DAILY 04/21/20 08/31/21 calcitrioL [Rocaltrol] 0.25 mcg PO DAILY 04/21/20 08/31/21 INSULIN ASPART (NovoLOG) [NovoLOG See Protocol SQ AC-TID 07/27/20 08/31/21 (formulary)] hydrALAZINE HCL 25 mg PO BID 08/19/20 08/31/21 Aspirin EC [Ecotrin Low Dose] 81 mg PO DAILY 08/31/21 08/31/21 Atorvastatin [Lipitor] 40 mg PO HS 08/31/21 08/31/21 Diclofenac Sodium Gel [Voltaren 2 - 4 gm TOPICAL QID PRN 08/31/21 08/31/21 Gel] Ergocalciferol [Vitamin D2 (1250 1,250 mcg PO Q7D 08/31/21 08/31/21 Mcg = 16424 Iu)] Insulin Detemir (Levemir) [Levemir] 10 unit SQ DAILY 08/31/21 08/31/21 Insulin Detemir (Levemir) [Levemir] 16 unit SQ HS 08/31/21 08/31/21 Levothyroxine Sodium [Synthroid] 25 mcg PO DAILY 08/31/21 08/31/21 Vision Shield 1 tab PO BID 08/31/21 08/31/21 Previous Rx's Medication Instructions Recorded Clopidogrel [Plavix] 75 mg PO DAILY #30 tab 07/28/20 Allergies Allergy/AdvReac Type Severity Reaction Status Date / Time No Known Allergies Allergy Verified 08/31/21 12:38 Review of Systems ROS Statement: Those systems with pertinent positive or pertinent negative responses have been documented in the HPI. Unable to obtain secondary to patient's clinical status. ROS Other: All systems not noted in ROS Statement are negative. Past Medical History Past Medical History: No Reported History Additional Past Medical History / Comment(s): Anemia, recent admission for possible TIA-decreased left arm function for short period History of Any Multi-Drug Resistant Organisms: None Reported Past Surgical History: Bladder Surgery, Section, Heart Catheterization, Hernia Repair, Orthopedic Surgery, Pacemaker Additional Past Surgical History / Comment(s): Large hernia repair after a cesa rean section, carpal tunnel bilat. Past Anesthesia/Blood Transfusion Reactions: No Reported Reaction Type of Cardiac Device: Permanent Pacemaker Device Placement Date:: February 2005 Past Psychological History: No Psychological Hx Reported Smoking Status: Never smoker - Past Family History Mother Family Medical History: Cancer, Myocardial Infarction ([place]) Additional Family Medical History / Comment(s): breast Father History Unknown: Yes Sister(s) Family Medical History: Cancer Additional Family Medical History / Comment(s): breast General Exam - General Exam Comments Initial Comments: General: She was unresponsive. Not in respiratory distress at this time. HEAD: Normal with no signs of head trauma. EYES: Pupils are 3 mm bilaterally and equally reactive to light. They are not fixed. ENT: Normal oropharynx. RESPIRATORY: Relatively clear breath sounds bilaterally, not hypoxic, currently on nonrebreather. C/V: Regular rate and rhythm. S1 and S2 auscultated. Mild peripheral pitting edema, approximately 1+. Peripheral pulses are 2+ and intact. Patient is hypertensive. ABD: Abd is soft, nontender, nondistended EXT: Normal range of motion, no obvious deformity SKIN: No rashes or lesions observed on exposed skin. NEURO: Not alert or oriented. GCS is approximately 3-4, making moaning sounds occationally. Limitations: altered mental status Course Vital Signs 08/31/21 08/31/21 08/31/21 10:09 10:17 10:27 Temperature 97.5 F L Pulse Rate 81 103 H 97 Respiratory 19 20 20 Rate Blood Pressure 221/91 220/103 223/110 O2 Sat by Pulse 100 100 100 Oximetry 08/31/21 08/31/21 08/31/21 10:37 10:50 11:00 Temperature Pulse Rate 71 75 70 Respiratory 20 Rate Blood Pressure 224/106 219/109 193/166 O2 Sat by Pulse 100 Oximetry 08/31/21 08/31/21 08/31/21 11:17 11:30 11:40 Temperature Pulse Rate 74 67 68 Respiratory Rate Blood Pressure 217/103 202/92 198/91 O2 Sat by Pulse 100 Oximetry 08/31/21 08/31/21 08/31/21 11:50 12:00 12:10 Temperature Pulse Rate 70 79 80 Respiratory 20 20 20 Rate Blood Pressure 187/83 216/102 213/97 O2 Sat by Pulse 100 100 100 Oximetry 08/31/21 12:20 Temperature Pulse Rate 81 Respiratory 20 Rate Blood Pressure 217/103 O2 Sat by Pulse 100 Oximetry Procedures - Intubation Sedative: Etomidate Mg Given: 20 Paralytic: Rocuronium Mg Given: 100 Laryngoscope: other (glidescope) Size: 4 ET Tube Size: 7.5 Tube Secured Depth (cm): 25 Tube Secured Location: lips Tube Placement Confirmation: visualized tube passing through cords, equal breath sounds bilaterally, confirmation by capnometry Patient Tolerated Procedure: well Intubation Complications: none Medical Decision Making - Medical Decision Making Based on the patient's presentation and physical exam, she is presenting with altered mental status, unresponsive was found to be hypoglycemic and presentation as well as in hypertensive emergency. She presents emergency Department and serous condition. Patient was immediately intubated for airway protection. Blood sugar prior to intubation was within normal limits. GCS isaura ined 3-4. Etomidate and rocuronium wheezes are side medications. She is placed on a propofol drip for sedation following. Intubation was successful, please see the separate note for further information. Broad altered mental status workup will be obtained. Patient appears to just be on insulin for her diabetes. For the patient's hypertensive emergency, she was initially given a 20 mg IV push of labetalol without improvement in blood pressure. She is negative given 0.5 mg of IV nitroglycerin as a bolus, which did successfully drop her blood pressure to 180 systolic. She'll be placed on a drip with goal blood pressures systolics near 180. We will obtain CT imaging as well as chest x-ray, which showed adequate tube placement. She'll require ICU admission. Patient's EKG shows no signs of acute ischemia, is ventricular paced, with no signs of hyperkalemic changes. CT brain showed no acute intracranial process. Chest x-ray revealed interstitial edema. ET tube and NG tube are in adequate position. Patient's laboratory studies are remarkable for mild leukocytosis of 11.4, a mac rocytic anemia with a hemoglobin of 9.2. Patient's Covid negative. ABG shows a suspected chronic respiratory acidosis that has been corrected, as the patient's CO2 is 27, bicarb 26, oxygenation is greater than 400. She is satting 100%. Urinalysis shows no signs of acute infection. UDS is positive for tricyclics. Electrolytes are remarkable for a elevated BUN/creatinine the setting of ESRD on hemodialysis. Potassium is normal at 4.9. Lactate is normal as well. Ammonia is within normal limits. Alcohol is negative. On reevaluation, patient remains relatively unresponsive. She will be admitted to the ICU. Nursing staff did speak with son, and he states that the patient likely did not eat since discharge from her rehab facility yesterday morning. This may explain the hypoglycemia. No further information is obtained. I spoke with the ICU attending, Dr. Langston who accepted the patient. I spoke with the admitting attending, Dr. Gordon who accepted the patient. I also consulted both neurology Dr. Wood and nephrology Dr. Dubon who agreed to evaluate the patient's. On a nitro drip, patient's blood pressure is better controlled. She remains altered. She is on a propofol drip for sedation and comfort. Vital signs have otherwise remained stable. Patient was recently checked on while in the department. This time patient was admitted in serious condition to the [facility] ICU for further management. - Lab Data Result diagrams: 08/31/21 10:32 08/31/21 12:10 Lab Results 08/31/21 08/31/21 08/31/21 Range/Units 10:08 10:20 10:32 WBC 11.4 H (3.8-10.6) k/uL RBC 2.79 L (3.80-5.40) m/uL Hgb 9.2 L (11.4-16.0) gm/dL Hct 29.9 L (34.0-46.0) % MCV 107.4 H (80.0-100.0) fL MCH 32.9 (25.0-35.0) pg MCHC 30.6 L (31.0-37.0) g/dL RDW 14.6 (11.5-15.5) % Plt Count 413 (150-450) k/uL MPV 7.8 Neutrophils % 86 % Lymphocytes % 9 % Monocytes % 3 % Eosinophils % 0 % Basophils % 0 % Neutrophils # 9.8 H (1.3-7.7) k/uL Lymphocytes # 1.0 (1.0-4.8) k/uL Monocytes # 0.4 (0-1.0) k/uL Eosinophils # 0.1 (0-0.7) k/uL Basophils # 0.0 (0-0.2) k/uL Hypochromasia Marked Macrocytosis Moderate PT (9.0-12.0) sec INR (<1.2) APTT (22.0-30.0) sec Sample Site ABG pH (7.35-7.45) ABG pCO2 (35-45) mmHg ABG pO2 (83-108) mmHg ABG HCO3 (21-25) mmol/L ABG Total CO2 (19-24) mmol/L ABG O2 Saturation (94-97) % ABG Base Excess mmol/L Randy Test FiO2 % POC Glucose (mg/dL) 148 H 115 H (75-99) mg/dL POC Glu Event Av Operator ID Jeannine Cristobal Matthew Urine Color Urine Appearance (Clear) Urine pH (5.0-8.0) Ur Specific [place] (1.001-1.035) Urine Protein (Negative) Urine Glucose (UA) (Negative) Urine Ketones (Negative) Urine Blood (Negative) Urine Nitrite (Negative) Urine Bilirubin (Negative) Urine Urobilinogen (<2.0) mg/dL Ur Leukocyte Esterase (Negative) Urine RBC (0-5) /hpf Urine WBC (0-5) /hpf Ur Squamous Epith Cells (0-4) /hpf Urine Bacteria (None) /hpf Urine Mucus (None) /hpf Urine Opiates Screen (NotDetected) Ur Oxycodone Screen (NotDetected) Urine Methadone Screen (NotDetected) Ur Propoxyphene Screen (NotDetected) Ur Barbiturates Screen (NotDetected) U Tricyclic Antidepress (NotDetected) Ur Phencyclidine Scrn (NotDetected) Ur Amphetamines Screen (NotDetected) U Methamphetamines Scrn (NotDetected) U Benzodiazepines Scrn (NotDetected) Urine Cocaine Screen (NotDetected) U Marijuana (THC) Screen (NotDetected) Coronavirus (PCR) (Not Detectd) 08/31/21 08/31/21 08/31/21 Range/Units 10:32 10:56 11:29 WBC (3.8-10.6) k/uL RBC (3.80-5.40) m/uL Hgb (11.4-16.0) gm/dL Hct (34.0-46.0) % MCV (80.0-100.0) fL MCH (25.0-35.0) pg MCHC (31.0-37.0) g/dL RDW (11.5-15.5) % Plt Count (150-450) k/uL MPV Neutrophils % % Lymphocytes % % Monocytes % % Eosinophils % % Basophils % % Neutrophils # (1.3-7.7) k/uL Lymphocytes # (1.0-4.8) k/uL Monocytes # (0-1.0) k/uL Eosinophils # (0-0.7) k/uL Basophils # (0-0.2) k/uL Hypochromasia Macrocytosis PT 10.2 (9.0-12.0) sec INR 0.9 (<1.2) APTT 26.5 (22.0-30.0) sec Sample Site ABG pH (7.35-7.45) ABG pCO2 (35-45) mmHg ABG pO2 (83-108) mmHg ABG HCO3 (21-25) mmol/L ABG Total CO2 (19-24) mmol/L ABG O2 Saturation (94-97) % ABG Base Excess mmol/L Randy Test FiO2 % POC Glucose (mg/dL) 85 (75-99) mg/dL POC Glu Event Av Operator ID Adebayo Cardenas Urine Color Urine Appearance (Clear) Urine pH (5.0-8.0) Ur Specific [place] (1.001-1.035) Urine Protein (Negative) Urine Glucose (UA) (Negative) Urine Ketones (Negative) Urine Blood (Negative) Urine Nitrite (Negative) Urine Bilirubin (Negative) Urine Urobilinogen (<2.0) mg/dL Ur Leukocyte Esterase (Negative) Urine RBC (0-5) /hpf Urine WBC (0-5) /hpf Ur Squamous Epith Cells (0-4) /hpf Urine Bacteria (None) /hpf Urine Mucus (None) /hpf Urine Opiates Screen (NotDetected) Ur Oxycodone Screen (NotDetected) Urine Methadone Screen (NotDetected) Ur Propoxyphene Screen (NotDetected) Ur Barbiturates Screen (NotDetected) U Tricyclic Antidepress (NotDetected) Ur Phencyclidine Scrn (NotDetected) Ur Amphetamines Screen (NotDetected) U Methamphetamines Scrn (NotDetected) U Benzodiazepines Scrn (NotDetected) Urine Cocaine Screen (NotDetected) U Marijuana (THC) Screen (NotDetected) Coronavirus (PCR) Not Detected (Not Detectd) 08/31/21 08/31/21 08/31/21 Range/Units 11:34 11:39 11:42 WBC (3.8-10.6) k/uL RBC (3.80-5.40) m/uL Hgb (11.4-16.0) gm/dL Hct (34.0-46.0) % MCV (80.0-100.0) fL MCH (25.0-35.0) pg MCHC (31.0-37.0) g/dL RDW (11.5-15.5) % Plt Count (150-450) k/uL MPV Neutrophils % % Lymphocytes % % Monocytes % % Eosinophils % % Basophils % % Neutrophils # (1.3-7.7) k/uL Lymphocytes # (1.0-4.8) k/uL Monocytes # (0-1.0) k/uL Eosinophils # (0-0.7) k/uL Basophils # (0-0.2) k/uL Hypochromasia Macrocytosis PT (9.0-12.0) sec INR (<1.2) APTT (22.0-30.0) sec Sample Site r rad ABG pH 7.42 (7.35-7.45) ABG pCO2 40 (35-45) mmHg ABG pO2 >400 H (83-108) mmHg ABG HCO3 26 H (21-25) mmol/L ABG Total CO2 27 H (19-24) mmol/L ABG O2 Saturation 100.0 H (94-97) % ABG Base Excess 1.3 mmol/L Randy Test Yes FiO2 100 % POC Glucose (mg/dL) 79 (75-99) mg/dL POC Glu Event Av Operator ID Adebayo Cardenas Urine Color Yellow Urine Appearance Cloudy H (Clear) Urine pH 6.5 (5.0-8.0) Ur Specific [place] 1.011 (1.001-1.035) Urine Protein 2+ H (Negative) Urine Glucose (UA) Negative (Negative) Urine Ketones Negative (Negative) Urine Blood Negative (Negative) Urine Nitrite Negative (Negative) Urine Bilirubin Negative (Negative) Urine Urobilinogen <2.0 (<2.0) mg/dL Ur Leukocyte Esterase Negative (Negative) Urine RBC 6 H (0-5) /hpf Urine WBC 7 H (0-5) /hpf Ur Squamous Epith Cells 28 H (0-4) /hpf Urine Bacteria Rare H (None) /hpf Urine Mucus Rare H (None) /hpf Urine Opiates Screen Not Detected (NotDetected) Ur Oxycodone Screen Not Detected (NotDetected) Urine Methadone Screen Not Detected (NotDetected) Ur Propoxyphene Screen Not Detected (NotDetected) Ur Barbiturates Screen Not Detected (NotDetected) U Tricyclic Antidepress Detected H (NotDetected) Ur Phencyclidine Scrn Not Detected (NotDetected) Ur Amphetamines Screen Not Detected (NotDetected) U Methamphetamines Scrn Not Detected (NotDetected) U Benzodiazepines Scrn Not Detected (NotDetected) Urine Cocaine Screen Not Detected (NotDetected) U Marijuana (THC) Screen Not Detected (NotDetected) Coronavirus (PCR) (Not Detectd) - EKG Data -: EKG Interpreted by Me EKG Comments: 12-lead Electrocardiogram Interpretation Note EKG was reviewed and interpreted by myself. 12-lead ECG performed at 1022 is interpreted by me as revealing ventricular paced rhythm with occasional PVCs. At a rate of 102 beats per minute. [place] is normal. QRS duration is 120 ms, QT is 400 ms.. There were no ST or T wave abnormalities to suggest myocardial ischemia or injury. R wave progression across the precordium was satisfactory. By my interpretation this EKG is non-diagnostic for acute ischemia. No signs of hyperkalemia on EKG at this time. Disposition Clinical Impression: Unresponsive, Altered mental status, Volume overload, ESRD (end stage renal disease) on dialysis, Hypertensive emergency, Endotracheally intubated Disposition: ADMITTED IP TO THIS [facility] Condition: Serious
[2021-08-31 11:47] LABS: ABG Base Excess 1.3 mmol/L; ABG HCO3 26 mmol/L (21-25); ABG PCO2 40 mmHg (35-45); ABG PH 7.42 (7.35-7.45); ABG PO2 >400 mmHg (83-108); ABG TCO2 27 mmol/L (19-24); Allen Test Performed? Yes
[2021-08-31] MEDS ORDERED: NALOXONE 0.4 MG/ML 1 ML VIAL IV PRN (11:48)
[2021-08-31 12:05] LABS: Amphetamine Screen,Urine Not Detected (NotDetected); Barbiturate Screen,Urine Not Detected (NotDetected); Benzodiazepines Screen,Urine Not Detected (NotDetected); Cocaine Screen,Urine Not Detected (NotDetected); Methadone Screen, Urine Not Detected (NotDetected); Opiate Screen,Urine Not Detected (NotDetected); Oxycodone Screen, Urine Not Detected (NotDetected); Phencyclidine Screen,Urine Not Detected (NotDetected); Tricyclic Antidepressant,Urine Detected (NotDetected); Urn Cannabinoid Scrn Not Detected (NotDetected)
[2021-08-31 12:10] LABS: Appearance,Urine Cloudy (Clear); Bacteria,Urine Rare /hpf; Bilirubin,Urine Negative (Negative); Blood,Urine Negative (Negative); Color,Urine Yellow; Glucose,Urine (UA) Negative (Negative); Ketones,Urine Negative (Negative); Leukocyte Esterase,Urine Negative (Negative); Mucus,Urine Rare /hpf; Nitrite,Urine Negative (Negative); PH, Urine 6.5 (5.0-8.0); Protein,Urine 2+ (Negative); RBC,Urine 6 /hpf (0-5); Specific Gravity,Urine 1.011 (1.001-1.035); Squamous Epithelial Cell,Urine 28 /hpf (0-4); Urobilinogen,Urine <2.0 mg/dL (<2.0); WBC,Urine 7 /hpf (0-5)
--- NOTE | 2021-08-31 12:11 | P.CNPUL ---
History of Present Illness Consult date: 08/31/21 Requesting physician: Romulo Sharp Reason for consult: other Chief complaint: Acute hypoxic respiratory failure, altered mental status, unresponsiveness History of present illness: This is a 76-year-old female patient with multiple comorbidities, including left-sided chronic systolic CHF, cardiomyopathy with ejection fraction of 40- 45%, dual-chamber by V pacemaker implantation which was surgically revised, with a generator change, and pocket revision a year ago and left ventricular epic ardial lead was implanted. History is also significant for insulin-dependent diabetes mellitus type 2, previous history of TIAs, hypertension, hyperlipidemia, end-stage renal disease, on hemodialysis, morbid obesity, obstructive sleep apnea with home CPAP, and degenerative osteoarthritis. She was brought in to the emergency department on 08/31/2021 per EMS for unresponsiveness, it's unknown "alerted the 911, there is no family at the bedside. On arrival patient was completely unresponsive. She was found at home for an unknown period of down time. Blood sugar at the scene was 50, she receiv ed 1 dose of 50% dextrose at the scene, repeat blood sugar was within normal limits, there was no improvement in the mental status. Her vital signs were otherwise stable except for hypertension with a systolic blood pressure in the 200s over 110s. Unknown trauma. Patient is unable to provide any form of history. Patient was intubated and placed on mechanical ventilator for protection of airway, she is currently on assist control mode of ventilation with a rate of 20, tidal vitamins 400, FiO2 of 100% and PEEP of 5, her chest x- ray showing diffuse interstitial pattern correlating for CHF versus interstitial pneumonia, dual lead cardiac device, no sizable pneumothorax. Brain CT showed degenerative and nonspecific faint white matter changes most typical of remote white matter ischemia. Admission blood work showed a white blood cell count of 11.4, hemoglobin of 9.2, INR was 0.9, BNP is still pending. Blood gas post intubation showed pO2 of greater than 400, pCO2 of 40, and pH of 7.42, this was done on the above-mentioned ventilator settings. Patient was given labetalol for blood pressure control, she was started on nitroglycerin infusion, Diprivan, she is on subcu heparin, her blood sugars being closely monitored, nephrology has been consulted for hemodialysis, and we were consulted for ICU management Review of Systems All systems: negative Constitutional: Denies chills, Denies fever Eyes: denies blurred vision, denies pain Ears, nose, mouth and throat: Denies headache, Denies sore throat Cardiovascular: Denies chest pain, Denies shortness of breath Respiratory: Reports dyspnea, Denies cough Gastrointestinal: Denies abdominal pain, Denies diarrhea, Denies nausea, Denies vomiting Genitourinary: Denies dysuria, Denies hematuria Musculoskeletal: Denies myalgias Integumentary: Denies pruritus, Denies rash Neurological: Reports change in mentation, Denies numbness, Denies weakness Psychiatric: Denies anxiety, Denies depression Endocrine: Denies fatigue, Denies weight change Past Medical History Past Medical History: No Reported History Additional Past Medical History / Comment(s): Anemia, recent admission for possible TIA-decreased left arm function for short period History of Any Multi-Drug Resistant Organisms: None Reported Past Surgical History: Bladder Surgery, Section, Heart Catheterization, Hernia Repair, Orthopedic Surgery, Pacemaker Additional Past Surgical History / Comment(s): Large hernia repair after a section, carpal tunnel bilat. Past Anesthesia/Blood Transfusion Reactions: No Reported Reaction Type of Cardiac Device: Permanent Pacemaker Device Placement Date:: February 2005 Past Psychological History: No Psychological Hx Reported Smoking Status: Never smoker - Past Family History Mother Family Medical History: Cancer, Myocardial Infarction ([place]) Additional Family Medical History / Comment(s): breast Father History Unknown: Yes Sister(s) Family Medical History: Cancer Additional Family Medical History / Comment(s): breast Medications and Allergies Home Medications Medication Instructions Recorded Confirmed Type Aspirin 81 mg PO DAILY 03/23/14 02/16/21 History Carvedilol 25 mg PO BID 03/23/14 02/16/21 History Gabapentin [Neurontin] 300 mg PO BID 03/23/14 02/16/21 History allopurinoL [Zyloprim] 100 mg PO DAILY 03/23/14 02/16/21 History Atorvastatin [Lipitor] 20 mg PO HS 05/10/15 02/16/21 History Furosemide [Lasix] 40 mg PO DAILY 03/30/20 02/16/21 History Imipramine [Tofranil] 25 mg PO BID 04/21/20 02/16/21 History NIFEdipine XL [Procardia XL] 60 mg PO DAILY 04/21/20 02/16/21 History calcitrioL [Rocaltrol] 0.25 mcg PO SUTUTH 04/21/20 02/16/21 History Insulin Detemir (Levemir) [Levemir] 10 unit SQ DAILY@0700 syr 04/23/20 02/16/21 Rx Insulin Detemir (Levemir) [Levemir] 15 unit SQ HS syr 04/23/20 02/16/21 Rx INSULIN ASPART (NovoLOG) [NovoLOG See Protocol SQ AC-TID 07/27/20 02/16/21 History (formulary)] Clopidogrel [Plavix] 75 mg PO DAILY #30 tab 07/28/20 02/16/21 Rx HYDROcodone/APAP 5-325MG [[place] 0.5 tab PO Q6HR PRN 08/19/20 02/16/21 History 5-325] hydrALAZINE HCL 25 mg PO BID 08/19/20 02/16/21 History Allergies Allergy/AdvReac Type Severity Reaction Status Date / Time No Known Allergies Allergy Verified 02/16/21 13:52 Physical Exam Vitals: Vital Signs Temp Pulse Resp BP Pulse Ox 08/31/21 11:50 70 20 187/83 100 08/31/21 11:40 68 198/91 08/31/21 11:30 67 202/92 08/31/21 11:17 74 217/103 100 08/31/21 11:00 70 193/166 08/31/21 10:50 75 219/109 08/31/21 10:37 71 20 224/106 100 08/31/21 10:27 97 20 223/110 100 08/31/21 10:17 103 H 20 220/103 100 08/31/21 10:09 97.5 F L 81 19 221/91 100 Intake and Output 08/30/21 08/31/21 08/31/21 22:59 06:59 14:59 Intake Total 3.155 Output Total 60 Balance -56.845 Intake: Intake, IV Titration 3.155 Amount propofoL 1,000 mg In 3.155 Empty Bag 1 bag @ Titrate IV .Q0M [facility] Rx#: [id number] Output: Urine 60 Uretheral (Lemus) 60 Other: Weight 103.419 kg GENERAL EXAM: Unresponsive, intubated 76-year-old obese white female, on assist-control mode of ventilation with a rate of 20, tidal white. 100, FiO2 100% and PEEP 5 comfortable in no apparent distress. HEAD: Normocephalic/atraumatic. EYES: Normal reaction of pupils, equal size. Conjunctiva pink, sclera white. NOSE: Clear with pink turbinates. THROAT: No erythema or exudates. NECK: No masses, no JVD, no thyroid enlargement, no adenopathy. CHEST: No chest wall deformity. Symmetrical expansion. Right upper chest subclavian hemodialysis catheter in place LUNGS: Equal air entry with no crackles, wheeze, rhonchi or dullness. CVS: Regular rate and rhythm, normal S1 and S2, no gallops, no murmurs, no rubs ABDOMEN: Soft, nontender. No hepatosplenomegaly, normal bowel sounds, no guarding or rigidity. EXTREMITIES: No clubbing, no edema, no cyanosis, 2+ pulses and upper and lower extremities. MUSCULOSKELETAL: Muscle strength and tone normal. SPINE: No scoliosis or deformity SKIN: No rashes CENTRAL NERVOUS SYSTEM: Unresponsive. No focal deficits, tone is normal in all 4 extremities. Results - Laboratory Findings CBC and BMP: 08/31/21 10:32 ABG ABG pH 7.42 (7.35-7.45) 08/31/21 11:42 ABG pCO2 40 mmHg (35-45) 08/31/21 11:42 ABG pO2 >400 mmHg (83-108) H 08/31/21 11:42 ABG O2 Saturation 100.0 % (94-97) H 08/31/21 11:42 PT/INR, D-dimer PT 10.2 sec (9.0-12.0) 08/31/21 10:32 INR 0.9 (<1.2) 08/31/21 10:32 Abnormal lab findings: Abnormal Labs 08/31/21 08/31/21 08/31/21 10:08 10:20 10:32 WBC 11.4 H RBC 2.79 L Hgb 9.2 L Hct 29.9 L MCV 107.4 H MCHC 30.6 L Neutrophils # 9.8 H ABG pO2 ABG HCO3 ABG Total CO2 ABG O2 Saturation POC Glucose (mg/dL) 148 H 115 H 08/31/21 11:42 WBC RBC Hgb Hct MCV MCHC Neutrophils # ABG pO2 >400 H ABG HCO3 26 H ABG Total CO2 27 H ABG O2 Saturation 100.0 H POC Glucose (mg/dL) - Diagnostic Findings Chest x-ray: report reviewed, image reviewed Additional studies: Brain CT reviewed Assessment and Plan Plan: Assessment: #1. Unresponsiveness, with unknown downtime. Possibly related to hypoglycemia. Brain CT showed degenerative and nonspecific white matter changes typical of remote white matter ischemia #2. Hypertensive emergency #3. Acute hypoxic and likely hypercapnic respiratory failure related to the hypertensive emergency, and patient was intubated placed on mechanical ventilator in part due to altered mental status and protection of airway #4. End-stage renal disease on hemodialysis #5. Severe Obstructive sleep apnea on CPAP, with AHI index of 36.6 #6. Morbid obesity #7. Cardiomyopathy, with EF of 40-45%, status post dual-chamber by V pacemaker placement, and recent revision of the left epicardial lead, generator change and pocket revision in August 2020 #8. Hypertension #9. Hyperlipidemia #10. History of TIA #11. Diabetes mellitus type 2 #12. Degenerative arthritis #13. History of coronary artery disease Plan: Follow blood gas has been reviewed postintubation FiO2 will be dropped down to 60%, and then 40% Patient remains unresponsive, propofol be used for sedation and to achieve synchrony with the ventilator Nephrology has been consulted for hemodialysis Patient has been started on nitroglycerin infusion and given labetalol Continue close blood sugar monitoring Urine drug screen, sepsis workup, COVID 19 workup is in progress Will likely need neurology consultation if mentation does not improve Obtain echocardiogram Troponins have been ordered and pending Total CK level We will continue to closely follow Overall prognosis is extremely guarded I performed a history & physical examination of the patient and discussed their management with my nurse practitioner, Ofelia Bales. I reviewed the nurse practitioner's note and agree with the documented findings and plan of care. Lung sounds are positive for dim breath sounds throughout the lung baker. The findings and the impression was discussed with the patient. I attest to the documentation by the nurse practitioner. Time with Patient: Greater than 30
[2021-08-31 12:27] LABS: Glucose,Whole Blood 146 mg/dL (75-99)
[2021-08-31 12:45] LABS: Lactic Acid, Venous 0.7 mmol/L (0.7-2.0)
[2021-08-31 12:47] LABS: ALT 14 U/L (4-34); AST 26 U/L (14-36); African American GFR (CKD) 6 (>60 ml/min/1.73 sqM); Albumin 2.6 g/dL (3.5-5.0); Alcohol <10 mg/dL; Alkaline Phosphatase 118 U/L (38-126); Anion Gap 9 mmol/L; Blood Urea Nitrogen 47 mg/dL (7-17); Calcium 8.1 mg/dL (8.4-10.2); Carbon Dioxide 23 mmol/L (22-30); Chloride 102 mmol/L (98-107); Creatine Kinase 20 U/L (30-135); Glucose 168 mg/dL (74-99); Non-African American GFR(CKD) 6 (>60 ml/min/1.73 sqM); Potassium 4.9 mmol/L (3.5-5.1); Sodium 134 mmol/L (137-145); Total Bilirubin 0.5 mg/dL (0.2-1.3); Total Protein 5.3 g/dL (6.3-8.2)
[2021-08-31 13:31] LABS: Glucose,Whole Blood 126 mg/dL (75-99)
--- NOTE | 2021-08-31 14:38 | ED ---
Medical Decision Making - Lab Data Result diagrams: 08/31/21 10:32 08/31/21 12:10 Lab Results 08/31/21 08/31/21 08/31/21 Range/Units 10:08 10:20 10:32 WBC 11.4 H (3.8-10.6) k/uL RBC 2.79 L (3.80-5.40) m/uL Hgb 9.2 L (11.4-16.0) gm/dL Hct 29.9 L (34.0-46.0) % MCV 107.4 H (80.0-100.0) fL MCH 32.9 (25.0-35.0) pg MCHC 30.6 L (31.0-37.0) g/dL RDW 14.6 (11.5-15.5) % Plt Count 413 (150-450) k/uL MPV 7.8 Neutrophils % 86 % Lymphocytes % 9 % Monocytes % 3 % Eosinophils % 0 % Basophils % 0 % Neutrophils # 9.8 H (1.3-7.7) k/uL Lymphocytes # 1.0 (1.0-4.8) k/uL Monocytes # 0.4 (0-1.0) k/uL Eosinophils # 0.1 (0-0.7) k/uL Basophils # 0.0 (0-0.2) k/uL Hypochromasia Marked Macrocytosis Moderate PT (9.0-12.0) sec INR (<1.2) APTT (22.0-30.0) sec Sample Site ABG pH (7.35-7.45) ABG pCO2 (35-45) mmHg ABG pO2 (83-108) mmHg ABG HCO3 (21-25) mmol/L ABG Total CO2 (19-24) mmol/L ABG O2 Saturation (94-97) % ABG Base Excess mmol/L Randy Test FiO2 % POC Glucose (mg/dL) 148 H 115 H (75-99) mg/dL POC Glu Value Engineer ID Jeannine Cristobal Matthew Urine Color Urine Appearance (Clear) Urine pH (5.0-8.0) Ur Specific [place] (1.001-1.035) Urine Protein (Negative) Urine Glucose (UA) (Negative) Urine Ketones (Negative) Urine Blood (Negative) Urine Nitrite (Negative) Urine Bilirubin (Negative) Urine Urobilinogen (<2.0) mg/dL Ur Leukocyte Esterase (Negative) Urine RBC (0-5) /hpf Urine WBC (0-5) /hpf Ur Squamous Epith Cells (0-4) /hpf Urine Bacteria (None) /hpf Urine Mucus (None) /hpf Urine Opiates Screen (NotDetected) Ur Oxycodone Screen (NotDetected) Urine Methadone Screen (NotDetected) Ur Propoxyphene Screen (NotDetected) Ur Barbiturates Screen (NotDetected) U Tricyclic Antidepress (NotDetected) Ur Phencyclidine Scrn (NotDetected) Ur Amphetamines Screen (NotDetected) U Methamphetamines Scrn (NotDetected) U Benzodiazepines Scrn (NotDetected) Urine Cocaine Screen (NotDetected) U Marijuana (THC) Screen (NotDetected) Coronavirus (PCR) (Not Detectd) 08/31/21 08/31/21 08/31/21 Range/Units 10:32 10:56 11:29 WBC (3.8-10.6) k/uL RBC (3.80-5.40) m/uL Hgb (11.4-16.0) gm/dL Hct (34.0-46.0) % MCV (80.0-100.0) fL MCH (25.0-35.0) pg MCHC (31.0-37.0) g/dL RDW (11.5-15.5) % Plt Count (150-450) k/uL MPV Neutrophils % % Lymphocytes % % Monocytes % % Eosinophils % % Basophils % % Neutrophils # (1.3-7.7) k/uL Lymphocytes # (1.0-4.8) k/uL Monocytes # (0-1.0) k/uL Eosinophils # (0-0.7) k/uL Basophils # (0-0.2) k/uL Hypochromasia Macrocytosis PT 10.2 (9.0-12.0) sec INR 0.9 (<1.2) APTT 26.5 (22.0-30.0) sec Sample Site ABG pH (7.35-7.45) ABG pCO2 (35-45) mmHg ABG pO2 (83-108) mmHg ABG HCO3 (21-25) mmol/L ABG Total CO2 (19-24) mmol/L ABG O2 Saturation (94-97) % ABG Base Excess mmol/L Randy Test FiO2 % POC Glucose (mg/dL) 85 (75-99) mg/dL POC Glu Value Engineer ID Adebayo Cardenas Urine Color Urine Appearance (Clear) Urine pH (5.0-8.0) Ur Specific [place] (1.001-1.035) Urine Protein (Negative) Urine Glucose (UA) (Negative) Urine Ketones (Negative) Urine Blood (Negative) Urine Nitrite (Negative) Urine Bilirubin (Negative) Urine Urobilinogen (<2.0) mg/dL Ur Leukocyte Esterase (Negative) Urine RBC (0-5) /hpf Urine WBC (0-5) /hpf Ur Squamous Epith Cells (0-4) /hpf Urine Bacteria (None) /hpf Urine Mucus (None) /hpf Urine Opiates Screen (NotDetected) Ur Oxycodone Screen (NotDetected) Urine Methadone Screen (NotDetected) Ur Propoxyphene Screen (NotDetected) Ur Barbiturates Screen (NotDetected) U Tricyclic Antidepress (NotDetected) Ur Phencyclidine Scrn (NotDetected) Ur Amphetamines Screen (NotDetected) U Methamphetamines Scrn (NotDetected) U Benzodiazepines Scrn (NotDetected) Urine Cocaine Screen (NotDetected) U Marijuana (THC) Screen (NotDetected) Coronavirus (PCR) Not Detected (Not Detectd) 08/31/21 08/31/21 08/31/21 Range/Units 11:34 11:39 11:42 WBC (3.8-10.6) k/uL RBC (3.80-5.40) m/uL Hgb (11.4-16.0) gm/dL Hct (34.0-46.0) % MCV (80.0-100.0) fL MCH (25.0-35.0) pg MCHC (31.0-37.0) g/dL RDW (11.5-15.5) % Plt Count (150-450) k/uL MPV Neutrophils % % Lymphocytes % % Monocytes % % Eosinophils % % Basophils % % Neutrophils # (1.3-7.7) k/uL Lymphocytes # (1.0-4.8) k/uL Monocytes # (0-1.0) k/uL Eosinophils # (0-0.7) k/uL Basophils # (0-0.2) k/uL Hypochromasia Macrocytosis PT (9.0-12.0) sec INR (<1.2) APTT (22.0-30.0) sec Sample Site r rad ABG pH 7.42 (7.35-7.45) ABG pCO2 40 (35-45) mmHg ABG pO2 >400 H (83-108) mmHg ABG HCO3 26 H (21-25) mmol/L ABG Total CO2 27 H (19-24) mmol/L ABG O2 Saturation 100.0 H (94-97) % ABG Base Excess 1.3 mmol/L Randy Test Yes FiO2 100 % POC Glucose (mg/dL) 79 (75-99) mg/dL POC Glu Value Engineer ID RonaldAdebayo Urine Color Yellow Urine Appearance Cloudy H (Clear) Urine pH 6.5 (5.0-8.0) Ur Specific [place] 1.011 (1.001-1.035) Urine Protein 2+ H (Negative) Urine Glucose (UA) Negative (Negative) Urine Ketones Negative (Negative) Urine Blood Negative (Negative) Urine Nitrite Negative (Negative) Urine Bilirubin Negative (Negative) Urine Urobilinogen <2.0 (<2.0) mg/dL Ur Leukocyte Esterase Negative (Negative) Urine RBC 6 H (0-5) /hpf Urine WBC 7 H (0-5) /hpf Ur Squamous Epith Cells 28 H (0-4) /hpf Urine Bacteria Rare H (None) /hpf Urine Mucus Rare H (None) /hpf Urine Opiates Screen Not Detected (NotDetected) Ur Oxycodone Screen Not Detected (NotDetected) Urine Methadone Screen Not Detected (NotDetected) Ur Propoxyphene Screen Not Detected (NotDetected) Ur Barbiturates Screen Not Detected (NotDetected) U Tricyclic Antidepress Detected H (NotDetected) Ur Phencyclidine Scrn Not Detected (NotDetected) Ur Amphetamines Screen Not Detected (NotDetected) U Methamphetamines Scrn Not Detected (NotDetected) U Benzodiazepines Scrn Not Detected (NotDetected) Urine Cocaine Screen Not Detected (NotDetected) U Marijuana (THC) Screen Not Detected (NotDetected) Coronavirus (PCR) (Not Detectd) Critical Care Time Critical Care Time: Yes Total Critical Care Time: 35 Critical Care Time: Upon my evaluation, this patient had a high probability of imminent or life- threatening deterioration due to altered mental status, intubated, ICU admission, hypertensive emergency which required my direct attention, intervention, and personal management. I have personally provided 35 minutes of critical care time exclusive of time spent on separately billable procedures. Time includes review of laboratory data, radiology results, discussion with consultants, and monitoring for potential decompensation. Interventions were performed as documented in my note. Disposition Clinical Impression: Unresponsive, Altered mental status, Volume overload, ESRD (end stage renal disease) on dialysis, Hypertensive emergency, Endotracheally intubated Disposition: ADMITTED IP TO THIS [facility] Condition: Serious
--- NOTE | 2021-08-31 15:28 | P.CNNES ---
History of Present Illness Consult date: 08/31/21 Requesting physician: Romulo Sharp Reason for Consult: Altered mental status History of Present Illness: Patient is a 76-year-old female with history of diabetes, ESRD on hemodialysis, came to the hospital by ambulance today at 10:06 AM. EMS flow sheet not available in the chart. Apparently patient was found unresponsive at home of unknown period of time. Patient's friend went in to see her, when she found her unresponsive. Her blood sugar was 50 when checked by the EMS. Patient was given an ampule of dextrose and blood sugar went up in the normal range without clinical improvement. It was also reported that patient had lunch the day prior, but did not eat much at the dinner. No one saw her overnight, until she was found unresponsive this morning. On arrival to the ER, her blood pressure was also very high 221/91, pulse rate 81 and temperature 97.5. Blood pressure has stayed high, now running 217/103 most recently. Patient's blood test shows him to be seen 11.4 hemoglobin 9.2, with elevated MCV 107.4. Platelets 4 and 13. PT/PTT normal. Montero virus PCR negative. UA negative. Urine drug screen positive for tricyclics antidepressant. Blood alcohol level negative. Hepatic panel normal. Sodium 134 potassium 4.9. BUN is 47 and creatinine 6.73. Ammonia is normal <9. CK 20. Patient's last hemoglobin A1c 6.3 on 06/14/2021. Her B12 was 287 on 07/28/2020. Folate 6.4. Computed tomography scan of the head showed degenerative and nonspecific faint white matter changes most typical of remote white matter ischemia. I personally reviewed the computed tomography scan and agree with the findings. No evidence of hyperdensity in the basilar artery or major vessels. EKG shows ventricular paced rhythm with occasional PVCs. Biventricular pacemaker detected. Chest x- ray showed correlate for CHF otherwise consider interstitial pneumonia. Patient was intubated in the ER for airway protection. Her GCS remained 3-4. At present patient is on propofol 25 g. Per minute, and also has received labetalol 20 mg IV push 1 and now on nitro drip at 65 g. Patient has been seen by myself on 07/27/2020 for recurrent left arm weakness and numbness, that was felt to be TIA. Patient was placed on dual antiplatelet medication, as she has failed aspirin regimen prior. Carotid Doppler head showed 50-70% stenosis left ICA [place] less than 50% stenosis right ICA. Patient's home medication include gabapentin 300 mg twice a day, allopurinol, Coreg, imipramine 25 mg twice a day, insulin, Plavix 75 mg, hydralazine, levothyroxine, vitamin D, and aspirin 81 mg Lipitor 40 mg, insulin. Review of Systems ROS unobtainable: due to endotracheal tube, due to mental status Past Medical History Past Medical History: No Reported History Additional Past Medical History / Comment(s): Anemia, recent admission for possible TIA-decreased left arm function for short period History of Any Multi-Drug Resistant Organisms: None Reported Past Surgical History: Bladder Surgery, Section, Heart Catheterization, Hernia Repair, Orthopedic Surgery, Pacemaker Additional Past Surgical History / Comment(s): Large hernia repair after a section, carpal tunnel bilat. Past Anesthesia/Blood Transfusion Reactions: No Reported Reaction Type of Cardiac Device: Permanent Pacemaker Device Placement Date:: February 2005 Past Psychological History: No Psychological Hx Reported Smoking Status: Never smoker - Past Family History Mother Family Medical History: Cancer, Myocardial Infarction (NM) Additional Family Medical History / Comment(s): breast Father History Unknown: Yes Sister(s) Family Medical History: Cancer Additional Family Medical History / Comment(s): breast Medications and Allergies Home Medications Medication Instructions Recorded Confirmed Type Carvedilol 25 mg PO BID 03/23/14 08/31/21 History Gabapentin [Neurontin] 300 mg PO BID 03/23/14 08/31/21 History allopurinoL [Zyloprim] 100 mg PO DAILY 03/23/14 08/31/21 History Imipramine [Tofranil] 25 mg PO BID 04/21/20 08/31/21 History NIFEdipine XL [Procardia XL] 60 mg PO DAILY 04/21/20 08/31/21 History calcitrioL [Rocaltrol] 0.25 mcg PO DAILY 04/21/20 08/31/21 History INSULIN ASPART (NovoLOG) [NovoLOG See Protocol SQ AC-TID 07/27/20 08/31/21 History (formulary)] Clopidogrel [Plavix] 75 mg PO DAILY #30 tab 07/28/20 08/31/21 Rx hydrALAZINE HCL 25 mg PO BID 08/19/20 08/31/21 History Aspirin EC [Ecotrin Low Dose] 81 mg PO DAILY 08/31/21 08/31/21 History Atorvastatin [Lipitor] 40 mg PO HS 08/31/21 08/31/21 History Diclofenac Sodium Gel [Voltaren 2 - 4 gm TOPICAL QID PRN 08/31/21 08/31/21 History Gel] Ergocalciferol [Vitamin D2 (1250 1,250 mcg PO Q7D 08/31/21 08/31/21 History Mcg = 13489 Iu)] Insulin Detemir (Levemir) [Levemir] 10 unit SQ DAILY 08/31/21 08/31/21 History Insulin Detemir (Levemir) [Levemir] 16 unit SQ HS 08/31/21 08/31/21 History Levothyroxine Sodium [Synthroid] 25 mcg PO DAILY 08/31/21 08/31/21 History Vision Shield 1 tab PO BID 08/31/21 08/31/21 History Allergies Allergy/AdvReac Type Severity Reaction Status Date / Time No Known Allergies Allergy Verified 08/31/21 12:38 Physical Examination - Vital Signs Vital Signs: Vital Signs Temp Pulse Resp BP Pulse Ox 08/31/21 12:20 81 20 217/103 100 08/31/21 12:10 80 20 213/97 100 08/31/21 12:00 79 20 216/102 100 08/31/21 11:50 70 20 187/83 100 08/31/21 11:40 68 198/91 08/31/21 11:30 67 202/92 08/31/21 11:17 74 217/103 100 08/31/21 11:00 70 193/166 08/31/21 10:50 75 219/109 08/31/21 10:37 71 20 224/106 100 08/31/21 10:27 97 20 223/110 100 08/31/21 10:17 103 H 20 220/103 100 08/31/21 10:09 97.5 F L 81 19 221/91 100 Intake and Output 08/30/21 08/31/21 08/31/21 22:59 06:59 14:59 Intake Total 33.209 Output Total 60 Balance -26.791 Intake: Intake, IV Titration 33.209 Amount Nitroglycerin-D5w Pmx 50 23.125 mg In Dextrose/Water 1 250ml.bag @ Titrate IV . Q0M [facility] Rx#:[id number] propofoL 1,000 mg In 10.084 Empty Bag 1 bag @ Titrate IV .Q0M [facility] Rx#: [id number] Output: Urine 60 Uretheral (Lemus) 60 Other: Weight 103.419 kg Patient is an elderly female, moderately obese, who is intubated, slig htly sedated with propofol 25 mcg/kg/m. Despite stopping the propofol, patient did not wake up. Patient is comatose. Speech and language functions cannot be assessed. On cranial examination, pupils are about 5 mm, round, equal in size, very sluggishly reacting. Oculocephalics are absent. Gaze is midline. Corneals absent. Lower cranial nerves cannot be assessed because patient is intubated a nd comatose. On muscle strength testing, patient is not responding to painful stimuli. Tone is equal bilaterally. Deep tendon reflexes are absent, plantars are flat. Sensory, cerebellar functions and gait cannot be assessed. On general examination patient appears pale, patient is peripheral edema. S1 and S2 was audible. Soft, nontender, no organomegaly. Normal bowel sounds. Results - Laboratory Findings CBC and BMP: 08/31/21 10:32 08/31/21 12:10 Abnormal Lab Findings: Abnormal Labs 08/31/21 08/31/21 08/31/21 10:08 10:20 10:32 WBC 11.4 H RBC 2.79 L Hgb 9.2 L Hct 29.9 L MCV 107.4 H MCHC 30.6 L Neutrophils # 9.8 H ABG pO2 ABG HCO3 ABG Total CO2 ABG O2 Saturation Sodium BUN Creatinine Glucose POC Glucose (mg/dL) 148 H 115 H Calcium Creatine Kinase Total Protein Albumin Urine Appearance Urine Protein Urine RBC Urine WBC Ur Squamous Epith Cells Urine Bacteria Urine Mucus U Tricyclic Antidepress 08/31/21 08/31/21 08/31/21 11:34 11:42 12:10 WBC RBC Hgb Hct MCV MCHC Neutrophils # ABG pO2 >400 H ABG HCO3 26 H ABG Total CO2 27 H ABG O2 Saturation 100.0 H Sodium 134 L BUN 47 H Creatinine 6.73 H Glucose 168 H POC Glucose (mg/dL) Calcium 8.1 L Creatine Kinase 20 L Total Protein 5.3 L Albumin 2.6 L Urine Appearance Cloudy H Urine Protein 2+ H Urine RBC 6 H Urine WBC 7 H Ur Squamous Epith Cells 28 H Urine Bacteria Rare H Urine Mucus Rare H U Tricyclic Antidepress Detected H 08/31/21 12:25 WBC RBC Hgb Hct MCV MCHC Neutrophils # ABG pO2 ABG HCO3 ABG Total CO2 ABG O2 Saturation Sodium BUN Creatinine Glucose POC Glucose (mg/dL) 146 H Calcium Creatine Kinase Total Protein Albumin Urine Appearance Urine Protein Urine RBC Urine WBC Ur Squamous Epith Cells Urine Bacteria Urine Mucus U Tricyclic Antidepress Assessment and Plan Assessment: * Unresponsiveness/comatose state of unclear etiology. Possible hypoglycemic encephalopathy. Patient was hypoglycemic with blood sugar reported at 50. Uncertain how long she was hypoglycemic. CT head showed no acute process. * Hypertensive emergency * Acute hypoxic respiratory failure, on mechanical ventilation now. * ESRD on hemodialysis * Presence of pacemaker * Obstructive sleep apnea * Cardiomyopathy * Hypertension * Hyperlipidemia * History of TIA * Diabetes * CAD. * Macrocytosis * B12, folate deficiency Plan: * Stat EEG will be performed to evaluate for encephalopathy rule out status. It revealed background slowing of severe degree, suggestive of generalized cerebral dysfunction as can be seen with toxic metabolic encephalopathy, or related to diffuse structural brain abnormality. No epileptiform activity was seen. * Carotid Doppler (last carotid Doppler from 07/27/2020 showed 50-70% stenosis left ICA.) * Treatment of underlying medical issues as per IM and critical care * Avoid any further episodes of hypoglycemia. IM to address insulin doses. * Patient has history of B12 and folate deficiency. We will start B12 and folate replacement. * Neurology will follow. Thank you for the consult.
--- NOTE | 2021-08-31 15:48 | HP ---
HISTORY AND PHYSICAL DATE OF ADMISSION: 08/31/2021 This patient is currently seen and evaluated in the trauma exam room #1. At the time she is intubated, on sedation, on the vent. Also she is nonresponsive with sedation. DATA: FULL CODE. Her height is 5 feet 5 inches, weight 102 3.419 kg, BSA 2.09 m2, BMI 37.9 kg/m2. ALLERGIES: UNKNOWN. HISTORY OF PRESENT ILLNESS: This is obtained from the nurse, who did check with the patient's son, who stated that the patient was discharged yesterday from [facility], which is an assisted-living facility which accommodates dialysis as well as post-COVID patients. She stayed there for 14 days and they decided to discharge her yesterday. Her son took her for dinner and returned her back home. Her friend also did see her subsequently. In the morning, her friend went to check on her and found that she was nonresponsive. She called the EMS, who found that she had severe hypoglycemia with blood sugar of 50; however, they do not know how long she was hypoglycemic, and she was nonresponsive. They gave her 1 amp of D50 and brought her to the emergency room, where she was seen by the ER physician, who subsequently called Critical Care, Dr. Grossman, and he accepted the patient. Dr. Grossman had seen her in her previous hospitalization in [facility]. In the ER, she was intubated and she was placed on Diprivan for the intubation and sedation. Meanwhile, they consulted Dr. Wood, the neurologist, for the underlying nonresponsiveness and being unconscious. He ordered for her an EEG for the brainwaves, and so far it has not been done yet at the time of exam. On seeing the patient in the ER, she is intubated on the respirator. She will be going to the ICU. She also has a Lemus catheter with a few milliliters of urine, and her urine has been sent to the lab already. She is on dialysis, as she has end-stage kidney disease associated with diabetic nephropathy and hypertensive heart disease. She has a history of dialysis in [facility] and prior to that in [facility], where she was admitted twice because of deterioration of her renal function. At the time of admission, they did laboratory studies and monitoring of her blood sugar. When her blood sugar dropped again they gave her the second dose of D50, and her blood sugar has been reasonable, and they started her on the IV. Her laboratory and ABGs pH 7.42. Carbon dioxide was 40 and her PO2 was more than 400 with the oxygen supplementation. Her HO3 bicarb 26 and her carbon dioxide was 27, saturation was 100%. She had chemistry as well, indicating sodium 134, potassium 4.9, chloride 102 and carbon dioxide 23. BUN 47 with creatinine 6.73. My understanding is that she had dialysis on Sunday prior to discharge. I do not have the details. Her GFR was 6 with the underlying end-stage renal disease, on hemodialysis, which was started prior to that in [facility]. Her blood sugar was recorded at 79 and improved to 146 and 126. Her lactic acid was 0.7, calcium 8.1, and total bilirubin 0.5. Total bilirubin 0.5 and AST 26, ALT 14, and alkaline phosphatase 118. Her ammonia level was less than 9, and her CK 20. Her troponin 0.027. Her total protein 5.3 and albumin 2.6. Her urinalysis was also obtained with a few milliliters that the nurse was able to collect. It was found that the urine was cloudy with 2+ protein, but the pH was 6.5, and with the Lemus catheter placement she had RBC 6 and urine WBC 7 with squamous cell epithelium 28, and rare bacteria and rare mucus. The urine drug screen showed no other medication except the tricyclic antidepressant that was detected. Otherwise, no other medication, and her serum alcohol was less than 10. Coronavirus PCR not detected. PAST MEDICAL HISTORY: She has a history of pacemaker placed by Dr. Denis, the EP ice scraper, for underlying arrhythmia. She has a history of gradual decrease in function of the kidney with the progression of chronic kidney disease to stage 4 and 5, and that past history resulted in Dr. Dubon and Dr. Benoit scheduling her to have a right arm fistula by Dr. Arevalo. Subsequently the patient came to the hospital and it was found that her potassium was elevated with hyperkalemia. The procedure was stopped and patient underwent portal for dialysis by Dr. Arevalo in the right infraclavicular. Patient was dialyzed. On the second day found I found personally that she had COVID and she was moved from the regular monitored floor to COVID floor in [facility]. After several dialysis treatments, the patient stabilized. At that time the decision was to go for isolation and at that time discharge to [facility], where they can do dialysis as well as monitoring for COVID. Subsequently the patient was readmitted to the hospital and at that time they stated that she had a problem, recurrent, and she was admitted under the care of the hospitalist, Dr. Lozano's group. Then subsequently she was discharged back again to [facility], where she continued for 14 days of hydration as well as dialysis. She was discharged on August 30, as mentioned above in the initial admission history. On admission in the ER, her pulse rate was 70, her respiratory rate was 20. Her blood pressure was 187/83 with a mean 117 and oxygen saturation was 100. She continued to be hypertensive and at that time her blood pressure continued to be 216/102 and 213/97 and 217/103. In the ER they tried several medications to help control the blood pressures. Currently patient in the ER has been treated with labetalol and she had IV fluid and she has as well received the D50 for the hypoglycemia. On the physical exam in the ER trauma 1, the patient was unconscious, not responding. She is intubated and on the respirator. Her pupils were reactive and equal. No reflexes. She is flaccid. She was seen by Dr. Wood, the neurologist, and he will be doing the EEG. Her neck was supple. Her chest was clear to auscultation and percussion. The heart: She has a pacemaker; however, it was compensated and regular. She had a chest x-ray and the chest x-ray was correlate with the interstitial pneumonia or congestive heart failure. She had a dual-lead pacemaker and no pneumothorax. The was elevated and her EKG indicated ventricular paced rhythm with occasional premature ventricular complexes with the biventricular pacemaker. Her abdomen was soft. Positive bowel sounds. Extremities still positive pulses bilaterally. No neurological movement and no movement of her leg or feet. Reflexes depressed and she is also sedated. Other past history for her is that she had history of urinary incontinence. She had history of osteoarthritis of the joint and history of secondary hyperparathyroidism due to renal function impairment. She had diabetes mellitus, type 2, with neuropathy, and she is on insulin therapy. She neuropathy of the lower extremities. She had hyperkalemia secondary to the renal disease and she had history of cardiomegaly. ASSESSMENT: 1. Underlying unconsciousness; could be associated with the hypoglycemia, prolonged. We do not know exactly how long she has had low blood sugar. 2. Underlying diabetes mellitus, type 2, insulin-dependent. 3. Recent history of COVID-19 with treatment. 4. End-stage renal disease, on dialysis. 5. Recently out of [facility] extended-care with the history of COVID. Patient is currently n.p.o. and she is nonresponsive. Prognosis is poor. Critical Care has been consulted as well as Nephrology. The pulmonary consult was dictated by Dr. Harjinder Bales, the nurse practitioner for Dr. Grossman, with the assessment of responsiveness of unknown time related to hypoglycemia. Brain CT showed degenerative nonspecific white matter changes of remote white matter ischemia. 1. Hypertensive emergency. 2. Acute hypoxic and likely hypercapnic respiratory failure related to hypertensive emergency. Patient intubated on mechanical ventilation with alter mental status. 3. End-stage renal disease, on hemodialysis. 4. History of severe obstructive sleep apnea. PLAN: As patient remains unresponsive, consultation with Neurology and also consultation with Critical Care as well as consultation with Nephrology for hemodialysis and supportive measures. Plan for echocardiogram if the patient wakes up and recovers. Prognosis is very poor with these findings. We will await the result of the EEG and supposedly the patient subsequently will be going up to the ICU from the emergency room trauma 1. [facility] in [place] was the place where she has been in isolation. MMODL / IJN: [id number] /
[2021-08-31 16:13] LABS: Glucose,Whole Blood 108 mg/dL (75-99)
--- NOTE | 2021-08-31 17:11 | CONS ---
CONSULTATION REASON FOR CONSULT: End-stage renal disease. HISTORY OF PRESENT ILLNESS: Patient is a 76-year-old female who was brought into the hospital with mental status changes and unresponsiveness. She was found to be significantly hypoglycemic and unresponsive and was therefore intubated. Patient's mental status had not improved with improvement of the blood sugars. The patient's blood pressure has been significantly elevated with systolic above 200 in the ER. She has an underlying history of congestive heart failure with ejection fraction of 40-45%, coronary artery disease. She does not have much urine output. Patient has right IJ PermCath. PAST MEDICAL HISTORY: CHF, cardiomyopathy, obesity, obstructive sleep apnea, osteoarthritis, type 2 diabetes, end-stage renal disease. PAST SURGICAL HISTORY: Large hernia repair, carpal tunnel surgery, recent IJ catheter placement, permanent pacemaker placement. SOCIAL HISTORY: Negative for smoking. No history of drug abuse or alcohol abuse. MEDICATIONS: Include aspirin, Coreg, Neurontin, Zyloprim, Lipitor, Lasix Procardia, Rocaltrol, Tofranil, insulin, Plavix, hydralazine. ALLERGIES: None. PHYSICAL EXAMINATION: Patient is currently sedated, she is on the vent. Blood pressure elevated at 216/102, heart rate 79 per minute, patient is afebrile. Examination of the heart S1, S2. Examination of the lungs, bilateral breath sounds are heard. Abdomen is soft. Examination of lower extremities shows edema 1+ bilaterally. Abdomen is soft, distended, nontender. LAB: Show sodium 134, potassium 4.9, BUN 47, creatinine 6.7. ASSESSMENT: 1. End stage renal disease on hemodialysis I believe on a Sunday, , Sunday schedule. I am not sure when patient was last dialyzed. We will plan for a treatment today. 2. Hypertensive emergency with volume overload. Plan hemodialysis today. Continue with the nitroglycerin drip for now. May need Cleviprex drip added as well if blood pressure does not improve with dialysis. 3. Mental status changes mostly associated with hypoglycemia. Rule out any other central event. Initial brain CT was negative. 4. Volume overload. 5. Cardiomyopathy, ejection fraction 40-45%. 6. Type 2 diabetes. PLAN: Hemodialysis today. May need another treatment tomorrow. Add Cleviprex if blood pressure is not improved post dialysis. Thank you for this consultation. Will continue to follow the patient with you during her hospitalization. MMODL / IJN: [id number] /
--- NOTE | 2021-08-31 17:41 | EEG ---
ELECTROENCEPHALOGRAM REPORT DATE OF SERVICE: 08/31/2021 PREAMBLE: This is a 76-year-old female who was found unresponsive at home. Patient was hypoglycemic. This study is performed to evaluate for any epileptiform activity. Patient is comatose at this time. EEG FINDINGS: This is a 21-channel digital EEG recorded with video competent, utilizing 10/20 international system with referential and bipolar montages. Background consists of poorly developed and regulated, diffuse low- to moderate-amplitude activity in 2 to 3 hertz delta, with some occasional theta slowing in bihemispheric region. Background does not seem to be reactive to eye opening or closing, or to photic stimulation. Different stages of sleep were not seen. No focal or generalized epileptiform activity was seen. IMPRESSION: This is an abnormal EEG due to background slowing of severe degree. This is suggestive of generalized cerebral dysfunction as can be seen with toxic metabolic encephalopathy or due to diffuse structural brain abnormality. No epileptiform activity was seen. MMEDDAL / IJN: [id number] / MTDGio
[2021-08-31 18:17] LABS: Glucose,Whole Blood 98 mg/dL (75-99)
[2021-08-31] MEDS: SODIUM CHLORIDE 0.9% 1,000 ML IV SCH (18:23)
[2021-08-31] MEDS: HEPARIN SODIUM,PORCINE/PF 5,000 UNIT/0.5 ML SYRINGE SQ SCH (20:13)
[2021-08-31] MEDS: CHLORHEXIDINE GLUCONATE 15 ML CUP MUCOUS MEM SCH (20:13)
[2021-09-01] MEDS: INSULIN ASPART (NovoLOG) 100 UNIT/ML VIAL SQ SCH ×5 (00:20→23:40)
[2021-09-01 00:21] LABS: Glucose,Whole Blood 64 mg/dL (75-99)
[2021-09-01 00:55] LABS: Glucose,Whole Blood 73 mg/dL (75-99)
[2021-09-01 03:30] LABS: Glucose,Whole Blood 72 mg/dL (75-99)
[2021-09-01 05:00] LABS: ABG Base Excess 4.1 mmol/L; ABG HCO3 28 mmol/L (21-25); ABG Oxygen Saturation 98.5 % (94-97); ABG PCO2 38 mmHg (35-45); ABG PH 7.47 (7.35-7.45); ABG PO2 116 mmHg (83-108); ABG TCO2 29 mmol/L (19-24); Allen Test Performed? Yes
[2021-09-01 05:08] LABS: Basophils % (A) 0 %; Eosinophils # (A) 0.1 k/uL (0-0.7); Eosinophils % (A) 1 %; HCT 28.3 % (34.0-46.0); HGB 8.1 gm/dL (11.4-16.0); Hypochromasia Marked; Lymphocytes # (A) 1.1 k/uL (1.0-4.8); Lymphocytes % (A) 16 %; MCH 32.6 pg (25.0-35.0); MCHC 28.6 g/dL (31.0-37.0); Macrocytosis Marked; Mean Platelet Volume 8.1; Monocytes # (A) 0.6 k/uL (0-1.0); Monocytes % (A) 9 %; Neutrophils # (A) 4.9 k/uL (1.3-7.7); Neutrophils % (A) 71 %; Platelet Count 341 k/uL (150-450); RBC 2.49 m/uL (3.80-5.40); RDW 14.8 % (11.5-15.5); WBC 6.9 k/uL (3.8-10.6)
[2021-09-01 05:14] LABS: MCV 113.9 fL (80.0-100.0)
[2021-09-01 05:17] LABS: Albumin 2.2 g/dL (3.5-5.0); Calcium 8.1 mg/dL (8.4-10.2); Potassium 4.3 mmol/L (3.5-5.1); Total Bilirubin 0.4 mg/dL (0.2-1.3); Total Protein 4.8 g/dL (6.3-8.2)
[2021-09-01] MEDS: LEVOTHYROXINE 25 MCG TAB PO SCH (06:19)
[2021-09-01 06:37] LABS: Glucose,Whole Blood 96 mg/dL (75-99)
--- NOTE | 2021-09-01 06:48 | XR ---
EXAMINATION TYPE: XR chest 1V portable DATE OF EXAM: 09/01/2021 CLINICAL HISTORY: Difficulty breathing progress study. Postpacemaker insertion. TECHNIQUE: Single AP portable supine view of the chest is obtained. COMPARISON: Chest x-ray from one day earlier and older studies. FINDINGS: Stable endotracheal and orogastric tubes. Stable large bore right internal jugular dialysis catheter. Persistent cardiomegaly with dual lead pacemaker and atherosclerotic thoracic aorta. Improving central vascular congestion. Persistent left basilar opacity. Multilevel spurring of the sp ine redemonstrated. IMPRESSION: Improved bilateral central edema and/or infiltrates. Persistent cardiomegaly with left ba silar acute infiltrate and/or atelectasis stable or slightly worsened.
[2021-09-01 07:41] LABS: Hepatitis B Surface AB- Quant 3.5 mIU/mL; Hepatitis B Surface Antibody Nonreactive (Nonreactive); Hepatitis B Surface Antigen Nonreactive (Nonreactive)
[2021-09-01] MEDS: CYANOCOBALAMIN 1,000 MCG/ML 1 ML VIAL IM SCH (08:17)
[2021-09-01] MEDS: CHLORHEXIDINE GLUCONATE 15 ML CUP MUCOUS MEM SCH ×2 (08:17→20:17)
[2021-09-01] MEDS: ASPIRIN 81 MG PO SCH (08:18)
[2021-09-01] MEDS: FOLIC ACID 1 MG TAB PO SCH (08:18)
[2021-09-01] MEDS: CLOPIDOGREL 75 MG TAB PO SCH (08:18)
[2021-09-01] MEDS: HEPARIN SODIUM,PORCINE/PF 5,000 UNIT/0.5 ML SYRINGE SQ SCH ×2 (08:18→20:17)
--- NOTE | 2021-09-01 08:27 | US ---
EXAMINATION TYPE: US carotid duplex BILAT DATE OF EXAM: 09/01/2021 COMPARISON: US carotid 07/27/2020. CLINICAL HISTORY: History of ICA stenosis. Intubated ICU patient with altered mental status per CT; U S exam is technically limited for probe placement due to short, thick neck with head rotated to right . EXAM MEASUREMENTS: RIGHT: Peak Systolic Velocity (PSV) cm/sec ----- Right CCA: 62.9 ----- Right ICA: 99.0 ----- Right ECA: 115.2 ICA/CCA ratio: 1.6 RIGHT: End Diastole cm/sec ----- Right CCA: 0.0 ----- Right ICA: 9.0 ----- Right ECA: 0.0 LEFT: Peak Systolic Velocity (PSV) cm/sec ----- Left CCA: 51.2 ----- Left ICA: 139.9 ----- Left ECA: 393.2 ICA/CCA ratio: 2.7 LEFT: End Diastole cm/sec ----- Left CCA: 0.0 ----- Left ICA: 10.7 ----- Left ECA: 0.0 VERTEBRALS (direction of flow): Right Vertebral: Antegrade Left Vertebral: Antegrade Rhythm: Arrhythmia Bilateral carotid bifurcation calcified wall plaque is noted with abnormally elevated PSV in Left ICA and Left ECA. Underwood scale images show moderate to severe plaques in the carotid bulb level greater on the left. Abno rmal peak systolic velocities on the left and abnormal ratio. Arrhythmia noted during real-time scann ing. IMPRESSION: [id number] atherosclerotic changes greater on the left with persistent hemodynami maggie significant stenosis in the left internal carotid artery estimated 50-69% redemonstrated. Consi joseph CTA or MRA of the neck to further evaluate. Underlying arrhythmia now noted. Correlate clinically . Criteria for Assigning % of Stenosis / Diameter reduction (Estimation based on the indirect measurements of the internal carotid artery velocities (ICA PSV). 1. Normal (no stenosis)=ICA PSV < 125 cm/s: ratio < 2.0: ICA EDV<40 cm/s. 2. Less than 50% stenosis=ICA PSV < 125 cm/s: ratio < 2.0: ICA EDV<40 cm/s. 3. 50 to 69% stenosis=ICA PSV of 125 to 230 cm/s: ration 2.0 ? 4.0: ICA EDV 40-100 cm/s. 4. Greater than 70% stenosis to near occlusion= ICA PSV > 230 cm/s: ratio > 4.0: ICA EDV > 100 cm/s. 5. Near occlusion= ICA PSV velocities may be low or undetectable: variable ratio and ICA EDV. 6. Total occlusion=unable to detect flow.
--- NOTE | 2021-09-01 08:35 | ECHOF ---
Referral Reason:hypertensive urgency MEASUREMENTS -------- HEIGHT: 165.1 cm WEIGHT: 103.4 kg BP: RVIDd: 2.1 cm (< 3.3) IVSd: 1.2 cm (0.6 - 1.1) LVIDd: 4.6 cm (3.9 - 5.3) LVPWd: 1.4 cm (0.6 - 1.1) IVSs: 1.6 cm LVIDs: 3.4 cm LVPWs: 2.0 cm Ao Diam: 3.1 cm (2.0 - 3.7) AV Cusp: 1.7 cm (1.5 - 2.6) LA Diam: 4.3 cm (2.7 - 3.8) MV EXCURSION: 15.618 mm (> 18.000) MV EF SLOPE: 51 mm/s (70 - 150) EPSS: 1.0 cm MV E Des: 0.59 m/s MV DecT: 115 ms MV A Des: 1.15 m/s MV E/A Ratio: 0.51 RAP: 5.00 mmHg RVSP: 7.85 mmHg FINDINGS -------- This was a technically difficult study with suboptimal views. Pt. on a vent. The left ventricular size is normal. There is mild concentric left ventricular hypertrophy. Overa ll left ventricular systolic function is mildly impaired with, an EF between 45 - 50 %. Basal poste rior LV wall motion is hypokinetic. The right ventricle is normal in size. The left atrial size is normal. The right atrial size is normal. The aortic valve is trileaflet and appears structurally normal. The mitral valve is normal. Mild mitral regurgitation is present. The tricuspid valve appears structurally normal. Mild tricuspid regurgitation present. Right vent ricular systolic pressure is normal at < 35 mmHg. There is no pulmonic regurgitation present. The aortic root size is normal. Normal inferior vena cava with normal inspiratory collapse consistent with estimated right atrial pre ssure of 5 mmHg. There is a small, generalized pericardial effusion present. CONCLUSIONS -------- 1. Pt. on a vent. 2. The left ventricular size is normal. 3. There is mild concentric left ventricular hypertrophy. 4. Overall left ventricular systolic function is mildly impaired with, an EF between 45 - 50 %. 5. Basal posterior LV wall motion is hypokinetic. 6. Mild mitral regurgitation is present. 7. Mild tricuspid regurgitation present. 8. There is a small, generalized pericardial effusion present. WOOD MOLDER: Jessie Ugalde RDCS
--- NOTE | 2021-09-01 09:27 | P.PN ---
Subjective Progress Note Date: 09/01/21 This is a 76-year-old female patient with multiple comorbidities, including lef t-sided chronic systolic CHF, cardiomyopathy with ejection fraction of 40-45%, dual-chamber by V pacemaker implantation which was surgically revised, with a generator change, and pocket revision a year ago and left ventricular epicardial lead was implanted. History is also significant for insulin-dependent diabetes mellitus type 2, previous history of TIAs, hypertension, hyperlipidemia, end- stage renal disease, on hemodialysis, morbid obesity, obstructive sleep apnea with home CPAP, and degenerative osteoarthritis. She was brought in to the emergency department on 08/31/2021 per EMS for unresponsiveness, it's unknown "alerted the 911, there is no family at the bedside. On arrival patient was completely unresponsive. She was found at home for an unknown period of down time. Blood sugar at the scene was 50, she received 1 dose of 50% dextrose at the scene, repeat blood sugar was within normal limits, there was no improvement in the mental status. Her vital signs were otherwise stable except for hypertension with a systolic blood pressure in the 200s over 110s. Unknown trauma. Patient is unable to provide any form of history. Patient was intubated and placed on mechanical ventilator for protection of airway, she is currently on assist control mode of ventilation with a rate of 20, tidal vitamins 400, FiO2 of 100% and PEEP of 5, her chest x-ray showing diffuse interstitial pattern correlating for CHF versus interstitial pneumonia, dual lead cardiac device, no sizable pneumothorax. Brain CT showed degenerative and nonspecific faint white matter changes most typical of remote white matter ischemia. Admission blood work showed a white blood cell count of 11.4, hemoglobin of 9.2, INR was 0.9, BNP is still pending. Blood gas post intubation showed pO2 of greater than 400, pCO2 of 40, and pH of 7.42, this was done on the above-mentioned ventilator settings. Patient was given labetalol for blood pressure control, she was started on nitroglycerin infusion, Diprivan, she is on subcu heparin, her blood sugars being closely monitored, nephrology has been consulted for hemodialysis, and we were consulted for ICU management On today's evaluation of 09/01/2021, the patient remains intubated on a mechanical ventilator. Note that the patient presented to us into patient was completely unresponsive. The patient was brought into the emergency department and the patient was intubated and placed on a mechanical ventilator. Apparently, her sugars were low at home and the patient was treated accordingly. Blood sugars were fine in the hospital. The CAT scan of the brain showed no acute abnormalities and there was evidence of remote white matter ischemia. Overnight, the patient received hemodialysis of the chest x-ray from today shows marked improvement in the volume status. The patient has already missed hemodialysis earlier prior to her hospital admission. The chest x-ray from today shows a right IJ permacath. ET tube is in a good location. The patient also has a permanent pacemaker in place. There is some atelectatic changes in the left lung base. Her blood pressure remains elevated and the patient is going to be started on Cleviprex for tighter blood pressure control. Meanwhile, earlier this morning, the patient was taken off propofol and unfortunately we haven't seen reasonable neurologic recovery yet. We are going to give the patient another few hours to evaluate her mental status. She remains on a mechanical ventilator on assist control mode at the rate of 20, tidal volume of 400, FiO2 of 40% with a PEEP of 5. Blood gases are excellent today shows a pO2 of 116, pH is at 7.47 with a pCO2 of 38. White cell count is at 6.9. Hemoglobin is 8.1 and the patient is chronically anemic. BN is a 33 with a creatinine of 5.1 and a potassium level is at 4.3. Electrodes are all within normal limits. No seizure activity has been noted. No fever. Hemodynamically, the patient is hypertensive. Urine output is 0. The patient is on IV orthotics. The patient is on subcu heparin. No antibiotics for now. Aspirin and Plavix have been resumed. Neuro workup was also initiated. The patient was seen by neurology. Carotid ultrasound showed a moderate to severe atherosclerotic changes involving the left internal carotid artery which is in the order of 50-69%. Objective - Vital Signs Vital signs: Vital Signs Temp 97.4 F L 09/01/21 04:00 Pulse 65 09/01/21 07:00 Resp 22 09/01/21 07:00 BP 137/57 09/01/21 07:00 Pulse Ox 100 09/01/21 07:00 Intake & Output 08/31/21 09/01/21 09/01/21 18:59 06:59 18:59 Intake Total 159.160 375.388 38.662 Output Total 90 2005 0 Balance 69.160 -1629.612 38.662 Weight 103.419 kg 104.5 kg Intake: IV 120 10 Sodium Chloride 0.9% 1, 120 10 000 ml @ 10 mls/hr IV . Q24H [facility] Rx#:[id number] Intake, IV Titration 159.160 255.388 28.662 Amount Nitroglycerin-D5w Pmx 50 90.125 mg In Dextrose/Water 1 250ml.bag @ Titrate IV . Q0M [facility]OLTAN Rx#:[id number] propofoL 1,000 mg In 69.035 255.388 28.662 Empty Bag 1 bag @ Titrate IV .Q0M [facility] Rx#: [id number] Output: Urine 90 5 0 Uretheral (Lemus) 60 Hemodialysis 2000 Other: Voiding Method Indwelling Catheter Indwelling Catheter - Exam GENERAL EXAM: Unresponsive, intubated 76-year-old obese white female, comfortable in no apparent distress. HEAD: Normocephalic/atraumatic. EYES: Normal reaction of pupils, equal size. Conjunctiva pink, sclera white. NOSE: Clear with pink turbinates. THROAT: No erythema or exudates. NECK: No masses, no JVD, no thyroid enlargement, no adenopathy. CHEST: No chest wall deformity. Symmetrical expansion. Right upper chest subclavian hemodialysis catheter in place LUNGS: Equal air entry with no crackles, wheeze, rhonchi or dullness. CVS: Regular rate and rhythm, normal S1 and S2, no gallops, no murmurs, no rubs ABDOMEN: Soft, nontender. No hepatosplenomegaly, normal bowel sounds, no guarding or rigidity. EXTREMITIES: No clubbing, no edema, no cyanosis, 2+ pulses and upper and lower extremities. MUSCULOSKELETAL: Muscle strength and tone normal. SPINE: No scoliosis or deformity SKIN: No rashes CENTRAL NERVOUS SYSTEM: Unresponsive. Patient has been off sedation for the past few hours. The patient is not showing any signs of deep painful stimu lation. She has no spontaneous eye opening. Pupils are equal and reactive to light. Her gaze is down and there is no nystagmus. No Babinski. No clonus. Reflexes are diminished in all 4 extremities. Motor and sensory functions cannot be assessed. The patient has a positive cough yet her cough is extremely weak. - Labs CBC & Chem 7: 01/13/22 04:42 09/01/21 04:42 Labs: Abnormal Lab Results - Last 24 Hours (Table) 08/31/21 08/31/21 08/31/21 Range/Units 10:08 10:20 10:32 WBC 11.4 H (3.8-10.6) k/uL RBC 2.79 L (3.80-5.40) m/uL Hgb 9.2 L (11.4-16.0) gm/dL Hct 29.9 L (34.0-46.0) % MCV 107.4 H (80.0-100.0) fL MCHC 30.6 L (31.0-37.0) g/dL Neutrophils # 9.8 H (1.3-7.7) k/uL Macrocytosis ABG pH (7.35-7.45) ABG pO2 (83-108) mmHg ABG HCO3 (21-25) mmol/L ABG Total CO2 (19-24) mmol/L ABG O2 Saturation (94-97) % Sodium (137-145) mmol/L Chloride (98-107) mmol/L BUN (7-17) mg/dL Creatinine (0.52-1.04) mg/dL Glucose (74-99) mg/dL POC Glucose (mg/dL) 148 H 115 H (75-99) mg/dL Calcium (8.4-10.2) mg/dL Creatine Kinase (30-135) U/L Total Protein (6.3-8.2) g/dL Albumin (3.5-5.0) g/dL Urine Appearance (Clear) Urine Protein (Negative) Urine RBC (0-5) /hpf Urine WBC (0-5) /hpf Ur Squamous Epith Cells (0-4) /hpf Urine Bacteria (None) /hpf Urine Mucus (None) /hpf U Tricyclic Antidepress (NotDetected) 08/31/21 08/31/21 08/31/21 Range/Units 11:34 11:42 12:10 WBC (3.8-10.6) k/uL RBC (3.80-5.40) m/uL Hgb (11.4-16.0) gm/dL Hct (34.0-46.0) % MCV (80.0-100.0) fL MCHC (31.0-37.0) g/dL Neutrophils # (1.3-7.7) k/uL Macrocytosis ABG pH (7.35-7.45) ABG pO2 >400 H (83-108) mmHg ABG HCO3 26 H (21-25) mmol/L ABG Total CO2 27 H (19-24) mmol/L ABG O2 Saturation 100.0 H (94-97) % Sodium 134 L (137-145) mmol/L Chloride (98-107) mmol/L BUN 47 H (7-17) mg/dL Creatinine 6.73 H (0.52-1.04) mg/dL Glucose 168 H (74-99) mg/dL POC Glucose (mg/dL) (75-99) mg/dL Calcium 8.1 L (8.4-10.2) mg/dL Creatine Kinase 20 L (30-135) U/L Total Protein 5.3 L (6.3-8.2) g/dL Albumin 2.6 L (3.5-5.0) g/dL Urine Appearance Cloudy H (Clear) Urine Protein 2+ H (Negative) Urine RBC 6 H (0-5) /hpf Urine WBC 7 H (0-5) /hpf Ur Squamous Epith Cells 28 H (0-4) /hpf Urine Bacteria Rare H (None) /hpf Urine Mucus Rare H (None) /hpf U Tricyclic Antidepress Detected H (NotDetected) 08/31/21 08/31/21 08/31/21 Range/Units 12:25 13:28 16:11 WBC (3.8-10.6) k/uL RBC (3.80-5.40) m/uL Hgb (11.4-16.0) gm/dL Hct (34.0-46.0) % MCV (80.0-100.0) fL MCHC (31.0-37.0) g/dL Neutrophils # (1.3-7.7) k/uL Macrocytosis ABG pH (7.35-7.45) ABG pO2 (83-108) mmHg ABG HCO3 (21-25) mmol/L ABG Total CO2 (19-24) mmol/L ABG O2 Saturation (94-97) % Sodium (137-145) mmol/L Chloride (98-107) mmol/L BUN (7-17) mg/dL Creatinine (0.52-1.04) mg/dL Glucose (74-99) mg/dL POC Glucose (mg/dL) 146 H 126 H 108 H (75-99) mg/dL Calcium (8.4-10.2) mg/dL Creatine Kinase (30-135) U/L Total Protein (6.3-8.2) g/dL Albumin (3.5-5.0) g/dL Urine Appearance (Clear) Urine Protein (Negative) Urine RBC (0-5) /hpf Urine WBC (0-5) /hpf Ur Squamous Epith Cells (0-4) /hpf Urine Bacteria (None) /hpf Urine Mucus (None) /hpf U Tricyclic Antidepress (NotDetected) 09/01/21 09/01/21 09/01/21 Range/Units 00:19 00:54 03:28 WBC (3.8-10.6) k/uL RBC (3.80-5.40) m/uL Hgb (11.4-16.0) gm/dL Hct (34.0-46.0) % MCV (80.0-100.0) fL MCHC (31.0-37.0) g/dL Neutrophils # (1.3-7.7) k/uL Macrocytosis ABG pH (7.35-7.45) ABG pO2 (83-108) mmHg ABG HCO3 (21-25) mmol/L ABG Total CO2 (19-24) mmol/L ABG O2 Saturation (94-97) % Sodium (137-145) mmol/L Chloride (98-107) mmol/L BUN (7-17) mg/dL Creatinine (0.52-1.04) mg/dL Glucose (74-99) mg/dL POC Glucose (mg/dL) 64 L 73 L 72 L (75-99) mg/dL Calcium (8.4-10.2) mg/dL Creatine Kinase (30-135) U/L Total Protein (6.3-8.2) g/dL Albumin (3.5-5.0) g/dL Urine Appearance (Clear) Urine Protein (Negative) Urine RBC (0-5) /hpf Urine WBC (0-5) /hpf Ur Squamous Epith Cells (0-4) /hpf Urine Bacteria (None) /hpf Urine Mucus (None) /hpf U Tricyclic Antidepress (NotDetected) 09/01/21 09/01/21 09/01/21 Range/Units 04:42 04:42 04:49 WBC (3.8-10.6) k/uL RBC 2.49 L (3.80-5.40) m/uL Hgb 8.1 L (11.4-16.0) gm/dL Hct 28.3 L (34.0-46.0) % MCV 113.9 H D (80.0-100.0) fL MCHC 28.6 L (31.0-37.0) g/dL Neutrophils # (1.3-7.7) k/uL Macrocytosis Marked A ABG pH 7.47 H (7.35-7.45) ABG pO2 116 H (83-108) mmHg ABG HCO3 28 H (21-25) mmol/L ABG Total CO2 29 H (19-24) mmol/L ABG O2 Saturation 98.5 H (94-97) % Sodium (137-145) mmol/L Chloride 110 H (98-107) mmol/L BUN 33 H (7-17) mg/dL Creatinine 5.12 H (0.52-1.04) mg/dL Glucose 55 L (74-99) mg/dL POC Glucose (mg/dL) (75-99) mg/dL Calcium 8.1 L (8.4-10.2) mg/dL Creatine Kinase (30-135) U/L Total Protein 4.8 L (6.3-8.2) g/dL Albumin 2.2 L (3.5-5.0) g/dL Urine Appearance (Clear) Urine Protein (Negative) Urine RBC (0-5) /hpf Urine WBC (0-5) /hpf Ur Squamous Epith Cells (0-4) /hpf Urine Bacteria (None) /hpf Urine Mucus (None) /hpf U Tricyclic Antidepress (NotDetected) Microbiology - Last 24 Hours (Table) 08/31/21 11:27 Gram Stain - Preliminary Sputum Sputum Culture - Preliminary Assessment and Plan Plan: #1. Unresponsiveness, with unknown downtime. Possibly related to hypoglycemia. Brain CT showed degenerative and nonspecific white matter changes typical of remote white matter ischemia. The patient is very slow in recovery of underlying sedation as the patient is currently being given a sedation holiday. Consider metabolic encephalopathy. Consider hypoglycemic encephalopathy and the patient was found to be hypoglycemic at the scene where she was found unresponsive. Consider anoxic encephalopathy. Furthermore, carotid ultrasound showed 50-69% stenosis in the left internal carotid artery. No seizure act ivity. EEG showing diffuse slowing and the patient is being seen by neurology. #2. Hypertensive emergency #3. Acute hypoxic and likely hypercapnic respiratory failure related to the hypertensive emergency, and patient was intubated placed on mechanical ventilator in part due to altered mental status and protection of airway, follow-up blood gases postdialysis and follow-up chest x-ray postdialysis showed marked improvement. #4. End-stage renal disease on hemodialysis #5. Severe Obstructive sleep apnea on CPAP, with AHI index of 36.6 #6. Morbid obesity #7. Cardiomyopathy, with EF of 40-45%, status post dual-chamber by V pacemaker placement, and recent revision of the left epicardial lead, generator change and pocket revision in August 2020 #8. Hypertension #9. Hyperlipidemia #10. History of TIA #11. Diabetes mellitus type 2 #12. Degenerative arthritis #13. History of coronary artery disease Plan: Continue ventilator support no changes on today's evaluation Keep the patient off sedation and assess mental status Repeat a noncontrast CAT scan of the brain if the patient does not show any reasonable neurologic recovery Start the patient Reports that her blood pressure control and resume her home antihypertensive medication which includes hydralazine and Procardia will be replaced with Norvasc The patient got dialyzed yesterday with adequate ultrafiltration volume status control Continue close blood sugar monitoring Urine drug screen, sepsis workup, COVID 19 workup is in progress Will likely need neurology consultation if mentation does not improve Obtain echocardiogram Initiate enteral feeding for nutritional support We will continue to closely follow Overall prognosis is extremely guarded Neurologist on the case and we'll continue to follow make further recommendations based on her progress. This is a critically care evaluation was done more than 30 minutes. The patient will be kept intubated on a mechanical ventilator for now. Time with Patient: Greater than 30
[2021-09-01] MEDS ORDERED: CLEVIDIPINE BUTYRATE 25 MG/50 ML VIAL IV ONE (09:29)
[2021-09-01] MEDS: amLODIPine 5 MG TAB PO SCH (09:33)
[2021-09-01] MEDS: hydrALAZINE HCL 25 MG TAB PO SCH ×2 (09:33→20:17)
[2021-09-01 11:58] LABS: Glucose,Whole Blood 76 mg/dL (75-99)
[2021-09-01] MEDS ORDERED: DARBEPOETIN ALFA 60 MCG/0.3 ML SYRINGE SQ SCH (12:00)
--- NOTE | 2021-09-01 12:40 | PN ---
PROGRESS NOTE Patient is seen for followup for end-stage renal disease. Patient was dialyzed late last night. We had 2 L of ultrafiltration. Her pressures are much improved, with systolic now about 130 to 140. Patient is off of the nitro drip. She was also on Cleviprex drip for short period of time, and that has been discontinued. However, patient is not waking up. She remains on the vent. FiO2 is at 40%. Sedation is currently being held. On examination today, patient remains on the vent. Blood pressure 133/73, heart rate 71 per minute. She is afebrile. EXAMINATION OF THE HEART: S1 and S2. EXAMINATION OF LUNGS: Bilateral breath sounds are heard. Abdomen is soft, non-tender. SALAD MAKER exam cannot be performed. Patient is not responsive. Labs show sodium 140, potassium 4.3, BUN 33, creatinine 5.1, hemoglobin 8.1 g/dL. ASSESSMENT: 1. End-stage renal disease, on hemodialysis on a Sunday, , Sunday schedule as outpatient. We will arrange for repeat hemodialysis today. Patient was dialyzed last night for volume overload. 2. Hypertensive emergency, currently improved. Will plan for another treatment today, UF of about 2 L. 3. Mental status changes secondary to hypoglycemia. Mentation is not improving with correction of blood sugar levels. 4. Hypoxic respiratory failure. Patient was intubated due to unresponsiveness. 5. Anemia. No active bleeding noted. Will check iron profile and maintain patient on Aranesp. PLAN: Repeat hemodialysis today. Add Aranesp and check iron profile. MMODL / IJN: [id number] /
--- NOTE | 2021-09-01 15:52 | CT ---
EXAMINATION TYPE: CT brain wo con DATE OF EXAM: 09/01/2021 COMPARISON: 08/31/2021 HISTORY: 76-year-old female confusion, Altered mental status, unequal pupils, rule out CVA. TECHNIQUE: Examination was done in axial plane without intravenous contrast. Coronal and sagittal r econstructions performed. CT DLP: 1118.4 mGycm Automated exposure control for dose reduction was used. FINDINGS: There is no evidence of acute intracranial hemorrhage, acute ischemic changes, mass, mass-effect, or extra-axial fluid collection. There is no effacement of cerebral sulci or basal subarachnoid cister ns. There is no hydrocephalus. There is no midline shift. Underwood-white matter distinction is preserv ed. Prominent atherosclerotic calcifications within the proximal V4 segments of the bilateral vertebral a rteries. Prominent atherosclerotic calcifications within the carotid siphons The patient is intubated. Layering secretions within the nasopharynx. Mastoid air cells are well pneu matized. Leftward nasal septal deviation. Orbits and globes are intact. IMPRESSION: No acute intracranial abnormality seen.
--- NOTE | 2021-09-01 16:39 | P.PN ---
Subjective Progress Note Date: 09/01/21 (Nonconscious, not responding) Principal diagnosis: Diagnosis: Nonresponding, unconscious, probably secondary to a prolonged did hypoglycemia with the underlying metabolic encephalopathy #2 EEG slowing of severe degree suggestive of generalized cerebral dysfunction, no epileptiform. #3 hypertensive crisis with emergency on admission to the ER by ambulance from home as found unconscious #4 status post intubation, NG tube placement, Lemus catheter placement. #5 history of end stage renal disease, with hemodialysis through the port right infraclavicular placed [address] Mosley vascular surgeon. #6 end-stage renal disease #7 diabetes mellitus type 2 insulin-dependent with severe hypoglycemia found by the EMS at home for unknown INR of the hypoglycemia. #8 non-arousable by tactile or verbal stimuli. #9 diabetic nephropathy, diabetic neuropathy. With a complicated diabetes mellitus type 2 insulin-dependent. Progress note date of service 09/01/[address] Martinez Patient in ICU to 66. 1. Patient is critical, she had endotracheal to with the mechanical ventilation managed by Dr. Madrid pulmonary and critical care. Patient on hemodialysis at the time of the visit with the current running dialysis Patient is sedated. Her blood pressure has been improving with the pulling out fluid with the dialysis with the underlying volume overload.C No communication, not responding. Vital sign temperature 97.9 oral respiratory rate 20/m blood pressure 118/56 mechanical ventilator with FiO2 40%. Her echocardiogram indicating ejection fraction 45-50% with impairment of left ventricular function with the underlying basal posterior left ventricular wall motion hypokinesia. Laboratory indicating that white count 6.9, hemoglobin 8.1 and hematocrit 28.3, MCV 113.9 with the underlying hypochromic macrocytic anemia added to the anemia of renal disease. ABGs today pH of 7.47 pCO2 38, pO2 116, saturation 98.5, HCO3 28, base excess 4.1, FiO2 40%. Sodium 140, potassium 4.3, chloride 110, carbon dioxide 24. GFR 8, BUN of 33 and creatinine 5.12 blood glucose was 55 and albumin 2.2 and total protein 4.8 and patient also monitored to by POC glucose. On exam: Head was normocephalic and atraumatic, patient is sedated with no response intubated on the vent. NG tube in place neck was supple Chest was clear no wheezes no rhonchi's Heart was regular sinus rhythm patient has also left infraclavicular pacemaker Abdomen obese positive bowel sounds. Extremities: Has thrombotic stocking with a DVT devices placed bilaterally on the feet her pulses is present intact. Neurologically flaccid upper and lower extremities and patient was sedated Assessment #1 hypoglycemia with unknown period of time or intolerable probably resulting in metabolic encephalopathy and slowing the EEG. #2 end-stage renal disease on hemodialysis. #3 hypertensive urgency on admission has been controlled currently with the dialysis and removal excessive water. #4 obesity #5 prior to these event she had spend almost 3 weeks in the hospitalization at [facility] for Covid 19 treatment and isolation followed by isolation in [facility] with the continued dialysis #6 hypoproteinemia and albuminemia #7 macrocytic hypochromic anemia. #8 impaired ejection fraction with the 45-50%. Plan #1 prognosis is poor to guarded #2 supportive care #3 continuing management with the nephrology, pulmonary and critical care, cardiology if needed Objective - Vital Signs Vital signs: Vital Signs Temp 97.9 F 09/01/21 14:10 Pulse 71 09/01/21 10:00 Resp 20 09/01/21 14:10 BP 118/56 09/01/21 14:10 Pulse Ox 97 09/01/21 10:00 Intake & Output 08/31/21 09/01/21 09/01/21 18:59 06:59 18:59 Intake Total 159.160 375.388 488.662 Output Total 90 2004 1500 Balance 69.160 -1629.612 -1011.338 Weight 103.419 kg 104.5 kg 104.5 kg Intake: IV 120 40 Sodium Chloride 0.9% 1, 120 40 000 ml @ 10 mls/hr IV . Q24H ZOLTAN Rx#:[id number] Intake, IV Titration 159.160 255.388 28.662 Amount Nitroglycerin-D5w Pmx 50 90.125 mg In Dextrose/Water 1 250ml.bag @ Titrate IV . Q0M ZOLTAN Rx#:[id number] propofoL 1,000 mg In 69.035 255.388 28.662 Empty Bag 1 bag @ Titrate IV .Q0M ZOLTAN Rx#: [id number] Oral 120 Hemodialysis 300 Output: Urine 90 5 0 Uretheral (Lemus) 60 Hemodialysis 1999 1499 Other: Voiding Method Indwelling Catheter Indwelling Catheter Indwelling Catheter - Labs CBC & Chem 7: 09/01/21 04:42 09/01/21 04:42 Labs: Abnormal Lab Results - Last 24 Hours (Table) 09/01/21 09/01/21 09/01/21 Range/Units 00:19 00:54 03:28 RBC (3.80-5.40) m/uL Hgb (11.4-16.0) gm/dL Hct (34.0-46.0) % MCV (80.0-100.0) fL MCHC (31.0-37.0) g/dL Macrocytosis ABG pH (7.35-7.45) ABG pO2 (83-108) mmHg ABG HCO3 (21-25) mmol/L ABG Total CO2 (19-24) mmol/L ABG O2 Saturation (94-97) % Chloride (98-107) mmol/L BUN (7-17) mg/dL Creatinine (0.52-1.04) mg/dL Glucose (74-99) mg/dL POC Glucose (mg/dL) 64 L 73 L 72 L (75-99) mg/dL Calcium (8.4-10.2) mg/dL Total Protein (6.3-8.2) g/dL Albumin (3.5-5.0) g/dL 09/01/21 09/01/21 09/01/21 Range/Units 04:42 04:42 04:49 RBC 2.49 L (3.80-5.40) m/uL Hgb 8.1 L (11.4-16.0) gm/dL Hct 28.3 L (34.0-46.0) % MCV 113.9 H D (80.0-100.0) fL MCHC 28.6 L (31.0-37.0) g/dL Macrocytosis Marked A ABG pH 7.47 H (7.35-7.45) ABG pO2 116 H (83-108) mmHg ABG HCO3 28 H (21-25) mmol/L ABG Total CO2 29 H (19-24) mmol/L ABG O2 Saturation 98.5 H (94-97) % Chloride 110 H (98-107) mmol/L BUN 33 H (7-17) mg/dL Creatinine 5.12 H (0.52-1.04) mg/dL Glucose 55 L (74-99) mg/dL POC Glucose (mg/dL) (75-99) mg/dL Calcium 8.1 L (8.4-10.2) mg/dL Total Protein 4.8 L (6.3-8.2) g/dL Albumin 2.2 L (3.5-5.0) g/dL Microbiology - Last 24 Hours (Table) 08/31/21 11:27 Blood Culture - Preliminary Blood No Growth after 24 hours 08/31/21 11:11 Blood Culture - Preliminary Blood No Growth after 24 hours 08/31/21 11:27 Gram Stain - Preliminary Sputum Sputum Culture - Preliminary
[2021-09-01] MEDS: CLEVIDIPINE BUTYRATE 25 MG in EMPTY BAG 1 BAG IV SCH ×2 (16:50→20:28)
[2021-09-01 17:37] LABS: Glucose,Whole Blood 77 mg/dL (75-99)
[2021-09-01 18:03] LABS: Glucose,Whole Blood 82 mg/dL (75-99)
[2021-09-01] MEDS: SODIUM CHLORIDE 0.9% 1,000 ML IV SCH (18:04)
[2021-09-01 18:16] LABS: Folate, Serum 6.1 ng/mL (4.40-31.00)
[2021-09-01 19:45] LABS: % Iron Saturation 23.79 (12.00-45.00)
--- NOTE | 2021-09-01 23:21 | P.PN ---
Subjective Progress Note Date: 09/01/21 Patient was seen for a follow-up. Patient continues to be intubated. Patient is off propofol since 8:30 AM. Patient not showing any clinical improvement. Objective - Vital Signs Vital signs: Vital Signs Temp 98 F 09/01/21 20:00 Pulse 83 09/01/21 21:00 Resp 13 09/01/21 21:00 BP 149/53 09/01/21 21:00 Pulse Ox 99 09/01/21 21:00 Intake & Output 09/01/21 09/01/21 09/02/21 06:59 18:59 06:59 Intake Total 375.388 613.662 140 Output Total 2004 1510 0 Balance -1629.612 -896.338 140 Weight 104.5 kg 104.5 kg Intake: IV 120 120 20 Sodium Chloride 0.9% 1, 120 120 20 000 ml @ 10 mls/hr IV . Q24H ZOLTAN Rx#:[id number] Intake, IV Titration 255.388 28.662 Amount propofoL 1,000 mg In 255.388 28.662 Empty Bag 1 bag @ Titrate IV .Q0M ZOLTAN Rx#: [id number] Oral 120 Tube Feeding 45 90 Hemodialysis 300 Other 30 Output: Urine 5 10 0 Hemodialysis 2000 1500 Other: Voiding Method Indwelling Catheter Indwelling Catheter Indwelling Catheter ABP, PAP, CO, CI - Last Documented Arterial Blood Pressure 151/49 - Exam Patient is almost comatose. Does not respond to painful stimuli. Does not respond to calling her name. Her pupils are round and reacting. The right pupil appears 4 mm and left pupil 3 mm. Both are reactive. Patient has roving eye movements. Face cannot be assessed. Lower cranial nerves can't be assessed. Tone is equal bilaterally. Reflexes are 1 in the upper limbs at biceps and brachioradialis, 0 at the knees and ankles and plantars are flat. - Labs CBC & Chem 7: 09/01/21 04:42 09/01/21 04:42 Labs: Abnormal Lab Results - Last 24 Hours (Table) 09/01/21 09/01/21 09/01/21 Range/Units 00:19 00:54 03:28 RBC (3.80-5.40) m/uL Hgb (11.4-16.0) gm/dL Hct (34.0-46.0) % MCV (80.0-100.0) fL MCHC (31.0-37.0) g/dL Macrocytosis ABG pH (7.35-7.45) ABG pO2 (83-108) mmHg ABG HCO3 (21-25) mmol/L ABG Total CO2 (19-24) mmol/L ABG O2 Saturation (94-97) % Chloride (98-107) mmol/L BUN (7-17) mg/dL Creatinine (0.52-1.04) mg/dL Glucose (74-99) mg/dL POC Glucose (mg/dL) 64 L 73 L 72 L (75-99) mg/dL Calcium (8.4-10.2) mg/dL Iron (50-170) ug/dL TIBC (228-460) ug/dL Transferrin (204.0-354.0) mg/dL Total Protein (6.3-8.2) g/dL Albumin (3.5-5.0) g/dL 09/01/21 09/01/21 09/01/21 Range/Units 04:42 04:42 04:42 RBC 2.49 L (3.80-5.40) m/uL Hgb 8.1 L (11.4-16.0) gm/dL Hct 28.3 L (34.0-46.0) % MCV 113.9 H D (80.0-100.0) fL MCHC 28.6 L (31.0-37.0) g/dL Macrocytosis Marked A ABG pH (7.35-7.45) ABG pO2 (83-108) mmHg ABG HCO3 (21-25) mmol/L ABG Total CO2 (19-24) mmol/L ABG O2 Saturation (94-97) % Chloride 110 H (98-107) mmol/L BUN 33 H (7-17) mg/dL Creatinine 5.12 H (0.52-1.04) mg/dL Glucose 55 L (74-99) mg/dL POC Glucose (mg/dL) (75-99) mg/dL Calcium 8.1 L (8.4-10.2) mg/dL Iron 47 L (50-170) ug/dL TIBC 199 L (228-460) ug/dL Transferrin 142.0 L (204.0-354.0) mg/dL Total Protein 4.8 L (6.3-8.2) g/dL Albumin 2.2 L (3.5-5.0) g/dL 09/01/21 Range/Units 04:49 RBC (3.80-5.40) m/uL Hgb (11.4-16.0) gm/dL Hct (34.0-46.0) % MCV (80.0-100.0) fL MCHC (31.0-37.0) g/dL Macrocytosis ABG pH 7.47 H (7.35-7.45) ABG pO2 116 H (83-108) mmHg ABG HCO3 28 H (21-25) mmol/L ABG Total CO2 29 H (19-24) mmol/L ABG O2 Saturation 98.5 H (94-97) % Chloride (98-107) mmol/L BUN (7-17) mg/dL Creatinine (0.52-1.04) mg/dL Glucose (74-99) mg/dL POC Glucose (mg/dL) (75-99) mg/dL Calcium (8.4-10.2) mg/dL Iron (50-170) ug/dL TIBC (228-460) ug/dL Transferrin (204.0-354.0) mg/dL Total Protein (6.3-8.2) g/dL Albumin (3.5-5.0) g/dL Microbiology - Last 24 Hours (Table) 08/31/21 11:27 Blood Culture - Preliminary Blood No Growth after 24 hours 08/31/21 11:11 Blood Culture - Preliminary Blood No Growth after 24 hours 08/31/21 11:27 Gram Stain - Preliminary Sputum Sputum Culture - Preliminary Assessment and Plan Assessment: * Unresponsiveness/comatose state of unclear etiology. Possible hypoglycemic encephalopathy. Patient was hypoglycemic with blood sugar reported at 50. Uncertain how long she was hypoglycemic. CT head showed no acute process. * Hypertensive emergency * Acute hypoxic respiratory failure, on mechanical ventilation now. * ESRD on hemodialysis * Presence of pacemaker * Obstructive sleep apnea * Cardiomyopathy * Hypertension * Hyperlipidemia * History of TIA * Diabetes * CAD. * Macrocytosis * B12, folate deficiency Plan: * EEG 08/31/2021 revealed background slowing of severe degree, suggestive of generalized cerebral dysfunction as can be seen with toxic metabolic encephalopathy, or related to diffuse structural brain abnormality. No epileptiform activity was seen. * Because of persistent abnormal mentation, and anisocoria, repeat computed t omography scan of the head was performed which revealed no acute process. I personally reviewed the computed tomography scan and agree with the findings. * Carotid Doppler revealed moderate to severe atherosclerotic changes greater on the left with persistent hemodynamically significant stenosis in the left ICA estimated 50-69% redemonstrated. Consider CTA or MRA. Underlying arrhythmia noted. Antegrade flow in both vertebral arteries. Patient currently on aspirin 81 mg, Plavix 75 mg. Consider vascular surgery consultation as outpatient. * Lipid panel from 06/14/2021 shows cholesterol 90, LDL 31, HDL 45 and triglycerides 66. Patient was on Lipitor 40 mg daily, which should be continued. * Treatment of underlying medical issues as per IM and critical care * Avoid any further episodes of hypoglycemia. IM to address insulin doses. * Patient has history of B12 and folate deficiency. We will start B12 and folate replacement. Repeat B12 385, folate 6.10.
[2021-09-01 23:22] LABS: Glucose,Whole Blood 141 mg/dL (75-99)
[2021-09-02 04:11] LABS: Basophils % (A) 0 %; Eosinophils # (A) 0.1 k/uL (0-0.7); Eosinophils % (A) 1 %; HCT 28.2 % (34.0-46.0); HGB 8.4 gm/dL (11.4-16.0); Hypochromasia Marked; Lymphocytes # (A) 1.3 k/uL (1.0-4.8); Lymphocytes % (A) 17 %; MCH 32.4 pg (25.0-35.0); MCHC 29.9 g/dL (31.0-37.0); Macrocytosis Marked; Mean Platelet Volume 8.6; Monocytes # (A) 0.5 k/uL (0-1.0); Monocytes % (A) 6 %; Neutrophils # (A) 5.4 k/uL (1.3-7.7); Neutrophils % (A) 74 %; Platelet Count 301 k/uL (150-450); RDW 14.5 % (11.5-15.5); WBC 7.4 k/uL (3.8-10.6)
[2021-09-02 04:24] LABS: Calcium 7.8 mg/dL (8.4-10.2); MCV 108.1 fL (80.0-100.0); Potassium 4.7 mmol/L (3.5-5.1)
[2021-09-02 05:16] LABS: Glucose,Whole Blood 203 mg/dL (75-99)
[2021-09-02] MEDS: LEVOTHYROXINE 25 MCG TAB PO SCH (05:17)
[2021-09-02] MEDS: INSULIN ASPART (NovoLOG) 100 UNIT/ML VIAL SQ SCH ×3 (05:17→17:53)
[2021-09-02 05:55] LABS: ABG Base Excess 0.4 mmol/L; ABG HCO3 25 mmol/L (21-25); ABG Oxygen Saturation 98.6 % (94-97); ABG PCO2 39 mmHg (35-45); ABG PH 7.42 (7.35-7.45); ABG PO2 129 mmHg (83-108); ABG TCO2 26 mmol/L (19-24)
[2021-09-02 05:56] LABS: Allen Test Performed? NO
[2021-09-02] MEDS: SODIUM CHLORIDE 0.9% 1,000 ML IV SCH ×2 (07:00→17:56)
--- NOTE | 2021-09-02 08:18 | XR ---
EXAMINATION TYPE: XR chest 1V portable DATE OF EXAM: 09/02/2021 Comparison: 09/01/2021 Clinical History: 76-year-old female Tube placement Findings: ETT and NG tube satisfactory. Left anterior chest wall pacemaker generator with right atrial and righ t ventricular leads. An additional lead extends to the left heart margin. Right-sided double-lumen hemodialysis catheter c atheter tip near the cavoatrial junction. Heart upper limits of normal in size. Hyperinflation. Retro cardiac and left basilar opacity persists. Impression: COPD and continued retrocardiac and left basilar opacity, likely small effusion with adjacent atelect asis and/or consolidation. Possible background mild pulmonary vascular congestion similar.
[2021-09-02] MEDS: CLOPIDOGREL 75 MG TAB PO SCH (08:24)
[2021-09-02] MEDS: ASPIRIN 81 MG PO SCH (08:24)
[2021-09-02] MEDS: CYANOCOBALAMIN 1,000 MCG/ML 1 ML VIAL IM SCH (08:24)
[2021-09-02] MEDS: hydrALAZINE HCL 25 MG TAB PO SCH ×2 (08:24→20:21)
[2021-09-02] MEDS: FOLIC ACID 1 MG TAB PO SCH (08:24)
[2021-09-02] MEDS: CHLORHEXIDINE GLUCONATE 15 ML CUP MUCOUS MEM SCH ×2 (08:24→20:21)
[2021-09-02] MEDS: HEPARIN SODIUM,PORCINE/PF 5,000 UNIT/0.5 ML SYRINGE SQ SCH ×2 (08:24→20:22)
[2021-09-02] MEDS: amLODIPine 5 MG TAB PO SCH (08:24)
--- NOTE | 2021-09-02 09:10 | P.PN ---
Subjective Progress Note Date: 09/02/21 This is a 76-year-old female patient with multiple comorbidities, including left-sided chronic systolic CHF, cardiomyopathy with ejection fraction of 40- 45%, dual-chamber by V pacemaker implantation which was surgically revised, with a generator change, and pocket revision a year ago and left ventricular e picardial lead was implanted. History is also significant for insulin-dependent diabetes mellitus type 2, previous history of TIAs, hypertension, hyperlipidemia, end-stage renal disease, on hemodialysis, morbid obesity, obstructive sleep apnea with home CPAP, and degenerative osteoarthritis. She wa s brought in to the emergency department on 08/31/2021 per EMS for unresponsiveness, it's unknown "alerted the 911, there is no family at the bedside. On arrival patient was completely unresponsive. She was found at home for an unknown period of down time. Blood sugar at the scene was 50, she rec eived 1 dose of 50% dextrose at the scene, repeat blood sugar was within normal limits, there was no improvement in the mental status. Her vital signs were otherwise stable except for hypertension with a systolic blood pressure in the 200s over 110s. Unknown trauma. Patient is unable to provide any form of history. Patient was intubated and placed on mechanical ventilator for protection of airway, she is currently on assist control mode of ventilation with a rate of 20, tidal vitamins 400, FiO2 of 100% and PEEP of 5, her chest x- ray showing diffuse interstitial pattern correlating for CHF versus interstitial pneumonia, dual lead cardiac device, no sizable pneumothorax. Brain CT showed d egenerative and nonspecific faint white matter changes most typical of remote white matter ischemia. Admission blood work showed a white blood cell count of 11.4, hemoglobin of 9.2, INR was 0.9, BNP is still pending. Blood gas post intubation showed pO2 of greater than 400, pCO2 of 40, and pH of 7.42, this was done on the above-mentioned ventilator settings. Patient was given labetalol for blood pressure control, she was started on nitroglycerin infusion, Diprivan, she is on subcu heparin, her blood sugars being closely monitored, nephrology has been consulted for hemodialysis, and we were consulted for ICU management On today's evaluation of 09/01/2021, the patient remains intubated on a mechanical ventilator. Note that the patient presented to us into patient was completely unresponsive. The patient was brought into the emergency department and the patient was intubated and placed on a mechanical ventilator. Apparently, her sugars were low at home and the patient was treated accordingly. Blood sugars were fine in the hospital. The CAT scan of the brain showed no acute abnormalities and there was evidence of remote white matter ischemia. Overnight, the patient received hemodialysis of the chest x-ray from today shows marked improvement in the volume status. The patient has already missed hemodialysis earlier prior to her hospital admission. The chest x-ray from to day shows a right IJ permacath. ET tube is in a good location. The patient also has a permanent pacemaker in place. There is some atelectatic changes in the left lung base. Her blood pressure remains elevated and the patient is going to be started on Cleviprex for tighter blood pressure control. Meanwhile, earlier this morning, the patient was taken off propofol and unfortunately we haven't seen reasonable neurologic recovery yet. We are going to give the patient another few hours to evaluate her mental status. She remains on a mechanical ventilator on assist control mode at the rate of 20, tidal volume of 400, FiO2 of 40% with a PEEP of 5. Blood gases are excellent today shows a pO2 of 116, pH is at 7.47 with a pCO2 of 38. White cell count is at 6.9. Hemoglobin is 8.1 and the patient is chronically anemic. BN is a 33 with a creatinine of 5.1 and a potassium level is at 4.3. Electrodes are all within normal limits. No seizure activity has been noted. No fever. Hemodynamically, the patient is hypertensive. Urine output is 0. The patient is on IV orthotics. The patient is on subcu heparin. No antibiotics for now. Aspirin and Plavix have been resumed. Neuro workup was also initiated. The patient was seen by neurology. Carotid ultrasound showed a moderate to severe atherosclerotic changes involving the left internal carotid artery which is in the order of 50-69%. On 09/02/2021 patient seen in follow-up in the intensive care unit, patient still remains comatose, Diprivan has been on hold since 8:30 yesterday morning on 09/01/2021, patient has not regained consciousness, we are told by the nursing staff at times she'll open her eyes slightly, however I did not observe this. She does not follow any meaningful command, she does not withdraw from pain, she has no cough or gag reflex, corneal reflex, and positive Babinski reflex, current vent settings are assist control mode of ventilation with a rate of 20, tidal volume is 400, FiO2 of 40% and PEEP of 5, this morning's blood gas shows pO2 of 129, pCO2 of 39, and pH is 7.42, and FiO2 was subsequently dropped down to 30%, she is currently on 0.9 normal saline at a rate of 10 ML per hour, and Cleviprex is being weaned down and is currently to 1 mg/h, oral medications were added by cardiology, and patient is receiving Norvasc 5 mg daily, and hydralazine 25 mg 3 times a day. She is tolerating to feedings and she is receiving vital high protein at 45 ML per hour with standard water flushes, she had hemodialysis session yesterday and 1.5 L of fluid was removed. Today's chest x-ray showing PD and continued retrocardiac and left basilar opacity small effusion with adjacent atelectasis, with possible background of mild pulmonary vascular congestion similar to the previous exam. She has had no fever overnight, hemodynamically she has been stable requiring no vasopressor support, and her blood pressure has been much better controlled. No hypoglycemic events overnight. Blood cultures have shown no growth thus far, sputum culture showing many PMNs, many gram-positive cocci, few budding his, rare gram-negative bacilli, final culture is pending, today's labs showing white blood cell count of 7.4, hemoglobin of 8.4, sodium of 134, potassium is 4.7, chloride is 105, BUN of 31, creatinine is 4.16. LFTs were within normal limits, ammonia level was less than 9, troponin was 0.027 urinalysis on admission showed 2+ protein, but no definite sign of infection, urine drug screen was positive for tricyclic antidepressants, serum alcohol level was less than 10, COVID-19 PCR was negative. Her sepsis , is negative thus far, toxicology is negative, repeat brain scan was done yesterday going no acute intracranial abnormality, EEG showed severe LAD ground slowing suggestive of generalized cerebral dysfunction as can be seen with toxic metabolic encephalopathy. No epileptiform activity was noted. Neurology is following. Objective - Vital Signs Vital signs: Vital Signs Temp 97.2 F L 09/02/21 04:00 Pulse 77 09/02/21 08:00 Resp 20 09/02/21 08:00 BP 121/51 09/02/21 08:00 Pulse Ox 100 09/02/21 08:00 Intake & Output 09/01/21 09/02/21 09/02/21 18:59 06:59 18:59 Intake Total 613.662 750 140 Output Total 1510 0 10 Balance -896.338 750 130 Weight 104.5 kg Intake: IV 120 120 20 Sodium Chloride 0.9% 1, 120 120 20 000 ml @ 10 mls/hr IV . Q24H [facility] Rx#:[id number] Intake, IV Titration 28.662 Amount propofoL 1,000 mg In 28.662 Empty Bag 1 bag @ Titrate IV .Q0M [facility] Rx#: [id number] Oral 120 Tube Feeding 45 540 90 Hemodialysis 300 Other 90 30 Output: Urine 10 0 10 Hemodialysis 1500 Other: Voiding Method Indwelling Catheter Indwelling Catheter ABP, PAP, CO, CI - Last Documented Arterial Blood Pressure 153/70 - Exam GENERAL EXAM: Comatose intubated 76-year-old obese white female, on assist- control mode of ventilation with a rate of 20, tidal volume 400, FiO2 40% and PEEP 5 comfortable in no apparent distress. Patient has been off all sedation for the past 24 hours, has not regained consciousness, does not open eyes to voice or pain, does not follow any meaningful command, has no cough or gag reflex, does have a positive corneal reflex, does have a positive Babinski HEAD: Normocephalic/atraumatic. EYES: Normal reaction of pupils, equal size. Conjunctiva pink, sclera white. NOSE: Clear with pink turbinates. THROAT: No erythema or exudates. NECK: No masses, no JVD, no thyroid enlargement, no adenopathy. CHEST: No chest wall deformity. Symmetrical expansion. Right upper chest subclavian hemodialysis catheter in place LUNGS: Equal air entry with no crackles, wheeze, rhonchi or dullness. CVS: Regular rate and rhythm, normal S1 and S2, no gallops, no murmurs, no rubs ABDOMEN: Soft, nontender. No hepatosplenomegaly, normal bowel sounds, no guarding or rigidity. EXTREMITIES: No clubbing, no edema, no cyanosis, 2+ pulses and upper and lower extremities. MUSCULOSKELETAL: Muscle strength and tone normal. SPINE: No scoliosis or deformity SKIN: No rashes CENTRAL NERVOUS SYSTEM: Unresponsive. Patient has been off all sedation for the past 24 hours, has not regained consciousness, does not open eyes to voice or pain, does not follow any meaningful command, has no cough or gag reflex, does have a positive corneal reflex, does have a positive Babinski. - Labs CBC & Chem 7: 09/02/21 03:50 09/02/21 03:50 Labs: Abnormal Lab Results - Last 24 Hours (Table) 09/01/21 09/01/21 09/02/21 Range/Units 04:42 23:21 03:50 RBC 2.60 L (3.80-5.40) m/uL Hgb 8.4 L (11.4-16.0) gm/dL Hct 28.2 L (34.0-46.0) % MCV 108.1 H D (80.0-100.0) fL MCHC 29.9 L (31.0-37.0) g/dL Macrocytosis Marked A ABG pO2 (83-108) mmHg ABG Total CO2 (19-24) mmol/L ABG O2 Saturation (94-97) % Sodium (137-145) mmol/L BUN (7-17) mg/dL Creatinine (0.52-1.04) mg/dL Glucose (74-99) mg/dL POC Glucose (mg/dL) 141 H (75-99) mg/dL Calcium (8.4-10.2) mg/dL Iron 47 L (50-170) ug/dL TIBC 199 L (228-460) ug/dL Transferrin 142.0 L (204.0-354.0) mg/dL 09/02/21 09/02/21 09/02/21 Range/Units 03:50 05:15 05:51 RBC (3.80-5.40) m/uL Hgb (11.4-16.0) gm/dL Hct (34.0-46.0) % MCV (80.0-100.0) fL MCHC (31.0-37.0) g/dL Macrocytosis ABG pO2 129 H (83-108) mmHg ABG Total CO2 26 H (19-24) mmol/L ABG O2 Saturation 98.6 H (94-97) % Sodium 134 L (137-145) mmol/L BUN 31 H (7-17) mg/dL Creatinine 4.16 H (0.52-1.04) mg/dL Glucose 214 H (74-99) mg/dL POC Glucose (mg/dL) 203 H (75-99) mg/dL Calcium 7.8 L (8.4-10.2) mg/dL Iron (50-170) ug/dL TIBC (228-460) ug/dL Transferrin (204.0-354.0) mg/dL Microbiology - Last 24 Hours (Table) 08/31/21 11:27 Blood Culture - Preliminary Blood No Growth after 24 hours 08/31/21 11:11 Blood Culture - Preliminary Blood No Growth after 24 hours Assessment and Plan Plan: Assessment: #1. Unresponsiveness, with unknown downtime. Sepsis workup was negative, urine drug screen was negative. This is likely elated to prolonged hypoglycemia. Brain CT showed degenerative and nonspecific white matter changes typical of remote white matter ischemia. EEG showed severe background slowing, with no epileptiform discharges. Repeat brain CT showed no acute intracranial abnormality. Patient has not showed meaningful neurological improvement, has been off sedation since yesterday,still remains comatose #2. Hypertensive emergency, improved, and patient is currently being weaned off the Cleviprex infusion which is down to 1 mg per hour #3. Left Carotid stenosis of 50-69% #4. Acute hypoxic and likely hypercapnic respiratory failure related to the hypertensive emergency, and patient was intubated placed on mechanical ventilator in part due to altered mental status and protection of airway #5. End-stage renal disease on hemodialysis #6. Severe Obstructive sleep apnea on CPAP, with AHI index of 36.6 #7. Morbid obesity #8. Cardiomyopathy, with EF of 40-45%, status post dual-chamber by V pacemaker placement, and recent revision of the left epicardial lead, generator change and pocket revision in August 2020 #9. Hypertension #10. Hyperlipidemia #11. History of TIA #12. Diabetes mellitus type 2 #13. Degenerative arthritis #14. History of coronary artery disease Plan: Today's chest x-ray, labs and blood gases have been Reviewed brain CT results, EEG results carotid ultrasound results and Echo noted Patient remains unresponsive, with no significant improvement in neurological status Oxygenation is good, and Fio2 paul be dropped to 30% Sepsis work up is negative, urine drug screen is negative Patient receiving hemodialysis Blood pressure significantly improved Cleviprex is being weaned off No episodes of hypoglycemia overnight No fever, no leukocytosis Keep off all sedation Continue to monitor neurological status So far it seems the patient's neurological impairment may have been caused by prolonged hypoglycemia Tube feedings have been started and patient tolerating them very well We spoke to the son yesterday He wants to keep the patient Full Code and monitor for improvement Overall prognosis is very guarded Will continue to closely monitor in ICU I performed a history & physical examination of the patient and discussed their management with my nurse practitioner, Ofelia Bales. I reviewed the nurse practitioner's note and agree with the documented findings and plan of care. Lung sounds are positive for dim breath sounds throughout the lung baker. The findings and the impression was discussed with the patient. I attest to the documentation by the nurse practitioner. Time with Patient: Greater than 30
[2021-09-02 11:24] LABS: Glucose,Whole Blood 228 mg/dL (75-99)
[2021-09-02 13:47] LABS: T4, Free (Free Thyroxine) 2.12 ng/dL (0.78-2.19)
--- NOTE | 2021-09-02 14:11 | P.PCN ---
Date of Procedure: 09/02/21 Preoperative Diagnosis: acute hypoxic respiratory failure Postoperative Diagnosis: acute hypoxic respiratory failure Procedure(s) Performed: insertion of an arterial line Anesthesia: local Surgeon: Dara Grossman Estimated Blood Loss (ml): 0 Pathology: other Condition: critical Disposition: ICU Operative Findings: Indication: Hemodynamic monitoring. A time-out was completed verifying correct patient, procedure, site, positioning, and implant(s) or special equipment if applicable. Allens test was performed to ensure adequate perfusion. The patients left wrist was prepped and draped in sterile fashion. 1% Lidocaine was used to anesthetize the area. An 18G Arrow arterial line was introduced into the radial artery. The catheter was threaded over the guide wire and the needle was removed with appropriate pulsatile blood return. Blood loss was minimal. The catheter was then sutured in place to the skin and a sterile dressing applied. Perfusion to the extremity distal to the point of catheter insertion was checked and found to be adequate. The patient tolerated the procedure well and there were no complications.
--- NOTE | 2021-09-02 14:59 | P.PN ---
Subjective Progress Note Date: 09/02/21 Principal diagnosis: Arterial line placed today by pulmonary and critical care full hemodynamic monitoring. Patient on the vent with acute hypoxic respiratory failure. Lemus catheter Patient nonresponsive and sedated Patient on dialysis head today dialysis as well Progress note by Dr. Martinez date of service 09/02/2021. Patient seen in ICU [id number] Patient sedated unresponsive with a history of recurrent hypoglycemia prolonged with the effect on her brain arrived in the hospital with unresponsiveness. EEG still slow waves. Still continue her vital sign with 90 8.7F oral, pulse rate 86 and regular sinus respiratory rate 20 on the vent, blood pressure 121/45 controlled with a mean 70 Arterial line blood pressure 157/46, oxygen saturation 99 on 30% FiO2 Respiratory andtidal CO2 32/31 on the mechanical ventilator. ABGs today PH 7.42, pCO2 39, pO2 129, HCO3 25, total CO2 26, oxygen saturation 98.6, base excess 0.4, FiO2 40% CBC WBC 7.4, RBC 2.6, hemoglobin 8.4, hematocrit 28.2, MCV 108.1. Platelet count 301. With marketed hypochromasia and macrocytosis. Chemistry: The sodium 134 potassium 4.7, chloride 105 carbon dioxide 23, BUN 31 creatinine 4.16, GFR is 10, blood glucose in a.m. was 214 monitored with POC glucose has been 2 or 3 and 228. Her calcium 7.8, TSH 5.450 mildly elevated and elevated free T4 2 0.12. On exam: Patient sedated, appears to be comfortable, not fighting the ventilator, feeding tube in place, and she receiving oral nutrition. Closing her eyes Neck was supple Chest was radiated bilaterally with the endotracheal intubation and on the ventilator Heart regular sinus rhythm with a blood pressure control. Abdomen obese positive bowel sounds Extremities positive pulses and no edema. Neurologically: Patient nonresponsive, sedated, followed neurologically by Dr. Neumann neurologist. Assessment #1 end-stage renal disease on hemodialysis with the underlying diabetic nephropathy through [place] in right infraclavicular was placed by Dr. Ruben Mosley vascular surgeon. #2 diabetes mellitus type 2 with history of insulin, #3 hypoglycemia with unknown prolonged time that she had with the hypoglycemia, with the possible resulted in metabolic encephalopathy. #4 repeat computed tomography scan was negative of strokes. #5 thyroid abnormalities with normal free T4 with the possibility sick thyroid. #6 hypertension urgency on admission resolved. #7 hypochromic macrocytic anemia added to anemia of renal disease. Ruling out vitamin B12 deficiency, folic acid deficiency. Plan: We'll continue the current treatment designed by the pulmonary and critical care continue monitoring. Obtaining vitamin B12 level, folic acid level, homocysteine level, decided malonic acid level. Continuing supportive care with the hemodialysis, ventilator. Objective - Vital Signs Vital signs: Vital Signs Temp 98.7 F 09/02/21 12:00 Pulse 86 09/02/21 12:00 Resp 20 09/02/21 12:00 BP 121/45 09/02/21 12:00 Pulse Ox 99 09/02/21 12:00 Intake & Output 09/01/21 09/02/21 09/02/21 18:59 06:59 18:59 Intake Total 613.662 750 496.133 Output Total 1510 0 20 Balance -896.338 750 476.133 Weight 104.5 kg 103.3 kg Intake: IV 120 120 60 Sodium Chloride 0.9% 1, 120 120 60 000 ml @ 10 mls/hr IV . Q24H [facility] Rx#:[id number] Intake, IV Titration 28.662 48.133 Amount Clevidipine Butyrate 25 48.133 mg In Empty Bag 1 bag @ 1 MG/HR 2 mls/hr IV .Q24H [facility] Rx#:[id number] propofoL 1,000 mg In 28.662 Empty Bag 1 bag @ Titrate IV .Q0M [facility] Rx#: [id number] Oral 120 Tube Feeding 45 540 278 Hemodialysis 300 Other 90 110 Output: Urine 10 0 20 Hemodialysis 1500 Other: Voiding Method Indwelling Catheter Indwelling Catheter Indwelling Catheter ABP, PAP, CO, CI - Last Documented Arterial Blood Pressure 157/46 - Labs CBC & Chem 7: 09/02/21 03:50 09/02/21 03:50 Labs: Abnormal Lab Results - Last 24 Hours (Table) 09/01/21 09/01/21 09/02/21 Range/Units 04:42 23:21 03:50 RBC 2.60 L (3.80-5.40) m/uL Hgb 8.4 L (11.4-16.0) gm/dL Hct 28.2 L (34.0-46.0) % MCV 108.1 H D (80.0-100.0) fL MCHC 29.9 L (31.0-37.0) g/dL Macrocytosis Marked A ABG pO2 (83-108) mmHg ABG Total CO2 (19-24) mmol/L ABG O2 Saturation (94-97) % Sodium (137-145) mmol/L BUN (7-17) mg/dL Creatinine (0.52-1.04) mg/dL Glucose (74-99) mg/dL POC Glucose (mg/dL) 141 H (75-99) mg/dL Calcium (8.4-10.2) mg/dL Iron 47 L (50-170) ug/dL TIBC 199 L (228-460) ug/dL Transferrin 142.0 L (204.0-354.0) mg/dL TSH (0.465-4.680) mIU/L 09/02/21 09/02/21 09/02/21 Range/Units 03:50 05:15 05:51 RBC (3.80-5.40) m/uL Hgb (11.4-16.0) gm/dL Hct (34.0-46.0) % MCV (80.0-100.0) fL MCHC (31.0-37.0) g/dL Macrocytosis ABG pO2 129 H (83-108) mmHg ABG Total CO2 26 H (19-24) mmol/L ABG O2 Saturation 98.6 H (94-97) % Sodium 134 L (137-145) mmol/L BUN 31 H (7-17) mg/dL Creatinine 4.16 H (0.52-1.04) mg/dL Glucose 214 H (74-99) mg/dL POC Glucose (mg/dL) 203 H (75-99) mg/dL Calcium 7.8 L (8.4-10.2) mg/dL Iron (50-170) ug/dL TIBC (228-460) ug/dL Transferrin (204.0-354.0) mg/dL TSH (0.465-4.680) mIU/L 09/02/21 09/02/21 Range/Units 11:20 11:22 RBC (3.80-5.40) m/uL Hgb (11.4-16.0) gm/dL Hct (34.0-46.0) % MCV (80.0-100.0) fL MCHC (31.0-37.0) g/dL Macrocytosis ABG pO2 (83-108) mmHg ABG Total CO2 (19-24) mmol/L ABG O2 Saturation (94-97) % Sodium (137-145) mmol/L BUN (7-17) mg/dL Creatinine (0.52-1.04) mg/dL Glucose (74-99) mg/dL POC Glucose (mg/dL) 228 H (75-99) mg/dL Calcium (8.4-10.2) mg/dL Iron (50-170) ug/dL TIBC (228-460) ug/dL Transferrin (204.0-354.0) mg/dL TSH 5.450 H (0.465-4.680) mIU/L Microbiology - Last 24 Hours (Table) 08/31/21 11:11 Blood Culture - Preliminary Blood No Growth after 48 hours 08/31/21 11:27 Blood Culture - Preliminary Blood No Growth after 48 hours 08/31/21 11:27 Gram Stain - Final Sputum Sputum Culture - Final
[2021-09-02] MEDS: CLEVIDIPINE BUTYRATE 25 MG in EMPTY BAG 1 BAG IV SCH (16:08)
[2021-09-02 17:35] LABS: Glucose,Whole Blood 233 mg/dL (75-99)
--- NOTE | 2021-09-02 18:05 | PN ---
PROGRESS NOTE Patient is seen for followup for end-stage renal disease. Patient was dialyzed yesterday. We were not able to get much fluid. We did get about 1.5 L. Patient remains on the vent. Mentation has not improved yet. This morning blood pressure is slightly on the higher side, with systolic 157 to 151 mmHg. On examination this morning, blood pressure was 151/52, heart rate 85 per minute. She is afebrile. EXAMINATION OF THE HEART: S1 and S2. EXAMINATION OF LUNGS: Bilateral breath sounds are heard. Abdomen is soft, non-tender. Examination of lower extremities shows edema 1+ bilaterally. CONTROL OFFICER exam shows patient withdraws to pain, does not follow and does not track. Labs show sodium 134, potassium 4.7, chloride 105, BUN 31, creatinine 4.16, hemoglobin 8.4 g/dL. ASSESSMENT: 1. End-stage renal disease, on hemodialysis on a Sunday, , Sunday schedule. Patient had about 1.5 L of ultrafiltration yesterday. We will plan for another treatment today and patient will be dialyzed again tomorrow. Chest x-ray continues to show background pulmonary vascular congestion. 2. Mental status changes associated with hypoglycemia, not improving with correction of blood sugars. 3. Hypertensive emergency, now improved. 4. Chronic kidney disease mineral bone disorder. 5. Volume overload, slowly improving. PLAN: Hemodialysis today and then repeat dialysis again tomorrow. UF about 1-2 L today and tomorrow. MMODL / IJN: [id number] /
[2021-09-02] MEDS: ATORVASTATIN 40 MG TAB PO SCH (20:21)
[2021-09-02 22:59] LABS: Vitamin B12 >2000.0 pg/mL (200.0-944.0)
[2021-09-02 23:57] LABS: Glucose,Whole Blood 228 mg/dL (75-99)
[2021-09-03] MEDS: INSULIN ASPART (NovoLOG) 100 UNIT/ML VIAL SQ SCH ×4 (00:01→18:11)
--- NOTE | 2021-09-03 00:58 | P.PN ---
Subjective Progress Note Date: 09/02/21 Patient was seen for a follow-up. Patient continues to be intubated. Patient is off propofol since 8:30 AM on 09/01/2021. Patient not showing any clinical improvement. Objective - Vital Signs Vital signs: Vital Signs Temp 98.7 F 09/02/21 12:00 Pulse 86 09/02/21 12:00 Resp 20 09/02/21 12:00 BP 121/45 09/02/21 12:00 Pulse Ox 99 09/02/21 12:00 Intake & Output 09/01/21 09/02/21 09/02/21 18:59 06:59 18:59 Intake Total 613.662 750 496.133 Output Total 1510 0 20 Balance -896.338 750 476.133 Weight 104.5 kg 103.3 kg Intake: IV 120 120 60 Sodium Chloride 0.9% 1, 120 120 60 000 ml @ 10 mls/hr IV . Q24H [facility] Rx#:[id number] Intake, IV Titration 28.662 48.133 Amount Clevidipine Butyrate 25 48.133 mg In Empty Bag 1 bag @ 1 MG/HR 2 mls/hr IV .Q24H [facility] Rx#:[id number] propofoL 1,000 mg In 28.662 Empty Bag 1 bag @ Titrate IV .Q0M [facility] Rx#: [id number] Oral 120 Tube Feeding 45 540 278 Hemodialysis 300 Other 90 110 Output: Urine 10 0 20 Hemodialysis 1500 Other: Voiding Method Indwelling Catheter Indwelling Catheter ABP, PAP, CO, CI - Last Documented Arterial Blood Pressure 157/46 - Exam Patient is almost comatose. Patient slightly moves her right arm to painful stimulus, but not the left. No response in the lower limbs. Does not respond to calling her name. Her pupils are round and reacting sluggishly to light. Oculocephalics are slightly present. Corneals present. Face cannot be assessed. Lower cranial nerves can't be assessed. Tone is equal bilaterally. Reflexes are 1 in the upper limbs at biceps and brachioradialis, 0 at the knees and ankles and plantars are flat. - Labs CBC & Chem 7: 09/02/21 03:50 09/02/21 03:50 Labs: Abnormal Lab Results - Last 24 Hours (Table) 09/01/21 09/01/21 09/02/21 Range/Units 04:42 23:21 03:50 RBC 2.60 L (3.80-5.40) m/uL Hgb 8.4 L (11.4-16.0) gm/dL Hct 28.2 L (34.0-46.0) % MCV 108.1 H D (80.0-100.0) fL MCHC 29.9 L (31.0-37.0) g/dL Macrocytosis Marked A ABG pO2 (83-108) mmHg ABG Total CO2 (19-24) mmol/L ABG O2 Saturation (94-97) % Sodium (137-145) mmol/L BUN (7-17) mg/dL Creatinine (0.52-1.04) mg/dL Glucose (74-99) mg/dL POC Glucose (mg/dL) 141 H (75-99) mg/dL Calcium (8.4-10.2) mg/dL Iron 47 L (50-170) ug/dL TIBC 199 L (228-460) ug/dL Transferrin 142.0 L (204.0-354.0) mg/dL 09/02/21 09/02/21 09/02/21 Range/Units 03:50 05:15 05:51 RBC (3.80-5.40) m/uL Hgb (11.4-16.0) gm/dL Hct (34.0-46.0) % MCV (80.0-100.0) fL MCHC (31.0-37.0) g/dL Macrocytosis ABG pO2 129 H (83-108) mmHg ABG Total CO2 26 H (19-24) mmol/L ABG O2 Saturation 98.6 H (94-97) % Sodium 134 L (137-145) mmol/L BUN 31 H (7-17) mg/dL Creatinine 4.16 H (0.52-1.04) mg/dL Glucose 214 H (74-99) mg/dL POC Glucose (mg/dL) 203 H (75-99) mg/dL Calcium 7.8 L (8.4-10.2) mg/dL Iron (50-170) ug/dL TIBC (228-460) ug/dL Transferrin (204.0-354.0) mg/dL 09/02/21 Range/Units 11:22 RBC (3.80-5.40) m/uL Hgb (11.4-16.0) gm/dL Hct (34.0-46.0) % MCV (80.0-100.0) fL MCHC (31.0-37.0) g/dL Macrocytosis ABG pO2 (83-108) mmHg ABG Total CO2 (19-24) mmol/L ABG O2 Saturation (94-97) % Sodium (137-145) mmol/L BUN (7-17) mg/dL Creatinine (0.52-1.04) mg/dL Glucose (74-99) mg/dL POC Glucose (mg/dL) 228 H (75-99) mg/dL Calcium (8.4-10.2) mg/dL Iron (50-170) ug/dL TIBC (228-460) ug/dL Transferrin (204.0-354.0) mg/dL Microbiology - Last 24 Hours (Table) 08/31/21 11:27 Gram Stain - Final Sputum Sputum Culture - Final 08/31/21 11:27 Blood Culture - Preliminary Blood No Growth after 24 hours 08/31/21 11:11 Blood Culture - Preliminary Blood No Growth after 24 hours Assessment and Plan Assessment: * Unresponsiveness/comatose state of unclear etiology. Possible hypoglycemic encephalopathy. Patient was hypoglycemic with blood sugar reported at 50. Uncertain how long she was hypoglycemic. CT head showed no acute process. * Hypertensive emergency * Acute hypoxic respiratory failure, on mechanical ventilation now. * ESRD on hemodialysis * Presence of pacemaker * Obstructive sleep apnea * Cardiomyopathy * Hypertension * Hyperlipidemia * History of TIA * Diabetes * CAD. * Macrocytosis * B12, folate deficiency Plan: * Patient so far not showing any signs of clinical improvement. Continue to be comatose. Patient is off sedation since over 24 hours. * EEG 08/31/2021 revealed background slowing of severe degree, suggestive of generalized cerebral dysfunction as can be seen with toxic metabolic encephalopathy, or related to diffuse structural brain abnormality. No epileptiform activity was seen. * Repeat CT head 09/01/2021 showed no acute process. I personally reviewed the CT and agree with the findings. * Carotid Doppler revealed moderate to severe atherosclerotic changes greater on the left with persistent hemodynamically significant stenosis in the left ICA estimated 50-69% redemonstrated. Consider CTA or MRA. Underlying arrhythmia noted. Antegrade flow in both vertebral arteries. Patient currently on aspirin 81 mg, Plavix 75 mg. Consider vascular surgery consultation as outpatient. * Lipid panel from 06/14/2021 shows cholesterol 90, LDL 31, HDL 45 and tr iglycerides 66. Patient was on Lipitor 40 mg daily, which should be continued. * Treatment of underlying medical issues as per IM and critical care * Avoid any further episodes of hypoglycemia. IM to address insulin doses. * Patient has history of B12 and folate deficiency. We will start B12 and fol ate replacement. Repeat B12 385, folate 6.10. * Discussed with Dr. Gordon. * Dr. oRmo will resume neurology service in the morning. Please call neurology if any concerns.
[2021-09-03 03:47] LABS: Basophils % (A) 0 %; Eosinophils % (A) 1 %; HCT 25.6 % (34.0-46.0); HGB 7.5 gm/dL (11.4-16.0); Hypochromasia Marked; Lymphocytes # (A) 1.4 k/uL (1.0-4.8); Lymphocytes % (A) 17 %; MCH 31.5 pg (25.0-35.0); MCHC 29.3 g/dL (31.0-37.0); MCV 107.5 fL (80.0-100.0); Macrocytosis Moderate; Mean Platelet Volume 9.3; Monocytes # (A) 0.5 k/uL (0-1.0); Monocytes % (A) 7 %; Neutrophils % (A) 73 %; Platelet Count 249 k/uL (150-450); RBC 2.38 m/uL (3.80-5.40); RDW 14.3 % (11.5-15.5); WBC 8.2 k/uL (3.8-10.6)
[2021-09-03 04:27] LABS: Potassium 4.4 mmol/L (3.5-5.1)
[2021-09-03 04:56] LABS: ABG Base Excess 2.6 mmol/L; ABG HCO3 27 mmol/L (21-25); ABG Oxygen Saturation 97.9 % (94-97); ABG PCO2 38 mmHg (35-45); ABG PH 7.46 (7.35-7.45); ABG PO2 101 mmHg (83-108); ABG TCO2 28 mmol/L (19-24)
[2021-09-03 04:58] LABS: Allen Test Performed? no
[2021-09-03 06:19] LABS: Glucose,Whole Blood 221 mg/dL (75-99)
[2021-09-03] MEDS: LEVOTHYROXINE 25 MCG TAB PO SCH (06:19)
--- NOTE | 2021-09-03 06:46 | XR ---
EXAMINATION TYPE: XR chest 1V portable DATE OF EXAM: 09/03/2021 COMPARISON: 09/02/2021 HISTORY: ET tube placement TECHNIQUE: Single frontal view of the chest is obtained. FINDINGS: There is an ET tube 0.3 cm above the jacqueline. There has been no change in the NG tube or right-sided central venous catheter or 2-lead cardiac. There is opacity obscuring the left hemidiaphragm is stable and most likely represents combination of atelectasis and pleural effusion. The right lung is clear. There is no pneumothorax. The osseous structures are intact. IMPRESSION: ET tube 3.3 cm above the jacqueline. No change in the small opacity in the left lung base as described above.
[2021-09-03] MEDS: hydrALAZINE HCL 25 MG TAB PO SCH ×2 (08:13→21:18)
[2021-09-03] MEDS: HEPARIN SODIUM,PORCINE/PF 5,000 UNIT/0.5 ML SYRINGE SQ SCH ×2 (08:14→21:18)
[2021-09-03] MEDS: CYANOCOBALAMIN 1,000 MCG/ML 1 ML VIAL IM SCH (08:14)
[2021-09-03] MEDS: CHLORHEXIDINE GLUCONATE 15 ML CUP MUCOUS MEM SCH ×2 (08:14→21:18)
[2021-09-03] MEDS: FOLIC ACID 1 MG TAB PO SCH (08:15)
[2021-09-03] MEDS: CLOPIDOGREL 75 MG TAB PO SCH (08:15)
[2021-09-03] MEDS: amLODIPine 5 MG TAB PO SCH (08:15)
[2021-09-03] MEDS: ASPIRIN 81 MG PO SCH (08:15)
--- NOTE | 2021-09-03 10:55 | P.PN ---
Subjective Progress Note Date: 09/03/21 This is a 76-year-old female patient with multiple comorbidities, including left-sided chronic systolic CHF, cardiomyopathy with ejection fraction of 40- 45%, dual-chamber by V pacemaker implantation which was surgically revised, with a generator change, and pocket revision a year ago and left ventricular epicardial lead was implanted. History is also significant for insulin-dependent diabetes mellitus type 2, previous history of TIAs, hypertension, hyperlipidemia, end-stage renal disease, on hemodialysis, morbid obesity, obstructive sleep apnea with home CPAP, and degenerative osteoarthritis. She w as brought in to the emergency department on 08/31/2021 per EMS for unresponsiveness, it's unknown "alerted the 911, there is no family at the bedside. On arrival patient was completely unresponsive. She was found at home for an unknown period of down time. Blood sugar at the scene was 50, she re ceived 1 dose of 50% dextrose at the scene, repeat blood sugar was within normal limits, there was no improvement in the mental status. Her vital signs were otherwise stable except for hypertension with a systolic blood pressure in the 200s over 110s. Unknown trauma. Patient is unable to provide any form of history. Patient was intubated and placed on mechanical ventilator for protection of airway, she is currently on assist control mode of ventilation with a rate of 20, tidal vitamins 400, FiO2 of 100% and PEEP of 5, her chest x- ray showing diffuse interstitial pattern correlating for CHF versus interstitial pneumonia, dual lead cardiac device, no sizable pneumothorax. Brain CT showed degenerative and nonspecific faint white matter changes most typical of remote white matter ischemia. Admission blood work showed a white blood cell count of 11.4, hemoglobin of 9.2, INR was 0.9, BNP is still pending. Blood gas post intubation showed pO2 of greater than 400, pCO2 of 40, and pH of 7.42, this was done on the above-mentioned ventilator settings. Patient was given labetalol for blood pressure control, she was started on nitroglycerin infusion, Diprivan, she is on subcu heparin, her blood sugars being closely monitored, nephrology has been consulted for hemodialysis, and we were consulted for ICU management The patient is seen today 09/03/2021 in follow-up in the intensive care unit. She remains intubated on the mechanical ventilator. Current settings are assist-control mode at a rate of 20, tidal volume 400, FiO2 30% and a PEEP of 5. Arterial blood gases reveal a pO2 of 101. PCO2 38. PH 7.46. Chest x-ray reveals small opacity in the left lung base. Stable compared to previous. Nasogastric tube and endotracheal tube secured in place. White count 8.2. Hemoglobin 7.5. Sodium 135. Potassium 4.4. BUN 40. Creatinine 4.28. She is currently receiving hemodialysis. Blood cultures reveal no growth. Sputum culture revealed no growth. She is off sedation. She has been unresponsive. She has a downward gaze. She is felt to have significant hypoglycemic e ncephalopathy from possible prolonged downtime. She does not follow any commands. She does not withdraw from pain. She does have a cough with deep suctioning. No corneal reflex. Positive Babinski reflex. She is continued on aspirin, Plavix, statins. She had required clevidipine currently off. LFTs were within normal limits, ammonia level was less than 9, troponin was 0.027 urinalysis on admission showed 2+ protein, but no definite sign of infection, urine drug screen was positive for tricyclic antidepressants, serum alcohol level was less than 10, COVID-19 PCR was negative. EEGs reveal severe slowing suggestive of generalized cerebral dysfunction. Neurology is on the case. Suspected hypoglycemic encephalopathy. Being nourished with nutritional support via NG tube feedings. Objective - Vital Signs Vital signs: Vital Signs Temp 98.9 F 09/03/21 08:00 Pulse 82 09/03/21 08:00 Resp 20 09/03/21 08:00 BP 141/52 09/03/21 08:00 Pulse Ox 97 09/03/21 08:00 Intake & Output 09/02/21 09/03/21 09/03/21 18:59 06:59 18:59 Intake Total 937.700 852 215 Output Total 2020 0 0 Balance -1082.300 852 215 Weight 103.3 kg Intake: IV 150 156 26 Pressure Bag 30 36 6 Sodium Chloride 0.9% 1, 120 120 20 000 ml @ 10 mls/hr IV . Q24H [facility] Rx#:[id number] Intake, IV Titration 51.700 Amount Clevidipine Butyrate 25 51.700 mg In Empty Bag 1 bag @ 1 MG/HR 2 mls/hr IV .Q24H [facility] Rx#:[id number] Tube Feeding 596 636 159 Other 140 60 30 Output: Urine 20 0 0 Hemodialysis 1999 Other: Voiding Method Indwelling Catheter Indwelling Catheter ABP, PAP, CO, CI - Last Documented Arterial Blood Pressure 142/36 - Exam GENERAL EXAM: Reveals an intubated 76-year-old obese female patient, on assist- control mode of ventilation with a rate of 20, tidal volume 400, FiO2 30% and PEEP 5 comfortable in no apparent distress. Patient has been off all sedation for the past 48 hours, has not regained consciousness, does not open eyes to voice or pain, does not follow any meaningful command, has no cough or gag reflex, does have a positive corneal reflex, does have a positive Babinski HEAD: Normocephalic/atraumatic. EYES: Normal reaction of pupils, equal size. Conjunctiva pink, sclera white. NOSE: Clear with pink turbinates. THROAT: Oral endotracheal and gastric tube secured in place. No erythema or exudates. NECK: No masses, no JVD, no thyroid enlargement, no adenopathy. CHEST: No chest wall deformity. Symmetrical expansion. Right upper chest subclavian hemodialysis catheter in place LUNGS: Equal air entry with no crackles, wheeze, rhonchi or dullness. CVS: Regular rate and rhythm, normal S1 and S2, no gallops, no murmurs, no rubs ABDOMEN: Soft, nontender. No hepatosplenomegaly, normal bowel sounds, no guarding or rigidity. EXTREMITIES: No clubbing, no edema, no cyanosis, 2+ pulses and upper and lower extremities. MUSCULOSKELETAL: Muscle strength and tone normal. SPINE: No scoliosis or deformity SKIN: No rashes CENTRAL NERVOUS SYSTEM: Unresponsive. Patient has been off all sedation for the past 48 hours, has not regained consciousness, does not open eyes to voice or pain, does not follow any meaningful command, has no cough or gag reflex, does have a positive corneal reflex, does have a positive Babinski. - Labs CBC & Chem 7: 09/03/21 03:32 09/03/21 03:32 Labs: Abnormal Lab Results - Last 24 Hours (Table) 09/02/21 09/02/21 09/02/21 Range/Units 11:20 11:22 17:33 RBC (3.80-5.40) m/uL Hgb (11.4-16.0) gm/dL Hct (34.0-46.0) % MCV (80.0-100.0) fL MCHC (31.0-37.0) g/dL ABG pH (7.35-7.45) ABG HCO3 (21-25) mmol/L ABG Total CO2 (19-24) mmol/L ABG O2 Saturation (94-97) % Sodium (137-145) mmol/L BUN (7-17) mg/dL Creatinine (0.52-1.04) mg/dL Glucose (74-99) mg/dL POC Glucose (mg/dL) 228 H 233 H (75-99) mg/dL Calcium (8.4-10.2) mg/dL Vitamin B12 >2000.0 H (200.0-944.0) pg/mL TSH 5.450 H (0.465-4.680) mIU/L 09/02/21 09/03/21 09/03/21 Range/Units 23:55 03:32 03:32 RBC 2.38 L (3.80-5.40) m/uL Hgb 7.5 L (11.4-16.0) gm/dL Hct 25.6 L (34.0-46.0) % MCV 107.5 H (80.0-100.0) fL MCHC 29.3 L (31.0-37.0) g/dL ABG pH (7.35-7.45) ABG HCO3 (21-25) mmol/L ABG Total CO2 (19-24) mmol/L ABG O2 Saturation (94-97) % Sodium 135 L (137-145) mmol/L BUN 40 H (7-17) mg/dL Creatinine 4.28 H (0.52-1.04) mg/dL Glucose 192 H (74-99) mg/dL POC Glucose (mg/dL) 228 H (75-99) mg/dL Calcium 8.0 L (8.4-10.2) mg/dL Vitamin B12 (200.0-944.0) pg/mL TSH (0.465-4.680) mIU/L 09/03/21 09/03/21 Range/Units 04:53 06:17 RBC (3.80-5.40) m/uL Hgb (11.4-16.0) gm/dL Hct (34.0-46.0) % MCV (80.0-100.0) fL MCHC (31.0-37.0) g/dL ABG pH 7.46 H (7.35-7.45) ABG HCO3 27 H (21-25) mmol/L ABG Total CO2 28 H (19-24) mmol/L ABG O2 Saturation 97.9 H (94-97) % Sodium (137-145) mmol/L BUN (7-17) mg/dL Creatinine (0.52-1.04) mg/dL Glucose (74-99) mg/dL POC Glucose (mg/dL) 221 H (75-99) mg/dL Calcium (8.4-10.2) mg/dL Vitamin B12 (200.0-944.0) pg/mL TSH (0.465-4.680) mIU/L Microbiology - Last 24 Hours (Table) 08/31/21 11:11 Blood Culture - Preliminary Blood No Growth after 48 hours 08/31/21 11:27 Blood Culture - Preliminary Blood No Growth after 48 hours 08/31/21 11:27 Gram Stain - Final Sputum Sputum Culture - Final Assessment and Plan Assessment: 1 Unresponsiveness, with unknown downtime. Sepsis workup was negative, urine drug screen was negative. This is likely elated to prolonged hypoglycemia. Brain CT showed degenerative and nonspecific white matter changes typical of remote white matter ischemia. EEG showed severe background slowing, with no e pileptiform discharges. Repeat brain CT showed no acute intracranial abnormality. Patient has not showed meaningful neurological improvement, has been off sedation for greater than 48 hours,still remains comatose 2 Hypertensive emergency, improved, and patient is currently being weaned off the Cleviprex infusion which is down to 1 mg per hour 3 Left Carotid stenosis of 50-69% 4 Acute hypoxic and likely hypercapnic respiratory failure related to the hypertensive emergency, and patient was intubated placed on mechanical ventilator in part due to altered mental status and protection of airway 5 End-stage renal disease on hemodialysis 6 Severe Obstructive sleep apnea on CPAP, with AHI index of 36.6 7 Morbid obesity 8 Cardiomyopathy, with EF of 40-45%, status post dual-chamber by V pacemaker placement, and recent revision of the left epicardial lead, generator change and pocket revision in August 2020 9 Hypertension 10 Hyperlipidemia 11 History of TIA 12 Diabetes mellitus type 2 13 Degenerative arthritis 14 History of coronary artery disease Plan: The patient was seen and evaluated today Chest x-ray, ABGs and labs reviewed The patient remains unresponsive with no significant neurologic improvement Currently receiving hemodialysis Sepsis workup was negative EEG revealing severe slowing Probable hypoglycemic encephalopathy Continue with nutritional support and tube feedings Prognosis remains poor The family has been updated We will continue to follow and make further recommendations based on her clinical status Critical care time 36 minutes I, the cosigning physician, performed a history & physical examination of the patient. Lungs sounds with faint crackles in the posterior bases. Maintaining good O2 saturations in the 90s on 30% FiO2 with a PEEP of 5 via the mechanical ventilator. I discussed the assessment and plan of care with my nurse practitioner, Kristina Mcnally. I attest to the above note as dictated by her.
[2021-09-03] MEDS ORDERED: levETIRAcetam IV 1,500 MG in SALINE 1 100ML.BAG IVPB STA (11:28)
[2021-09-03 11:32] LABS: Glucose,Whole Blood 187 mg/dL (75-99)
--- NOTE | 2021-09-03 13:57 | P.PN ---
Subjective Progress Note Date: 09/03/21 The patient is a 76-year-old female who is seen in neurologic follow- up on September 03, 2021, via telemedicine. The patient's nurses at the bedside. She reports that the patient has no gag reflex and has not responded to any commands. She has been off sedation for 48 hours. She has been receiving dialysis, daily. Dialysis is currently in progress. The patient has had a CT scan of the brain which revealed no signs of acute hemorrhage or infarct. EEG has not shown any evidence of seizure activity. There was noted to be severe, diffuse slowing of the background rhythm, consistent with of toxic metabolic encephalopathy. In review of the chart, the patient has a negative sepsis workup. The patient was reportedly found down at home, with an unknown downtime. At the scene, her blood sugar was noted to be 36. Patient also had an episode of hypertensive emergency. She was intubated be cause of hypercapnic respiratory failure. Objective - Vital Signs Vital signs: Vital Signs Temp 98.9 F 09/03/21 08:00 Pulse 82 09/03/21 08:00 Resp 20 09/03/21 08:00 BP 141/52 09/03/21 08:00 Pulse Ox 97 09/03/21 08:00 Intake & Output 09/02/21 09/03/21 09/03/21 18:59 06:59 18:59 Intake Total 937.700 852 215 Output Total 2020 0 0 Balance -1082.300 852 215 Weight 103.3 kg Intake: IV 150 156 26 Pressure Bag 30 36 6 Sodium Chloride 0.9% 1, 120 120 20 000 ml @ 10 mls/hr IV . Q24H [facility] Rx#:[id number] Intake, IV Titration 51.700 Amount Clevidipine Butyrate 25 51.700 mg In Empty Bag 1 bag @ 1 MG/HR 2 mls/hr IV .Q24H [facility] Rx#:[id number] Tube Feeding 596 636 159 Other 140 60 30 Output: Urine 20 0 0 Hemodialysis 1999 Other: Voiding Method Indwelling Catheter Indwelling Catheter ABP, PAP, CO, CI - Last Documented Arterial Blood Pressure 142/36 - Exam Gen.: The patient is reclining in the bed. She is intubated. There is no obvious facial asymmetry. HEENT: Head is atraumatic, normocephalic. Fundus not visualized. There is no scleral icterus. Mucous membranes are moist. Heart: Regular rate and rhythm Lungs: The patient is not breathing over the vent. Neurologic examination Mental status: The patient is unresponsive to verbal stimulation. She does withdraw bilateral upper extremities from noxious stimulation. She follows no commands. Cranial nerves: Pupils are equal at 3 mm, and reactive. When eyelids are passively held open, there are noted to be roving eye movements. Initially these eyes movements deviate all the way to the right and all the way to the left. On subsequent evaluation, the eye movements deviate only to the left and return to the midline. There is no blink to visual threat. Corneal reflexes are absent. There is no obvious facial asymmetry. The patient's tongue is protruded from her mouth, to the left. Motor: There is no spontaneous movement of the extremities. Sensation: The patient withdraws bilateral upper extremities, from noxious stimulation. There is no withdrawal of the lower extremities. - Labs CBC & Chem 7: 09/03/21 03:32 09/03/21 03:32 Labs: Abnormal Lab Results - Last 24 Hours (Table) 09/02/21 09/02/21 09/02/21 Range/Units 11:20 17:33 23:55 RBC (3.80-5.40) m/uL Hgb (11.4-16.0) gm/dL Hct (34.0-46.0) % MCV (80.0-100.0) fL MCHC (31.0-37.0) g/dL ABG pH (7.35-7.45) ABG HCO3 (21-25) mmol/L ABG Total CO2 (19-24) mmol/L ABG O2 Saturation (94-97) % Sodium (137-145) mmol/L BUN (7-17) mg/dL Creatinine (0.52-1.04) mg/dL Glucose (74-99) mg/dL POC Glucose (mg/dL) 233 H 228 H (75-99) mg/dL Calcium (8.4-10.2) mg/dL Vitamin B12 >2000.0 H (200.0-944.0) pg/mL TSH 5.450 H (0.465-4.680) mIU/L 09/03/21 09/03/21 09/03/21 Range/Units 03:32 03:32 04:53 RBC 2.38 L (3.80-5.40) m/uL Hgb 7.5 L (11.4-16.0) gm/dL Hct 25.6 L (34.0-46.0) % MCV 107.5 H (80.0-100.0) fL MCHC 29.3 L (31.0-37.0) g/dL ABG pH 7.46 H (7.35-7.45) ABG HCO3 27 H (21-25) mmol/L ABG Total CO2 28 H (19-24) mmol/L ABG O2 Saturation 97.9 H (94-97) % Sodium 135 L (137-145) mmol/L BUN 40 H (7-17) mg/dL Creatinine 4.28 H (0.52-1.04) mg/dL Glucose 192 H (74-99) mg/dL POC Glucose (mg/dL) (75-99) mg/dL Calcium 8.0 L (8.4-10.2) mg/dL Vitamin B12 (200.0-944.0) pg/mL TSH (0.465-4.680) mIU/L 09/03/21 Range/Units 06:17 RBC (3.80-5.40) m/uL Hgb (11.4-16.0) gm/dL Hct (34.0-46.0) % MCV (80.0-100.0) fL MCHC (31.0-37.0) g/dL ABG pH (7.35-7.45) ABG HCO3 (21-25) mmol/L ABG Total CO2 (19-24) mmol/L ABG O2 Saturation (94-97) % Sodium (137-145) mmol/L BUN (7-17) mg/dL Creatinine (0.52-1.04) mg/dL Glucose (74-99) mg/dL POC Glucose (mg/dL) 221 H (75-99) mg/dL Calcium (8.4-10.2) mg/dL Vitamin B12 (200.0-944.0) pg/mL TSH (0.465-4.680) mIU/L Microbiology - Last 24 Hours (Table) 08/31/21 11:11 Blood Culture - Preliminary Blood No Growth after 48 hours 08/31/21 11:27 Blood Culture - Preliminary Blood No Growth after 48 hours 08/31/21 11:27 Gram Stain - Final Sputum Sputum Culture - Final Assessment and Plan Assessment: 1. Altered mental status, thought to be secondary to hypoglycemic encephalopathy. Initial EEG did not reveal any epileptiform activity. There is diffuse, severe slowing. Examination today reveals roving eye movements, and absent corneal reflexes. Although, roving eye movements are very commonly seen in hypoglycemic encephalopathy, I am concerned about nonconvulsive status epilepticus, in light of the left-sided eye movements. Prognosis is poor. Plan: 1. Keppra 1500 mg IV piggyback has been ordered for possible status epilepticus 2. Will reassess the patient tomorrow morning, after she has received Keppra. 3. We will order repeat EEG to be done, Sunday, as there are no EEG techs available this weekend. Time with Patient: Less than 30 (spent 25 minutes of ICU time, with the patient via telemedicine)
--- NOTE | 2021-09-03 15:08 | P.PN ---
Subjective Progress Note Date: 09/03/21 (Hypoglycemic encephalopathy, end-stage renal disease on hemodialysis, ) Progress note Date of service 09/03/2021, ICU. Dictation by Dr. Michelle Barragan [facility]. Patient seen [id number] in the ICU and discussed with her nurse RN Patient has several round with the neurologist [id number] as well as through telemetry medicine with no progression or and still unresponsive with the no respond to the cranial stimuli or gag reflex or movement. Patient supported by ventilator and intubation. Family awareness with the current situation with no response, the daughter and the sounds making the decision, patient will have another EEG on Sunday she had several computed tomography scan nondiagnostic no strokes. And the EEG prior has been done was slow waves. No evidence of infection. The hypertension urgency has resolved, continued on dialysis and she had dialysis yesterday and today as well with the supporting the renal function with end-stage renal disease. The hypoglycemia was found to be at home 36 however we don't know how long she has been hypoglycemic as she found by her friend and subsequently the EMS in the situation and conscious. Patient plays on supported medication however no improvement since admission. On exam [id number] The head was normocephalic and atraumatic, no gag reflex tongue is protruded and she is intubated and on managed by the critical care, on ventilator and also feeding tube through the mouth loss chest x-ray was negative. No evidence of infection she appeared to be sleeping comfortable. Neck was supple, she had volume overload and a full out fluid with the dialysis yesterday and today. Chest was ventilated with the machine Heart she had a pacemaker and she has supported regular sinus. Her temperature today 90 6.8FL her heart rate 85/m respiratory rate 20, blood pressure 139/55 with the oxygen saturation 97% and respiratory andtidal carbon dioxide 32, on mechanical ventilation. Abdomen distended. Positive bowel sounds. Extremities soft tissue edema and edema, pulses intact with perfusion. Reflexes is absent. Assessment: Patient appears to be no breathing function with the hypoglycemic encephalopathy with unknown prolonged hypoglycemia. Prognosis extremely poor and guarded. End-stage renal disease on hemodialysis. Pacemaker Diabetes mellitus. Diabetes insulin-dependent with the hypoglycemic episodes,. History of hypothyroidism Hypertension with hypertensive heart disease and cardiomegaly currently stable hypertension. Hyperlipidemia Diabetic neuropathy and diabetic nephropathy. Plan: #1 continue supportive care #2 neurological evaluation continued with the future plan for EEG and Sunday #3 waiting for family decision with the involvement of hair daughters and sons. #4 continuing the dialysis #5 continuing the mechanical ventilator. #6 which she was placed on medication and today seizures and medication to help her anemia of renal disease to be continue #7 prognosis is poor Objective - Vital Signs Vital signs: Vital Signs Temp 96.8 F L 09/03/21 12:31 Pulse 85 09/03/21 14:00 Resp 20 09/03/21 14:00 BP 139/55 09/03/21 14:00 Pulse Ox 97 09/03/21 14:00 Intake & Output 09/02/21 09/03/21 09/03/21 18:59 06:59 18:59 Intake Total 937.700 852 611 Output Total 2020 0 4000 Balance -1082.300 852 -3389 Weight 103.3 kg Intake: IV 150 156 104 Pressure Bag 30 36 24 Sodium Chloride 0.9% 1, 120 120 80 000 ml @ 10 mls/hr IV . Q24H [facility] Rx#:[id number] Intake, IV Titration 51.700 Amount Clevidipine Butyrate 25 51.700 mg In Empty Bag 1 bag @ 1 MG/HR 2 mls/hr IV .Q24H [facility] Rx#:[id number] Tube Feeding 596 636 477 Other 140 60 30 Output: Urine 20 0 0 Hemodialysis 1999 Other: Voiding Method Indwelling Catheter Indwelling Catheter Indwelling Catheter ABP, PAP, CO, CI - Last Documented Arterial Blood Pressure 135/35 - Labs CBC & Chem 7: 09/03/21 03:32 09/03/21 03:32 Labs: Abnormal Lab Results - Last 24 Hours (Table) 09/02/21 09/02/21 09/02/21 Range/Units 11:20 17:33 23:55 RBC (3.80-5.40) m/uL Hgb (11.4-16.0) gm/dL Hct (34.0-46.0) % MCV (80.0-100.0) fL MCHC (31.0-37.0) g/dL ABG pH (7.35-7.45) ABG HCO3 (21-25) mmol/L ABG Total CO2 (19-24) mmol/L ABG O2 Saturation (94-97) % Sodium (137-145) mmol/L BUN (7-17) mg/dL Creatinine (0.52-1.04) mg/dL Glucose (74-99) mg/dL POC Glucose (mg/dL) 233 H 228 H (75-99) mg/dL Calcium (8.4-10.2) mg/dL Vitamin B12 >2000.0 H (200.0-944.0) pg/mL 09/03/21 09/03/21 09/03/21 Range/Units 03:32 03:32 04:53 RBC 2.38 L (3.80-5.40) m/uL Hgb 7.5 L (11.4-16.0) gm/dL Hct 25.6 L (34.0-46.0) % MCV 107.5 H (80.0-100.0) fL MCHC 29.3 L (31.0-37.0) g/dL ABG pH 7.46 H (7.35-7.45) ABG HCO3 27 H (21-25) mmol/L ABG Total CO2 28 H (19-24) mmol/L ABG O2 Saturation 97.9 H (94-97) % Sodium 135 L (137-145) mmol/L BUN 40 H (7-17) mg/dL Creatinine 4.28 H (0.52-1.04) mg/dL Glucose 192 H (74-99) mg/dL POC Glucose (mg/dL) (75-99) mg/dL Calcium 8.0 L (8.4-10.2) mg/dL Vitamin B12 (200.0-944.0) pg/mL 09/03/21 09/03/21 Range/Units 06:17 11:29 RBC (3.80-5.40) m/uL Hgb (11.4-16.0) gm/dL Hct (34.0-46.0) % MCV (80.0-100.0) fL MCHC (31.0-37.0) g/dL ABG pH (7.35-7.45) ABG HCO3 (21-25) mmol/L ABG Total CO2 (19-24) mmol/L ABG O2 Saturation (94-97) % Sodium (137-145) mmol/L BUN (7-17) mg/dL Creatinine (0.52-1.04) mg/dL Glucose (74-99) mg/dL POC Glucose (mg/dL) 221 H 187 H (75-99) mg/dL Calcium (8.4-10.2) mg/dL Vitamin B12 (200.0-944.0) pg/mL Microbiology - Last 24 Hours (Table) 08/31/21 11:27 Blood Culture - Preliminary Blood No Growth after 72 hours 08/31/21 11:11 Blood Culture - Preliminary Blood No Growth after 72 hours 08/31/21 11:27 Gram Stain - Final Sputum Sputum Culture - Final
--- NOTE | 2021-09-03 15:42 | PN ---
PROGRESS NOTE Patient is seen for followup for end-stage renal disease. She is currently seen on hemodialysis, tolerating her treatment well. We are going for about 2 L of ultrafiltration. On examination today, blood pressure 135/35, heart rate 85 per minute. Patient is afebrile. She remains on the vent. FiO2 is at 30%. No improvement in mentation noted. On examination bilateral breath sounds are heard. Heart sounds are heard. Abdomen is soft, non-tender. Examination of lower extremities shows no significant edema. Labs show sodium 135, potassium 4.4, BUN 40, creatinine 4.28, hemoglobin 7.5 g/dL. ASSESSMENT: 1. End-stage renal disease, on hemodialysis on a Sunday, , Sunday schedule, currently being dialyzed. We will plan for a treatment again on Sunday09/06/2021. 2. Encephalopathy associated with hypoglycemia, being followed by Neurology. Mentation has not improved after correction of the hypoglycemia. 3. Volume overload, currently improved. 4. Hypertension with hypertensive emergency on initial admission, currently improved, partly volume-sensitive. PLAN: Hemodialysis today. Goal UF about 2 L. Will plan again on 09/06/2021. MMODL / IJN: [id number] /
[2021-09-03 17:53] LABS: Glucose,Whole Blood 239 mg/dL (75-99)
[2021-09-03] MEDS: levETIRAcetam IV 500 MG in SODIUM CHLORIDE 0.9% 100 ML IVPB SCH (21:17)
[2021-09-03] MEDS: ATORVASTATIN 40 MG TAB PO SCH (21:18)
[2021-09-04 00:21] LABS: Glucose,Whole Blood 233 mg/dL (75-99)
[2021-09-04] MEDS: INSULIN ASPART (NovoLOG) 100 UNIT/ML VIAL SQ SCH ×4 (00:21→17:18)
[2021-09-04 05:11] LABS: ABG Base Excess 1.5 mmol/L; ABG HCO3 26 mmol/L (21-25); ABG Oxygen Saturation 98.2 % (94-97); ABG PCO2 38 mmHg (35-45); ABG PH 7.44 (7.35-7.45); ABG PO2 109 mmHg (83-108); ABG TCO2 27 mmol/L (19-24); Allen Test Performed? Yes
[2021-09-04 05:51] LABS: Glucose,Whole Blood 171 mg/dL (75-99)
--- NOTE | 2021-09-04 06:41 | XR ---
EXAMINATION TYPE: XR chest 1V portable DATE OF EXAM: 09/04/2021 COMPARISON: 09/03/2021 HISTORY: Shortness of breath TECHNIQUE: Single frontal view of the chest is obtained. FINDINGS: A small opacity obscuring the left hemidiaphragm is unchanged most likely represents small pleural effusion. Pulmonary vasculature remains mildly congested. There is no pneumothorax. The heart size is normal. The ET tube is 4.2 cm above the jacqueline. There is been no change in the right-sided central venous cat heter IMPRESSION: Small left pleural effusion and mild pulmonary vascular congestion, unchanged compared t o previous.
[2021-09-04] MEDS: LEVOTHYROXINE 25 MCG TAB PO SCH (06:44)
[2021-09-04] MEDS: CHLORHEXIDINE GLUCONATE 15 ML CUP MUCOUS MEM SCH ×2 (08:35→21:18)
[2021-09-04] MEDS: hydrALAZINE HCL 25 MG TAB PO SCH ×2 (08:35→21:19)
[2021-09-04] MEDS: CYANOCOBALAMIN 1,000 MCG/ML 1 ML VIAL IM SCH (08:35)
[2021-09-04] MEDS: ASPIRIN 81 MG PO SCH (08:35)
[2021-09-04] MEDS: FOLIC ACID 1 MG TAB PO SCH (08:35)
[2021-09-04] MEDS: levETIRAcetam IV 500 MG in SODIUM CHLORIDE 0.9% 100 ML IVPB SCH ×2 (08:35→21:19)
[2021-09-04] MEDS: CLOPIDOGREL 75 MG TAB PO SCH (08:35)
[2021-09-04] MEDS: amLODIPine 5 MG TAB PO SCH ×2 (08:35→21:19)
[2021-09-04] MEDS: HEPARIN SODIUM,PORCINE/PF 5,000 UNIT/0.5 ML SYRINGE SQ SCH ×2 (08:38→21:18)
--- NOTE | 2021-09-04 10:03 | P.PN ---
Subjective Progress Note Date: 09/04/21 This is a 76-year-old female patient with multiple comorbidities, including left-sided chronic systolic CHF, cardiomyopathy with ejection fraction of 40- 45%, dual-chamber by V pacemaker implantation which was surgically revised, with a generator change, and pocket revision a year ago and left ventricular e picardial lead was implanted. History is also significant for insulin-dependent diabetes mellitus type 2, previous history of TIAs, hypertension, hyperlipidemia, end-stage renal disease, on hemodialysis, morbid obesity, obstructive sleep apnea with home CPAP, and degenerative osteoarthritis. She wa s brought in to the emergency department on 08/31/2021 per EMS for unresponsiveness, it's unknown "alerted the 911, there is no family at the bedside. On arrival patient was completely unresponsive. She was found at home for an unknown period of down time. Blood sugar at the scene was 50, she rec eived 1 dose of 50% dextrose at the scene, repeat blood sugar was within normal limits, there was no improvement in the mental status. Her vital signs were otherwise stable except for hypertension with a systolic blood pressure in the 200s over 110s. Unknown trauma. Patient is unable to provide any form of history. Patient was intubated and placed on mechanical ventilator for protection of airway, she is currently on assist control mode of ventilation with a rate of 20, tidal vitamins 400, FiO2 of 100% and PEEP of 5, her chest x- ray showing diffuse interstitial pattern correlating for CHF versus interstitial pneumonia, dual lead cardiac device, no sizable pneumothorax. Brain CT showed d egenerative and nonspecific faint white matter changes most typical of remote white matter ischemia. Admission blood work showed a white blood cell count of 11.4, hemoglobin of 9.2, INR was 0.9, BNP is still pending. Blood gas post intubation showed pO2 of greater than 400, pCO2 of 40, and pH of 7.42, this was done on the above-mentioned ventilator settings. Patient was given labetalol for blood pressure control, she was started on nitroglycerin infusion, Diprivan, she is on subcu heparin, her blood sugars being closely monitored, nephrology has been consulted for hemodialysis, and we were consulted for ICU management On today's evaluation of 09/01/2021, the patient remains intubated on a mechanical ventilator. Note that the patient presented to us into patient was completely unresponsive. The patient was brought into the emergency department and the patient was intubated and placed on a mechanical ventilator. Apparently, her sugars were low at home and the patient was treated accordingly. Blood sugars were fine in the hospital. The CAT scan of the brain showed no acute abnormalities and there was evidence of remote white matter ischemia. Overnight, the patient received hemodialysis of the chest x-ray from today shows marked improvement in the volume status. The patient has already missed hemodialysis earlier prior to her hospital admission. The chest x-ray from to day shows a right IJ permacath. ET tube is in a good location. The patient also has a permanent pacemaker in place. There is some atelectatic changes in the left lung base. Her blood pressure remains elevated and the patient is going to be started on Cleviprex for tighter blood pressure control. Meanwhile, earlier this morning, the patient was taken off propofol and unfortunately we haven't seen reasonable neurologic recovery yet. We are going to give the patient another few hours to evaluate her mental status. She remains on a mechanical ventilator on assist control mode at the rate of 20, tidal volume of 400, FiO2 of 40% with a PEEP of 5. Blood gases are excellent today shows a pO2 of 116, pH is at 7.47 with a pCO2 of 38. White cell count is at 6.9. Hemoglobin is 8.1 and the patient is chronically anemic. BN is a 33 with a creatinine of 5.1 and a potassium level is at 4.3. Electrodes are all within normal limits. No seizure activity has been noted. No fever. Hemodynamically, the patient is hypertensive. Urine output is 0. The patient is on IV orthotics. The patient is on subcu heparin. No antibiotics for now. Aspirin and Plavix have been resumed. Neuro workup was also initiated. The patient was seen by neurology. Carotid ultrasound showed a moderate to severe atherosclerotic changes involving the left internal carotid artery which is in the order of 50-69%. On 09/02/2021 patient seen in follow-up in the intensive care unit, patient still remains comatose, Diprivan has been on hold since 8:30 yesterday morning on 09/01/2021, patient has not regained consciousness, we are told by the nursing staff at times she'll open her eyes slightly, however I did not observe this. She does not follow any meaningful command, she does not withdraw from pain, she has no cough or gag reflex, corneal reflex, and positive Babinski reflex, current vent settings are assist control mode of ventilation with a rate of 20, tidal volume is 400, FiO2 of 40% and PEEP of 5, this morning's blood gas shows pO2 of 129, pCO2 of 39, and pH is 7.42, and FiO2 was subsequently dropped down to 30%, she is currently on 0.9 normal saline at a rate of 10 ML per hour, and Cleviprex is being weaned down and is currently to 1 mg/h, oral medications were added by cardiology, and patient is receiving Norvasc 5 mg daily, and hydralazine 25 mg 3 times a day. She is tolerating to feedings and she is receiving vital high protein at 45 ML per hour with standard water flushes, she had hemodialysis session yesterday and 1.5 L of fluid was removed. Today's chest x-ray showing PD and continued retrocardiac and left basilar opacity small effusion with adjacent atelectasis, with possible background of mild pulmonary vascular congestion similar to the previous exam. She has had no fever overnight, hemodynamically she has been stable requiring no vasopressor support, and her blood pressure has been much better controlled. No hypoglycemic events overnight. Blood cultures have shown no growth thus far, sputum culture showing many PMNs, many gram-positive cocci, few budding his, rare gram-negative bacilli, final culture is pending, today's labs showing white blood cell count of 7.4, hemoglobin of 8.4, sodium of 134, potassium is 4.7, chloride is 105, BUN of 31, creatinine is 4.16. LFTs were within normal limits, ammonia level was less than 9, troponin was 0.027 urinalysis on admission showed 2+ protein, but no definite sign of infection, urine drug screen was positive for tricyclic antidepressants, serum alcohol level was less than 10, COVID-19 PCR was negative. Her sepsis , is negative thus far, toxicology is negative, repeat brain scan was done yesterday going no acute intracranial abnormality, EEG showed severe LAD ground slowing suggestive of generalized cerebral dysfunction as can be seen with toxic metabolic encephalopathy. No epileptiform activity was noted. Neurology is following. On today's evaluation on 09/04/2021 patient is seen in follow-up in intensive care unit, she remains intubated on mechanical ventilator, with assist control mode of ventilation with a rate of 20, tidal volume is 400, FiO2 of 30% and PEEP of 5, today's blood gas shows pO2 of 109, pCO2 of 38, and pH of 7.44, and this was done on the above-mentioned ventilator settings. Today's chest x-ray shows small left pleural effusion and mild pulmonary vessel congestion, ET tube 4.2 cm above the jacqueline, overall stable findings, compared the previous chest x-ray. Today's labs are still pending right now. Neurologically patient has not had any improvement in her neurological status, still remains unresponsive, does not open eyes to voice or pain, does not withdraw from pain, no cough or gag reflex does not breathing over the vent, she does have a positive corneal reflex, and positive Babinski. Does have a downward gaze when we open her eyes. She has been off sedation for greater than 72 hours at this point. Last CT of the brain on 09/01/2021 showed no acute intracranial endings, EEG showed severe slowing. Vital signs have been stable, no fever or chills, patient is in sinus mechanism not requiring any vasopressors, blood pressure has been stable. Blood and sputum cultures have shown no growth, patient has been receiving hemodialysis, she was dialyzed yesterday with removal of 2 L of fluid. Vital HP is going at 53 ML per hour which is goal, and patient is tolerating tube feedings well. Blood sugar is being closely monitored, and patient has not had any hypoglycemic events since admission. Objective - Vital Signs Vital signs: Vital Signs Temp 98.6 F 09/04/21 08:00 Pulse 80 09/04/21 09:00 Resp 20 09/04/21 09:00 BP 162/60 09/04/21 09:00 Pulse Ox 100 09/04/21 09:00 Intake & Output 09/03/21 09/04/21 09/04/21 18:59 06:59 18:59 Intake Total 875 899 318 Output Total 4000 0 0 Balance -3125 899 318 Weight 100.4 kg Intake: IV 156 156 39 Pressure Bag 36 36 9 Sodium Chloride 0.9% 1, 120 120 30 000 ml @ 10 mls/hr IV . Q24H [facility] Rx#:[id number] Intake, IV Titration 100 Amount levETIRAcetam IV 500 mg 100 In Sodium Chloride 0.9% 100 ml @ 400 mls/hr IVPB Q12HR [facility] Rx#:[id number] Tube Feeding 689 583 159 Other 30 60 120 Output: Urine 0 0 0 Hemodialysis 1999 Other: Voiding Method Indwelling Catheter # Bowel Movements 1 ABP, PAP, CO, CI - Last Documented Arterial Blood Pressure 182/44 - Exam GENERAL EXAM: Comatose intubated 76-year-old obese white female, on assist- control mode of ventilation with a rate of 20, tidal volume 400, FiO2 30% and PEEP 5 comfortable in no apparent distress. Patient has been off all sedation for the past 24 hours, has not regained consciousness, does not open eyes to voice or pain, does not follow any meaningful command, has no cough or gag reflex, does have a positive corneal reflex, does have a positive Babinski HEAD: Normocephalic/atraumatic. EYES: Normal reaction of pupils, equal size. Conjunctiva pink, sclera white. NOSE: Clear with pink turbinates. THROAT: No erythema or exudates. NECK: No masses, no JVD, no thyroid enlargement, no adenopathy. CHEST: No chest wall deformity. Symmetrical expansion. Right upper chest subclavian hemodialysis catheter in place LUNGS: Equal air entry with no crackles, wheeze, rhonchi or dullness. CVS: Regular rate and rhythm, normal S1 and S2, no gallops, no murmurs, no rubs ABDOMEN: Soft, nontender. No hepatosplenomegaly, normal bowel sounds, no guarding or rigidity. EXTREMITIES: No clubbing, no edema, no cyanosis, 2+ pulses and upper and lower extremities. MUSCULOSKELETAL: Muscle strength and tone normal. SPINE: No scoliosis or deformity SKIN: No rashes CENTRAL NERVOUS SYSTEM: Unresponsive. Patient has been off all sedation for the past 24 hours, has not regained consciousness, does not open eyes to voice or pain, does not follow any meaningful command, has no cough or gag reflex, does have a positive corneal reflex, does have a positive Babinski. - Labs CBC & Chem 7: 09/03/21 03:32 09/03/21 03:32 Labs: Abnormal Lab Results - Last 24 Hours (Table) 09/03/21 09/03/21 09/04/21 Range/Units 11:29 17:50 00:19 ABG pO2 (83-108) mmHg ABG HCO3 (21-25) mmol/L ABG Total CO2 (19-24) mmol/L ABG O2 Saturation (94-97) % POC Glucose (mg/dL) 187 H 239 H 233 H (75-99) mg/dL 09/04/21 09/04/21 Range/Units 05:08 05:50 ABG pO2 109 H (83-108) mmHg ABG HCO3 26 H (21-25) mmol/L ABG Total CO2 27 H (19-24) mmol/L ABG O2 Saturation 98.2 H (94-97) % POC Glucose (mg/dL) 171 H (75-99) mg/dL Microbiology - Last 24 Hours (Table) 08/31/21 11:27 Blood Culture - Preliminary Blood No Growth after 72 hours 08/31/21 11:11 Blood Culture - Preliminary Blood No Growth after 72 hours Assessment and Plan Plan: Assessment: #1. Unresponsiveness, with unknown downtime, severe hypoglycemic encephalopathy related to prolonged hypoglycemia. Sepsis workup was negative, urine drug screen was negative. Brain CT showed degenerative and nonspecific white matter changes typical of remote white matter ischemia. EEG showed severe background slowing, with no epileptiform discharges. Repeat brain CT showed no acute intracranial abnormality. Patient has not showed meaningful neurological improvement, has been off sedation for greater than 72 hours. His unresponsive on 09/04/2021 without improvement in her neurological status. #2. Hypertensive emergency, improved, and patient off Cleviprex #3. Left Carotid stenosis of 50-69% #4. Acute hypoxic and likely hypercapnic respiratory failure related to the hypertensive emergency, and patient was intubated placed on mechanical ventilator in part due to altered mental status and protection of airway #5. End-stage renal disease on hemodialysis #6. Severe Obstructive sleep apnea on CPAP, with AHI index of 36.6 #7. Morbid obesity #8. Cardiomyopathy, with EF of 40-45%, status post dual-chamber by V pacemaker placement, and recent revision of the left epicardial lead, generator change and pocket revision in August 2020 #9. Hypertension #10. Hyperlipidemia #11. History of TIA #12. Diabetes mellitus type 2 #13. Degenerative arthritis #14. History of coronary artery disease Plan: Today's chest x-ray, labs and blood gases have been Patient remains unresponsive, with no significant improvement in neurological status Oxygenation is good, and Fio2 remains at 30, and PEEP of 5 Patient had hemodialysis yesterday Cleviprex is off No episodes of hypoglycemia overnight No fever, no leukocytosis Sedation has been off for greater than 72 hours, without neurological improvement EEG scheduled for tomorrow Neurology recommendations So far prognosis is quite poor based on her neurological response If no further improvement neurologically, we recommend proceeding with comfort care Will continue to closely monitor in ICU I performed a history & physical examination of the patient and discussed their management with my nurse practitioner, Ofelia Bales. I reviewed the nurse practitioner's note and agree with the documented findings and plan of care. Lung sounds are positive for dim breath sounds throughout the lung baker. The findings and the impression was discussed with the patient. I attest to the documentation by the nurse practitioner. Time with Patient: Greater than 30
[2021-09-04 10:09] LABS: Basophils % (A) 0 %; Eosinophils # (A) 0.1 k/uL (0-0.7); Eosinophils % (A) 1 %; HCT 26.8 % (34.0-46.0); HGB 8.1 gm/dL (11.4-16.0); Hypochromasia Marked; Lymphocytes # (A) 1.4 k/uL (1.0-4.8); Lymphocytes % (A) 13 %; MCH 32.2 pg (25.0-35.0); MCHC 30.2 g/dL (31.0-37.0); MCV 106.8 fL (80.0-100.0); Macrocytosis Moderate; Mean Platelet Volume 8.4; Monocytes # (A) 0.7 k/uL (0-1.0); Monocytes % (A) 7 %; Neutrophils # (A) 8.2 k/uL (1.3-7.7); Neutrophils % (A) 77 %; Platelet Count 268 k/uL (150-450); RBC 2.51 m/uL (3.80-5.40); RDW 14.3 % (11.5-15.5); WBC 10.6 k/uL (3.8-10.6)
[2021-09-04 10:31] LABS: Albumin 2.3 g/dL (3.5-5.0); Calcium 8.7 mg/dL (8.4-10.2); Potassium 4.6 mmol/L (3.5-5.1); Total Bilirubin 0.3 mg/dL (0.2-1.3); Total Protein 4.9 g/dL (6.3-8.2)
--- NOTE | 2021-09-04 11:11 | P.PN ---
Subjective Progress Note Date: 09/04/21 09/03/2021 The patient is a 76-year-old female who is seen in neurologic follow- up on September 03, 2021, via telemedicine. The patient's nurses at the bedside. She reports that the patient has no gag reflex and has not responded to any commands. She has been off sedation for 48 hours. She has been receiving dialysis, daily. Dialysis is currently in progress. The patient has had a CT scan of the brain which revealed no signs of acute hemorrhage or infarct. EEG has not shown any evidence of seizure activity. There was noted to be severe, diffuse slowing of the background rhythm, consist ent with of toxic metabolic encephalopathy. In review of the chart, the patient has a negative sepsis workup. The patient was reportedly found down at home, with an unknown downtime. At the scene, her blood sugar was noted to be 36. Patient also had an episode of hypertensive emergency. She was intubated because of hypercapnic respiratory failure. 09/04/2021 The patient is seen in neurologic follow-up on September 04, 2021, via telemedicine. The patient's nurses at the bedside. She reports that there are no changes in the patient's status. She continues to have roving eye movements. Today's eye movements consist of the movements all the way to the right and to the left, as opposed to yesterday when there were times when the patient's eyes only moved to the left and stopped at midline. Objective - Vital Signs Vital signs: Vital Signs Temp 98.6 F 09/04/21 08:00 Pulse 82 09/04/21 10:00 Resp 20 09/04/21 10:00 BP 161/57 09/04/21 10:00 Pulse Ox 95 09/04/21 10:00 Intake & Output 09/03/21 09/04/21 09/04/21 18:59 06:59 18:59 Intake Total 875 899 384 Output Total 4000 0 0 Balance -3125 899 384 Weight 100.4 kg 100.4 kg Intake: IV 156 156 52 Pressure Bag 36 36 12 Sodium Chloride 0.9% 1, 120 120 40 000 ml @ 10 mls/hr IV . Q24H [facility] Rx#:[id number] Intake, IV Titration 100 Amount levETIRAcetam IV 500 mg 100 In Sodium Chloride 0.9% 100 ml @ 400 mls/hr IVPB Q12HR [facility] Rx#:[id number] Tube Feeding 689 583 212 Other 30 60 120 Output: Urine 0 0 0 Hemodialysis 1999 Other: Voiding Method Indwelling Catheter # Bowel Movements 1 ABP, PAP, CO, CI - Last Documented Arterial Blood Pressure 188/44 - Exam Gen.: The patient is reclining in the bed. She is intubated. There is no obvious facial asymmetry. HEENT: Head is atraumatic, normocephalic. Fundus not visualized. There is no scleral icterus. Mucous membranes are moist. Heart: Regular rate and rhythm Lungs: The patient is not breathing over the vent. Neurologic examination Mental status: The patient is unresponsive to verbal stimulation. She does not withdraw extremities from noxious stimulation. She follows no commands. Cranial nerves: Pupils are equal at 3 mm, and reactive. When eyelids are passively held open, there are noted to be roving eye movements. There is no blink to visual threat. Corneal reflexes are weak, but present. There is no obvious facial asymmetry. There is no gag reflex. There is no cough to deep suctioning. The patient's tongue is protruded from her mouth, to the left. Motor: There is no spontaneous movement of the extremities. Sensation: The patient does not withdraw extremities, from noxious stimulation. - Labs CBC & Chem 7: 09/04/21 09:50 09/04/21 09:50 Labs: Abnormal Lab Results - Last 24 Hours (Table) 09/03/21 09/03/21 09/04/21 Range/Units 11:29 17:50 00:19 RBC (3.80-5.40) m/uL Hgb (11.4-16.0) gm/dL Hct (34.0-46.0) % MCV (80.0-100.0) fL MCHC (31.0-37.0) g/dL Neutrophils # (1.3-7.7) k/uL ABG pO2 (83-108) mmHg ABG HCO3 (21-25) mmol/L ABG Total CO2 (19-24) mmol/L ABG O2 Saturation (94-97) % Sodium (137-145) mmol/L BUN (7-17) mg/dL Creatinine (0.52-1.04) mg/dL Glucose (74-99) mg/dL POC Glucose (mg/dL) 187 H 239 H 233 H (75-99) mg/dL Total Protein (6.3-8.2) g/dL Albumin (3.5-5.0) g/dL 09/04/21 09/04/21 09/04/21 Range/Units 05:08 05:50 09:50 RBC 2.51 L (3.80-5.40) m/uL Hgb 8.1 L (11.4-16.0) gm/dL Hct 26.8 L (34.0-46.0) % MCV 106.8 H (80.0-100.0) fL MCHC 30.2 L (31.0-37.0) g/dL Neutrophils # 8.2 H (1.3-7.7) k/uL ABG pO2 109 H (83-108) mmHg ABG HCO3 26 H (21-25) mmol/L ABG Total CO2 27 H (19-24) mmol/L ABG O2 Saturation 98.2 H (94-97) % Sodium (137-145) mmol/L BUN (7-17) mg/dL Creatinine (0.52-1.04) mg/dL Glucose (74-99) mg/dL POC Glucose (mg/dL) 171 H (75-99) mg/dL Total Protein (6.3-8.2) g/dL Albumin (3.5-5.0) g/dL 09/04/21 Range/Units 09:50 RBC (3.80-5.40) m/uL Hgb (11.4-16.0) gm/dL Hct (34.0-46.0) % MCV (80.0-100.0) fL MCHC (31.0-37.0) g/dL Neutrophils # (1.3-7.7) k/uL ABG pO2 (83-108) mmHg ABG HCO3 (21-25) mmol/L ABG Total CO2 (19-24) mmol/L ABG O2 Saturation (94-97) % Sodium 132 L (137-145) mmol/L BUN 44 H (7-17) mg/dL Creatinine 4.06 H (0.52-1.04) mg/dL Glucose 201 H (74-99) mg/dL POC Glucose (mg/dL) (75-99) mg/dL Total Protein 4.9 L (6.3-8.2) g/dL Albumin 2.3 L (3.5-5.0) g/dL Microbiology - Last 24 Hours (Table) 08/31/21 11:27 Blood Culture - Preliminary Blood No Growth after 72 hours 08/31/21 11:11 Blood Culture - Preliminary Blood No Growth after 72 hours Assessment and Plan Assessment: 1. Altered mental status, thought to be secondary to hypoglycemic encephalopathy. Initial EEG did not reveal any epileptiform activity. There is diffuse, severe slowing. Examination today reveals roving eye movements, weak, but present corneal reflexes. Roving eye movements are very commonly seen in hypoglycemic encephalopathy. I no longer have concerns for seizure. 2. Prognosis and exam findings were discussed with the patient's nurse Prognosis is poor. Plan: 1. Repeat EEG has been determined to be unnecessary as there is no longer a concern for seizure. 2. Would recommend hospice care for this patient Time with Patient: Less than 30 (Spent 20 minutes with patient via telemedicine)
[2021-09-04] MEDS: CLEVIDIPINE BUTYRATE 25 MG in EMPTY BAG 1 BAG IV SCH ×2 (11:29→16:53)
[2021-09-04 11:36] LABS: Glucose,Whole Blood 214 mg/dL (75-99)
--- NOTE | 2021-09-04 12:55 | PN ---
PROGRESS NOTE Patient is seen for followup for end-stage renal disease. Patient is currently maintained on hemodialysis on a Sunday, , Sunday schedule. She was admitted to the hospital with mental status changes and hypoglycemia. Her mentation has not improved much with correction of her blood sugars. Patient was also volume-overloaded with hypertensive emergency. She has been dialyzed with extra treatments. Patient was dialyzed yesterday. We had about 2 L of ultrafiltration. She will be scheduled for dialysis again on Sunday09/06/2021. Blood pressures have been running high. I will resume her home blood pressure medications. On examination today, blood pressure was 161/57, heart rate 82 per minute. Patient is afebrile. She is currently on the vent. FiO2 30%. EXAMINATION OF THE HEART: S1 and S2. EXAMINATION OF LUNGS: Bilateral breath sounds are heard. Abdomen is soft, non-tender. Examination of lower extremities shows no evidence of edema. [employer]ETING [employer] exam shows that patient is mostly unresponsive. No cough or gag reflex or breathing over the vent was noted. Labs show sodium 132, potassium 4.6, chloride 102, BUN 44, creatinine 4.0, hemoglobin 8.1 g/dL. ASSESSMENT: 1. End-stage renal disease, on hemodialysis on a Sunday, , Sunday schedule, status post extra treatments of dialysis for volume overload. 2. Hypertensive emergency, currently improved. Patient was on Cleviprex drip, which was discontinued, and it was restarted again, as blood pressure was high. I will resume her home blood pressure medications. 3. Volume overload, currently improved. 4. Encephalopathy associated with hypoglycemia, currently not improving with correction of the blood sugar levels. Patient is being followed by Neurology. PLAN: Next dialysis on Sunday09/06/2021. Resume Coreg. Increase Norvasc for blood pressure control. MMODL / IJN: [id number] /
--- NOTE | 2021-09-04 15:02 | P.PN ---
Subjective Progress Note Date: 09/04/21 (Hypoglycemic encephalopathy, without recovery.) Progress note, Date of service 09/04/2021. Dictation by Dr. Gordon in the ICU. Patient seen evaluated [id number]. Her sedation has been discontinued for the last 3 days without any recovery or fighting with the mechanical ventilation or coughing. No movement for her eyes or extremities. Telemetry neurology canceled EEG, she had several computed tomography scan which was negative. No response to verbal or tactile or pinching. Vital sign indicating temperature 98.6 F oral heart rate 80/m regular on the monitor, arterial line also monitoring with regular. Respiratory rate with the mechanical ventilation 20/m. Her blood pressure 149/61 with a mean 90 Arterial blood pressure 166/44. Oxygen saturation 97% on 30% FiO2. Respiratorytidal CO2 31. Laboratories: CBC indicating WBC 10.6, hemoglobin 8.1, hematocrit 26.8, MCV 106.8, platelet count 268, with the hypochromasia and macro cytosis. Dialysis lost one on 09/03/2021. ABGs today PH of 7.44, pCO2 38, pO2 109, HCO3 26, total CO2 27, saturation 98.2 base excess 1.5, FiO2 30% Chemistry: Sodium 132 potassium 4.6, chloride 102, carbon dioxide 23 anion gap 7, BUN 44 creatinine 4.06 and the last dialysis was yesterday his hemodialysis through the right infra clavicular port. EGFR 10, glucose 201, calcium 8.7, total bilirubin 0.3, AST 18, a LT 10, alk phos 110 total protein 4.9 and albumin 2.3. Communication with the nursing staff: The family has been aware of the patient problem and they will make a final decision on Sunday for comfort care and at that time will be for further procedure as extubation and opinion of the critical and pulmonary as well. Exam today Patient on ventilator mechanical with the endotracheal intubation, no Lemus catheter as patient has no urination with the underlying hemodialysis with end- stage renal disease. Pupil normal reaction. Intubation oral pharyngeal, feeding tube proceeding Neck was supple Chest was clear with herniated with the ventilator. Heart regular sinus rhythm with the blood pressure stable and she had pacemaker Abdomen soft positive bowel sounds Extremities positive pulses and edema 1+ however with each hemodialysis approximately 2 later pulled out for the volume overload. Neurologically: No response followed by the neurologist and the EEG was counseled on Sunday by the neurologist. Assessment: #1 hypoglycemic encephalopathy with no recovery or response #2 end-stage renal disease on hemodialysis. Diabetes mellitus admitted with severe hypoglycemia and was found that blood sugar/blood glucose 36 at home by the EMS was supplemented however we don't know the long time of being hypoglycemic and the effect on the brain Plan: #1 waiting the family for final decision #2 this is a grave outcome with the no recovery has indicated by the neurologist. #3 probability of comfort care on Sunday if the family agreed #4 for further order and the importance of the critical care will be appreciated and the nephrology for the hemodialysis. Objective - Vital Signs Vital signs: Vital Signs Temp 98.6 F 09/04/21 12:00 Pulse 79 09/04/21 13:00 Resp 20 09/04/21 13:00 BP 149/61 09/04/21 13:00 Pulse Ox 97 09/04/21 13:00 Intake & Output 09/03/21 09/04/21 09/04/21 18:59 06:59 18:59 Intake Total 875 899 622 Output Total 4000 0 0 Balance -3125 899 622 Weight 100.4 kg 100.4 kg Intake: IV 156 156 101 Pressure Bag 36 36 21 Sodium Chloride 0.9% 1, 120 120 80 000 ml @ 10 mls/hr IV . Q24H [facility] Rx#:[id number] Intake, IV Titration 100 Amount levETIRAcetam IV 500 mg 100 In Sodium Chloride 0.9% 100 ml @ 400 mls/hr IVPB Q12HR [facility] Rx#:[id number] Tube Feeding 689 583 371 Other 30 60 150 Output: Urine 0 0 0 Hemodialysis 1999 Other: Voiding Method Indwelling Catheter # Bowel Movements 1 ABP, PAP, CO, CI - Last Documented Arterial Blood Pressure 166/44 - Labs CBC & Chem 7: 09/04/21 09:50 09/04/21 09:50 Labs: Abnormal Lab Results - Last 24 Hours (Table) 09/03/21 09/04/21 09/04/21 Range/Units 17:50 00:19 05:08 RBC (3.80-5.40) m/uL Hgb (11.4-16.0) gm/dL Hct (34.0-46.0) % MCV (80.0-100.0) fL MCHC (31.0-37.0) g/dL Neutrophils # (1.3-7.7) k/uL ABG pO2 109 H (83-108) mmHg ABG HCO3 26 H (21-25) mmol/L ABG Total CO2 27 H (19-24) mmol/L ABG O2 Saturation 98.2 H (94-97) % Sodium (137-145) mmol/L BUN (7-17) mg/dL Creatinine (0.52-1.04) mg/dL Glucose (74-99) mg/dL POC Glucose (mg/dL) 239 H 233 H (75-99) mg/dL Total Protein (6.3-8.2) g/dL Albumin (3.5-5.0) g/dL 09/04/21 09/04/21 09/04/21 Range/Units 05:50 09:50 09:50 RBC 2.51 L (3.80-5.40) m/uL Hgb 8.1 L (11.4-16.0) gm/dL Hct 26.8 L (34.0-46.0) % MCV 106.8 H (80.0-100.0) fL MCHC 30.2 L (31.0-37.0) g/dL Neutrophils # 8.2 H (1.3-7.7) k/uL ABG pO2 (83-108) mmHg ABG HCO3 (21-25) mmol/L ABG Total CO2 (19-24) mmol/L ABG O2 Saturation (94-97) % Sodium 132 L (137-145) mmol/L BUN 44 H (7-17) mg/dL Creatinine 4.06 H (0.52-1.04) mg/dL Glucose 201 H (74-99) mg/dL POC Glucose (mg/dL) 171 H (75-99) mg/dL Total Protein 4.9 L (6.3-8.2) g/dL Albumin 2.3 L (3.5-5.0) g/dL 09/04/21 Range/Units 11:34 RBC (3.80-5.40) m/uL Hgb (11.4-16.0) gm/dL Hct (34.0-46.0) % MCV (80.0-100.0) fL MCHC (31.0-37.0) g/dL Neutrophils # (1.3-7.7) k/uL ABG pO2 (83-108) mmHg ABG HCO3 (21-25) mmol/L ABG Total CO2 (19-24) mmol/L ABG O2 Saturation (94-97) % Sodium (137-145) mmol/L BUN (7-17) mg/dL Creatinine (0.52-1.04) mg/dL Glucose (74-99) mg/dL POC Glucose (mg/dL) 214 H (75-99) mg/dL Total Protein (6.3-8.2) g/dL Albumin (3.5-5.0) g/dL Microbiology - Last 24 Hours (Table) 08/31/21 11:27 Blood Culture - Preliminary Blood No Growth after 96 hours 08/31/21 11:11 Blood Culture - Preliminary Blood No Growth after 96 hours
[2021-09-04] MEDS: carvediloL 12.5 MG TAB PO SCH (16:47)
[2021-09-04 17:12] LABS: Glucose,Whole Blood 215 mg/dL (75-99)
[2021-09-04] MEDS: SODIUM CHLORIDE 0.9% 1,000 ML IV SCH (17:19)
[2021-09-04] MEDS: ATORVASTATIN 40 MG TAB PO SCH (21:18)
[2021-09-04 23:41] LABS: Glucose,Whole Blood 180 mg/dL (75-99)
[2021-09-05] MEDS: INSULIN ASPART (NovoLOG) 100 UNIT/ML VIAL SQ SCH ×5 (00:48→23:59)
[2021-09-05 05:47] LABS: Basophils % (A) 0 %; Eosinophils # (A) 0.1 k/uL (0-0.7); Eosinophils % (A) 1 %; HCT 28.1 % (34.0-46.0); HGB 8.4 gm/dL (11.4-16.0); Hypochromasia Marked; Lymphocytes # (A) 1.2 k/uL (1.0-4.8); Lymphocytes % (A) 11 %; MCH 32.5 pg (25.0-35.0); MCHC 29.9 g/dL (31.0-37.0); MCV 108.6 fL (80.0-100.0); Macrocytosis Marked; Mean Platelet Volume 8.8; Monocytes # (A) 0.6 k/uL (0-1.0); Monocytes % (A) 5 %; Neutrophils # (A) 9.4 k/uL (1.3-7.7); Neutrophils % (A) 81 %; Platelet Count 280 k/uL (150-450); RBC 2.59 m/uL (3.80-5.40); RDW 14.3 % (11.5-15.5); WBC 11.6 k/uL (3.8-10.6)
[2021-09-05 05:59] LABS: ABG Base Excess -1.2 mmol/L; ABG HCO3 23 mmol/L (21-25); ABG Oxygen Saturation 90.8 % (94-97); ABG PCO2 37 mmHg (35-45); ABG PH 7.41 (7.35-7.45); ABG PO2 62 mmHg (83-108); ABG TCO2 25 mmol/L (19-24)
[2021-09-05 06:00] LABS: Allen Test Performed? no
[2021-09-05 06:07] LABS: Albumin 2.4 g/dL (3.5-5.0); Calcium 8.8 mg/dL (8.4-10.2); Potassium 5.2 mmol/L (3.5-5.1); Total Bilirubin 0.4 mg/dL (0.2-1.3); Total Protein 5.1 g/dL (6.3-8.2)
[2021-09-05] MEDS: LEVOTHYROXINE 25 MCG TAB PO SCH (06:47)
[2021-09-05] MEDS: carvediloL 12.5 MG TAB PO SCH ×2 (06:47→17:08)
--- NOTE | 2021-09-05 07:31 | XR ---
EXAMINATION TYPE: XR chest 1V portable DATE OF EXAM: 09/05/2021 CLINICAL HISTORY: Difficulty breathing progress study. TECHNIQUE: Single AP portable semiupright view of the chest is obtained. COMPARISON: Chest x-ray from one day earlier and older studies. FINDINGS: Stable endotracheal tube. Some advancement of orogastric tube still short of diaphragm, adv ised advancing approximately 14.0 cm. Stable large bore right internal jugular dialysis catheter. Persistent cardiomegaly with dual lead pacemaker and atherosclerotic thoracic aorta. Worsening central vascular congestion. Persistent left basilar opacity. Osseous structures are intact .. IMPRESSION: 1. Advise advancing orogastric tube. 2. Worsening bilateral central edema and/or infiltrates. Persistent cardiomegaly with left basilar ac elem infiltrate and/or atelectasis is redemonstrated.
[2021-09-05] MEDS: CHLORHEXIDINE GLUCONATE 15 ML CUP MUCOUS MEM SCH ×2 (09:40→20:04)
[2021-09-05] MEDS: HEPARIN SODIUM,PORCINE/PF 5,000 UNIT/0.5 ML SYRINGE SQ SCH ×2 (09:40→20:05)
[2021-09-05] MEDS: levETIRAcetam IV 500 MG in SODIUM CHLORIDE 0.9% 100 ML IVPB SCH ×2 (09:40→20:05)
[2021-09-05] MEDS: FOLIC ACID 1 MG TAB PO SCH (09:41)
[2021-09-05] MEDS: ASPIRIN 81 MG PO SCH (09:41)
[2021-09-05] MEDS: CYANOCOBALAMIN 1,000 MCG/ML 1 ML VIAL IM SCH (09:41)
[2021-09-05] MEDS: CLOPIDOGREL 75 MG TAB PO SCH (09:41)
[2021-09-05] MEDS: amLODIPine 5 MG TAB PO SCH ×2 (09:41→20:05)
[2021-09-05] MEDS: hydrALAZINE HCL 25 MG TAB PO SCH ×2 (09:41→20:04)
[2021-09-05] MEDS ORDERED: SODIUM ZIRCONIUM CYCLOSILICATE 10 GM PACKET PO ONE (10:12)
--- NOTE | 2021-09-05 10:13 | P.PN ---
Subjective She is maintained on hemodialysis on Sunday schedule. Blood sugars stable. Intubated. Blood pressure also improved. Vital signs are stable. HEENT: Intubated. LUNGS: Breath sounds decreased. HEART: Rate and Rhythm are regular. ABDOMEN: Soft, no distention. EXTREMITITES: No edema. Objective - Vital Signs Vital signs: Vital Signs Temp 97.8 F 09/04/21 20:00 Pulse 80 09/05/21 07:00 Resp 13 09/05/21 07:00 BP 145/45 09/05/21 07:00 Pulse Ox 94 L 09/05/21 07:00 Intake & Output 09/04/21 09/05/21 09/05/21 18:59 06:59 18:59 Intake Total 989.600 995 96 Output Total 0 0 Balance 989.600 995 96 Weight 100.4 kg Intake: IV 166 156 13 Pressure Bag 36 36 3 Sodium Chloride 0.9% 1, 130 120 10 000 ml @ 10 mls/hr IV . Q24H [facility] Rx#:[id number] Intake, IV Titration 7.600 Amount Clevidipine Butyrate 25 7.600 mg In Empty Bag 1 bag @ 1 MG/HR 2 mls/hr IV .Q24H [facility] Rx#:[id number] Tube Feeding 636 689 53 Other 180 150 30 Output: Urine 0 0 ABP, PAP, CO, CI - Last Documented Arterial Blood Pressure 162/41 - Labs CBC & Chem 7: 09/05/21 05:28 09/05/21 05:28 Labs: Abnormal Lab Results - Last 24 Hours (Table) 09/04/21 09/04/21 09/04/21 Range/Units 09:50 09:50 11:34 WBC (3.8-10.6) k/uL RBC 2.51 L (3.80-5.40) m/uL Hgb 8.1 L (11.4-16.0) gm/dL Hct 26.8 L (34.0-46.0) % MCV 106.8 H (80.0-100.0) fL MCHC 30.2 L (31.0-37.0) g/dL Neutrophils # 8.2 H (1.3-7.7) k/uL Macrocytosis ABG pO2 (83-108) mmHg ABG Total CO2 (19-24) mmol/L ABG O2 Saturation (94-97) % Sodium 132 L (137-145) mmol/L Potassium (3.5-5.1) mmol/L Carbon Dioxide (22-30) mmol/L BUN 44 H (7-17) mg/dL Creatinine 4.06 H (0.52-1.04) mg/dL Glucose 201 H (74-99) mg/dL POC Glucose (mg/dL) 214 H (75-99) mg/dL Total Protein 4.9 L (6.3-8.2) g/dL Albumin 2.3 L (3.5-5.0) g/dL 09/04/21 09/04/21 09/05/21 Range/Units 17:11 23:40 05:28 WBC 11.6 H (3.8-10.6) k/uL RBC 2.59 L (3.80-5.40) m/uL Hgb 8.4 L (11.4-16.0) gm/dL Hct 28.1 L (34.0-46.0) % MCV 108.6 H (80.0-100.0) fL MCHC 29.9 L (31.0-37.0) g/dL Neutrophils # 9.4 H (1.3-7.7) k/uL Macrocytosis Marked A ABG pO2 (83-108) mmHg ABG Total CO2 (19-24) mmol/L ABG O2 Saturation (94-97) % Sodium (137-145) mmol/L Potassium (3.5-5.1) mmol/L Carbon Dioxide (22-30) mmol/L BUN (7-17) mg/dL Creatinine (0.52-1.04) mg/dL Glucose (74-99) mg/dL POC Glucose (mg/dL) 215 H 180 H (75-99) mg/dL Total Protein (6.3-8.2) g/dL Albumin (3.5-5.0) g/dL 09/05/21 09/05/21 Range/Units 05:28 05:55 WBC (3.8-10.6) k/uL RBC (3.80-5.40) m/uL Hgb (11.4-16.0) gm/dL Hct (34.0-46.0) % MCV (80.0-100.0) fL MCHC (31.0-37.0) g/dL Neutrophils # (1.3-7.7) k/uL Macrocytosis ABG pO2 62 L (83-108) mmHg ABG Total CO2 25 H (19-24) mmol/L ABG O2 Saturation 90.8 L (94-97) % Sodium 131 L (137-145) mmol/L Potassium 5.2 H (3.5-5.1) mmol/L Carbon Dioxide 20 L (22-30) mmol/L BUN 62 H (7-17) mg/dL Creatinine 4.97 H (0.52-1.04) mg/dL Glucose 212 H (74-99) mg/dL POC Glucose (mg/dL) (75-99) mg/dL Total Protein 5.1 L (6.3-8.2) g/dL Albumin 2.4 L (3.5-5.0) g/dL Microbiology - Last 24 Hours (Table) 08/31/21 11:27 Blood Culture - Preliminary Blood No Growth after 96 hours 08/31/21 11:11 Blood Culture - Preliminary Blood No Growth after 96 hours Assessment and Plan Plan: Assessment: 1. End-stage renal disease maintained on hemodialysis on Sunday schedule. 2. Hypertensive emergency. Improved. 3. Volume overload. 4. Anemia of chronic kidney disease maintained on Aranesp. 5. Hyponatremia secondary to chronic kidney disease. 6. Metabolic acidosis secondary to chronic kidney disease. Plan: Hemodialysis tomorrow. Lokelma 10 g once today. Repeat potassium level this afternoon. Wean FiO2.
[2021-09-05 11:51] LABS: Glucose,Whole Blood 238 mg/dL (75-99)
--- NOTE | 2021-09-05 12:12 | XR ---
EXAMINATION TYPE: XR chest 1V portable DATE OF EXAM: 09/05/2021 CLINICAL HISTORY: OG tube placement. TECHNIQUE: Single AP portable upright view of the chest is obtained. COMPARISON: Chest x-ray from earlier today and older studies. FINDINGS: Stable endotracheal tube. Successful advancement of orogastric tube. Stable large bore rig ht internal jugular dialysis catheter. Persistent cardiomegaly with dual lead pacemaker and atherosclerotic change aortic knob. Improved central vascular congestion. Persistent left basilar opacity. Osseous structures are intact. . IMPRESSION: Successful interval advancement of orogastric tube.
--- NOTE | 2021-09-05 16:25 | P.PN ---
Subjective Progress Note Date: 09/05/21 This is a 76-year-old female patient with multiple comorbidities, including left-sided chronic systolic CHF, cardiomyopathy with ejection fraction of 40- 45%, dual-chamber by V pacemaker implantation which was surgically revised, with a generator change, and pocket revision a year ago and left ventricular e picardial lead was implanted. History is also significant for insulin-dependent diabetes mellitus type 2, previous history of TIAs, hypertension, hyperlipidemia, end-stage renal disease, on hemodialysis, morbid obesity, obstructive sleep apnea with home CPAP, and degenerative osteoarthritis. She wa s brought in to the emergency department on 08/31/2021 per EMS for unresponsiveness, it's unknown "alerted the 911, there is no family at the bedside. On arrival patient was completely unresponsive. She was found at home for an unknown period of down time. Blood sugar at the scene was 50, she rec eived 1 dose of 50% dextrose at the scene, repeat blood sugar was within normal limits, there was no improvement in the mental status. Her vital signs were otherwise stable except for hypertension with a systolic blood pressure in the 200s over 110s. Unknown trauma. Patient is unable to provide any form of history. Patient was intubated and placed on mechanical ventilator for protection of airway, she is currently on assist control mode of ventilation with a rate of 20, tidal vitamins 400, FiO2 of 100% and PEEP of 5, her chest x- ray showing diffuse interstitial pattern correlating for CHF versus interstitial pneumonia, dual lead cardiac device, no sizable pneumothorax. Brain CT showed d egenerative and nonspecific faint white matter changes most typical of remote white matter ischemia. Admission blood work showed a white blood cell count of 11.4, hemoglobin of 9.2, INR was 0.9, BNP is still pending. Blood gas post intubation showed pO2 of greater than 400, pCO2 of 40, and pH of 7.42, this was done on the above-mentioned ventilator settings. Patient was given labetalol for blood pressure control, she was started on nitroglycerin infusion, Diprivan, she is on subcu heparin, her blood sugars being closely monitored, nephrology has been consulted for hemodialysis, and we were consulted for ICU management On today's evaluation of 09/01/2021, the patient remains intubated on a mechanical ventilator. Note that the patient presented to us into patient was completely unresponsive. The patient was brought into the emergency department and the patient was intubated and placed on a mechanical ventilator. Apparently, her sugars were low at home and the patient was treated accordingly. Blood sugars were fine in the hospital. The CAT scan of the brain showed no acute abnormalities and there was evidence of remote white matter ischemia. Overnight, the patient received hemodialysis of the chest x-ray from today shows marked improvement in the volume status. The patient has already missed hemodialysis earlier prior to her hospital admission. The chest x-ray from to day shows a right IJ permacath. ET tube is in a good location. The patient also has a permanent pacemaker in place. There is some atelectatic changes in the left lung base. Her blood pressure remains elevated and the patient is going to be started on Cleviprex for tighter blood pressure control. Meanwhile, earlier this morning, the patient was taken off propofol and unfortunately we haven't seen reasonable neurologic recovery yet. We are going to give the patient another few hours to evaluate her mental status. She remains on a mechanical ventilator on assist control mode at the rate of 20, tidal volume of 400, FiO2 of 40% with a PEEP of 5. Blood gases are excellent today shows a pO2 of 116, pH is at 7.47 with a pCO2 of 38. White cell count is at 6.9. Hemoglobin is 8.1 and the patient is chronically anemic. BN is a 33 with a creatinine of 5.1 and a potassium level is at 4.3. Electrodes are all within normal limits. No seizure activity has been noted. No fever. Hemodynamically, the patient is hypertensive. Urine output is 0. The patient is on IV orthotics. The patient is on subcu heparin. No antibiotics for now. Aspirin and Plavix have been resumed. Neuro workup was also initiated. The patient was seen by neurology. Carotid ultrasound showed a moderate to severe atherosclerotic changes involving the left internal carotid artery which is in the order of 50-69%. On 09/02/2021 patient seen in follow-up in the intensive care unit, patient still remains comatose, Diprivan has been on hold since 8:30 yesterday morning on 09/01/2021, patient has not regained consciousness, we are told by the nursing staff at times she'll open her eyes slightly, however I did not observe this. She does not follow any meaningful command, she does not withdraw from pain, she has no cough or gag reflex, corneal reflex, and positive Babinski reflex, current vent settings are assist control mode of ventilation with a rate of 20, tidal volume is 400, FiO2 of 40% and PEEP of 5, this morning's blood gas shows pO2 of 129, pCO2 of 39, and pH is 7.42, and FiO2 was subsequently dropped down to 30%, she is currently on 0.9 normal saline at a rate of 10 ML per hour, and Cleviprex is being weaned down and is currently to 1 mg/h, oral medications were added by cardiology, and patient is receiving Norvasc 5 mg daily, and hydralazine 25 mg 3 times a day. She is tolerating to feedings and she is receiving vital high protein at 45 ML per hour with standard water flushes, she had hemodialysis session yesterday and 1.5 L of fluid was removed. Today's chest x-ray showing PD and continued retrocardiac and left basilar opacity small effusion with adjacent atelectasis, with possible background of mild pulmonary vascular congestion similar to the previous exam. She has had no fever overnight, hemodynamically she has been stable requiring no vasopressor support, and her blood pressure has been much better controlled. No hypoglycemic events overnight. Blood cultures have shown no growth thus far, sputum culture showing many PMNs, many gram-positive cocci, few budding his, rare gram-negative bacilli, final culture is pending, today's labs showing white blood cell count of 7.4, hemoglobin of 8.4, sodium of 134, potassium is 4.7, chloride is 105, BUN of 31, creatinine is 4.16. LFTs were within normal limits, ammonia level was less than 9, troponin was 0.027 urinalysis on admission showed 2+ protein, but no definite sign of infection, urine drug screen was positive for tricyclic antidepressants, serum alcohol level was less than 10, COVID-19 PCR was negative. Her sepsis , is negative thus far, toxicology is negative, repeat brain scan was done yesterday going no acute intracranial abnormality, EEG showed severe LAD ground slowing suggestive of generalized cerebral dysfunction as can be seen with toxic metabolic encephalopathy. No epileptiform activity was noted. Neurology is following. On today's evaluation on 09/04/2021 patient is seen in follow-up in intensive care unit, she remains intubated on mechanical ventilator, with assist control mode of ventilation with a rate of 20, tidal volume is 400, FiO2 of 30% and PEEP of 5, today's blood gas shows pO2 of 109, pCO2 of 38, and pH of 7.44, and this was done on the above-mentioned ventilator settings. Today's chest x-ray shows small left pleural effusion and mild pulmonary vessel congestion, ET tube 4.2 cm above the jacqueline, overall stable findings, compared the previous chest x-ray. Today's labs are still pending right now. Neurologically patient has not had any improvement in her neurological status, still remains unresponsive, does not open eyes to voice or pain, does not withdraw from pain, no cough or gag reflex does not breathing over the vent, she does have a positive corneal reflex, and positive Babinski. Does have a downward gaze when we open her eyes. She has been off sedation for greater than 72 hours at this point. Last CT of the brain on 09/01/2021 showed no acute intracranial endings, EEG showed severe slowing. Vital signs have been stable, no fever or chills, patient is in sinus mechanism not requiring any vasopressors, blood pressure has been stable. Blood and sputum cultures have shown no growth, patient has been receiving hemodialysis, she was dialyzed yesterday with removal of 2 L of fluid. Vital HP is going at 53 ML per hour which is goal, and patient is tolerating tube feedings well. Blood sugar is being closely monitored, and patient has not had any hypoglycemic events since admission. On 09/05/2021 patient seen in follow-up in the intensive care unit, she remains unresponsive, she has not made any improvement neurologically, she has remained off all sedation for greater than 96 hours, and even prior to being on sedation patient was completely unresponsive. She remains intubated, on assist-control mode of ventilation with a rate of 20, tidal volume is 400, FiO2 of 30% and PEEP of 5, display blood gas shows pO2 of 62, pCO2 of 37, pH of 7.41, this was done on above-mentioned vent settings, patient is currently on point and was seen at a rate of 20 ML per hour, no other drips, no vasopressor support, hemodynamically she is stable, she is of Cleviprex trip, blood pressure has been better controlled, she is receiving tube feedings in the form of vital HP at a rate of 53 ML per hour with a goal of 53 ML per hour, and stent of water flushes with 30 mL of water every 4 hours [id number]. Today's chest x-ray has been reviewed showing persistent cardiomegaly with dual-lead pacemaker improved central vascular congestion, persistent left basilar opacity. Vital signs have been stable overnight, no fever or chills, hemodynamically patient has been stable, today's labs have been reviewed showing white blood cell count of 11.6, hemoglobin of 8.4, blood gases as mentioned above, sodium is 131, potassium is 4.9, chloride is 102, CO2 is 20, BUN of 62, creatinine is 4.97, LFTs were within normal limits, TSH was 5.450, and free T4 was within normal limits at 2.12. Microbiology results have been reviewed, and blood and sputum cultures have been negative. Patient had hemodialysis Sunday on 09/03/2021 with removal of 2 L of fluid. Mild swelling involving lower extremities was noted overall seems to be improved since admission. Neurologically patient has remains the same, no cough or gag, positive corneal, positive Babinski, over does not open eyes, does not follow any command. She breathes slightly over the vent at times. Objective - Vital Signs Vital signs: Vital Signs Temp 99.1 F 09/05/21 12:00 Pulse 79 09/05/21 15:00 Resp 20 09/05/21 15:00 BP 162/56 09/05/21 15:00 Pulse Ox 97 09/05/21 15:00 Intake & Output 09/04/21 09/05/21 09/05/21 18:59 06:59 18:59 Intake Total 989.600 995 585 Output Total 0 0 0 Balance 989.600 995 585 Weight 100.4 kg 100.4 kg Intake: IV 166 156 117 Pressure Bag 36 36 27 Sodium Chloride 0.9% 1, 130 120 90 000 ml @ 10 mls/hr IV . Q24H [facility] Rx#:[id number] Intake, IV Titration 7.600 Amount Clevidipine Butyrate 25 7.600 mg In Empty Bag 1 bag @ 1 MG/HR 2 mls/hr IV .Q24H [facility] Rx#:[id number] Tube Feeding 451 319 378 Other 180 150 90 Output: Urine 0 0 0 Other: Voiding Method Indwelling Catheter ABP, PAP, CO, CI - Last Documented Arterial Blood Pressure 127/48 - Exam GENERAL EXAM: Comatose intubated 76-year-old obese white female, on assist- control mode of ventilation with a rate of 20, tidal volume 400, FiO2 30% and PEEP 5 comfortable in no apparent distress. Patient has been off all sedation for the past 24 hours, has not regained consciousness, does not open eyes to voice or pain, does not follow any meaningful command, has no cough or gag reflex, does have a positive corneal reflex, does have a positive Babinski HEAD: Normocephalic/atraumatic. EYES: Normal reaction of pupils, equal size. Conjunctiva pink, sclera white. NOSE: Clear with pink turbinates. THROAT: No erythema or exudates. NECK: No masses, no JVD, no thyroid enlargement, no adenopathy. CHEST: No chest wall deformity. Symmetrical expansion. Right upper chest subclavian hemodialysis catheter in place LUNGS: Equal air entry with no crackles, wheeze, rhonchi or dullness. CVS: Regular rate and rhythm, normal S1 and S2, no gallops, no murmurs, no rubs ABDOMEN: Soft, nontender. No hepatosplenomegaly, normal bowel sounds, no guarding or rigidity. EXTREMITIES: No clubbing, no edema, no cyanosis, 2+ pulses and upper and lower extremities. MUSCULOSKELETAL: Muscle strength and tone normal. SPINE: No scoliosis or deformity SKIN: No rashes CENTRAL NERVOUS SYSTEM: Unresponsive. Patient has been off all sedation for the past 24 hours, has not regained consciousness, does not open eyes to voice or pain, does not follow any meaningful command, has no cough or gag reflex, does have a positive corneal reflex, does have a positive Babinski. - Labs CBC & Chem 7: 09/05/21 05:28 09/05/21 15:10 Labs: Abnormal Lab Results - Last 24 Hours (Table) 09/04/21 09/04/21 09/05/21 Range/Units 17:11 23:40 05:28 WBC 11.6 H (3.8-10.6) k/uL RBC 2.59 L (3.80-5.40) m/uL Hgb 8.4 L (11.4-16.0) gm/dL Hct 28.1 L (34.0-46.0) % MCV 108.6 H (80.0-100.0) fL MCHC 29.9 L (31.0-37.0) g/dL Neutrophils # 9.4 H (1.3-7.7) k/uL Macrocytosis Marked A ABG pO2 (83-108) mmHg ABG Total CO2 (19-24) mmol/L ABG O2 Saturation (94-97) % Sodium (137-145) mmol/L Potassium (3.5-5.1) mmol/L Carbon Dioxide (22-30) mmol/L BUN (7-17) mg/dL Creatinine (0.52-1.04) mg/dL Glucose (74-99) mg/dL POC Glucose (mg/dL) 215 H 180 H (75-99) mg/dL Total Protein (6.3-8.2) g/dL Albumin (3.5-5.0) g/dL 09/05/21 09/05/21 09/05/21 Range/Units 05:28 05:55 11:40 WBC (3.8-10.6) k/uL RBC (3.80-5.40) m/uL Hgb (11.4-16.0) gm/dL Hct (34.0-46.0) % MCV (80.0-100.0) fL MCHC (31.0-37.0) g/dL Neutrophils # (1.3-7.7) k/uL Macrocytosis ABG pO2 62 L (83-108) mmHg ABG Total CO2 25 H (19-24) mmol/L ABG O2 Saturation 90.8 L (94-97) % Sodium 131 L (137-145) mmol/L Potassium 5.2 H (3.5-5.1) mmol/L Carbon Dioxide 20 L (22-30) mmol/L BUN 62 H (7-17) mg/dL Creatinine 4.97 H (0.52-1.04) mg/dL Glucose 212 H (74-99) mg/dL POC Glucose (mg/dL) 238 H (75-99) mg/dL Total Protein 5.1 L (6.3-8.2) g/dL Albumin 2.4 L (3.5-5.0) g/dL Microbiology - Last 24 Hours (Table) 08/31/21 11:11 Blood Culture - Preliminary Blood No Growth after 120 hours 08/31/21 11:27 Blood Culture - Preliminary Blood No Growth after 120 hours Assessment and Plan Plan: Assessment: #1. Unresponsiveness, with unknown downtime, severe hypoglycemic encephalopathy related to prolonged hypoglycemia. Sepsis workup was negative, urine drug screen was negative. Brain CT showed degenerative and nonspecific white matter changes typical of remote white matter ischemia. EEG showed severe background slowing, with no epileptiform discharges. Repeat brain CT showed no acute intracranial abnormality. Patient has not showed meaningful neurological improvement, has been off sedation for greater than 96 hours. Remains persistently unresponsive on 09/05/2021 without improvement in her neurological status. #2. Hypertensive emergency, improved, and patient off Cleviprex #3. Left Carotid stenosis of 50-69% #4. Acute hypoxic and likely hypercapnic respiratory failure related to the hypertensive emergency, and patient was intubated placed on mechanical ventilator in part due to altered mental status and protection of airway #5. End-stage renal disease on hemodialysis #6. Severe Obstructive sleep apnea on CPAP, with AHI index of 36.6 #7. Morbid obesity #8. Cardiomyopathy, with EF of 40-45%, status post dual-chamber by V pacemaker placement, and recent revision of the left epicardial lead, generator change and pocket revision in August 2020 #9. Hypertension #10. Hyperlipidemia #11. History of TIA #12. Diabetes mellitus type 2 #13. Degenerative arthritis #14. History of coronary artery disease Plan: Today's chest x-ray, labs and blood gases have been Patient remains unresponsive, with no improvement in her neurological status Oxygenation is good, and Fio2 remains at 30, and PEEP of 5 No vasopressor support, blood pressure is better controlled, she is off Cleviprex infusion No episodes of hypoglycemia overnight No fever, no leukocytosis Sedation has been off for 4 days, without neurological improvement Awaiting results of the repeat EEG Neurology recommendations So far prognosis is quite poor based on her neurological response If no further improvement neurologically, we recommend proceeding with comfort care or surgical consultation for tracheostomy and PEG tube placement and LTAC facility placement if family wishes to go that route Will continue to closely monitor in ICU I performed a history & physical examination of the patient and discussed their management with my nurse practitioner, Ofelia Bales. I reviewed the nurse practitioner's note and agree with the documented findings and plan of care. Lung sounds are positive for dim breath sounds throughout the lung baker. The findings and the impression was discussed with the patient. I attest to the documentation by the nurse practitioner. Time with Patient: Greater than 30
[2021-09-05 17:01] LABS: Glucose,Whole Blood 262 mg/dL (75-99)
[2021-09-05] MEDS: SODIUM CHLORIDE 0.9% 1,000 ML IV SCH (17:09)
[2021-09-05] MEDS ORDERED: Magnesium Replacement Protocol 1 EACH MISC MISCELLANE PRN (18:03)
[2021-09-05] MEDS ORDERED: MAGNESIUM SULFATE-D5W PMX 1 GM in DEXTROSE/WATER 1 100ML.BAG IVPB SCH (19:00)
--- NOTE | 2021-09-05 19:17 | P.PN ---
Subjective Progress Note Date: 09/05/21 (Patient continued to be unresponsive) Progress note, date of service 09/05/[address] Gordon. Patient seen and evaluated [id number] Patient nonresponding even with tactile and vocal stimulation, no sensation elicited. Patient on dialysis hemo-dialysis is unclear if she going to have today hemodialysis again lost one was done in Sunday and Sunday lost 1 No urine output she had a bowel movement last week per nursing staff. Patient intubated with ventilator and feeding tube with Dobbhoff. Patient appears to be comfortable not fighting the ventilator machine no stridor no cough. She without sedation for the last 3-4 days. She had some edema of the extremities with buffeting up with hypoproteinemia and hypoalbuminemia, Neck was supple, chest was created with the ventilator, heart was regular sinus rhythm she had a pacemaker left infraclavicular. Abdomen positive bowel sound distended. Extremities she had a puffiness of the hand with edematous as well as she had mild edema of the lower extremities with the underlying as mentioned above hypoalbuminemia and hypoproteinemia. Her temperature today 90 9.1F oral her heart rate and pulse ranging from 81-74 and regular, her respiratory rate 20 on the vent. The pressure 142/56 on that many mechanical ventilation with the saturation 98%. Laboratory: Her white count is 11.6 her hemoglobin and hematocrit 48/28.1, MCV 108, platelet count 280 with the underlying hypochromasia and macrocytosis. ABGs done today: PH of 7.41 and P CO2 37, pO2 62, HCO3 23 saturation 90.8. Chemistry: Sodium 131, potassium 5.2 and repeat 4.9. Chloride 102 and carbon dioxide 20, her BUN 62 and creatinine 4.97, calcium is 8.8, anion gap 9, EGFR 8. Liver enzyme within normal limit AST 20 a LT 10 alk phos 107. Protein 5.1 and albumin 2.4 Ejection fraction 4045 percent. Assessment #1 prolonged hypoglycemia resulted in metabolic encephalopathy with unresponsiveness. #2 end-stage renal disease secondary to diabetes mellitus. #3 on hemodialysis. #4 underlying hypertension with hypertensive heart disease. #5 diabetic nephropathy and diabetic neuropathy. #6 atherosclerotic heart disease with impaired systolic function. Plan and recommendation: #1 patient.improving, same neurological status since admission #2 waiting for family for decision of for further treatment or action or comfort care. #3 continue monitoring the patient. #4 still prognosis extremely poor. Objective - Vital Signs Vital signs: Vital Signs Temp 99.1 F 09/05/21 16:00 Pulse 74 09/05/21 18:00 Resp 20 09/05/21 18:00 BP 142/56 09/05/21 18:00 Pulse Ox 98 09/05/21 18:00 Intake & Output 09/05/21 09/05/21 09/06/21 06:59 18:59 06:59 Intake Total 995 895 Output Total 0 0 Balance 995 895 Weight 100.4 kg Intake: IV 156 157 Pressure Bag 36 27 Sodium Chloride 0.9% 1, 120 130 000 ml @ 10 mls/hr IV . Q24H [facility] Rx#:[id number] Tube Feeding 689 618 Other 150 120 Output: Urine 0 0 Other: Voiding Method Indwelling Catheter ABP, PAP, CO, CI - Last Documented Arterial Blood Pressure 127/48 - Labs CBC & Chem 7: 09/05/21 05:28 09/05/21 15:10 Labs: Abnormal Lab Results - Last 24 Hours (Table) 09/04/21 09/05/21 09/05/21 Range/Units 23:40 05:28 05:28 WBC 11.6 H (3.8-10.6) k/uL RBC 2.59 L (3.80-5.40) m/uL Hgb 8.4 L (11.4-16.0) gm/dL Hct 28.1 L (34.0-46.0) % MCV 108.6 H (80.0-100.0) fL MCHC 29.9 L (31.0-37.0) g/dL Neutrophils # 9.4 H (1.3-7.7) k/uL Macrocytosis Marked A ABG pO2 (83-108) mmHg ABG Total CO2 (19-24) mmol/L ABG O2 Saturation (94-97) % Sodium 131 L (137-145) mmol/L Potassium 5.2 H (3.5-5.1) mmol/L Carbon Dioxide 20 L (22-30) mmol/L BUN 62 H (7-17) mg/dL Creatinine 4.97 H (0.52-1.04) mg/dL Glucose 212 H (74-99) mg/dL POC Glucose (mg/dL) 180 H (75-99) mg/dL Total Protein 5.1 L (6.3-8.2) g/dL Albumin 2.4 L (3.5-5.0) g/dL 09/05/21 09/05/21 09/05/21 Range/Units 05:55 11:40 17:00 WBC (3.8-10.6) k/uL RBC (3.80-5.40) m/uL Hgb (11.4-16.0) gm/dL Hct (34.0-46.0) % MCV (80.0-100.0) fL MCHC (31.0-37.0) g/dL Neutrophils # (1.3-7.7) k/uL Macrocytosis ABG pO2 62 L (83-108) mmHg ABG Total CO2 25 H (19-24) mmol/L ABG O2 Saturation 90.8 L (94-97) % Sodium (137-145) mmol/L Potassium (3.5-5.1) mmol/L Carbon Dioxide (22-30) mmol/L BUN (7-17) mg/dL Creatinine (0.52-1.04) mg/dL Glucose (74-99) mg/dL POC Glucose (mg/dL) 238 H 262 H (75-99) mg/dL Total Protein (6.3-8.2) g/dL Albumin (3.5-5.0) g/dL Microbiology - Last 24 Hours (Table) 08/31/21 11:11 Blood Culture - Preliminary Blood No Growth after 120 hours 08/31/21 11:27 Blood Culture - Preliminary Blood No Growth after 120 hours
[2021-09-05] MEDS: ATORVASTATIN 40 MG TAB PO SCH (20:05)
[2021-09-05 23:57] LABS: Glucose,Whole Blood 283 mg/dL (75-99)
[2021-09-06 05:32] LABS: ABG Base Excess -1.6 mmol/L; ABG HCO3 23 mmol/L (21-25); ABG PCO2 38 mmHg (35-45); ABG PO2 100 mmHg (83-108); ABG TCO2 24 mmol/L (19-24); Allen Test Performed? Yes
[2021-09-06 05:54] LABS: Basophils % (A) 0 %; Eosinophils # (A) 0.1 k/uL (0-0.7); Eosinophils % (A) 1 %; HCT 26.8 % (34.0-46.0); HGB 8.1 gm/dL (11.4-16.0); Hypochromasia Marked; Lymphocytes # (A) 1.3 k/uL (1.0-4.8); Lymphocytes % (A) 9 %; MCH 32.8 pg (25.0-35.0); MCHC 30.1 g/dL (31.0-37.0); Macrocytosis Marked; Mean Platelet Volume 8.8; Monocytes # (A) 0.8 k/uL (0-1.0); Monocytes % (A) 6 %; Neutrophils # (A) 11.6 k/uL (1.3-7.7); Neutrophils % (A) 83 %; Platelet Count 315 k/uL (150-450); RBC 2.46 m/uL (3.80-5.40); RDW 14.3 % (11.5-15.5)
[2021-09-06 06:07] LABS: Glucose,Whole Blood 326 mg/dL (75-99)
[2021-09-06] MEDS: LEVOTHYROXINE 25 MCG TAB PO SCH (06:42)
[2021-09-06] MEDS: carvediloL 12.5 MG TAB PO SCH ×2 (06:42→17:16)
[2021-09-06] MEDS: INSULIN ASPART (NovoLOG) 100 UNIT/ML VIAL SQ SCH ×3 (06:42→17:22)
[2021-09-06] MEDS: INSULIN DETEMIR (LEVEMIR) 100 UNIT/ML SYR SQ SCH (06:44)
[2021-09-06 07:15] LABS: Albumin 2.4 g/dL (3.5-5.0); Calcium 8.9 mg/dL (8.4-10.2); Potassium 5.1 mmol/L (3.5-5.1); Total Bilirubin 0.3 mg/dL (0.2-1.3)
--- NOTE | 2021-09-06 08:14 | XR ---
EXAMINATION TYPE: XR chest 1V portable DATE OF EXAM: 09/06/2021 COMPARISON: 09/05/2021 INDICATION: Tube placement TECHNIQUE: Single frontal view of the chest is obtained. FINDINGS: The heart size is normal. The pulmonary vasculature is normal. Mild infiltrate is the right lung base. Findings are worsening over the interval. Overlying complicat es the image. Double-lumen catheter is present on the right with the tips in the superior vena cava r egion. Endotracheal tube tip is above the nasogastric tube transverses the thorax IMPRESSION: 1. May be some worsening of the right lower lobe infiltrate. 2. Lines and catheters discussed above.
[2021-09-06] MEDS: ASPIRIN 81 MG PO SCH (09:50)
[2021-09-06] MEDS: hydrALAZINE HCL 25 MG TAB PO SCH ×2 (09:50→21:08)
[2021-09-06] MEDS: amLODIPine 5 MG TAB PO SCH ×2 (09:50→21:08)
[2021-09-06] MEDS: CLOPIDOGREL 75 MG TAB PO SCH (09:50)
[2021-09-06] MEDS: CHLORHEXIDINE GLUCONATE 15 ML CUP MUCOUS MEM SCH ×2 (09:50→21:08)
[2021-09-06] MEDS: FOLIC ACID 1 MG TAB PO SCH (09:50)
[2021-09-06] MEDS: HEPARIN SODIUM,PORCINE/PF 5,000 UNIT/0.5 ML SYRINGE SQ SCH ×2 (09:50→21:07)
[2021-09-06] MEDS: CYANOCOBALAMIN 1,000 MCG/ML 1 ML VIAL IM SCH (09:50)
[2021-09-06] MEDS: levETIRAcetam IV 500 MG in SODIUM CHLORIDE 0.9% 100 ML IVPB SCH (10:04)
--- NOTE | 2021-09-06 10:35 | P.PN ---
Subjective She is maintained on hemodialysis on Sunday schedule. Blood sugar 319 this morning. Intubated. Blood pressure stable. No improvement in mentation. Vital signs are stable. HEENT: Intubated. LUNGS: Breath sounds decreased. HEART: Rate and Rhythm are regular. ABDOMEN: Soft, no distention. EXTREMITITES: No edema. Objective - Vital Signs Vital signs: Vital Signs Temp 98.5 F 09/06/21 04:00 Pulse 73 09/06/21 07:00 Resp 22 09/06/21 07:00 BP 156/62 09/06/21 07:00 Pulse Ox 95 09/06/21 07:00 Intake & Output 09/05/21 09/06/21 09/06/21 18:59 06:59 18:59 Intake Total 895 960 70 Output Total 0 0 0 Balance 895 960 70 Weight 100.4 kg 101.5 kg Intake: IV 157 110 10 Pressure Bag 27 Sodium Chloride 0.9% 1, 130 110 10 000 ml @ 10 mls/hr IV . Q24H [facility] Rx#:[id number] Intake, IV Titration 100 Amount levETIRAcetam IV 500 mg 100 In Sodium Chloride 0.9% 100 ml @ 400 mls/hr IVPB Q12HR [facility] Rx#:[id number] Tube Feeding 618 660 60 Other 120 90 Output: Urine 0 0 0 Other: Voiding Method Indwelling Catheter Indwelling Catheter ABP, PAP, CO, CI - Last Documented Arterial Blood Pressure 127/48 - Labs CBC & Chem 7: 09/06/21 05:27 09/06/21 05:27 Labs: Abnormal Lab Results - Last 24 Hours (Table) 09/02/21 09/05/21 09/05/21 Range/Units 11:20 11:40 17:00 WBC (3.8-10.6) k/uL RBC (3.80-5.40) m/uL Hgb (11.4-16.0) gm/dL Hct (34.0-46.0) % MCV (80.0-100.0) fL MCHC (31.0-37.0) g/dL Neutrophils # (1.3-7.7) k/uL Macrocytosis ABG O2 Saturation (94-97) % Sodium (137-145) mmol/L Carbon Dioxide (22-30) mmol/L BUN (7-17) mg/dL Creatinine (0.52-1.04) mg/dL Glucose (74-99) mg/dL POC Glucose (mg/dL) 238 H 262 H (75-99) mg/dL Total Protein (6.3-8.2) g/dL Albumin (3.5-5.0) g/dL Methylmalonic Acid 1.29 H (<0.40) umol/L 09/05/21 09/06/21 09/06/21 Range/Units 23:56 05:27 05:27 WBC 14.0 H (3.8-10.6) k/uL RBC 2.46 L (3.80-5.40) m/uL Hgb 8.1 L (11.4-16.0) gm/dL Hct 26.8 L (34.0-46.0) % MCV 109.0 H (80.0-100.0) fL MCHC 30.1 L (31.0-37.0) g/dL Neutrophils # 11.6 H (1.3-7.7) k/uL Macrocytosis Marked A ABG O2 Saturation (94-97) % Sodium 130 L (137-145) mmol/L Carbon Dioxide 19 L (22-30) mmol/L BUN 84 H (7-17) mg/dL Creatinine 6.09 H (0.52-1.04) mg/dL Glucose 319 H (74-99) mg/dL POC Glucose (mg/dL) 283 H (75-99) mg/dL Total Protein 5.0 L (6.3-8.2) g/dL Albumin 2.4 L (3.5-5.0) g/dL Methylmalonic Acid (<0.40) umol/L 09/06/21 09/06/21 Range/Units 05:30 06:06 WBC (3.8-10.6) k/uL RBC (3.80-5.40) m/uL Hgb (11.4-16.0) gm/dL Hct (34.0-46.0) % MCV (80.0-100.0) fL MCHC (31.0-37.0) g/dL Neutrophils # (1.3-7.7) k/uL Macrocytosis ABG O2 Saturation 99.0 H (94-97) % Sodium (137-145) mmol/L Carbon Dioxide (22-30) mmol/L BUN (7-17) mg/dL Creatinine (0.52-1.04) mg/dL Glucose (74-99) mg/dL POC Glucose (mg/dL) 326 H (75-99) mg/dL Total Protein (6.3-8.2) g/dL Albumin (3.5-5.0) g/dL Methylmalonic Acid (<0.40) umol/L Microbiology - Last 24 Hours (Table) 08/31/21 11:11 Blood Culture - Preliminary Blood No Growth after 120 hours 08/31/21 11:27 Blood Culture - Preliminary Blood No Growth after 120 hours Assessment and Plan Plan: Assessment: 1. End-stage renal disease maintained on hemodialysis on Sunday schedule. 2. Hypertensive emergency. Improved. 3. Volume overload. Improved with ultrafiltration. 4. Anemia of chronic kidney disease maintained on Aranesp. 5. Hyponatremia secondary to chronic kidney disease. Also component of hyperglycemia. 6. Metabolic acidosis secondary to chronic kidney disease. Expect improvement postdialysis. Plan: Hemodialysis today. Prognosis guarded. Concern for anoxic brain injury.
--- NOTE | 2021-09-06 11:01 | P.PN ---
Subjective Progress Note Date: 09/06/21 This is a 76-year-old female patient with multiple comorbidities, including left-sided chronic systolic CHF, cardiomyopathy with ejection fraction of 40- 45%, dual-chamber by V pacemaker implantation which was surgically revised, with a generator change, and pocket revision a year ago and left ventricular e picardial lead was implanted. History is also significant for insulin-dependent diabetes mellitus type 2, previous history of TIAs, hypertension, hyperlipidemia, end-stage renal disease, on hemodialysis, morbid obesity, obstructive sleep apnea with home CPAP, and degenerative osteoarthritis. She wa s brought in to the emergency department on 08/31/2021 per EMS for unresponsiveness, it's unknown "alerted the 911, there is no family at the bedside. On arrival patient was completely unresponsive. She was found at home for an unknown period of down time. Blood sugar at the scene was 50, she rec eived 1 dose of 50% dextrose at the scene, repeat blood sugar was within normal limits, there was no improvement in the mental status. Her vital signs were otherwise stable except for hypertension with a systolic blood pressure in the 200s over 110s. Unknown trauma. Patient is unable to provide any form of history. Patient was intubated and placed on mechanical ventilator for protection of airway, she is currently on assist control mode of ventilation with a rate of 20, tidal vitamins 400, FiO2 of 100% and PEEP of 5, her chest x- ray showing diffuse interstitial pattern correlating for CHF versus interstitial pneumonia, dual lead cardiac device, no sizable pneumothorax. Brain CT showed d egenerative and nonspecific faint white matter changes most typical of remote white matter ischemia. Admission blood work showed a white blood cell count of 11.4, hemoglobin of 9.2, INR was 0.9, BNP is still pending. Blood gas post intubation showed pO2 of greater than 400, pCO2 of 40, and pH of 7.42, this was done on the above-mentioned ventilator settings. Patient was given labetalol for blood pressure control, she was started on nitroglycerin infusion, Diprivan, she is on subcu heparin, her blood sugars being closely monitored, nephrology has been consulted for hemodialysis, and we were consulted for ICU management On today's evaluation of 09/01/2021, the patient remains intubated on a mechanical ventilator. Note that the patient presented to us into patient was completely unresponsive. The patient was brought into the emergency department and the patient was intubated and placed on a mechanical ventilator. Apparently, her sugars were low at home and the patient was treated accordingly. Blood sugars were fine in the hospital. The CAT scan of the brain showed no acute abnormalities and there was evidence of remote white matter ischemia. Overnight, the patient received hemodialysis of the chest x-ray from today shows marked improvement in the volume status. The patient has already missed hemodialysis earlier prior to her hospital admission. The chest x-ray from to day shows a right IJ permacath. ET tube is in a good location. The patient also has a permanent pacemaker in place. There is some atelectatic changes in the left lung base. Her blood pressure remains elevated and the patient is going to be started on Cleviprex for tighter blood pressure control. Meanwhile, earlier this morning, the patient was taken off propofol and unfortunately we haven't seen reasonable neurologic recovery yet. We are going to give the patient another few hours to evaluate her mental status. She remains on a mechanical ventilator on assist control mode at the rate of 20, tidal volume of 400, FiO2 of 40% with a PEEP of 5. Blood gases are excellent today shows a pO2 of 116, pH is at 7.47 with a pCO2 of 38. White cell count is at 6.9. Hemoglobin is 8.1 and the patient is chronically anemic. BN is a 33 with a creatinine of 5.1 and a potassium level is at 4.3. Electrodes are all within normal limits. No seizure activity has been noted. No fever. Hemodynamically, the patient is hypertensive. Urine output is 0. The patient is on IV orthotics. The patient is on subcu heparin. No antibiotics for now. Aspirin and Plavix have been resumed. Neuro workup was also initiated. The patient was seen by neurology. Carotid ultrasound showed a moderate to severe atherosclerotic changes involving the left internal carotid artery which is in the order of 50-69%. On 09/02/2021 patient seen in follow-up in the intensive care unit, patient still remains comatose, Diprivan has been on hold since 8:30 yesterday morning on 09/01/2021, patient has not regained consciousness, we are told by the nursing staff at times she'll open her eyes slightly, however I did not observe this. She does not follow any meaningful command, she does not withdraw from pain, she has no cough or gag reflex, corneal reflex, and positive Babinski reflex, current vent settings are assist control mode of ventilation with a rate of 20, tidal volume is 400, FiO2 of 40% and PEEP of 5, this morning's blood gas shows pO2 of 129, pCO2 of 39, and pH is 7.42, and FiO2 was subsequently dropped down to 30%, she is currently on 0.9 normal saline at a rate of 10 ML per hour, and Cleviprex is being weaned down and is currently to 1 mg/h, oral medications were added by cardiology, and patient is receiving Norvasc 5 mg daily, and hydralazine 25 mg 3 times a day. She is tolerating to feedings and she is receiving vital high protein at 45 ML per hour with standard water flushes, she had hemodialysis session yesterday and 1.5 L of fluid was removed. Today's chest x-ray showing PD and continued retrocardiac and left basilar opacity small effusion with adjacent atelectasis, with possible background of mild pulmonary vascular congestion similar to the previous exam. She has had no fever overnight, hemodynamically she has been stable requiring no vasopressor support, and her blood pressure has been much better controlled. No hypoglycemic events overnight. Blood cultures have shown no growth thus far, sputum culture showing many PMNs, many gram-positive cocci, few budding his, rare gram-negative bacilli, final culture is pending, today's labs showing white blood cell count of 7.4, hemoglobin of 8.4, sodium of 134, potassium is 4.7, chloride is 105, BUN of 31, creatinine is 4.16. LFTs were within normal limits, ammonia level was less than 9, troponin was 0.027 urinalysis on admission showed 2+ protein, but no definite sign of infection, urine drug screen was positive for tricyclic antidepressants, serum alcohol level was less than 10, COVID-19 PCR was negative. Her sepsis , is negative thus far, toxicology is negative, repeat brain scan was done yesterday going no acute intracranial abnormality, EEG showed severe LAD ground slowing suggestive of generalized cerebral dysfunction as can be seen with toxic metabolic encephalopathy. No epileptiform activity was noted. Neurology is following. On today's evaluation on 09/04/2021 patient is seen in follow-up in intensive care unit, she remains intubated on mechanical ventilator, with assist control mode of ventilation with a rate of 20, tidal volume is 400, FiO2 of 30% and PEEP of 5, today's blood gas shows pO2 of 109, pCO2 of 38, and pH of 7.44, and this was done on the above-mentioned ventilator settings. Today's chest x-ray shows small left pleural effusion and mild pulmonary vessel congestion, ET tube 4.2 cm above the jacqueline, overall stable findings, compared the previous chest x-ray. Today's labs are still pending right now. Neurologically patient has not had any improvement in her neurological status, still remains unresponsive, does not open eyes to voice or pain, does not withdraw from pain, no cough or gag reflex does not breathing over the vent, she does have a positive corneal reflex, and positive Babinski. Does have a downward gaze when we open her eyes. She has been off sedation for greater than 72 hours at this point. Last CT of the brain on 09/01/2021 showed no acute intracranial endings, EEG showed severe slowing. Vital signs have been stable, no fever or chills, patient is in sinus mechanism not requiring any vasopressors, blood pressure has been stable. Blood and sputum cultures have shown no growth, patient has been receiving hemodialysis, she was dialyzed yesterday with removal of 2 L of fluid. Vital HP is going at 53 ML per hour which is goal, and patient is tolerating tube feedings well. Blood sugar is being closely monitored, and patient has not had any hypoglycemic events since admission. On 09/05/2021 patient seen in follow-up in the intensive care unit, she remains unresponsive, she has not made any improvement neurologically, she has remained off all sedation for greater than 96 hours, and even prior to being on sedation patient was completely unresponsive. She remains intubated, on assist-control mode of ventilation with a rate of 20, tidal volume is 400, FiO2 of 30% and PEEP of 5, display blood gas shows pO2 of 62, pCO2 of 37, pH of 7.41, this was done on above-mentioned vent settings, patient is currently on point and was seen at a rate of 20 ML per hour, no other drips, no vasopressor support, hemodynamically she is stable, she is of Cleviprex trip, blood pressure has been better controlled, she is receiving tube feedings in the form of vital HP at a rate of 53 ML per hour with a goal of 53 ML per hour, and stent of water flushes with 30 mL of water every 4 hours [id number]. Today's chest x-ray has been reviewed showing persistent cardiomegaly with dual-lead pacemaker improved central vascular congestion, persistent left basilar opacity. Vital signs have been stable overnight, no fever or chills, hemodynamically patient has been stable, today's labs have been reviewed showing white blood cell count of 11.6, hemoglobin of 8.4, blood gases as mentioned above, sodium is 131, potassium is 4.9, chloride is 102, CO2 is 20, BUN of 62, creatinine is 4.97, LFTs were within normal limits, TSH was 5.450, and free T4 was within normal limits at 2.12. Microbiology results have been reviewed, and blood and sputum cultures have been negative. Patient had hemodialysis Sunday on 09/03/2021 with removal of 2 L of fluid. Mild swelling involving lower extremities was noted overall seems to be improved since admission. Neurologically patient has remains the same, no cough or gag, positive corneal, positive Babinski, over does not open eyes, does not follow any command. She breathes slightly over the vent at times. On 09/06/2021 patient seen in follow-up in intensive care unit, there has been no change in her neurologically and overall clinical condition with the past 24 hours, she still remains unresponsive, and sedation has been off for 5 days, no response to painful stimuli. At times breathes slightly over the vent, does have a positive corneal, positive Babinski, no cough or gag reflex. Neurology did not think a repeat EGD was necessary as the previous one showed no evidence of seizures, only showed evidence of severe slowing suggestive of generalized cerebral dysfunction. Hemodynamically patient has remained stable, not requiring any vasopressor support, she has been off the Cleviprex, blood pressure is stable, she is due for hemodialysis treatment today, today's chest x-ray showing some worsening of the right lower lobe infiltrate vitals stable, patient has had no fever or chills. Today's labs have been reviewed, white blood cell count is 14, hemoglobin is 8.1, platelet count is 315, sodium is 1:30, potassium is 5.1, chloride is 99, CO2 is 19, BUN is 84, and creatinine 6.09. Cultures remain negative. Current vent settings are assist-control mode of ventilation with a rate of 20, tidal volume is 400, FiO2 30% and PEEP of 5, this morning's blood gas showed pO2 of 100%, pCO2 of 38, pH 7.40 and this was done on above-mentioned vent settings. Patient is tolerating tube feedings is receiving vital high protein at 60 ML per hour with a goal of 60. Objective - Vital Signs Vital signs: Vital Signs Temp 98.5 F 09/06/21 04:00 Pulse 70 09/06/21 10:00 Resp 17 09/06/21 10:00 BP 140/54 09/06/21 10:00 Pulse Ox 97 09/06/21 10:00 Intake & Output 09/05/21 09/06/21 09/06/21 18:59 06:59 18:59 Intake Total 895 960 70 Output Total 0 0 0 Balance 895 960 70 Weight 100.4 kg 101.5 kg Intake: IV 157 110 10 Pressure Bag 27 Sodium Chloride 0.9% 1, 130 110 10 000 ml @ 10 mls/hr IV . Q24H [facility] Rx#:[id number] Intake, IV Titration 100 Amount levETIRAcetam IV 500 mg 100 In Sodium Chloride 0.9% 100 ml @ 400 mls/hr IVPB Q12HR [facility] Rx#:[id number] Tube Feeding 618 660 60 Other 120 90 Output: Urine 0 0 0 Other: Voiding Method Indwelling Catheter Indwelling Catheter ABP, PAP, CO, CI - Last Documented Arterial Blood Pressure 127/48 - Exam GENERAL EXAM: Comatose intubated 76-year-old obese white female, on assist- control mode of ventilation with a rate of 20, tidal volume 400, FiO2 30% and PEEP 5 comfortable in no apparent distress. Patient has been off all sedation for the past 24 hours, has not regained consciousness, does not open eyes to voice or pain, does not follow any meaningful command, has no cough or gag reflex, does have a positive corneal reflex, does have a positive Babinski HEAD: Normocephalic/atraumatic. EYES: Normal reaction of pupils, equal size. Conjunctiva pink, sclera white. NOSE: Clear with pink turbinates. THROAT: No erythema or exudates. NECK: No masses, no JVD, no thyroid enlargement, no adenopathy. CHEST: No chest wall deformity. Symmetrical expansion. Right upper chest subclavian hemodialysis catheter in place LUNGS: Equal air entry with no crackles, wheeze, rhonchi or dullness. CVS: Regular rate and rhythm, normal S1 and S2, no gallops, no murmurs, no rubs ABDOMEN: Soft, nontender. No hepatosplenomegaly, normal bowel sounds, no guarding or rigidity. EXTREMITIES: No clubbing, no edema, no cyanosis, 2+ pulses and upper and lower extremities. MUSCULOSKELETAL: Muscle strength and tone normal. SPINE: No scoliosis or deformity SKIN: No rashes CENTRAL NERVOUS SYSTEM: Unresponsive. Patient has been off all sedation for the past 24 hours, has not regained consciousness, does not open eyes to voice or pa in, does not follow any meaningful command, has no cough or gag reflex, does have a positive corneal reflex, does have a positive Babinski. - Labs CBC & Chem 7: 09/06/21 05:27 09/06/21 05:27 Labs: Abnormal Lab Results - Last 24 Hours (Table) 09/02/21 09/05/21 09/05/21 Range/Units 11:20 11:40 17:00 WBC (3.8-10.6) k/uL RBC (3.80-5.40) m/uL Hgb (11.4-16.0) gm/dL Hct (34.0-46.0) % MCV (80.0-100.0) fL MCHC (31.0-37.0) g/dL Neutrophils # (1.3-7.7) k/uL Macrocytosis ABG O2 Saturation (94-97) % Sodium (137-145) mmol/L Carbon Dioxide (22-30) mmol/L BUN (7-17) mg/dL Creatinine (0.52-1.04) mg/dL Glucose (74-99) mg/dL POC Glucose (mg/dL) 238 H 262 H (75-99) mg/dL Total Protein (6.3-8.2) g/dL Albumin (3.5-5.0) g/dL Methylmalonic Acid 1.29 H (<0.40) umol/L 09/05/21 09/06/21 09/06/21 Range/Units 23:56 05:27 05:27 WBC 14.0 H (3.8-10.6) k/uL RBC 2.46 L (3.80-5.40) m/uL Hgb 8.1 L (11.4-16.0) gm/dL Hct 26.8 L (34.0-46.0) % MCV 109.0 H (80.0-100.0) fL MCHC 30.1 L (31.0-37.0) g/dL Neutrophils # 11.6 H (1.3-7.7) k/uL Macrocytosis Marked A ABG O2 Saturation (94-97) % Sodium 130 L (137-145) mmol/L Carbon Dioxide 19 L (22-30) mmol/L BUN 84 H (7-17) mg/dL Creatinine 6.09 H (0.52-1.04) mg/dL Glucose 319 H (74-99) mg/dL POC Glucose (mg/dL) 283 H (75-99) mg/dL Total Protein 5.0 L (6.3-8.2) g/dL Albumin 2.4 L (3.5-5.0) g/dL Methylmalonic Acid (<0.40) umol/L 09/06/21 09/06/21 Range/Units 05:30 06:06 WBC (3.8-10.6) k/uL RBC (3.80-5.40) m/uL Hgb (11.4-16.0) gm/dL Hct (34.0-46.0) % MCV (80.0-100.0) fL MCHC (31.0-37.0) g/dL Neutrophils # (1.3-7.7) k/uL Macrocytosis ABG O2 Saturation 99.0 H (94-97) % Sodium (137-145) mmol/L Carbon Dioxide (22-30) mmol/L BUN (7-17) mg/dL Creatinine (0.52-1.04) mg/dL Glucose (74-99) mg/dL POC Glucose (mg/dL) 326 H (75-99) mg/dL Total Protein (6.3-8.2) g/dL Albumin (3.5-5.0) g/dL Methylmalonic Acid (<0.40) umol/L Microbiology - Last 24 Hours (Table) 08/31/21 11:11 Blood Culture - Preliminary Blood No Growth after 120 hours 08/31/21 11:27 Blood Culture - Preliminary Blood No Growth after 120 hours Assessment and Plan Plan: Assessment: #1. Unresponsiveness, with unknown downtime, severe hypoglycemic encephalopathy related to prolonged hypoglycemia. Sepsis workup was negative, urine drug screen was negative. Brain CT showed degenerative and nonspecific white matter changes typical of remote white matter ischemia. EEG showed severe background slowing, with no epileptiform discharges. Repeat brain CT showed no acute intracranial abnormality. Patient has not showed meaningful neurological improvement, has be en off sedation for greater than 96 hours. Remains persistently unresponsive on 09/05/2021 without improvement in her neurological status. #2. Hypertensive emergency, improved, and patient off Cleviprex, currently on a combination of Coreg 25 mg twice daily, and hydralazine 25 mg twice daily, blood pressure is controlled. #3. Left Carotid stenosis of 50-69% #4. Acute hypoxic and likely hypercapnic respiratory failure related to the hypertensive emergency, and patient was intubated placed on mechanical ventilator in part due to altered mental status and protection of airway #5. End-stage renal disease on hemodialysis #6. Severe Obstructive sleep apnea on CPAP, with AHI index of 36.6 #7. Morbid obesity #8. Cardiomyopathy, with EF of 40-45%, status post dual-chamber by V pacemaker placement, and recent revision of the left epicardial lead, generator change and pocket revision in August 2020 #9. Hypertension #10. Hyperlipidemia #11. History of TIA #12. Diabetes mellitus type 2 #13. Degenerative arthritis #14. History of coronary artery disease Plan: Today's chest x-ray, labs and blood gases have been reviewed Continue with same ventilator settings patient is on minimal FiO2 and minimal PEEP requirement, No ventilation or oxygenation abnormality No fever or chills, vital signs are stable, Blood pressure is controlled, patient has been getting hemodialysis Neurologically patient has made no recovery since admission Patient remains unresponsive, with no improvement in her neurological status No episodes of hypoglycemia, patient is tolerating tube feedings Neurology did not think repeat EEG was necessary as clinically patient has shown no improvement in her level of consciousness or neurological response Urinalysis is quite poor based on her neurological response Pulmonary/critical care service recommends proceeding with comfort care at this point, if family is agreeable We're told by the nursing staff that son is planning on coming in today and is planning on making the patient comfortable I performed a history & physical examination of the patient and discussed their management with my nurse practitioner, Ofelia Bales. I reviewed the nurse practitioner's note and agree with the documented findings and plan of care. Lung sounds are positive for dim breath sounds throughout the lung baker. The findings and the impression was discussed with the patient. I attest to the documentation by the nurse practitioner. Time with Patient: Greater than 30
[2021-09-06 11:45] LABS: Glucose,Whole Blood 216 mg/dL (75-99)
[2021-09-06] MEDS: SODIUM CHLORIDE 0.9% 1,000 ML IV SCH (17:17)
[2021-09-06 17:23] LABS: Glucose,Whole Blood 265 mg/dL (75-99)
--- NOTE | 2021-09-06 20:14 | P.PN ---
Subjective Progress Note Date: 09/06/21 (Patient continued to be unresponsive) Progress note date of service 09/06/[address] Martinez Patient seen in ICU room 266. 1 [id number]. Mrs. Marylou Cabrera 76 years old white female was on [facility] for isolation after she had Covid19 and at that time treated in [facility]. Meanwhile she was initially admitted because of planning for fistula in the right upper extremities found to have hyperkalemia by the vascular surgeon Dr. Ruben Mosley and change of the procedure to port in the left infraclavicular for the hemodialysis and actually patient had several hemodialysis with the underlying end stage renal disease. Subsequently patient readmitted and found that she has still Covid and admitted at that time under Dr. Lozano hospitalist then transferred to [facility] subsequently. She discharged from [facility] and her son took her for her definite and she reported the back home at that time he she was doing well. New In a.m. her friend did visit her in the morning found air unresponsive he called the ambulance and when they arrived her blood sugar was 36 and repeat 50 they treated her with the D50 amps and heavy proteinuria to the ER at [facility] emergency room and she was received again another amp of D50 however she continued to be unresponsive with no movement no swallowing and no gag reflex. In the ER she was intubated and mechanical ventilation and for further testing was done initial CAT scan was negative and consultation with critical care /Dr. Gilberto bean has been seen her also prior to these admission in the [facility] for the underlying Covid. Patient stated unresponsive and neurological consultation was obtained from Dr. Neumann the neurologist and subsequently patient admitted to the ICU room 266. 1 Patient was followed by dialysis by Dr. Benoit with the hemodialysis and continued on the hemodialysis, laboratory today was done prior to that he will dialysis that she received today. Patient has no Lemus catheter with decrease or absent urine because of the hemodialysis and each time the pullout 2 L because of the edema status situation and IV. Patient seen today [id number] Temperature 99.1 F oral, pulse rate 80 per per minute respiratory rate 2018/m Blood pressure 159/58dropped to 111/46 and has been fluctuating. Pulse ox 99% on 30% FiO2 with the mechanical ventilation. Laboratories: WBC 14, hemoglobin 8.1, hematocrit 26.8. Sodium 130 potassium 5.1, chloride 99 carbon dioxide 19, BUN of 84 and creatinine 6.09 test prior to the dialysis as well as her glucose was 319 and she covered by insulin to scale. On the physical exam in ICU Patient unresponsive with vocal, tactile, or pinching Pupil still reactive minimally with thesedation for the last 3 days or 4 She is comfortable in bleeding with the endotracheal intubation through the oropharynx as well as she is on the mechanical ventilation not fighting it no coughing which usually happened for other patient able to come out She had feeding tube oropharyngeal Lung indicated with the machine. Heart regular sinus patient also had a pacemaker left infraclavicular Abdomen is positive bowel sounds no tenderness or degree massing on deep palpation Extremities: She had dorsal of the hand edema 2+ as well as on lower extremities and H dialysis the pullout fluid. Neurologically the telemetry neurology during the week and canceled the EEG that was ordered before with the underlying hypoglottis hypoglycemic encephalopathy. I could not explain within the Babinski done on the plantar surface was bestow elevation and we don't have any further neurology,. Assessment and plan Nonresponsive since admission On the vent and intubation Hemodialysis continue with end-stage renal disease. Diabetic nephropathy and diabetic neuropathy. Hypoglycemic encephalopathy. History of COPD Prior history of Covid 19 evaluated the respiratory disease prior to these event by 2-3 weeks. Cam sleep apnea. On admission acute hypoxic respiratory failure with intubation Plan: #1 Dr. Camp saw the patient today and he continue monitoring the patient #2 family still discussing the outcome and no decision so far was discussed from the family #3 patient family understand the grave situation for the patient. #4 we'll continue supportive care Objective - Vital Signs Vital signs: Vital Signs Temp 99.1 F 09/06/21 16:00 Pulse 73 09/06/21 19:00 Resp 18 09/06/21 19:00 BP 111/46 09/06/21 19:00 Pulse Ox 99 09/06/21 19:00 Intake & Output 09/06/21 09/06/21 09/07/21 06:59 18:59 06:59 Intake Total 960 750 70 Output Total 0 2000 Balance 960 -1250 70 Weight 101.5 kg Intake: IV 110 90 10 Sodium Chloride 0.9% 1, 110 90 10 000 ml @ 10 mls/hr IV . Q24H [facility] Rx#:[id number] Intake, IV Titration 100 Amount levETIRAcetam IV 500 mg 100 In Sodium Chloride 0.9% 100 ml @ 400 mls/hr IVPB Q12HR [facility] Rx#:[id number] Tube Feeding 660 360 60 Hemodialysis 300 Other 90 Output: Urine 0 0 Hemodialysis 2000 Other: Voiding Method Indwelling Catheter Indwelling Catheter ABP, PAP, CO, CI - Last Documented Arterial Blood Pressure 127/48 - Labs CBC & Chem 7: 09/06/21 05:27 09/06/21 05:27 Labs: Abnormal Lab Results - Last 24 Hours (Table) 09/02/21 09/05/21 09/06/21 Range/Units 11:20 23:56 05:27 WBC 14.0 H (3.8-10.6) k/uL RBC 2.46 L (3.80-5.40) m/uL Hgb 8.1 L (11.4-16.0) gm/dL Hct 26.8 L (34.0-46.0) % MCV 109.0 H (80.0-100.0) fL MCHC 30.1 L (31.0-37.0) g/dL Neutrophils # 11.6 H (1.3-7.7) k/uL Macrocytosis Marked A ABG O2 Saturation (94-97) % Sodium (137-145) mmol/L Carbon Dioxide (22-30) mmol/L BUN (7-17) mg/dL Creatinine (0.52-1.04) mg/dL Glucose (74-99) mg/dL POC Glucose (mg/dL) 283 H (75-99) mg/dL Total Protein (6.3-8.2) g/dL Albumin (3.5-5.0) g/dL Methylmalonic Acid 1.29 H (<0.40) umol/L 09/06/21 09/06/21 09/06/21 Range/Units 05:27 05:30 06:06 WBC (3.8-10.6) k/uL RBC (3.80-5.40) m/uL Hgb (11.4-16.0) gm/dL Hct (34.0-46.0) % MCV (80.0-100.0) fL MCHC (31.0-37.0) g/dL Neutrophils # (1.3-7.7) k/uL Macrocytosis ABG O2 Saturation 99.0 H (94-97) % Sodium 130 L (137-145) mmol/L Carbon Dioxide 19 L (22-30) mmol/L BUN 84 H (7-17) mg/dL Creatinine 6.09 H (0.52-1.04) mg/dL Glucose 319 H (74-99) mg/dL POC Glucose (mg/dL) 326 H (75-99) mg/dL Total Protein 5.0 L (6.3-8.2) g/dL Albumin 2.4 L (3.5-5.0) g/dL Methylmalonic Acid (<0.40) umol/L 09/06/21 09/06/21 Range/Units 11:43 17:21 WBC (3.8-10.6) k/uL RBC (3.80-5.40) m/uL Hgb (11.4-16.0) gm/dL Hct (34.0-46.0) % MCV (80.0-100.0) fL MCHC (31.0-37.0) g/dL Neutrophils # (1.3-7.7) k/uL Macrocytosis ABG O2 Saturation (94-97) % Sodium (137-145) mmol/L Carbon Dioxide (22-30) mmol/L BUN (7-17) mg/dL Creatinine (0.52-1.04) mg/dL Glucose (74-99) mg/dL POC Glucose (mg/dL) 216 H 265 H (75-99) mg/dL Total Protein (6.3-8.2) g/dL Albumin (3.5-5.0) g/dL Methylmalonic Acid (<0.40) umol/L Microbiology - Last 24 Hours (Table) 08/31/21 11:11 Blood Culture - Final Blood No Growth after 144 hours 08/31/21 11:27 Blood Culture - Final Blood No Growth after 144 hours
[2021-09-06] MEDS: ATORVASTATIN 40 MG TAB PO SCH (21:08)
[2021-09-07 00:05] LABS: Glucose,Whole Blood 300 mg/dL (75-99)
[2021-09-07 00:07] LABS: Glucose,Whole Blood 272 mg/dL (75-99)
[2021-09-07] MEDS: INSULIN ASPART (NovoLOG) 100 UNIT/ML VIAL SQ SCH ×3 (00:43→11:35)
[2021-09-07 05:27] VITALS: TEMP 99
[2021-09-07 05:29] LABS: Basophils % (A) 0 %; Eosinophils # (A) 0.1 k/uL (0-0.7); Eosinophils % (A) 0 %; HCT 24.8 % (34.0-46.0); HGB 7.6 gm/dL (11.4-16.0); Hypochromasia Slight; Lymphocytes # (A) 1.3 k/uL (1.0-4.8); Lymphocytes % (A) 9 %; MCH 32.4 pg (25.0-35.0); MCHC 30.6 g/dL (31.0-37.0); MCV 105.6 fL (80.0-100.0); Macrocytosis Moderate; Mean Platelet Volume 8.7; Monocytes # (A) 0.9 k/uL (0-1.0); Monocytes % (A) 6 %; Neutrophils # (A) 12.9 k/uL (1.3-7.7); Neutrophils % (A) 83 %; Platelet Count 316 k/uL (150-450); RBC 2.34 m/uL (3.80-5.40); RDW 14.5 % (11.5-15.5); WBC 15.6 k/uL (3.8-10.6)
[2021-09-07 05:49] LABS: Glucose,Whole Blood 255 mg/dL (75-99)
[2021-09-07 05:52] LABS: Albumin 2.4 g/dL (3.5-5.0); Calcium 8.8 mg/dL (8.4-10.2); Potassium 4.7 mmol/L (3.5-5.1); Total Bilirubin 0.3 mg/dL (0.2-1.3)
[2021-09-07] MEDS: LEVOTHYROXINE 25 MCG TAB PO SCH (06:05)
[2021-09-07 06:23] LABS: ABG Base Excess 1.6 mmol/L; ABG HCO3 26 mmol/L (21-25); ABG PCO2 39 mmHg (35-45); ABG PH 7.43 (7.35-7.45); ABG PO2 86 mmHg (83-108); ABG TCO2 27 mmol/L (19-24); Allen Test Performed? Yes
[2021-09-07] MEDS: carvediloL 12.5 MG TAB PO SCH (07:01)
[2021-09-07] MEDS: INSULIN DETEMIR (LEVEMIR) 100 UNIT/ML SYR SQ SCH (07:02)
--- NOTE | 2021-09-07 09:04 | P.PN ---
Subjective She is maintained on hemodialysis on Sunday schedule. Intubated. Blood pressure stable. No improvement in mentation. Vital signs are stable. HEENT: Intubated. LUNGS: Breath sounds decreased. HEART: Rate and Rhythm are regular. ABDOMEN: Soft, no distention. EXTREMITITES: 1+ edema. Objective - Vital Signs Vital signs: Vital Signs Temp 99 F 09/07/21 04:00 Pulse 75 09/07/21 07:00 Resp 20 09/07/21 07:00 BP 158/57 09/07/21 07:00 Pulse Ox 95 09/07/21 07:00 Intake & Output 09/06/21 09/07/21 09/07/21 18:59 06:59 18:59 Intake Total 750 600 10 Output Total 2000 0 Balance -1250 600 10 Weight 102.5 kg Intake: IV 90 120 10 Sodium Chloride 0.9% 1, 90 120 10 000 ml @ 10 mls/hr IV . Q24H [facility] Rx#:[id number] Tube Feeding 360 480 Hemodialysis 300 Output: Urine 0 0 Hemodialysis 1999 Other: Voiding Method Indwelling Catheter ABP, PAP, CO, CI - Last Documented Arterial Blood Pressure 127/48 - Labs CBC & Chem 7: 09/07/21 05:08 09/07/21 05:08 Labs: Abnormal Lab Results - Last 24 Hours (Table) 09/02/21 09/06/21 09/06/21 Range/Units 11:20 11:43 17:21 WBC (3.8-10.6) k/uL RBC (3.80-5.40) m/uL Hgb (11.4-16.0) gm/dL Hct (34.0-46.0) % MCV (80.0-100.0) fL MCHC (31.0-37.0) g/dL Neutrophils # (1.3-7.7) k/uL ABG HCO3 (21-25) mmol/L ABG Total CO2 (19-24) mmol/L Sodium (137-145) mmol/L BUN (7-17) mg/dL Creatinine (0.52-1.04) mg/dL Glucose (74-99) mg/dL POC Glucose (mg/dL) 216 H 265 H (75-99) mg/dL Total Protein (6.3-8.2) g/dL Albumin (3.5-5.0) g/dL Methylmalonic Acid 1.29 H (<0.40) umol/L 09/07/21 09/07/21 09/07/21 Range/Units 00:03 00:05 05:08 WBC 15.6 H (3.8-10.6) k/uL RBC 2.34 L (3.80-5.40) m/uL Hgb 7.6 L (11.4-16.0) gm/dL Hct 24.8 L (34.0-46.0) % MCV 105.6 H (80.0-100.0) fL MCHC 30.6 L (31.0-37.0) g/dL Neutrophils # 12.9 H (1.3-7.7) k/uL ABG HCO3 (21-25) mmol/L ABG Total CO2 (19-24) mmol/L Sodium (137-145) mmol/L BUN (7-17) mg/dL Creatinine (0.52-1.04) mg/dL Glucose (74-99) mg/dL POC Glucose (mg/dL) 300 H 272 H (75-99) mg/dL Total Protein (6.3-8.2) g/dL Albumin (3.5-5.0) g/dL Methylmalonic Acid (<0.40) umol/L 09/07/21 09/07/21 09/07/21 Range/Units 05:08 05:47 06:17 WBC (3.8-10.6) k/uL RBC (3.80-5.40) m/uL Hgb (11.4-16.0) gm/dL Hct (34.0-46.0) % MCV (80.0-100.0) fL MCHC (31.0-37.0) g/dL Neutrophils # (1.3-7.7) k/uL ABG HCO3 26 H (21-25) mmol/L ABG Total CO2 27 H (19-24) mmol/L Sodium 131 L (137-145) mmol/L BUN 70 H (7-17) mg/dL Creatinine 4.77 H (0.52-1.04) mg/dL Glucose 253 H (74-99) mg/dL POC Glucose (mg/dL) 255 H (75-99) mg/dL Total Protein 5.0 L (6.3-8.2) g/dL Albumin 2.4 L (3.5-5.0) g/dL Methylmalonic Acid (<0.40) umol/L Microbiology - Last 24 Hours (Table) 08/31/21 11:11 Blood Culture - Final Blood No Growth after 144 hours 08/31/21 11:27 Blood Culture - Final Blood No Growth after 144 hours Assessment and Plan Plan: Assessment: 1. End-stage renal disease maintained on hemodialysis on Sunday schedule. 2. Hypertensive emergency. Improved. 3. Volume overload. Improved with ultrafiltration. 4. Anemia of chronic kidney disease maintained on Aranesp. 5. Hyponatremia secondary to chronic kidney disease. Also component of hyperglycemia. 6. Metabolic acidosis secondary to chronic kidney disease. Improved postdialysis. Plan: Prognosis guarded. Concern for anoxic brain injury. Plan for terminal wean today.
[2021-09-07] MEDS ORDERED: ASPIRIN 81 MG ONE (09:48)
[2021-09-07] MEDS ORDERED: hydrALAZINE HCL 25 MG TAB ONE (09:48)
[2021-09-07] MEDS ORDERED: FOLIC ACID 1 MG TAB ONE (09:48)
[2021-09-07] MEDS ORDERED: CHLORHEXIDINE GLUCONATE 15 ML CUP MUCOUS MEM ONE (09:48)
[2021-09-07] MEDS ORDERED: amLODIPine 5 MG TAB ONE (09:48)
[2021-09-07] MEDS ORDERED: HEPARIN SODIUM,PORCINE 5,000 UNIT/ML 1 ML VIAL ONE (09:48)
[2021-09-07] MEDS ORDERED: CLOPIDOGREL 75 MG TAB ONE (09:48)
[2021-09-07] MEDS: CLOPIDOGREL 75 MG TAB PO SCH (10:33)
[2021-09-07] MEDS: FOLIC ACID 1 MG TAB PO SCH (10:33)
[2021-09-07] MEDS: CHLORHEXIDINE GLUCONATE 15 ML CUP MUCOUS MEM SCH (10:33)
[2021-09-07] MEDS: HEPARIN SODIUM,PORCINE/PF 5,000 UNIT/0.5 ML SYRINGE SQ SCH (10:33)
[2021-09-07] MEDS: amLODIPine 5 MG TAB PO SCH (10:33)
[2021-09-07] MEDS: ASPIRIN 81 MG PO SCH (10:33)
[2021-09-07] MEDS: CYANOCOBALAMIN 1,000 MCG/ML 1 ML VIAL IM SCH (10:34)
[2021-09-07] MEDS: hydrALAZINE HCL 25 MG TAB PO SCH (10:34)
[2021-09-07 11:20] VITALS: BMI 37.5
[2021-09-07 11:34] LABS: Glucose,Whole Blood 202 mg/dL (75-99)
[2021-09-07] MEDS ORDERED: MORPHINE SULFATE 10 MG/ML 1ML VIAL IVP STA (12:30)
[2021-09-07] MEDS ORDERED: ATROPINE OPHTH SOLN 1% 5ML BTL SUBLINGUAL PRN (12:33)
[2021-09-07] MEDS ORDERED: LORazepam 2 MG/ML INJ IV PRN (12:33)
[2021-09-07] MEDS ORDERED: GLYCOPYRROLATE 0.2 MG/ML 2 ML VIAL IVP PRN (12:33)
[2021-09-07] MEDS ORDERED: SCOPOLAMINE 1.5MG/72HR PATCH TRANSDERM SCH (12:45)
[2021-09-07] MEDS ORDERED: MORPHINE SULFATE (100 MG/2 ML) 100 MG in SODIUM CHLORIDE 0.9% 100 ML IV SCH (12:45)
--- NOTE | 2021-09-07 15:00 | P.PN ---
Subjective Progress Note Date: 09/07/21 This is a 76-year-old female patient with multiple comorbidities, including left-sided chronic systolic CHF, cardiomyopathy with ejection fraction of 40- 45%, dual-chamber by V pacemaker implantation which was surgically revised, with a generator change, and pocket revision a year ago and left ventricular e picardial lead was implanted. History is also significant for insulin-dependent diabetes mellitus type 2, previous history of TIAs, hypertension, hyperlipidemia, end-stage renal disease, on hemodialysis, morbid obesity, obstructive sleep apnea with home CPAP, and degenerative osteoarthritis. She wa s brought in to the emergency department on 08/31/2021 per EMS for unresponsiveness, it's unknown "alerted the 911, there is no family at the bedside. On arrival patient was completely unresponsive. She was found at home for an unknown period of down time. Blood sugar at the scene was 50, she rec eived 1 dose of 50% dextrose at the scene, repeat blood sugar was within normal limits, there was no improvement in the mental status. Her vital signs were otherwise stable except for hypertension with a systolic blood pressure in the 200s over 110s. Unknown trauma. Patient is unable to provide any form of history. Patient was intubated and placed on mechanical ventilator for protection of airway, she is currently on assist control mode of ventilation with a rate of 20, tidal vitamins 400, FiO2 of 100% and PEEP of 5, her chest x- ray showing diffuse interstitial pattern correlating for CHF versus interstitial pneumonia, dual lead cardiac device, no sizable pneumothorax. Brain CT showed d egenerative and nonspecific faint white matter changes most typical of remote white matter ischemia. Admission blood work showed a white blood cell count of 11.4, hemoglobin of 9.2, INR was 0.9, BNP is still pending. Blood gas post intubation showed pO2 of greater than 400, pCO2 of 40, and pH of 7.42, this was done on the above-mentioned ventilator settings. Patient was given labetalol for blood pressure control, she was started on nitroglycerin infusion, Diprivan, she is on subcu heparin, her blood sugars being closely monitored, nephrology has been consulted for hemodialysis, and we were consulted for ICU management On today's evaluation of 09/01/2021, the patient remains intubated on a mechanical ventilator. Note that the patient presented to us into patient was completely unresponsive. The patient was brought into the emergency department and the patient was intubated and placed on a mechanical ventilator. Apparently, her sugars were low at home and the patient was treated accordingly. Blood sugars were fine in the hospital. The CAT scan of the brain showed no acute abnormalities and there was evidence of remote white matter ischemia. Overnight, the patient received hemodialysis of the chest x-ray from today shows marked improvement in the volume status. The patient has already missed hemodialysis earlier prior to her hospital admission. The chest x-ray from to day shows a right IJ permacath. ET tube is in a good location. The patient also has a permanent pacemaker in place. There is some atelectatic changes in the left lung base. Her blood pressure remains elevated and the patient is going to be started on Cleviprex for tighter blood pressure control. Meanwhile, earlier this morning, the patient was taken off propofol and unfortunately we haven't seen reasonable neurologic recovery yet. We are going to give the patient another few hours to evaluate her mental status. She remains on a mechanical ventilator on assist control mode at the rate of 20, tidal volume of 400, FiO2 of 40% with a PEEP of 5. Blood gases are excellent today shows a pO2 of 116, pH is at 7.47 with a pCO2 of 38. White cell count is at 6.9. Hemoglobin is 8.1 and the patient is chronically anemic. BN is a 33 with a creatinine of 5.1 and a potassium level is at 4.3. Electrodes are all within normal limits. No seizure activity has been noted. No fever. Hemodynamically, the patient is hypertensive. Urine output is 0. The patient is on IV orthotics. The patient is on subcu heparin. No antibiotics for now. Aspirin and Plavix have been resumed. Neuro workup was also initiated. The patient was seen by neurology. Carotid ultrasound showed a moderate to severe atherosclerotic changes involving the left internal carotid artery which is in the order of 50-69%. On 09/02/2021 patient seen in follow-up in the intensive care unit, patient still remains comatose, Diprivan has been on hold since 8:30 yesterday morning on 09/01/2021, patient has not regained consciousness, we are told by the nursing staff at times she'll open her eyes slightly, however I did not observe this. She does not follow any meaningful command, she does not withdraw from pain, she has no cough or gag reflex, corneal reflex, and positive Babinski reflex, current vent settings are assist control mode of ventilation with a rate of 20, tidal volume is 400, FiO2 of 40% and PEEP of 5, this morning's blood gas shows pO2 of 129, pCO2 of 39, and pH is 7.42, and FiO2 was subsequently dropped down to 30%, she is currently on 0.9 normal saline at a rate of 10 ML per hour, and Cleviprex is being weaned down and is currently to 1 mg/h, oral medications were added by cardiology, and patient is receiving Norvasc 5 mg daily, and hydralazine 25 mg 3 times a day. She is tolerating to feedings and she is receiving vital high protein at 45 ML per hour with standard water flushes, she had hemodialysis session yesterday and 1.5 L of fluid was removed. Today's chest x-ray showing PD and continued retrocardiac and left basilar opacity small effusion with adjacent atelectasis, with possible background of mild pulmonary vascular congestion similar to the previous exam. She has had no fever overnight, hemodynamically she has been stable requiring no vasopressor support, and her blood pressure has been much better controlled. No hypoglycemic events overnight. Blood cultures have shown no growth thus far, sputum culture showing many PMNs, many gram-positive cocci, few budding his, rare gram-negative bacilli, final culture is pending, today's labs showing white blood cell count of 7.4, hemoglobin of 8.4, sodium of 134, potassium is 4.7, chloride is 105, BUN of 31, creatinine is 4.16. LFTs were within normal limits, ammonia level was less than 9, troponin was 0.027 urinalysis on admission showed 2+ protein, but no definite sign of infection, urine drug screen was positive for tricyclic antidepressants, serum alcohol level was less than 10, COVID-19 PCR was negative. Her sepsis , is negative thus far, toxicology is negative, repeat brain scan was done yesterday going no acute intracranial abnormality, EEG showed severe LAD ground slowing suggestive of generalized cerebral dysfunction as can be seen with toxic metabolic encephalopathy. No epileptiform activity was noted. Neurology is following. On today's evaluation on 09/04/2021 patient is seen in follow-up in intensive care unit, she remains intubated on mechanical ventilator, with assist control mode of ventilation with a rate of 20, tidal volume is 400, FiO2 of 30% and PEEP of 5, today's blood gas shows pO2 of 109, pCO2 of 38, and pH of 7.44, and this was done on the above-mentioned ventilator settings. Today's chest x-ray shows small left pleural effusion and mild pulmonary vessel congestion, ET tube 4.2 cm above the jacqueline, overall stable findings, compared the previous chest x-ray. Today's labs are still pending right now. Neurologically patient has not had any improvement in her neurological status, still remains unresponsive, does not open eyes to voice or pain, does not withdraw from pain, no cough or gag reflex does not breathing over the vent, she does have a positive corneal reflex, and positive Babinski. Does have a downward gaze when we open her eyes. She has been off sedation for greater than 72 hours at this point. Last CT of the brain on 09/01/2021 showed no acute intracranial endings, EEG showed severe slowing. Vital signs have been stable, no fever or chills, patient is in sinus mechanism not requiring any vasopressors, blood pressure has been stable. Blood and sputum cultures have shown no growth, patient has been receiving hemodialysis, she was dialyzed yesterday with removal of 2 L of fluid. Vital HP is going at 53 ML per hour which is goal, and patient is tolerating tube feedings well. Blood sugar is being closely monitored, and patient has not had any hypoglycemic events since admission. On 09/05/2021 patient seen in follow-up in the intensive care unit, she remains unresponsive, she has not made any improvement neurologically, she has remained off all sedation for greater than 96 hours, and even prior to being on sedation patient was completely unresponsive. She remains intubated, on assist-control mode of ventilation with a rate of 20, tidal volume is 400, FiO2 of 30% and PEEP of 5, display blood gas shows pO2 of 62, pCO2 of 37, pH of 7.41, this was done on above-mentioned vent settings, patient is currently on point and was seen at a rate of 20 ML per hour, no other drips, no vasopressor support, hemodynamically she is stable, she is of Cleviprex trip, blood pressure has been better controlled, she is receiving tube feedings in the form of vital HP at a rate of 53 ML per hour with a goal of 53 ML per hour, and stent of water flushes with 30 mL of water every 4 hours [id number]. Today's chest x-ray has been reviewed showing persistent cardiomegaly with dual-lead pacemaker improved central vascular congestion, persistent left basilar opacity. Vital signs have been stable overnight, no fever or chills, hemodynamically patient has been stable, today's labs have been reviewed showing white blood cell count of 11.6, hemoglobin of 8.4, blood gases as mentioned above, sodium is 131, potassium is 4.9, chloride is 102, CO2 is 20, BUN of 62, creatinine is 4.97, LFTs were within normal limits, TSH was 5.450, and free T4 was within normal limits at 2.12. Microbiology results have been reviewed, and blood and sputum cultures have been negative. Patient had hemodialysis Sunday on 09/03/2021 with removal of 2 L of fluid. Mild swelling involving lower extremities was noted overall seems to be improved since admission. Neurologically patient has remains the same, no cough or gag, positive corneal, positive Babinski, over does not open eyes, does not follow any command. She breathes slightly over the vent at times. On 09/06/2021 patient seen in follow-up in intensive care unit, there has been no change in her neurologically and overall clinical condition with the past 24 hours, she still remains unresponsive, and sedation has been off for 5 days, no response to painful stimuli. At times breathes slightly over the vent, does have a positive corneal, positive Babinski, no cough or gag reflex. Neurology did not think a repeat EGD was necessary as the previous one showed no evidence of seizures, only showed evidence of severe slowing suggestive of generalized cerebral dysfunction. Hemodynamically patient has remained stable, not requiring any vasopressor support, she has been off the Cleviprex, blood pressure is stable, she is due for hemodialysis treatment today, today's chest x-ray showing some worsening of the right lower lobe infiltrate vitals stable, patient has had no fever or chills. Today's labs have been reviewed, white blood cell count is 14, hemoglobin is 8.1, platelet count is 315, sodium is 1:30, potassium is 5.1, chloride is 99, CO2 is 19, BUN is 84, and creatinine 6.09. Cultures remain negative. Current vent settings are assist-control mode of ventilation with a rate of 20, tidal volume is 400, FiO2 30% and PEEP of 5, this morning's blood gas showed pO2 of 100%, pCO2 of 38, pH 7.40 and this was done on above-mentioned vent settings. Patient is tolerating tube feedings is receiving vital high protein at 60 ML per hour with a goal of 60. On 09/07/2021 patient can follow-up in the intensive care unit, there has been no change in her condition in the last 24 hours, patient remains unresponsive, she has not shown any change and any improvement in her neurological condition. She remains intubated, she has been off sedation for 6 days, her ventilator settings are assist control mode of ventilation with a rate of 20, Tylenol 400, FiO2 of 30% and PEEP of 5, blood gas shows pO2 of 86, pCO2 of 39, pH is 7.43 and this was done on the above-mentioned ventilator settings, no new chest x-ray today. Today's labs have been reviewed, white blood cell count is 15.6, hemoglobin is 7.6, sodium is 131, potassium is 4.7, chloride is 98, B1 is 70 creatinine 4.7. Patient had hemodialysis yesterday with removal of 2 L of fluid. Patient was being nurse with tube feedings and she was tolerating them well, she has had no fever or chills, her cultures have remained negative. In view of lack of improvement in her neurologic status the patient's family has decided to make her a DO NOT RESUSCITATE, and they're here today to proceed with removing the patient off life support and make her comfortable. Objective - Vital Signs Vital signs: Vital Signs Temp 99 F 09/07/21 04:00 Pulse 74 09/07/21 13:30 Resp 18 09/07/21 13:30 BP 99/50 09/07/21 13:30 Pulse Ox 57 L 09/07/21 13:30 Intake & Output 09/06/21 09/07/21 09/07/21 18:59 06:59 18:59 Intake Total 750 600 10 Output Total 2000 0 0 Balance -1250 600 10 Weight 102.5 kg 102.5 kg Intake: IV 90 120 10 Sodium Chloride 0.9% 1, 90 120 10 000 ml @ 10 mls/hr IV . Q24H [facility] Rx#:[id number] Tube Feeding 360 480 Hemodialysis 300 Output: Urine 0 0 0 Hemodialysis 1999 Other: Voiding Method Indwelling Catheter Indwelling Catheter ABP, PAP, CO, CI - Last Documented Arterial Blood Pressure 127/48 - Exam GENERAL EXAM: Comatose intubated 76-year-old obese white female, on assist- control mode of ventilation with a rate of 20, tidal volume 400, FiO2 30% and PEEP 5 comfortable in no apparent distress. Patient has been off all sedation for the past 24 hours, has not regained consciousness, does not open eyes to voice or pain, does not follow any meaningful command, has no cough or gag reflex, does have a positive corneal reflex, does have a positive Babinski HEAD: Normocephalic/atraumatic. EYES: Normal reaction of pupils, equal size. Conjunctiva pink, sclera white. NOSE: Clear with pink turbinates. THROAT: No erythema or exudates. NECK: No masses, no JVD, no thyroid enlargement, no adenopathy. CHEST: No chest wall deformity. Symmetrical expansion. Right upper chest subclavian hemodialysis catheter in place LUNGS: Equal air entry with no crackles, wheeze, rhonchi or dullness. CVS: Regular rate and rhythm, normal S1 and S2, no gallops, no murmurs, no rubs ABDOMEN: Soft, nontender. No hepatosplenomegaly, normal bowel sounds, no guarding or rigidity. EXTREMITIES: No clubbing, no edema, no cyanosis, 2+ pulses and upper and lower extremities. MUSCULOSKELETAL: Muscle strength and tone normal. SPINE: No scoliosis or deformity SKIN: No rashes CENTRAL NERVOUS SYSTEM: Unresponsive. Patient has been off all sedation for the past 24 hours, has not regained consciousness, does not open eyes to voice or pain, does not follow any meaningful command, has no cough or gag reflex, does have a positive corneal reflex, does have a positive Babinski. - Labs CBC & Chem 7: 09/07/21 05:08 09/07/21 05:08 Labs: Abnormal Lab Results - Last 24 Hours (Table) 09/06/21 09/07/21 09/07/21 Range/Units 17:21 00:03 00:05 WBC (3.8-10.6) k/uL RBC (3.80-5.40) m/uL Hgb (11.4-16.0) gm/dL Hct (34.0-46.0) % MCV (80.0-100.0) fL MCHC (31.0-37.0) g/dL Neutrophils # (1.3-7.7) k/uL ABG HCO3 (21-25) mmol/L ABG Total CO2 (19-24) mmol/L Sodium (137-145) mmol/L BUN (7-17) mg/dL Creatinine (0.52-1.04) mg/dL Glucose (74-99) mg/dL POC Glucose (mg/dL) 265 H 300 H 272 H (75-99) mg/dL Total Protein (6.3-8.2) g/dL Albumin (3.5-5.0) g/dL 09/07/21 09/07/21 09/07/21 Range/Units 05:08 05:08 05:47 WBC 15.6 H (3.8-10.6) k/uL RBC 2.34 L (3.80-5.40) m/uL Hgb 7.6 L (11.4-16.0) gm/dL Hct 24.8 L (34.0-46.0) % MCV 105.6 H (80.0-100.0) fL MCHC 30.6 L (31.0-37.0) g/dL Neutrophils # 12.9 H (1.3-7.7) k/uL ABG HCO3 (21-25) mmol/L ABG Total CO2 (19-24) mmol/L Sodium 131 L (137-145) mmol/L BUN 70 H (7-17) mg/dL Creatinine 4.77 H (0.52-1.04) mg/dL Glucose 253 H (74-99) mg/dL POC Glucose (mg/dL) 255 H (75-99) mg/dL Total Protein 5.0 L (6.3-8.2) g/dL Albumin 2.4 L (3.5-5.0) g/dL 09/07/21 09/07/21 Range/Units 06:17 11:32 WBC (3.8-10.6) k/uL RBC (3.80-5.40) m/uL Hgb (11.4-16.0) gm/dL Hct (34.0-46.0) % MCV (80.0-100.0) fL MCHC (31.0-37.0) g/dL Neutrophils # (1.3-7.7) k/uL ABG HCO3 26 H (21-25) mmol/L ABG Total CO2 27 H (19-24) mmol/L Sodium (137-145) mmol/L BUN (7-17) mg/dL Creatinine (0.52-1.04) mg/dL Glucose (74-99) mg/dL POC Glucose (mg/dL) 202 H (75-99) mg/dL Total Protein (6.3-8.2) g/dL Albumin (3.5-5.0) g/dL Microbiology - Last 24 Hours (Table) 08/31/21 11:11 Blood Culture - Final Blood No Growth after 144 hours 08/31/21 11:27 Blood Culture - Final Blood No Growth after 144 hours Assessment and Plan Plan: Assessment: #1. Unresponsiveness, with unknown downtime, severe hypoglycemic encephalopathy related to prolonged hypoglycemia. Sepsis workup was negative, urine drug screen was negative. Brain CT showed degenerative and nonspecific white matter changes typical of remote white matter ischemia. EEG showed severe background slowing, with no epileptiform discharges. Repeat brain CT showed no acute intracranial abnormality. Patient has not showed meaningful neurological improvement, has been off sedation for greater than 96 hours. Remains persistently unresponsive on 09/07/2021 without improvement in her neurological status. #2. Hypertensive emergency, improved, and patient off Cleviprex, currently on a combination of Coreg 25 mg twice daily, and hydralazine 25 mg twice daily, blood pressure is controlled. #3. Left Carotid stenosis of 50-69% #4. Acute hypoxic and likely hypercapnic respiratory failure related to the hypertensive emergency, and patient was intubated placed on mechanical ventilator in part due to altered mental status and protection of airway #5. End-stage renal disease on hemodialysis #6. Severe Obstructive sleep apnea on CPAP, with AHI index of 36.6 #7. Morbid obesity #8. Cardiomyopathy, with EF of 40-45%, status post dual-chamber by V pacemaker placement, and recent revision of the left epicardial lead, generator change and pocket revision in August 2020 #9. Hypertension #10. Hyperlipidemia #11. History of TIA #12. Diabetes mellitus type 2 #13. Degenerative arthritis #14. History of coronary artery disease Plan: Today's labs and blood gases have been reviewed Vital signs have been stable Blood pressure has been stable Patient has been receiving hemodialysis No fever or chills Cultures negative No episodes of hypoglycemia Patient has had no improvement in her level of consciousness or neurological response since admission Patient's family has decided to proceed with comfort care measures at this time and remove the patient off life support This is appropriate given patient's lack of neurologic improvement Extubate the patient to a nasal cannula or simple mask Start morphine infusion if needed, we'll start with IV push morphine and Ativan for comfort Prognosis is extremely poor May move the patient out of intensive care unit to regular medical surgical bed after extubation I performed a history & physical examination of the patient and discussed their management with my nurse practitioner, Ofelia Bales. I reviewed the nurse practitioner's note and agree with the documented findings and plan of care. Lung sounds are positive for dim breath sounds throughout the lung baker. The findings and the impression was discussed with the patient. I attest to the documentation by the nurse practitioner. Time with Patient: Greater than 30
[2021-09-07 15:48] VITALS: BP 76/35; PULSE 83; RESP 9
--- NOTE | 2021-09-07 18:07 | P.DS ---
Providers Date of admission: 08/31/21 11:48 Expected date of discharge: 09/07/21 () Attending physician: Kwan Gordon Consults: 08/31/21 11:47 Consult Physician Routine Consulting Provider: Hilary Dubon Consult Reason/Comments: dialysis Do you want consulting provider notified?: Already Contacted 08/31/21 12:55 Consult Physician Routine Consulting Provider: Elia Wood Consult Reason/Comments: AMS Do you want consulting provider notified?: Already Contacted Primary care physician: Kwan Gordon Discharge summary Date of service 09/07/[address] Gordon Disposition 16:02. On 09/07/2021 room #266 Patient seen and examined today in the ICU 266 with no breath sound no movement and normal heart sound and Final diagnosis: #1 hypoglycemic on admission of unknown time. #2 metabolic encephalopathy with low wave EEG without spikes with no seizures #2 end-stage renal disease on hemodialysis through fourth on the right infraclavicular. #3 obstructive sleep apnea #4 COPD #5 acute hypoxic respiratory failure. #6 diabetes mellitus type 2 on insulin dependent. #7 no recovery of her brain function was being unconscious and unresponsive #8 left infraclavicular pacemaker for cardiac dysrhythmia. #9 atherosclerotic heart disease. And impaired ejection fraction #10 diabetic nephropathy with end stage renal disease, diabetic neuropathy. 11 hypertension with hypertensive heart disease #12 history Covid19 pneumonia with stool admission to NICU [facility] with the associated pneumonia and hemodialysis. Isolated for 2 weeks [facility] where she had hemodialysis and also treated for Covid 19. E R presentation: EMS brought the patient from home after her friend called the EMS found her unresponsive, EMS found that her blood sugar 36 treated with amp of D50 and brought to the emergency room at [facility]. In the ER patient continued to be checked found as her blood glucose is 50 and she receive a second one of D50 and subsequently in the ER physician found that she had acute( toxemia respiratory failure and patient intubated and placed on the machine for mechanical ventilation as well as head several computed tomography scan, Patient also seen by critical care and pulmonary, as well as the neurologist and with for further evaluation clinically with no response patient was admitted to the ICU room 266 and continue to be supportive care and monitor and continue the mechanical ventilation as well as the feeding. Patient had also hemodialysis started in the ER and subsequently continued in the ICU by the nephrology and supported her renal function as well. Patient was hypertensive the ICU as well as they are and several medication was given as well as with the dialysis the did do hemofiltration and pulling out fluids with the patient has end-stage renal disease no urine output. With the continuing follow-up of the family today decided that the patient needed to be comfort care and the critical care and pulmonary discontinuation of the intubation and mechanical ventilation and started her on morphine therapy as well as the patient did not have hemodialysis today with the intention of the family comfort care. As patient the ventilatory support was stopped her blood pressure dropped and patient 16 :02 hour on date of 09/07/2021. Patient Condition at Discharge: Serious Plan - Discharge Summary Discharge Rx Participant: No New Discharge Prescriptions: New Atropine Ophth Soln 1% 5Ml [Isopto Atropine 1% 5Ml] 2 drops SUBLINGUAL Q4HR PRN ml PRN Reason: Excess Secretions Discontinued Gabapentin [Neurontin] 300 mg PO BID allopurinoL [Zyloprim] 100 mg PO DAILY Carvedilol 25 mg PO BID NIFEdipine XL [Procardia XL] 60 mg PO DAILY Imipramine [Tofranil] 25 mg PO BID calcitrioL [Rocaltrol] 0.25 mcg PO DAILY INSULIN ASPART (NovoLOG) [NovoLOG (formulary)] See Protocol SQ AC-TID Clopidogrel [Plavix] 75 mg PO DAILY #30 tab hydrALAZINE HCL 25 mg PO BID Levothyroxine Sodium [Synthroid] 25 mcg PO DAILY Ergocalciferol [Vitamin D2 (1250 Mcg = 44352 Iu)] 1,250 mcg PO Q7D Aspirin EC [Ecotrin Low Dose] 81 mg PO DAILY Insulin Detemir (Levemir) [Levemir] 10 unit SQ DAILY Diclofenac Sodium Gel [Voltaren Gel] 2 - 4 gm TOPICAL QID PRN PRN Reason: Pain Vision Shield 1 tab PO BID Atorvastatin [Lipitor] 40 mg PO HS Insulin Detemir (Levemir) [Levemir] 16 unit SQ HS Discharge Medication List Atropine Ophth Soln 1% 5Ml [Isopto Atropine 1% 5Ml] 2 drops SUBLINGUAL Q4HR PRN ml 09/07/21 [Rx] Follow up Appointment(s)/Referral(s): Kwan Gordon MD [Primary Care Provider] - As Needed (Patient on 16:02) Discharge Disposition: - Preliminary Cause of Preliminary Cause of : Hypoxemic encephalopathy, not recovering was nonresponsive, acute hypoxic r
== END 2021-09-07 17:45 | disposition expired | DRG 637 ==
LOC: EC 10:06 → 2SICU 11:48
PROVIDERS: ADMIT Internal Medicine; ATTEND Internal Medicine
PROC: 0BH17EZ Insertion of Endotracheal Airway into Trachea, Via Natural or Artificial Opening (ICD-10-PCS; principal; 2021-08-31)
PROC: 5A1955Z Respiratory Ventilation, Greater than 96 Consecutive Hours (ICD-10-PCS; principal; 2021-08-31)
PROC: 0D9670Z Drainage of Stomach with Drainage Device, Via Natural or Artificial Opening (ICD-10-PCS; 2021-08-31)
PROC: 5A1D70Z Performance of Urinary Filtration, Intermittent, Less than 6 Hours Per Day (ICD-10-PCS; 2021-09-01)
PROC: 3E0G76Z Introduction of Nutritional Substance into Upper GI, Via Natural or Artificial Opening (ICD-10-PCS; 2021-09-01)
PROC: 4A133B1 Monitoring of Arterial Pressure, Peripheral, Percutaneous Approach (ICD-10-PCS; 2021-09-02)
PROC: 03HY32Z Insertion of Monitoring Device into Upper Artery, Percutaneous Approach (ICD-10-PCS; 2021-09-02)
PROC: 4A133J1 Monitoring of Arterial Pulse, Peripheral, Percutaneous Approach (ICD-10-PCS; 2021-09-02)
DX: E11.641 Type 2 diabetes mellitus with hypoglycemia with coma (principal); J96.01 Acute respiratory failure with hypoxia; J96.02 Acute respiratory failure with hypercapnia; G92.8 Other toxic encephalopathy; N18.6 End stage renal disease; I13.2 Hypertensive heart and chronic kidney disease with heart failure and with stage 5 chronic kidney disease, or end stage renal disease; G93.1 Anoxic brain damage, not elsewhere classified; I42.9 Cardiomyopathy, unspecified; N25.81 Secondary hyperparathyroidism of renal origin; I50.22 Chronic systolic (congestive) heart failure; I16.1 Hypertensive emergency; E87.1 Hypo-osmolality and hyponatremia; E87.2 Acidosis; J84.9 Interstitial pulmonary disease, unspecified; J98.11 Atelectasis; D63.1 Anemia in chronic kidney disease; E77.8 Other disorders of glycoprotein metabolism; E88.09 Other disorders of plasma-protein metabolism, not elsewhere classified; J44.9 Chronic obstructive pulmonary disease, unspecified; E11.22 Type 2 diabetes mellitus with diabetic chronic kidney disease; E11.42 Type 2 diabetes mellitus with diabetic polyneuropathy; E11.65 Type 2 diabetes mellitus with hyperglycemia; E66.01 Morbid (severe) obesity due to excess calories; G31.1 Senile degeneration of brain, not elsewhere classified; Z99.2 Dependence on renal dialysis; Z79.4 Long term (current) use of insulin; Z51.5 Encounter for palliative care; Z66 Do not resuscitate; Z20.822 Contact with and (suspected) exposure to COVID-19; I65.22 Occlusion and stenosis of left carotid artery; R90.82 White matter disease, unspecified; E87.5 Hyperkalemia; D53.9 Nutritional anemia, unspecified; I49.9 Cardiac arrhythmia, unspecified; I49.3 Ventricular premature depolarization; Z68.38 Body mass index [BMI] 38.0-38.9, adult; G47.33 Obstructive sleep apnea (adult) (pediatric); E78.5 Hyperlipidemia, unspecified; E03.9 Hypothyroidism, unspecified; E53.8 Deficiency of other specified B group vitamins; E83.9 Disorder of mineral metabolism, unspecified; D75.89 Other specified diseases of blood and blood-forming organs; D72.829 Elevated white blood cell count, unspecified; R32 Unspecified urinary incontinence; I25.10 Atherosclerotic heart disease of native coronary artery without angina pectoris; M19.90 Unspecified osteoarthritis, unspecified site; Z79.82 Long term (current) use of aspirin; Z79.02 Long term (current) use of antithrombotics/antiplatelets; Z79.890 Hormone replacement therapy; Z79.899 Other long term (current) drug therapy; Z86.16 Personal history of COVID-19; Z86.73 Personal history of transient ischemic attack (TIA), and cerebral infarction without residual deficits; Z98.891 History of uterine scar from previous surgery; Z87.19 Personal history of other diseases of the digestive system; Z87.448 Personal history of other diseases of urinary system; Z87.39 Personal history of other diseases of the musculoskeletal system and connective tissue; Z95.0 Presence of cardiac pacemaker; Z87.01 Personal history of pneumonia (recurrent); Z98.890 Other specified postprocedural states; Z71.3 Dietary counseling and surveillance; Z82.49 Family history of ischemic heart disease and other diseases of the circulatory system; Z80.3 Family history of malignant neoplasm of breast
CPT/HCPCS: 36415; 36600; 70450; 71045; 80048; 80053; 80306; 80320; 81001; 82140; 82550; 82607; 82746; 82805; 83090; 83540; 83550; 83605; 83921; 84132; 84425; 84439; 84443; 84484; 85025; 85610; 85730; 86706; 87040; 87070; 87205; 87340; 87635; 90935; 93005; 93306; 93880; 94002; 94003; 95822; 96365; 96366; 96375; 99285